=== PATIENT | female | born 1940 | race Caucasian/White ===

== ENCOUNTER 2020-09-04 13:50 | Emergency (ER) | payer MEDICARE, BC, SELFPAY ==
[2020-09-04 13:55] VITALS: BP 132/67; PULSE 73; RESP 18; TEMP 37; O2SAT 98; BMI 29.2
--- NOTE | 2020-09-04 14:12 | CT_ITS ---
EXAMINATION: CT SOFT TISSUE NECK WITHOUT CONTRAST CLINICAL INFORMATION: Coarse voice atrophy and old COMPARISON: Chest CT performed the same day TECHNIQUE: Helical imaging was performed in the axial plane with generation of coronal and sagittal reformatted images. This CT examination was performed using dose optimization techniques as appropriate, variously including the following: *Automated exposure control *Adjustment of mA and/or kV according to patient size (this includes techniques or standardized protocols for targeted exams where dose is matched to indication/reason for exam; i.e. extremities or head) *Use of iterative reconstruction technique DLP: 396 mGy-cm FINDINGS: There is abnormal wall thickening of the cervical and visualized proximal thoracic esophagus. There is abnormal soft tissue seen in the tracheoesophageal groove. There are small superior mediastinal lymph nodes. No foreign body or abnormal air collection is seen. The larynx is normal. The epiglottis and aryepiglottic folds are normal. The naso and oropharynx are normal. There is shotty cervical lymphadenopathy. There is bilateral carotid calcification. The salivary glands are unremarkable. The thyroid gland is unremarkable. The visualized paranasal sinuses, mastoid air cells and middle ears are clear. There is multilevel level degenerative spondylosis and degenerative disc disease. IMPRESSION: Wall thickening of the cervical and visualized proximal thoracic esophagus with abnormal soft tissue in the tracheoesophageal groove and small lymph nodes in the superior mediastinum. Esophagitis and neoplasm should be considered. No abnormal air collection or foreign body seen however esophageal perforation and possible mediastinitis should still be considered. Clinical correlation is recommended. Further evaluation with CT with IV and oral esophageal paste or barium swallow should be considered.
--- NOTE | 2020-09-04 14:12 | ED.SOB ---
HPI - SOB/Dyspnea General Chief Complaint: Skin/Abscess/Foreign Body Stated Complaint: f b in throat Time Seen by Provider: 09/04/20 14:12 Source: patient Mode of arrival: ambulatory Limitations: no limitations History of Present Illness MD elicited complaint: shortness of breath and cough Pertinent past history: aspiration Onset (ago): unknown (930AM today) Context: choking/aspiration (took a handful of large vitamins and felt they got stuck) Timing: constant Severity: moderate Exacerbating factors: nothing Relieving factors: nothing Associated symptoms: cough Treatment prior to arrival: none Related Data Allergies Allergy/AdvReac Type Severity Reaction Status Date / Time Sulfa (Sulfonamide Allergy Severe HIVES Verified 09/04/20 13:55 Antibiotics) [SULFA(SULFONAMIDE ANTIBIOTICS)] sulfur Allergy Unknown Unknown Verified 09/04/20 13:55 Review of Systems Review of Systems: Constitutional : No Fever, No Chills ENT/Mouth : No sore throat, No Rhinorrhea, No Swallowing Difficulty, hoarse voice Eyes: No Eye Pain, No Swelling, No Redness Cardiovascular : No Chest Pain, positive SOB, No Orthopnea, no Edema Respiratory : No Cough, No Sputum, intermittent Wheezing, positive dyspnea Gastrointestinal : No Nausea, No Vomiting, No Diarrhea, No abdominal Pain, No Hematochezia, No Melena Genitourinary : No Dysuria, No Urinary Frequency, No Hematuria Musculoskeletal : No joint pain, No Myalgias Skin : No Skin Lesions, No rash Neuro : No Weakness, No Numbness, No Dizziness, No Headache Psych : No Anxiety/Panic, No Depression Heme/Lymph: No Bruising, No Lymphadenopathy All other systems reviewed and are negative [facility] Past Medical History Medical History Anemia Diverticulitis FH: cholecystectomy HTN (hypertension) Restless leg Surgical History History of bunionectomy Social History Social History (Updated 09/04/20 @ 14:33 by Dena Motta DO) Alcohol intake: never Smoking Status: Never smoker Use of substances other than those prescribed or required for medical reasons: No Advance Directives: No Advance Directives Information Provided: No Physical Exam Vital Signs: Vital Signs: Vital Signs Temp Pulse Resp BP Pulse Ox 09/04/20 15:37 98.1 F 66 18 138/61 98 09/04/20 13:55 98.6 F 73 18 132/67 98 Body Mass Index 29.2 Appearance: Alert. Oriented X3. No acute distress. Eyes: Pupils equal, round and reactive to light. ENT: Pharynx normal. hoarse voice Neck: Normal inspection. Neck supple. CVS: Normal heart rate and rhythm. Pulses normal. Respiratory: No respiratory distress. Breath sounds normal. Abdomen: Soft and nontender. Skin: Skin warm and dry. Normal skin color. Normal skin turgor. Extremities: No lower extremity edema. No calf ttp Neuro: Oriented X 3. No motor deficit. No sensory deficit. Course Course Course Narrative: 506pm call from Dr. Chaves - aware of plan in ED, agrees with plan of care possible study tomorrow. start on zosyn , plan to see in AM Reevaluation(s) Reevaluation #1: call from [facility] - cervical esophagus and thoracic esophagus is abnormal and fat is abnormal no FB or abnormal air collection, ?esophagitis or tumor, ?perforation not sure vs mediastinitis, discuss with thoracic surgery - CT of chest with IV contrast and possible oral esophageal paste vs barium swallow. Time: 16:03 Reevaluation #2: thoracic surgery aware will call back with results Time: 16:49 Reevaluation #3: patient discussed with Isidro Rojas from thoracics who recommend swallow study, HOLD antibiotics, GI consult - aware we cannot obtain barium study and are attempting CT scan with oral contrast, hospitalist aware, signed out to Dr. Araujo pending imagined and GI call back MDM - SOB/Dyspnea MDM Narrative Medical decision making narrative: 80 yo female with hoarse voice and feels short of breath since taking a handful of vitamins at 930AM and feeling they are stuck at this time, she feels they are melting she has normal O2 sats but she is hoarse, CT chest for aspiration/ CT neck for FB ordered, IV dexamethasone for swelling ordered Lab Data Result diagrams: 09/04/20 14:22 09/04/20 14:22 Labs: Lab Results 09/04/20 09/04/20 09/04/20 Range/Units 14:22 14:22 14:22 WBC 8.5 (4.8-10.8) X10*3/uL RBC 4.17 L (4.20-5.50) X10*6/uL Hgb 13.6 (12.0-16.0) g/dl Hct 40.1 (37-47) % MCV 96.2 (80-98) fL MCH 32.6 (27.0-33.0) pg MCHC 33.9 (31.0-35.0) g/dl RDW 12.0 (11.0-16.0) % Plt Count 203 (160-400) X10*3/uL MPV 9.2 L (9.4-12.3) fL Immature Gran % (Auto) 0.6 H (0.0-0.4) % Neut % (Auto) 43.8 L (45-73) % Lymph % (Auto) 44.1 H (20-40) % [place] % (Auto) 6.8 (2-11) % Eos % (Auto) 2.9 (0-4) % Baso % (Auto) 1.8 (0-2) % Lymph # (Auto) 3.7 (1.2-4.9) X10*3/uL [place] # (Auto) 0.6 (0.1-1.2) X10*3/uL Eos # (Auto) 0.3 (0.0-0.4) X10*3/uL Baso # (Auto) 0.2 (0.0-0.2) X10*3/uL Abs Immat Gran (auto) 0.05 H (0.00-0.03) X10*3/uL Absolute Neuts (auto) 3.7 (2.0-8.3) X10*3/uL Absolute Nucleated RBC 0.000 (0.0-0.012) X10*3/uL Nucleated RBC % (auto) 0.0 (0.0-0.2) /100WBC PT 10.8 (10.8-13.0) SEC INR 0.9 (0.9-1.1) APTT 30.0 (24.1-38.0) SEC Sodium 140 (135-145) mmol/L Potassium 4.7 (3.3-5.1) mmol/l Chloride 107 (96-108) mmol/L Carbon Dioxide 24 (22-29) mmol/L Anion Gap 14 (12-20) BUN 21 H (9-16) mg/dL Creatinine 1.26 (0.5-1.4) mg/dL Estim Creat Clear Calc 36.4 Estimated GFR 41 Random Glucose 119 H (60-115) mg/dL Calcium 9.3 (8.4-10.2) mg/dL ECG Data ECG interpretation date: 09/04/20 ECG interpretation time: 14:31 Interpretation: Rate: 71 Rhythm: NSR [place]: normal Normal P waves. Normal MARLENE. Normal QRS complex. ST T wave : normal qTC: normal prior studies: none, no acute ischemia The study has been interpreted contemporaneously by me. . Discharge Plan Discharge Clinical Impression: Hoarse
--- NOTE | 2020-09-04 14:14 | ECG_ITS ---
Test Reason : SOB Blood Pressure : / mmHG Vent. Rate : 071 BPM Atrial Rate : 071 BPM P-R Int : 136 ms QRS Dur : 070 ms QT Int : 386 ms P-R-T Axes : 034 030 050 degrees QTc Int : 419 ms Normal sinus rhythm Normal ECG When compared with ECG of 08-JAN-2020 11:32, No significant change was found Referred By: Dena Motta Electronically Signed By:AMALIA CROCKETT MD
--- NOTE | 2020-09-04 14:14 | CT_ITS ---
EXAMINATION: CT CHEST WITHOUT CONTRAST CLINICAL INFORMATION: Dysphagia. Coarse voice after taking pills. COMPARISON: Previous chest x-ray December 2019 TECHNIQUE: Multidetector volumetric CT imaging of the chest was done. Axial MIP volume rendering provided. Sagittal and coronal reformatted images were obtained. This CT examination was performed using dose optimization techniques as appropriate, variously including the following: *Automated exposure control *Adjustment of mA and/or kV according to patient size (this includes techniques or standardized protocols for targeted exams where dose is matched to indication/reason for exam; i.e. extremities or head) *Use of iterative reconstruction technique DLP: 396 mGy-cm FINDINGS: LUNGS: The lungs are clear with no evidence of inflammation or nodules. MEDIASTINUM: There is abnormal wall thickening of the proximal thoracic and visualized cervical esophagus. There is infiltration of the adjacent fat. This extends into the aorto esophageal groove region and adjacent to the right mainstem bronchus. There are small mediastinal lymph nodes. No abnormal air collection is seen. No foreign body is seen. The mid and distal thoracic esophagus is unremarkable. The heart is upper normal in size. There is mild coronary artery calcification. There is no pericardial effusion. PLEURA: There is no pleural effusion. No pleural mass or thickening. AXILLA: No lymphadenopathy. UPPER ABDOMEN: The liver is low in attenuation suggestive of fatty infiltration. OSSEOUS STRUCTURES: There are degenerative changes of the spine. IMPRESSION: Wall thickening of the visualized cervical and proximal thoracic esophagus. There is stranding of the surrounding fat in the mediastinum and small mediastinal lymph nodes. No foreign body or abnormal air collection is seen. Appearance is concerning for possible esophagitis or neoplasm. Despite no abnormal air collection or foreign body, possible esophageal perforation and mediastinitis should also be considered. Follow-up either repeat CT with IV contrast and oral esophageal paste or barium swallow should be considered. Coronary artery calcification. Fatty liver. Findings were communicated to Dr. Motta by telephone on 09/04/2020 at 1605 p.m.
[2020-09-04 14:27] LABS: MANUAL DIFF FLAG NO
[2020-09-04 14:28] LABS: Basophils Absolute Auto 0.2 X10*3/uL (0.0-0.2); Basophils Percent Auto 1.8 % (0-2); Eosinophils Absolute Auto 0.3 X10*3/uL (0.0-0.4); Eosinophils Percent Auto 2.9 % (0-4); Hematocrit 40.1 % (37-47); Hemoglobin 13.6 g/dl (12.0-16.0); Imm Gran Abs Auto 0.05 X10*3/uL (0.00-0.03); Imm Gran Pct Auto 0.6 % (0.0-0.4); Lymphocytes Absolute Auto 3.7 X10*3/uL (1.2-4.9); Lymphocytes Percent Auto 44.1 % (20-40); Mean Corpuscular HGB Conc 33.9 g/dl (31.0-35.0); Mean Corpuscular Hemoglobin 32.6 pg (27.0-33.0); Mean Corpuscular Volume 96.2 fL (80-98); Mean Platelet Volume 9.2 fL (9.4-12.3); Monocytes Absolute Auto 0.6 X10*3/uL (0.1-1.2); Monocytes Percent Auto 6.8 % (2-11); Neutrophils Absolute Auto 3.7 X10*3/uL (2.0-8.3); Neutrophils Percent Auto 43.8 % (45-73); Platelet Count 203 X10*3/uL (160-400); Red Blood Count 4.17 X10*6/uL (4.20-5.50); White Blood Count 8.5 X10*3/uL (4.8-10.8)
[2020-09-04] MEDS: dexAMETHasone sod phosphate 4 MG/ML VIAL 8 MG IVPUSH (14:35)
[2020-09-04 14:46] LABS: INTERNATIONAL NORM RATIO 0.9 (0.9-1.1); Prothrombin Time 10.8 SEC (10.8-13.0)
[2020-09-04 14:58] LABS: Anion Gap 14 (12-20); Blood Urea Nitrogen 21 mg/dL (9-16); Calcium 9.3 mg/dL (8.4-10.2); Carbon Dioxide 24 mmol/L (22-29); Chloride 107 mmol/L (96-108); Creatinine Clr Calc Pharmacy 36.4; Estimated Glomerular Filt Rate 41; Glucose Random 119 mg/dL (60-115); Potassium 4.7 mmol/l (3.3-5.1); Sodium 140 mmol/L (135-145)
[2020-09-04 15:37] VITALS: BP 138/61; PULSE 66; RESP 18; TEMP 36.7; O2SAT 98
--- NOTE | 2020-09-04 16:52 | CT_ITS ---
EXAMINATION: CT SOFT TISSUE NECK WITH CONTRAST CLINICAL INFORMATION: Concern for perforation. COMPARISON: CT chest 09/04/2020 TECHNIQUE: Water-soluble contrast, Gastrografin mixed with water, was administered orally. Following the intravenous administration of 60 mL of Omnipaque 350 intravenous contrast, helical imaging was performed in the axial plane with generation of coronal and sagittal reformatted images. This CT examination was performed using dose optimization techniques as appropriate, variously including the following: *Automated exposure control *Adjustment of mA and/or kV according to patient size (this includes techniques or standardized protocols for targeted exams where dose is matched to indication/reason for exam; i.e. extremities or head) *Use of iterative reconstruction technique DLP: 585 mGy-cm FINDINGS: Again noted is the mild thickening of the esophageal wall of the proximal cervical esophagus the superior mediastinum. There is no extravasation of contrast. There is no air in the mediastinum. There is no fluid collection or abscess. No prevertebral soft tissue swelling. No cervical adenopathy is identified. The parotid glands are homogeneous in attenuation. The submandibular glands are normal. No contour abnormality or pathologic enhancement is seen within the oral cavity or pharyngeal mucosal space. The laryngeal structures are normal. The parapharyngeal fat is preserved. The thyroid gland is normal. The superior mediastinum is unremarkable. The lung apices are clear. The mastoid air cells and visualized portions of the paranasal sinuses are well-aerated. The temporomandibular joints are normal. There is moderate degenerative spondylosis of the cervical spine with disc height narrowing and vertebral endplate spurring and facet joint arthrosis. The imaged portions of the brain parenchyma are unremarkable. IMPRESSION: Redemonstration of thickening of the wall of the proximal thoracic and the cervical esophagus. No evidence of perforation or abscess. No free air in the mediastinum.
[2020-09-04] MEDS: iohexoL 350 MG/ML 100 ML INFUS..BTL IV (17:30)
[2020-09-04] MEDS: Diatrizoate Meglumine, Sodium 120 ML SOLUTION PO (17:31)
[2020-09-04 17:33] LABS: Lactic Acid 0.6 mmol/L (0.5-2.0)
[2020-09-04] MEDS: Pantoprazole Sodium 40 MG/10 ML VIAL IVPUSH (18:37)
[2020-09-04] MEDS: Magnesium Hydrox/Alum Hydrox 30 ML ORAL.SUSP PO (18:37)
[2020-09-04 19:18] VITALS: BP 132/74; PULSE 87; RESP 20; TEMP 36.7; O2SAT 97
== END 2020-09-04 19:26 | disposition home or self-care (01) ==
PROVIDERS: Emergency Provider Emergency Medicine
DX: R49.0 Dysphonia (principal); I10 Essential (primary) hypertension; Z79.899 Other long term (current) drug therapy
CPT/HCPCS: 36415; 70490; 70491; 70492; 71250; 80048; 83605; 85025; 85610; 85730; 87040; 93005; 96361; 96365; 96375; 99284

== ENCOUNTER 2020-11-20 00:04 | Emergency (ER) | payer MEDICARE, BC, SELFPAY ==
--- NOTE | 2020-11-20 01:00 | ECG_ITS ---
Test Reason : ABD.PAIN Blood Pressure : / mmHG Vent. Rate : 077 BPM Atrial Rate : 077 BPM P-R Int : 122 ms QRS Dur : 070 ms QT Int : 374 ms P-R-T Axes : 021 032 043 degrees QTc Int : 423 ms Normal sinus rhythm Normal ECG When compared with ECG of 04-SEP-2020 14:17, No significant change was found Referred By: Shayla Martinez Electronically Signed By:RAGINI ANDUJAR
--- NOTE | 2020-11-20 01:01 | ED_ITS ---
HPI - Abdominal Pain General Chief Complaint: Abdominal Pain Stated Complaint: ABD PAIN Time Seen by Provider: 11/20/20 00:14 Source: patient Mode of arrival: ambulatory History of Present Illness HPI narrative: This is a 80-year-old female presents with 2-3 days of worsening lower abdominal discomfort not associated with any fevers, chills, nausea, vomiting but states she is having some suprapubic discomfort as well that makes urination more difficult. She states that this feels very similar to prior episodes that she has had with diverticulitis. Otherwise only significant abdominal surgery is cholecystectomy. Patient denies any diarrhea, shortness of breath, chest pain/palpitations. Related Data Previous Rx's Medication Instructions Recorded alum-mag hydroxide-simeth [Maalox 10 ml PO TID PRN #300 ml 09/04/20 Maximum Strength] pantoprazole [Protonix] 40 mg PO DAILY #20 tab 09/04/20 ciprofloxacin HCl [Cipro] 500 mg PO Q12H 10 Days #20 tab 11/20/20 metronidazole [Flagyl] 500 mg PO Q8H 10 Days #30 tab 11/20/20 Allergies Allergy/AdvReac Type Severity Reaction Status Date / Time Sulfa (Sulfonamide Allergy Severe HIVES Verified 09/04/20 13:55 Antibiotics) [SULFA(SULFONAMIDE ANTIBIOTICS)] sulfur Allergy Unknown Unknown Verified 09/04/20 13:55 Review of Systems Review of Systems Pertinent positives and negatives as in HPI 10 point review of systems is otherwise negative. Physical Exam Vital Signs: Vital Signs: Last Vital Signs Temp 99.1 F 11/20/20 02:00 Pulse 80 11/20/20 02:00 Resp 16 11/20/20 02:00 BP 133/58 L 11/20/20 02:00 Pulse Ox 97 11/20/20 02:00 Body Mass Index 30.9 VITAL SIGNS: Reviewed. GENERAL: Well developed, well nourished, in no acute distress. HEAD: Normocephalic/atraumatic, EYES: PERRLA, EOMI intact without pain NOSE: Nares patent bilateral OROPHARYNX: no oral lesions noted NECK: Supple, no adenopathy LUNGS: Normal breath sounds. No adventitious sounds or accessory muscle use. SpO2<95> CARDIOVASCULAR: Regular rate and rhythm without noted murmurs, no JVD or lower extremity edema. ABDOMEN: Obese, Soft, mild diffuse tenderness maximal at the left lower quadrant and extending across the suprapubic area, non-distended with bowel sounds. No rigidity. No guarding. No palpable masses or hernias noted NEUROLOGIC: Alert and oriented x 4. Course Course Course Narrative: This is a 80-year-old female with history and clinical presentation most consistent with recurrent diverticulitis and doubt UTI, renal colic, SBO at this time. -labs, EKG, UA, antibiotics Review of all investigations is significant for leukocytosis and in combination with clinical exam and and history with CT findings diverticulitis patient will be discharged to home with appropriate course of antibiotics. Patient received initial antibiotics here in the emergency department and is currently tolerating p.o.. All results and findings were discussed with the patient at bedside. MDM - Abdominal Pain Lab Data Result diagrams: 11/20/20 01:27 11/20/20 01:27 Labs: Lab Results 11/20/20 11/20/20 11/20/20 Range/Units 01:27 01:27 01:27 WBC 14.5 H (4.8-10.8) X10*3/uL RBC 4.03 L (4.20-5.50) X10*6/uL Hgb 13.2 (12.0-16.0) g/dl Hct 38.6 (37-47) % MCV 95.8 (80-98) fL MCH 32.8 (27.0-33.0) pg MCHC 34.2 (31.0-35.0) g/dl RDW 11.9 (11.0-16.0) % Plt Count 189 (160-400) X10*3/uL MPV 9.5 (9.4-12.3) fL Immature Gran % (Auto) 0.6 H (0.0-0.4) % Neut % (Auto) 71.9 (45-73) % Lymph % (Auto) 16.8 L (20-40) % [place] % (Auto) 9.1 (2-11) % Eos % (Auto) 1.0 (0-4) % Baso % (Auto) 0.6 (0-2) % Lymph # (Auto) 2.4 (1.2-4.9) X10*3/uL [place] # (Auto) 1.3 H (0.1-1.2) X10*3/uL Eos # (Auto) 0.1 (0.0-0.4) X10*3/uL Baso # (Auto) 0.1 (0.0-0.2) X10*3/uL Abs Immat Gran (auto) 0.08 H (0.00-0.03) X10*3/uL Absolute Neuts (auto) 10.4 H (2.0-8.3) X10*3/uL Absolute Nucleated RBC 0.000 (0.0-0.012) X10*3/uL Nucleated RBC % (auto) 0.0 (0.0-0.2) /100WBC Sodium 137 (135-145) mmol/L Potassium 4.6 (3.3-5.1) mmol/l Chloride 105 (96-108) mmol/L Carbon Dioxide 23 (22-29) mmol/L Anion Gap 14 (12-20) BUN 14 (9-16) mg/dL Creatinine 1.16 (0.5-1.4) mg/dL Estim Creat Clear Calc 40.6 Estimated GFR 45 Random Glucose 129 H (60-115) mg/dL Calcium 8.8 (8.4-10.2) mg/dL Total Bilirubin 0.9 (0.0-1.0) mg/dL AST 27 (5-31) U/L ALT 24 (0-31) U/L Alkaline Phosphatase 55 (39-117) U/L Total Protein 6.7 (6.5-8.0) g/dL Albumin 3.9 (3.5-5.0) g/dL Lipase 24 (8-78) U/L ECG Data Attestation: I personally reviewed and interpreted this ECG as follows: Prior ECG tracings: available for review (09/04/2020 no acute changes in comp arison) Interpretation: Sinus rhythm, HR-77, no evidence of acute ischemia, [place]/QRS/QTC are within normal limits. Discharge Plan Discharge Clinical Impression: Diverticulitis Patient Disposition: Home, Self-Care Instructions: Diverticulitis (ED), Diverticulitis Diet (ED) Additional Instructions: 1. Please resume all home medications as prescribed. 2. Please follow-up with your primary care provider and discuss referral to Gastroenterology approximately 6 weeks after being treated for your diverticulitis for further evaluation and possible colonoscopy at that time. 3. Please do not hesitate to return to the emergency department should you develop worsening abdominal pain or fevers that are not responding to [id number] Tylenol/ibuprofen. In addition, please return emergency department if you develop nausea and vomiting. Prescriptions: New ciprofloxacin HCl [Cipro] 500 mg tablet 500 mg PO Q12H 10 Days Qty: 20 RF: 0 metronidazole [Flagyl] 500 mg tablet 500 mg PO Q8H 10 Days Qty: 30 RF: 0 No Action pantoprazole [Protonix] 40 mg tablet,delayed release (DR/EC) 40 mg PO DAILY Qty: 20 RF: 0 alum-mag hydroxide-simeth [Maalox Maximum Strength] 400-400-40 mg/5 mL braga spension 10 ml PO TID PRN (Reason: indigestion) Qty: 300 RF: 0 Referrals: Physician,Unknown [Primary Care Provider] - 2 days (Re-evaluation after diagnosis diverticulitis.) [facility] Past Medical History Source: nursing notes reviewed Medical History Anemia Diverticulitis FH: cholecystectomy HTN (hypertension) Restless leg Surgical History History of bunionectomy Social History Social History Alcohol intake: current Alcohol intake frequency: holidays/special occasions only Smoking Status: Never smoker Smoked in Last 30 Days: No Use of substances other than those prescribed or required for medical reasons: No Advance Directives: No
[2020-11-20 01:04] VITALS: BP 118/62; PULSE 79; RESP 16; TEMP 37.9; O2SAT 95; BMI 30.9
[2020-11-20 01:32] LABS: Basophils Absolute Auto 0.1 X10*3/uL (0.0-0.2); Basophils Percent Auto 0.6 % (0-2); Eosinophils Absolute Auto 0.1 X10*3/uL (0.0-0.4); Hematocrit 38.6 % (37-47); Hemoglobin 13.2 g/dl (12.0-16.0); Imm Gran Abs Auto 0.08 X10*3/uL (0.00-0.03); Imm Gran Pct Auto 0.6 % (0.0-0.4); Lymphocytes Absolute Auto 2.4 X10*3/uL (1.2-4.9); Lymphocytes Percent Auto 16.8 % (20-40); MANUAL DIFF FLAG NO; Mean Corpuscular HGB Conc 34.2 g/dl (31.0-35.0); Mean Corpuscular Hemoglobin 32.8 pg (27.0-33.0); Mean Corpuscular Volume 95.8 fL (80-98); Mean Platelet Volume 9.5 fL (9.4-12.3); Monocytes Absolute Auto 1.3 X10*3/uL (0.1-1.2); Monocytes Percent Auto 9.1 % (2-11); Neutrophils Absolute Auto 10.4 X10*3/uL (2.0-8.3); Neutrophils Percent Auto 71.9 % (45-73); Platelet Count 189 X10*3/uL (160-400); Red Blood Count 4.03 X10*6/uL (4.20-5.50); Red Cell Distribution Width 11.9 % (11.0-16.0); White Blood Count 14.5 X10*3/uL (4.8-10.8)
[2020-11-20 02:00] VITALS: BP 133/58; PULSE 80; RESP 16; TEMP 37.3; O2SAT 97
[2020-11-20 02:02] LABS: Lipase 24 U/L (8-78)
[2020-11-20 02:04] LABS: Alanine Aminotransferase 24 U/L (0-31); Albumin Level 3.9 g/dL (3.5-5.0); Alkaline Phosphatase 55 U/L (39-117); Anion Gap 14 (12-20); Aspartate Amino Transferase 27 U/L (5-31); Bilirubin Total 0.9 mg/dL (0.0-1.0); Blood Urea Nitrogen 14 mg/dL (9-16); Calcium 8.8 mg/dL (8.4-10.2); Carbon Dioxide 23 mmol/L (22-29); Chloride 105 mmol/L (96-108); Creatinine Clr Calc Pharmacy 40.6; Estimated Glomerular Filt Rate 45; Glucose Random 129 mg/dL (60-115); Potassium 4.6 mmol/l (3.3-5.1); Sodium 137 mmol/L (135-145); Total Protein 6.7 g/dL (6.5-8.0)
--- NOTE | 2020-11-20 02:20 | CT_ITS ---
EXAMINATION: CT ABDOMEN AND PELVIS WITH CONTRAST CLINICAL INFORMATION: Left lower quadrant pain. COMPARISON: 04/15/2018. TECHNIQUE: Contiguous axial thin section helical images of the abdomen and pelvis were performed following the administration of 85 mL of intravenous Omnipaque 350. The data set was reformatted in the coronal and sagittal planes and reviewed on an independent workstation. DLP: 720 mGy-cm. FINDINGS: The visualized lung bases are clear. The visualized portions of the heart are unremarkable. The liver is of normal size and mild diffuse decreased attenuation without focal lesions nor intrahepatic biliary ductal dilation. The gallbladder is not visualized. The spleen, pancreas, adrenal glands are unremarkable. Both kidneys are of normal size and attenuation without hydronephrosis or nephrolithiasis. Following the administration of IV contrast, prompt symmetric nephrograms are displayed. There is no abdominal free fluid. There is neither mesenteric nor retroperitoneal lymphadenopathy. There are sigmoid diverticula. There is wall thickening within the sigmoid colon with adjacent fat stranding. There are no fluid collections. Otherwise, unremarkable unopacified loops of small and large bowel are identified. There is no pelvic free fluid. The urinary bladder is unremarkable. There is neither pelvic nor inguinal lymphadenopathy. Bone windows: Neither sclerotic nor lytic bone lesions are identified. CT/CT abdomen pelvis w con IMPRESSION: Sigmoid diverticulitis without drainable fluid collections. Hepatic steatosis. Automated exposure control (Care Dose) Adjustment of the mA and/or kv according to patient size (this includes techniques or standardized protocols for targeted exams where dose is matched to indication / reason for exam; i.e. extremities or head).
[2020-11-20] MEDS: Piperacillin Sodium/Tazobactam 3.375 GM in 0.9 % Sodium Chloride 50 ML IV (02:58)
[2020-11-20] MEDS: iohexoL 350 MG/ML 100 ML INFUS..BTL 85 ML IV (02:59)
== END 2020-11-20 03:50 | disposition home or self-care (01) ==
PROVIDERS: Emergency Provider Student in an Organized Health Care Education/Training Program
DX: K57.32 Diverticulitis of large intestine without perforation or abscess without bleeding (principal); R10.13 Epigastric pain; Z79.899 Other long term (current) drug therapy
CPT/HCPCS: 36415; 74177; 80053; 83690; 85025; 93005; 96365; 99284; J2543; Q9967

== ENCOUNTER 2021-02-16 10:35 | Outpatient (REF) | payer MEDICARE, BC, SELFPAY ==
[2021-02-16 13:53] LABS: Glucose Urine UA NEG (NEG); Leukocyte Esterase Urine NEG (NEG); Nitrite Urine NEG (NEG); Specific Gravity - Urine 1.025 (1.005-1.025); Urine Blood NEG (NEG); Urine Ketones NEG (NEG); Urine Protein NEG (NEG-TRACE)
[2021-02-16 13:56] LABS: Appearance Urine CLEAR; Color Urine YELLOW
[2021-02-16 14:05] LABS: MANUAL DIFF FLAG NO
[2021-02-16 14:11] LABS: Mucus Urine 1+ /LPF; RBC Urine 0 /HPF (0); Renal Epithelial Cells Urine TRACE /LPF; Squamous Epithelial Cell Urine TRACE /LPF
[2021-02-16 14:13] LABS: Basophils Absolute Auto 0.2 X10*3/uL (0.0-0.2); Basophils Percent Auto 2.8 % (0-2); Eosinophils Absolute Auto 0.3 X10*3/uL (0.0-0.4); Eosinophils Percent Auto 4.4 % (0-4); Hematocrit 38.6 % (37-47); Hemoglobin 13.1 g/dl (12.0-16.0); Imm Gran Abs Auto 0.03 X10*3/uL (0.00-0.03); Imm Gran Pct Auto 0.5 % (0.0-0.4); Immature Retic Fraction 11.2 % (3.0-15.9); Lymphocytes Absolute Auto 2.6 X10*3/uL (1.2-4.9); Mean Corpuscular HGB Conc 33.9 g/dl (31.0-35.0); Mean Corpuscular Hemoglobin 32.4 pg (27.0-33.0); Mean Corpuscular Volume 95.5 fL (80-98); Mean Platelet Volume 10.1 fL (9.4-12.3); Monocytes Absolute Auto 0.5 X10*3/uL (0.1-1.2); Monocytes Percent Auto 7.3 % (2-11); Neutrophils Absolute Auto 2.7 X10*3/uL (2.0-8.3); Platelet Count 198 X10*3/uL (160-400); Red Blood Count 4.04 X10*6/uL (4.20-5.50); Red Cell Distribution Width 12.6 % (11.0-16.0); Reticulocyte Percent 1.2 % (0.5-1.8); Reticulocytes Absolute 0.047 X10*6/uL (0.026-0.095); White Blood Count 6.2 X10*3/uL (4.8-10.8)
[2021-02-16 14:16] LABS: Estimated Average Glucose 111 mg/dL; Hemoglobin A1C 120.7577 umol/L; Hemoglobin A1c % 5.5 %
[2021-02-16 14:56] LABS: Alanine Aminotransferase 42 U/L (0-31); Alkaline Phosphatase 50 U/L (39-117); Anion Gap 16 (12-20); Aspartate Amino Transferase 52 U/L (5-31); Bilirubin Total 0.6 mg/dL (0.0-1.0); Blood Urea Nitrogen 19 mg/dL (9-16); Calcium 9.4 mg/dL (8.4-10.2); Carbon Dioxide 24 mmol/L (22-29); Chloride 105 mmol/L (96-108); Cholesterol 130 mg/dL; Estimated Glomerular Filt Rate 40; Glucose Random 107 mg/dL (60-115); HDL Cholesterol 53 mg/dL; Iron 168 mcg/dL (30-160); LDL Cholesterol Calculated 61 mg/dl; Percent Iron Saturation 66 % (15-50); Potassium 4.8 mmol/L (3.3-5.1); Sodium 140 mmol/L (135-145); Total Iron Binding Capacity 253 mcg/dL (228-428); Triglycerides 82 mg/dL; Unsaturated Iron Binding 85 ug/dL
[2021-02-16 14:58] LABS: Ferritin 1151 ng/mL (10-250); Free T4 (Free Thyroxine) 0.86 ng/dL (0.71-1.85)
[2021-02-16 15:07] LABS: Folate > 20.0 ng/mL (> or = 4.0); Vitamin B12 1387 pg/mL (200-900)
== END 2021-02-16 10:36 | disposition home or self-care (01) ==
LOC: HO.10HDL 10:35
PROVIDERS: Visit Provider Internal Medicine
DX: E78.00 Pure hypercholesterolemia, unspecified (principal); I10 Essential (primary) hypertension
CPT/HCPCS: 36415; 80053; 80061; 81001; 82306; 82607; 82728; 82746; 83036; 83540; 84439; 84443; 85025; 85045

== ENCOUNTER 2021-03-14 11:18 | Inpatient (IN) | payer MEDICARE, BC, SELFPAY ==
[2021-03-14] VITALS (11 sets, daily range): BP systolic 102–150; BP diastolic 36–64; PULSE 60–72; RESP 16–20; TEMP 36.4–37.2; O2SAT 95–98; BMI 29.2
--- NOTE | ~2021-03-14 | CT_ITS ---
EXAMINATION: CT ABDOMEN AND PELVIS WITHOUT CONTRAST CLINICAL INFORMATION: Abdominal pain. Rule out complicated diverticulitis. COMPARISON: November 20, 2020 and April 15, 2018 TECHNIQUE: Multidetector volumetric imaging was performed from the superior aspect of the liver through the pubic symphysis. Sagittal and coronal reformatted images were obtained on the technologist's workstation. This CT examination was performed using dose optimization techniques as appropriate, variously including the following: *Automated exposure control *Adjustment of mA and/or kV according to patient size (this includes techniques or standardized protocols for targeted exams where dose is matched to indication/reason for exam; i.e. extremities or head) *Use of iterative reconstruction technique DLP: 715 mGy-cm FINDINGS: LUNG BASES: The visualized lung bases are unremarkable. No pleural or pericardial effusion. LIVER, GALLBLADDER, AND BILIARY TREE: There is fatty infiltration of the liver. Hepatomegaly is present with vertical span of 20 cm. No focal hepatic masses identified. No intrahepatic bile duct dilatation. The gallbladder is not identified. PANCREAS: Unremarkable. SPLEEN: Unremarkable. ADRENAL GLANDS: Unremarkable. KIDNEYS AND URETERS: The kidneys are normal in size, shape, and attenuation. No hydronephrosis, hydroureter, or calculi seen. There is mild bilateral perinephric stranding. BLADDER: Unremarkable. GASTROINTESTINAL TRACT: No dilated loops of large or small bowel. No free air or free fluid. There is diverticulosis of the sigmoid colon with some wall thickening and inflammatory streaking consistent with acute diverticulitis without drainable abscess collection. ABDOMINAL WALL: No significant hernia is appreciated. LYMPH NODES: No lymphadenopathy appreciated. VASCULAR: Unremarkable. PELVIC VISCERA: No suspicious pelvic masses identified. OSSEOUS STRUCTURES: No suspicious destructive bony lesions are identified. There is multilevel degenerative disc disease most prominent at the L2-L4 disc spaces. There are mild grade 1 spondylolisthesis at the L2-L3, L3-L4, and L4-L5. There is facet arthropathy present L2-S1. CT/CT abdomen pelvis wo con IMPRESSION: Acute sigmoid diverticulitis without drainable abscess. Hepatomegaly with fatty infiltration.
[2021-03-14 12:18] LABS: MANUAL DIFF FLAG NO
[2021-03-14 12:19] LABS: Basophils Absolute Auto 0.1 X10*3/uL (0.0-0.2); Basophils Percent Auto 0.9 % (0-2); Eosinophils Absolute Auto 0.2 X10*3/uL (0.0-0.4); Hematocrit 36.7 % (37-47); Hemoglobin 12.5 g/dl (12.0-16.0); Imm Gran Abs Auto 0.04 X10*3/uL (0.00-0.03); Imm Gran Pct Auto 0.5 % (0.0-0.4); Lymphocytes Absolute Auto 2.1 X10*3/uL (1.2-4.9); Lymphocytes Percent Auto 24.7 % (20-40); Mean Corpuscular HGB Conc 34.1 g/dl (31.0-35.0); Mean Corpuscular Hemoglobin 32.6 pg (27.0-33.0); Mean Corpuscular Volume 95.6 fL (80-98); Mean Platelet Volume 8.9 fL (9.4-12.3); Monocytes Absolute Auto 0.6 X10*3/uL (0.1-1.2); Monocytes Percent Auto 7.3 % (2-11); Neutrophils Absolute Auto 5.5 X10*3/uL (2.0-8.3); Neutrophils Percent Auto 64.6 % (45-73); Platelet Count 185 X10*3/uL (160-400); Red Blood Count 3.84 X10*6/uL (4.20-5.50); Red Cell Distribution Width 12.6 % (11.0-16.0); White Blood Count 8.5 X10*3/uL (4.8-10.8)
[2021-03-14 12:52] LABS: Anion Gap 16 (12-20); Blood Urea Nitrogen 19 mg/dL (9-16); Calcium 8.9 mg/dL (8.4-10.2); Carbon Dioxide 22 mmol/L (22-29); Chloride 105 mmol/L (96-108); Creatinine Clr Calc Pharmacy 29.8; Estimated Glomerular Filt Rate 32; Glucose Random 137 mg/dL (60-115); Potassium 3.9 mmol/L (3.3-5.1); Sodium 139 mmol/L (135-145)
--- NOTE | 2021-03-14 13:08 | ED_ITS ---
HPI - Abdominal Pain General Chief Complaint: Abdominal Pain Stated Complaint: abd pain Time Seen by Provider: 03/14/21 13:04 Source: patient and family (Significant other's) Mode of arrival: ambulatory Limitations: no limitations History of Present Illness HPI narrative: 80-year-old female came in for evaluation of lower abdominal pain for 3 days. Because patient is known to have history of diverticulitis patient was prescribed Cipro/Flagyl as an outpatient therapy for diverticulitis and was asked if symptoms is not improving to come to the emergency department, patient used antibiotic for the last 3 days with no improvement. Pain is localized in the lower abdomen bilaterally, no radiation, pain is described as colicky pain, pain is associated with bright red blood per rectum patient stated that is improved now, also associated with nausea. Nothing makes the pain worse or better, patient had similar pain in the past when she had diverticulitis. Related Data Home Medications Medication Instructions Recorded Confirmed aspirin 81 mg tablet,delayed 81 mg PO DAILY 02/02/21 02/02/21 release atenolol 25 mg tablet 25 mg PO QPM tab 02/02/21 02/02/21 atenolol 50 mg tablet 50 mg PO DAILY 02/02/21 02/02/21 calcium carbonate 500 mg calcium 500 mg PO DAILY 02/02/21 02/02/21 (1,250 mg) capsule cholecalciferol (vitamin D3) 10 10 mcg PO DAILY 02/02/21 02/02/21 mcg (400 unit) capsule cranberry extract 200 mg capsule 200 mg PO DAILY 02/02/21 02/02/21 cyanocobalamin (vitamin B-12) 1,000 mcg PO DAILY 02/02/21 02/02/21 1,000 mcg capsule dicyclomine 10 mg capsule 10 mg PO BID 02/02/21 02/02/21 ginkgo biloba 40 mg tablet 60 mg PO DAILY tab 02/02/21 02/02/21 lactobacillus combination no.8 3 3,000 mmu cells PO DAILY 02/02/21 02/02/21 billion cell capsule xcssbviu-zsx-nqxtz acid 0.4 1 tab PO DAILY 02/02/21 02/02/21 mg-lycopene 300 mcg-lutein 250 mcg tablet omega-3 fatty acids 1,000 mg 1,000 mg PO DAILY 03/12/21 03/12/21 capsule zinc acetate 50 mg (zinc) capsule 50 mg PO DAILY 02/02/21 02/02/21 Previous Rx's Medication Instructions Recorded amitriptyline 75 mg tablet 75 mg PO BEDTIME #90 tab 01/18/21 ferrous sulfate 325 mg (65 mg 325 mg PO DAILY #90 tab 02/02/21 iron) tablet lisinopril 10 mg tablet 10 mg PO BID 90 Days #180 tab 02/20/21 ciprofloxacin HCl 500 mg tablet 500 mg PO Q12H 10 Days #20 tab 03/12/21 metronidazole 500 mg tablet 500 mg PO BID 10 Days #20 tab 03/12/21 Allergies Allergy/AdvReac Type Severity Reaction Status Date / Time Sulfa (Sulfonamide Allergy Severe HIVES Verified 09/04/20 13:55 Antibiotics) [SULFA(SULFONAMIDE ANTIBIOTICS)] sulfur Allergy Unknown Unknown Verified 09/04/20 13:55 Review of Systems Review of Systems All other systems are reviewed and are negative Constitutional: Reports as per HPI and Reports no additional constitutional complaints Eyes: Reports as per HPI and Reports no additional eye complaints Reports system reviewed and no additional complaints, except as documented Cardiovascular: Reports as per HPI and Reports no additional cardiovascular complaints Respiratory: Reports as per HPI and Reports no additional respiratory complaints Gastrointestinal: Reports as per HPI and Reports no additional gastrointestinal complaints Genitourinary: Reports no additional female genitourinary complaints Musculoskeletal: Reports no additional musculoskeletal complaints Skin/Breast: Reports system reviewed and no additional complaints, except as docu Psychiatric: Reports no additional psychiatric complaints Endocrine: Reports no additional endocrine complaints Hematologic/Lymphatic: Reports no additional hematologic/lymphatic complaints Allergic/Immunologic: Reports no additional allergic/immunologic complaints Reports system reviewed and no additional complaints, except as documented and Reports Abnormal speech present Physical Exam Vital Signs: Vital Signs: Last Vital Signs Temp 99.0 F 03/14/21 14:31 Pulse 64 03/14/21 14:31 Resp 17 03/14/21 14:31 BP 150/50 H 03/14/21 14:31 Pulse Ox 98 03/14/21 14:31 Body Mass Index 29.2 Vital signs have been reviewed as appeared to be correct. Blood pressure normal. Heart rate normal. Respiration rate normal. Temperature normal. Oxygen saturation normal. Appearance: Alert. Oriented X3. No acute distress. Head: Normal external exam. Normocephalic. Atraumatic. No [place] signs noted. No raccoon eyes noted Eyes: PERRLA. EOMI. Conjunctiva and sclera normal. Eyelids normal. ENT: TM's Normal. Pharynx normal. Uvula midline. Moist mucous membranes. No trismus noted. No drooling noted. No muffled voice noted. Neck: Normal inspection. Neck supple. FROM. No adenopathy. Thyroid Normal. No meningeal signs. No neck mass noted. CVS: Normal heart rate and rhythm. Heart sound normal. No murmurs noted. Pulses normal throughout. Respiratory: No respiratory distress. Painless inspiration. Breath sounds normal. No wheezes/rales/rhonchi noted. Chest nontender. No accessory muscle usage noted or decreased air movement noted. Abdomen: Soft, lower abdominal tenderness, no guarding, no rebound tenderness. Bowel sounds normal in all 4 quadrants. No distention noted. No organomegaly noted. No visible injury noted. Rectal: Brown stool with no blood. Back: No CVA tenderness. Full range of motion noted. Skin: Skin warm and dry. Normal skin color. Normal skin turgor. No rashes/lesions/lacerations noted. Extremities: No lower extremity edema. Extremities exhibit normal range of motion. Extremities nontender. Neuro: Oriented X 3. No motor deficit. No sensory deficit. Reflexes normal. Course Course Course Narrative: Assessment and plan. 80-year-old female with history of diverticulitis in the past presented with acute diverticulitis that failed outpatient oral antibiotic course. Patient do not meet criteria for sepsis, CT abdomen pelvis confirmed diagnosis of sigmoid diverticulitis. Will start the patient on IV Zosyn and Flagyl. Admit for NPO/IV fluids and pain management. MDM - Abdominal Pain Lab Data Attestation: I reviewed the patient's lab results. Result diagrams: 03/14/21 12:11 03/14/21 12:11 Labs: Lab Results 03/14/21 03/14/21 03/14/21 Range/Units 12:11 12:11 13:35 WBC 8.5 (4.8-10.8) X10*3/uL RBC 3.84 L (4.20-5.50) X10*6/uL Hgb 12.5 (12.0-16.0) g/dl Hct 36.7 L (37-47) % MCV 95.6 (80-98) fL MCH 32.6 (27.0-33.0) pg MCHC 34.1 (31.0-35.0) g/dl RDW 12.6 (11.0-16.0) % Plt Count 185 (160-400) X10*3/uL MPV 8.9 L (9.4-12.3) fL Immature Gran % (Auto) 0.5 H (0.0-0.4) % Neut % (Auto) 64.6 (45-73) % Lymph % (Auto) 24.7 (20-40) % [place] % (Auto) 7.3 (2-11) % Eos % (Auto) 2.0 (0-4) % Baso % (Auto) 0.9 (0-2) % Lymph # (Auto) 2.1 (1.2-4.9) X10*3/uL [place] # (Auto) 0.6 (0.1-1.2) X10*3/uL Eos # (Auto) 0.2 (0.0-0.4) X10*3/uL Baso # (Auto) 0.1 (0.0-0.2) X10*3/uL Abs Immat Gran (auto) 0.04 H (0.00-0.03) X10*3/uL Absolute Neuts (auto) 5.5 (2.0-8.3) X10*3/uL Absolute Nucleated RBC 0.000 (0.0-0.012) X10*3/uL Nucleated RBC % (auto) 0.0 (0.0-0.2) /100WBC Sodium 139 (135-145) mmol/L Potassium 3.9 (3.3-5.1) mmol/L Chloride 105 (96-108) mmol/L Carbon Dioxide 22 (22-29) mmol/L Anion Gap 16 (12-20) BUN 19 H (9-16) mg/dL Creatinine 1.54 H (0.5-1.4) mg/dL Estim Creat Clear Calc 29.8 Estimated GFR 32 Random Glucose 137 H (60-115) mg/dL Lactic Acid 1.2 (0.5-2.0) mmol/L Calcium 8.9 (8.4-10.2) mg/dL Stool Occult Blood (NEGATIVE) 03/14/21 Range/Units 13:53 WBC (4.8-10.8) X10*3/uL RBC (4.20-5.50) X10*6/uL Hgb (12.0-16.0) g/dl Hct (37-47) % MCV (80-98) fL MCH (27.0-33.0) pg MCHC (31.0-35.0) g/dl RDW (11.0-16.0) % Plt Count (160-400) X10*3/uL MPV (9.4-12.3) fL Immature Gran % (Auto) (0.0-0.4) % Neut % (Auto) (45-73) % Lymph % (Auto) (20-40) % [place] % (Auto) (2-11) % Eos % (Auto) (0-4) % Baso % (Auto) (0-2) % Lymph # (Auto) (1.2-4.9) X10*3/uL [place] # (Auto) (0.1-1.2) X10*3/uL Eos # (Auto) (0.0-0.4) X10*3/uL Baso # (Auto) (0.0-0.2) X10*3/uL Abs Immat Gran (auto) (0.00-0.03) X10*3/uL Absolute Neuts (auto) (2.0-8.3) X10*3/uL Absolute Nucleated RBC (0.0-0.012) X10*3/uL Nucleated RBC % (auto) (0.0-0.2) /100WBC Sodium (135-145) mmol/L Potassium (3.3-5.1) mmol/L Chloride (96-108) mmol/L Carbon Dioxide (22-29) mmol/L Anion Gap (12-20) BUN (9-16) mg/dL Creatinine (0.5-1.4) mg/dL Estim Creat Clear Calc Estimated GFR Random Glucose (60-115) mg/dL Lactic Acid (0.5-2.0) mmol/L Calcium (8.4-10.2) mg/dL Stool Occult Blood NEGATIVE (NEGATIVE) Imaging Data CT scan - abdomen: Radiologist's impression: Acute sigmoid diverticulitis without drainable abscess. Hepatomegaly with fatty infiltration. Discharge Plan Discharge Clinical Impression: Diverticulitis Patient Disposition: Admitted as Observation [facility] Past Medical History Medical History Anemia Diverticulitis HTN (hypertension) Obesity (BMI 30-39.9) Restless leg Seizure Surgical History History of appendectomy History of bunionectomy Hx of cholecystectomy Spinal stenosis of lumbar region Social History Social History Alcohol intake: current Alcohol intake frequency: holidays/special occasions only Smoking Status: Former smoker Advance Directives: Yes Advance Directives Information Provided: No Advance Directives on File: No
[2021-03-14] MEDS: Morphine Sulfate 2 MG/ML CARTRIDGE IVPUSH ×2 (13:45→21:54)
[2021-03-14] MEDS: Piperacillin Sodium/Tazobactam 3.375 GM in 0.9 % Sodium Chloride 50 ML IV ×2 (13:47→21:10)
--- NOTE | 2021-03-14 14:02 | PC.NURSE ---
Labs obtained and plan of care explained to patient.
[2021-03-14 14:12] LABS: Lactic Acid 1.2 mmol/L (0.5-2.0)
[2021-03-14 14:20] LABS: OBS Int Ctl Valid YES; OBS1 NEGATIVE (NEGATIVE)
[2021-03-14] MEDS: metroNIDAZOLE/NS 500 MG/100 ML PIGGYBACK 100 MG IV (14:48)
--- NOTE | 2021-03-14 14:52 | PC.NURSE ---
Pt's pain is improving. ABX infusing.
[2021-03-14 16:06] LABS: COVID-19 Test Negative (Negative); IDNOW Serial# 9DD0AD1C
[2021-03-14] MEDS: 0.9 % Sodium Chloride 1,000 ML 999 ML IVCONT (17:19)
[2021-03-14] MEDS: HYDROmorphone HCl 0.5 MG/0.5 ML SYRINGE IVPUSH (17:21)
--- NOTE | 2021-03-14 17:22 | PC.NURSE ---
Pt's pain beginning to increase again. Dillauded given and IVF started.
--- NOTE | 2021-03-14 17:55 | P.HPHOSP_ITS ---
History of Present Illness Date of Service: 03/14/21 Chief Complaint: Abdominal pain. 80-year-old female with history of hypertension, history of diverticulosis/diverticulitis and that has required previous hospitalization. She presented emergency room because of abdominal pain that started about 3 days ago and similar to her previous diverticulitis she call her GI doctor and was prescribed Cipro and Flagyl over the phone and has been taking in but was advised that if if the pain was not improving to come to the emergency room. She reports that her pain has not been improving and therefore came to the [facility] room were further workup per with a CAT scan shows Acute sigmoid diverticulitis without drainable abscess. She has normal WBC. She has no fever now. She is given Zosyn in the emergency room and is being admitted. Of note routine lab show creatinine of 1.54 which is new finding of LYNDA Review of Systems Review of Systems: Gen: no fever Resp: no sob, no cough CV: no chest, no LUCAS, no leg edema GI: No n/v, +abd pain Neuro: No confusion [facility] Medical History Anemia Diverticulitis HTN (hypertension) Obesity (BMI 30-39.9) Restless leg Seizure Pertinent family history: diabetes Family history: reviewed and not pertinent Surgical History History of appendectomy History of bunionectomy Hx of cholecystectomy Spinal stenosis of lumbar region Social History Household Members: None Housing: House Do you presently have visiting nurse or other home services: No Alcohol intake: current Alcohol intake frequency: holidays/special occasions only Smoking Status: Former smoker Years Smoked: 5 Smoked in Last 30 Days: No Smoking Quit Date: 50 years ago Use of substances other than those prescribed or required for medical reasons: No Currently Displaying Signs/Symptoms of Drug Intoxication Withdrawal: No Have you been hit, kicked, punched, or otherwise hurt by someone within the past year? If so, by whom?: No Do you feel safe in your current relationship?: Yes Is there a partner from a previous relationship who is making you feel unsafe now?: No Are you made to feel afraid or neglected: No Spiritual Healthcare Practices: orthodox Advance Directives: Yes Advance Directives Information Provided: No Advance Directives on File: No Advance Directives Date on File: 03/14/21 Do you have thoughts of harming others: None Do you have a plan to hurt others: No Plan Recently lost weight without trying: No Meds Allergies Allergy/AdvReac Type Severity Reaction Status Date / Time Sulfa (Sulfonamide Allergy Severe HIVES Verified 09/04/20 13:55 Antibiotics) [SULFA(SULFONAMIDE ANTIBIOTICS)] sulfur Allergy Unknown Unknown Verified 09/04/20 13:55 Active Medications: Current Medications Generic Name Dose Route Start Last Admin Trade Name Freq PRN Reason Stop Dose Admin Sodium Chloride 1,000 mls @ 999 mls/hr 03/14/21 17:15 03/14/21 17:19 Ns IVCONT 03/14/21 18:15 999 mls/hr .[id number] BHUPINDER Administration Pharmacy Consult 1 each 03/14/21 14:35 Consult Rx Perform Med Rec MISCELLANE ONCE PRN Consult order Home Medications Medication Instructions Recorded Confirmed Last Taken Type aspirin 81 mg tablet,delayed 81 mg PO DAILY 02/02/21 03/14/21 03/14/21 History release 162 atenolol 25 mg tablet 25 mg PO QPM tab 02/02/21 03/14/21 03/13/21 History atenolol 50 mg tablet 50 mg PO DAILY 02/02/21 03/14/21 03/14/21 History calcium carbonate 500 mg calcium 500 mg PO DAILY 02/02/21 03/14/21 03/11/21 History (1,250 mg) capsule cholecalciferol (vitamin D3) 10 10 mcg PO DAILY 02/02/21 03/14/21 03/11/21 History mcg (400 unit) capsule cranberry extract 200 mg capsule 200 mg PO DAILY 02/02/21 03/14/21 03/11/21 History ginkgo biloba 40 mg tablet 60 mg PO DAILY tab 02/02/21 03/14/21 03/11/21 History lactobacillus combination no.8 3 3,000 mmu cells PO DAILY 02/02/21 03/14/21 03/11/21 History billion cell capsule zwlwadfu-vpz-vildt acid 0.4 1 tab PO DAILY 02/02/21 03/14/21 03/11/21 History mg-lycopene 300 mcg-lutein 250 mcg tablet omega-3 fatty acids 1,000 mg 1,000 mg PO DAILY 02/02/21 03/14/21 03/11/21 History capsule zinc acetate 50 mg (zinc) capsule 50 mg PO DAILY 02/02/21 03/14/21 03/11/21 History clonazepam 1 tab PO BEDTIME 03/14/21 03/14/21 03/13/21 History Physical Exam Vital Signs and Narrative: Vital Signs: Last Vital Signs Temp 98.5 F 03/14/21 16:18 Pulse 60 03/14/21 16:31 Resp 18 03/14/21 16:31 BP 119/59 L 03/14/21 16:31 Pulse Ox 98 03/14/21 16:18 Body Mass Index 29.2 Constitutional Awake and Alert, No apparent distress Neck Supple, No lymphadenopathy Cardiovascular RRR, No M/R/G, S1 S2, No S3 S4, No pedal edema Respiratory Lungs clear, No respiratory distress Gastrointestinal Non tender, Non-distended Skin No rash Neurological Alert & oriented x3 Psychological Appropriate affect Results Labs CBC and Chem 7: 03/14/21 12:11 03/15/21 05:31 Labs: Laboratory Results - last 24 hr 03/14/21 03/14/21 03/14/21 12:11 12:11 13:35 MCV 95.6 MCH 32.6 MCHC 34.1 RDW 12.6 Plt Count 185 MPV 8.9 L Immature Gran % (Auto) 0.5 H Neut % (Auto) 64.6 Lymph % (Auto) 24.7 [place] % (Auto) 7.3 Eos % (Auto) 2.0 Baso % (Auto) 0.9 Lymph # (Auto) 2.1 [place] # (Auto) 0.6 Eos # (Auto) 0.2 Baso # (Auto) 0.1 Abs Immat Gran (auto) 0.04 H Absolute Neuts (auto) 5.5 Absolute Nucleated RBC 0.000 Nucleated RBC % (auto) 0.0 Anion Gap 16 Estim Creat Clear Calc 29.8 Estimated GFR 32 Random Glucose 137 H Lactic Acid 1.2 Calcium 8.9 Stool Occult Blood COVID-19 (ADRIANNA) COVID-19 Clin Com 03/14/21 03/14/21 13:53 14:58 MCV MCH MCHC RDW Plt Count MPV Immature Gran % (Auto) Neut % (Auto) Lymph % (Auto) [place] % (Auto) Eos % (Auto) Baso % (Auto) Lymph # (Auto) [place] # (Auto) Eos # (Auto) Baso # (Auto) Abs Immat Gran (auto) Absolute Neuts (auto) Absolute Nucleated RBC Nucleated RBC % (auto) Anion Gap Estim Creat Clear Calc Estimated GFR Random Glucose Lactic Acid Calcium Stool Occult Blood NEGATIVE COVID-19 (ADRIANNA) Negative COVID-19 Clin Com See Note Imaging Radiologist's Impressions: Impressions Abdomen/Pelvis CT 03/14/21 13:04 IMPRESSION: Acute sigmoid diverticulitis without drainable abscess. Hepatomegaly with fatty infiltration. Assessment and Plan (1) Diverticulitis: Status: Acute (2) High blood sugar: Status: Acute (3) Obesity (BMI 30-39.9): Status: Acute (4) HTN (hypertension): Status: Acute (5) LYNDA (acute kidney injury): Status: Acute 80 year female with acute diverticulitis and LYNDA 1. Acute sigmoid diverticulitis without abscess. Poor response to outpatient antibiotic. -Zosyn until improved then switched to oral Augmentin for discharge. 2. LYNDA-likely pre renal azotemia and should improve with IV fluid. Will recheck in the morning. 3. Hypertension--blood pressure is controlled. 4. Elevated random glucose a repeat with fasting in the morning. Heparin for DVT prophylaxis Covid negative
--- NOTE | 2021-03-14 19:30 | PC.NURSE ---
RN to RN report given to AMAURI Carrillo. Preparing for admission to room 385.
[2021-03-14] MEDS: Heparin Sodium,Porcine 5,000 UNIT/ML VIAL 5000 UNIT SUBCUT (21:17)
[2021-03-14] MEDS: atenoloL 25 MG TABLET PO (21:25)
[2021-03-14] MEDS: clonazePAM 0.5 MG TABLET PO (21:25)
[2021-03-14] MEDS: Amitriptyline HCl 25 MG TABLET 75 MG PO (21:26)
[2021-03-14] MEDS: lisinopriL 10 MG TABLET PO (21:27)
[2021-03-14] MEDS: Dextrose 5 % and 0.45 % NaCl 1,000 ML 100 ML IVCONT (21:33)
[2021-03-14] MEDS: 0.9 % Sodium Chloride Flush 3 ML SYRINGE IVFLUSH (21:36)
[2021-03-14] MEDS: metroNIDAZOLE 500 MG TABLET PO (21:54)
[2021-03-15] VITALS (9 sets, daily range): BP systolic 100–140; BP diastolic 45–64; PULSE 55–85; RESP 16–18; TEMP 36.2–37; O2SAT 93–98
[2021-03-15] MEDS: Piperacillin Sodium/Tazobactam 3.375 GM in 0.9 % Sodium Chloride 50 ML IV ×4 (02:29→20:58)
[2021-03-15 06:32] LABS: Anion Gap 13 (12-20); Blood Urea Nitrogen 14 mg/dL (9-16); Calcium 7.8 mg/dL (8.4-10.2); Carbon Dioxide 21 mmol/L (22-29); Chloride 110 mmol/L (96-108); Creatinine Clr Calc Pharmacy 38.2; Estimated Glomerular Filt Rate 43; Glucose Random 118 mg/dL (60-115); Potassium 3.7 mmol/L (3.3-5.1); Sodium 140 mmol/L (135-145)
[2021-03-15] MEDS: Aspirin Enteric Coated 81 MG TABLET.DR PO (08:51)
[2021-03-15] MEDS: Cholecalciferol (Vitamin D3) 10 MCG TABLET PO (08:51)
[2021-03-15] MEDS: metroNIDAZOLE 500 MG TABLET PO ×2 (08:51→20:57)
[2021-03-15] MEDS: 0.9 % Sodium Chloride Flush 3 ML SYRINGE IVFLUSH ×2 (08:55→21:04)
--- NOTE | 2021-03-15 09:16 | P.DS_ITS ---
DS: Providers Provider Date of Service: 03/15/21 Date of admission: 03/14/21 18:07 Primary care physician: Osvaldo Gifford MD DS: Diagnosis Discharge Diagnosis (1) Diverticulitis: Status: Acute (2) High blood sugar: Status: Acute (3) Obesity (BMI 30-39.9): Status: Acute (4) HTN (hypertension): Status: Acute (5) LYNDA (acute kidney injury): Status: Acute DS: Medications Discharge Medications Home Medications: Home Medications Medication Instructions Recorded Confirmed aspirin 81 mg tablet,delayed 81 mg PO DAILY 02/02/21 03/14/21 release atenolol 25 mg tablet 25 mg PO QPM tab 02/02/21 03/14/21 atenolol 50 mg tablet 50 mg PO DAILY 02/02/21 03/14/21 calcium carbonate 500 mg calcium 500 mg PO DAILY 02/02/21 03/14/21 (1,250 mg) capsule cholecalciferol (vitamin D3) 10 10 mcg PO DAILY 02/02/21 03/14/21 mcg (400 unit) capsule cranberry extract 200 mg capsule 200 mg PO DAILY 02/02/21 03/14/21 ginkgo biloba 40 mg tablet 60 mg PO DAILY tab 02/02/21 03/14/21 lactobacillus combination no.8 3 3,000 mmu cells PO DAILY 02/02/21 03/14/21 billion cell capsule wgkijwvl-gma-znwvv acid 0.4 1 tab PO DAILY 02/02/21 03/14/21 mg-lycopene 300 mcg-lutein 250 mcg tablet omega-3 fatty acids 1,000 mg 1,000 mg PO DAILY 02/02/21 03/14/21 capsule zinc acetate 50 mg (zinc) capsule 50 mg PO DAILY 02/02/21 03/14/21 clonazepam 1 tab PO BEDTIME 03/14/21 03/14/21 Previous Rx's Medication Instructions Recorded amitriptyline 75 mg tablet 75 mg PO BEDTIME #90 tab 01/18/21 lisinopril 10 mg tablet 10 mg PO BID 90 Days #180 tab 02/20/21 ciprofloxacin HCl 500 mg tablet 500 mg PO Q12H 10 Days #20 tab 03/12/21 metronidazole 500 mg tablet 500 mg PO BID 10 Days #20 tab 03/12/21 DS: Summary Hospital Course Hospital Course: Date of admission: 03/14/21 Chief Complaint: Abdominal pain. 80-year-old female with history of hypertension, history of diverticulosis/diverticulitis and that has required previous hospitalization. She presented emergency room because of abdominal pain that started about 3 days ago and similar to her previous diverticulitis she call her GI doctor and was prescribed Cipro and Flagyl over the phone and has been taking in but was advised that if if the pain was not improving to come to the emergency room. She reports that her pain has not been improving and therefore came to the emergency room were further workup per with a CAT scan shows Acute sigmoid diverticulitis without drainable abscess. She has normal WBC. She has no fever now. She is given Zosyn in the emergency room and is being admitted. Of note routine lab show creatinine of 1.54 which is new finding of LYNDA Hospital course: Patient was admitted overnight and treated with IV Zosyn, IVF and feels better w ith minimal pain. Her WBC has been normal and has not have fever. She is tolerating regular diet and will transition to oral Augmentin for another 5 days and to finish course of Flagyl as previosly prescribed. Time Spent with Patient Time attestation: Total time spent providing and/or coordinating discharge services: Discharge coordination time: Greater than 30 minutes Physical Exam Vital Signs: Vital Signs: Last Vital Signs Temp 98.6 F 03/15/21 08:00 Pulse 61 03/15/21 08:00 Resp 16 03/15/21 08:00 BP 100/46 L 03/15/21 08:53 Pulse Ox 96 03/15/21 08:00 Body Mass Index 29.2 DS: Data Data Completed and Pending Labs on day of discharge: Laboratory Results - last 24 hr 03/14/21 03/14/21 03/14/21 12:11 12:11 13:35 WBC 8.5 RBC 3.84 L Hgb 12.5 Hct 36.7 L MCV 95.6 MCH 32.6 MCHC 34.1 RDW 12.6 Plt Count 185 MPV 8.9 L Immature Gran % (Auto) 0.5 H Neut % (Auto) 64.6 Lymph % (Auto) 24.7 Robertson % (Auto) 7.3 Eos % (Auto) 2.0 Baso % (Auto) 0.9 Lymph # (Auto) 2.1 Robertson # (Auto) 0.6 Eos # (Auto) 0.2 Baso # (Auto) 0.1 Abs Immat Gran (auto) 0.04 H Absolute Neuts (auto) 5.5 Absolute Nucleated RBC 0.000 Nucleated RBC % (auto) 0.0 Sodium 139 Potassium 3.9 Chloride 105 Carbon Dioxide 22 Anion Gap 16 BUN 19 H Creatinine 1.54 H Estim Creat Clear Calc 29.8 Estimated GFR 32 Random Glucose 137 H Lactic Acid 1.2 Calcium 8.9 Stool Occult Blood COVID-19 (ADRIANNA) COVID-19 [employer] Com 03/14/21 03/14/21 03/15/21 13:53 14:58 05:31 WBC RBC Hgb Hct MCV MCH MCHC RDW Plt Count MPV Immature Gran % (Auto) Neut % (Auto) Lymph % (Auto) Robertson % (Auto) Eos % (Auto) Baso % (Auto) Lymph # (Auto) Robertson # (Auto) Eos # (Auto) Baso # (Auto) Abs Immat Gran (auto) Absolute Neuts (auto) Absolute Nucleated RBC Nucleated RBC % (auto) Sodium 140 Potassium 3.7 Chloride 110 H Carbon Dioxide 21 L Anion Gap 13 BUN 14 Creatinine 1.20 Estim Creat Clear Calc 38.2 Estimated GFR 43 Random Glucose 118 H Lactic Acid Calcium 7.8 L D Stool Occult Blood NEGATIVE COVID-19 (ADRIANNA) Negative COVID-19 [employer] See Note Discharge Plan Discharge Anticipated Discharge Date/Time: 03/15/21 09:11 Patient Disposition: Home, Self-Care Discharge Diagnosis: Acute diverticulitis Referrals: Po,Osvaldo Omalley MD [Primary Care Provider] - 1 Week Discharge Medications: No Action amitriptyline 75 mg tablet 75 mg PO BEDTIME Qty: 90 RF: 1 lisinopril 10 mg tablet 10 mg PO BID 90 Days Qty: 180 RF: 1 ciprofloxacin HCl 500 mg tablet 500 mg PO Q12H 10 Days Qty: 20 RF: 0 metronidazole [Flagyl] 500 mg tablet 500 mg PO BID 10 Days Qty: 20 RF: 0 clonazepam 0.5 mg tablet 1 tab PO BEDTIME RF: 0 atenolol 50 mg tablet 50 mg PO DAILY RF: 0 atenolol 25 mg tablet 25 mg PO QPM RF: 0 aspirin [Adult Low Dose Aspirin] 81 mg tablet,delayed release (DR/EC) 81 mg PO DAILY RF: 0 cholecalciferol (vitamin D3) 10 mcg (400 unit) capsule 10 mcg PO DAILY RF: 0 Calci-Mix 500 mg calcium (1,250 mg) capsule 500 mg PO DAILY RF: 0 ginkgo biloba 40 mg tablet 60 mg PO DAILY RF: 0 omega-3 fatty acids [Fish Oil Concentrate] 1,000 mg capsule 1,000 mg PO DAILY RF: 0 Centrum Silver 0.4-300-250 mg-mcg-mcg tablet 1 tab PO DAILY RF: 0 cranberry extract 200 mg capsule 200 mg PO DAILY RF: 0 Galzin 50 mg (zinc) capsule 50 mg PO DAILY RF: 0 Adult Probiotic 3 billion cell capsule 3,000 mmu cells PO DAILY RF: 0 Stand Alone Forms: Patient Portal Discharge page
[2021-03-15 09:54] LABS: Estimated Average Glucose 103 mg/dL; Hemoglobin A1c % 5.2 %
[2021-03-15] MEDS: Heparin Sodium,Porcine 5,000 UNIT/ML VIAL 5000 UNIT SUBCUT ×2 (10:23→21:04)
[2021-03-15] MEDS: Dextrose 5 % and 0.45 % NaCl 1,000 ML 100 ML IVCONT ×2 (10:28→21:51)
--- NOTE | 2021-03-15 11:41 | P.PNIM_ITS ---
Subjective Subjective Date of Service: 03/15/21 Interval History: Seen/fu ro diverticulitis, feels better, pain is better. loose stool after food, Review of Systems Gen: no fever Resp: no sob, no cough CV: no chest, no LUCAS, no leg edema GI: No n/v, +abd pain Neuro: No confusion Physical Exam Vital Signs: Vital Signs: Last Vital Signs Temp 98.6 F 03/15/21 08:00 Pulse 61 03/15/21 08:00 Resp 16 03/15/21 08:00 BP 100/46 L 03/15/21 08:53 Pulse Ox 96 03/15/21 08:00 Body Mass Index 29.2 General: AO X 3, no acute distress Resp: CTA bilateral CVS: S1,S2,RRR GI: +BS, NT, no distention Skin: No rash Neuro: motor grossly intact Psych: appropriate affect Objective Data Current Medications Generic Name Dose Route Start Last Admin Trade Name Freq PRN Reason Stop Dose Admin Amitriptyline HCl 75 mg 03/14/21 21:00 03/14/21 21:26 Amitriptyline Hcl 25 Mg Tablet PO 75 mg BEDTIME BHUPINDER Administration Aspirin 81 mg 03/15/21 09:00 03/15/21 08:51 Aspirin Enteric Coated 81 Mg Tablet. PO 81 mg DAILY BHUPINDER Administration Atenolol 25 mg 03/14/21 21:00 03/14/21 21:25 Atenolol 25 Mg Tablet PO 25 mg BEDTIME BHUPINDER Administration Protocol Atenolol 50 mg 03/15/21 09:00 03/15/21 08:53 Atenolol 50 Mg Tablet PO Not Given DAILY BHUPINDER Protocol Clonazepam 0.5 mg 03/14/21 21:00 03/14/21 21:25 Clonazepam 0.5 Mg Tablet PO 0.5 mg BEDTIME BHUPINDER Administration Heparin Sodium (Porcine) 5,000 unit 03/14/21 22:00 03/15/21 10:23 Heparin Sodium,Porcine 5,000 Unit/Ml Vial SUBCUT 5,000 unit Q12H BHUPINDER Administration Piperacillin Sod/Tazobactam 50 mls @ 100 mls/hr 03/14/21 20:00 03/15/21 09:55 Sod 3.375 gm/ Sodium Chloride IV Infused Q6H BHUPINDER Infusion Dextrose/Sodium Chloride 1,000 mls @ 100 mls/hr 03/14/21 20:31 03/15/21 10:28 D51/2ns IVCONT 100 mls/hr .Q10H BHUPINDER Administration Lisinopril 10 mg 03/14/21 21:00 03/15/21 08:53 Lisinopril 10 Mg Tablet PO Not Given BID [facility] Protocol Metronidazole 500 mg 03/14/21 21:00 03/15/21 08:51 Metronidazole 500 Mg Tablet PO 500 mg BID BHUPINDER Administration Morphine Sulfate 2 mg 03/14/21 18:04 03/14/21 21:54 Morphine Sulfate 2 Mg/Ml Cartridge IVPUSH 2 mg Q4H PRN Administration Pain, Severe (Pain Scale 7-10) Multivitamins/Minerals 1 tab 03/15/21 09:00 03/15/21 08:51 Multivitamin With Minerals Tablet PO 1 tab DAILY BHUPINDER Administration Pharmacy Consult 1 each 03/14/21 14:35 Consult Rx Perform Med Rec MISCELLANE ONCE PRN Consult order Sodium Chloride 3 ml 03/15/21 00:00 03/15/21 08:55 0.9 % Sodium Chloride Flush 3 Ml Syringe IVFLUSH 3 ml QSHIFT BHUPINDER Administration Vitamin D 10 mcg 03/15/21 09:00 03/15/21 08:51 Cholecalciferol (Vitamin D3) 10 Mcg Tablet PO 10 mcg DAILY BHUPINDER Administration Labs CBC & Chem 7: 03/14/21 12:11 03/15/21 05:31 Assessment and Plan (1) Diverticulitis: Status: Acute (2) High blood sugar: Status: Acute (3) Obesity (BMI 30-39.9): Status: Acute (4) HTN (hypertension): Status: Acute (5) LYNDA (acute kidney injury): Status: Acute Assessment and Plan: 80 year female with acute diverticulitis and LYNDA 1. Acute sigmoid diverticulitis without abscess. Poor response to outpatient antibiotic On zosyn, GI eval, try and transition to oral Augmentin for dc later today 2. LYNDA-likely pre renal azotemia and should improve with IV fluid. Will recheck in the morning. 3. Hypertension--blood pressure is controlled. 4. Elevated random glucose a repeat with fasting in the morning. Heparin for DVT prophylaxis Covid negative
--- NOTE | 2021-03-15 12:18 | MHC.CM.PN ---
nurse neurocritical care physician note electronic medical record reviewed along with case discussed on multiple disciplinary rounds ,per documentation admitted with acute sigmoid diverticulitis with failed outpatient antibiotic, continue iv zosyn, gi evaluation, iv fluid patient reports pain has improved and had watery stool with some solid food , plan to advance diet and see how patient tolerates this , and transition to oral ABX. DISCHARGE PLAN HOME WITH NO SERVICES TRANSPORTATION FAMILY
--- NOTE | 2021-03-15 12:34 | MHC.CM.PN ---
CM MET WITH PT WHO REPORTS SHE LIVES ALONE BUT HER S/O VISITS DAILY. SHE DENIES THE USE OF DME OR HOME SERVICES. PT REPORTS SHE DID HAVE A HCP HOWEVER IT WAS HER WHO . SHE DID NOT WANT TO COMPLETE ONE TODAY BUT ASKED FOR TWO BLANK DOCUMENTS SO THAT SHE AND HER S/O COULD BOTH DO THEM. DOCUMENTS PROVIDED. PT CONFIRMS HER PCP IS JENNIFER ALMEIDA. IMM DELIVERED CURRENT DC PLAN IS HOME WITH NO SERVICES PT TO ARRANGE TRANSPORT
--- NOTE | 2021-03-15 13:47 | CONS_ITS ---
DATE OF SERVICE: 03/15/2021 REFERRING PHYSICIAN: Bhargav Degroot MD REASON FOR CONSULTATION: Diverticulitis. HISTORY OF PRESENT ILLNESS: The patient is a pleasant 80-year-old woman, who was admitted to the hospital after presenting to the emergency room yesterday with complaints of left lower quadrant pain. She has a history of diverticular disease and has had approximately 3 prior episodes by her own report, one of which required hospitalization. She developed abdominal pain on March 09 and cut back her oral intake. However, the pain persisted and she was started on antibiotics on March 12 by her covering jacquard fixer. She still had symptomatic discomfort and was constipated and subsequently developed loose stools without blood. She did have mucus. She was admitted to the hospital and CT scanning was obtained, which is reviewed. This is interpreted as showing sigmoid diverticulitis without any abscess or perforation. She has been treated with intravenous Zosyn and did have diarrhea this morning after eating breakfast. She last underwent colonoscopy on May 12, 2017 with findings of sigmoid diverticulosis and internal hemorrhoids. PAST MEDICAL HISTORY: 1. Hypertension. 2. Diverticulitis. 3. Tachycardia. 4. Restless legs syndrome. 5. History of seizure. 6. Cholecystectomy. 7. Spinal stenosis. 8. Appendectomy. CURRENT MEDICATIONS: Current medication list is reviewed in the chart. ALLERGIES: SULFA. FAMILY HISTORY: This is reviewed with the patient and is positive for diverticulitis in her mother. SOCIAL HISTORY: There is no current tobacco, alcohol, or substance abuse. 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 REVIEW OF SYSTEMS: SKIN: No pruritus. HEENT: Negative. CARDIOPULMONARY: She denies shortness of breath or chest pain. GASTROINTESTINAL: As above. GENITOURINARY: Negative. NEUROPSYCHIATRIC: Negative. PHYSICAL EXAMINATION: GENERAL: Shows a pleasant female, lying comfortably in bed. VITAL SIGNS: Reviewed in the electronic medical record and are stable. SKIN: Pale. HEENT: Shows no scleral icterus. NECK: Without lymphadenopathy or thyromegaly. LUNGS: Clear. HEART: Regular rate and rhythm. S1, S2. No murmur. ABDOMEN: Shows a well-healed incision from previous cholecystectomy. Bowel sounds are present. There is some tenderness to palpation in the left lower quadrant, but no guarding or rebound. EXTREMITIES: Without edema. LABORATORY DATA: Shows a white blood cell count of 8.5, hematocrit 36.7. CT scanning is reviewed. IMPRESSION: Diverticulitis. Her presentation is consistent with acute uncomplicated sigmoid diverticulitis that did not respond to outpatient treatment. I agree with treating her with IV antibiotics as you are doing. I would obtain stool for C diff as she has had some loose stools currently and has been on antibiotics for 4 days already as an outpatient as she improves her diet can be advanced and she can be discharged to complete an outpatient course of antibiotics. Thanks for asking me to see her. I will follow her in the hospital with you. MD ZOHRA Love/LEW / [phone]
[2021-03-15 19:37] LABS: CDIFF Ag Negative (Negative)
[2021-03-15 19:38] LABS: CDIFF Internal ctrl Dots and bkg OK (V); CDiff Toxin Negative (Negative)
[2021-03-15] MEDS: atenoloL 25 MG TABLET PO (20:56)
[2021-03-15] MEDS: Amitriptyline HCl 25 MG TABLET 75 MG PO (20:56)
[2021-03-15] MEDS: clonazePAM 0.5 MG TABLET PO (20:57)
--- NOTE | 2021-03-15 23:37 | PC.NURSE ---
03/15/21 Pt lisinopril was held per MD. Nurse was worried about her BP dropping as it did in the morning. Consulted MD verbally. Md advised to hold lisinopril
[2021-03-16 02:13] VITALS: BP 139/60; PULSE 64; RESP 18; TEMP 36.3; O2SAT 96
[2021-03-16] MEDS: Piperacillin Sodium/Tazobactam 3.375 GM in 0.9 % Sodium Chloride 50 ML IV ×2 (02:14→08:41)
[2021-03-16 07:44] VITALS: BP 147/61; PULSE 40; RESP 16; TEMP 36.1; O2SAT 98
[2021-03-16] MEDS: HYDROmorphone HCl 0.5 MG/0.5 ML SYRINGE IVPUSH (08:40)
[2021-03-16] MEDS: Aspirin Enteric Coated 81 MG TABLET.DR PO (08:42)
[2021-03-16] MEDS: metroNIDAZOLE 500 MG TABLET PO (08:42)
[2021-03-16] MEDS: Heparin Sodium,Porcine 5,000 UNIT/ML VIAL 5000 UNIT SUBCUT (08:42)
[2021-03-16] MEDS: Cholecalciferol (Vitamin D3) 10 MCG TABLET PO (08:42)
--- NOTE | 2021-03-16 11:29 | PM.DS ---
DS: Providers Provider Date of Service: 03/16/21 Date of admission: 03/14/21 18:07 Primary care physician: Osvaldo Gifford MD Consults: 03/15/21 09:18 Consult to Gastroenterology Routine Consulting Provider: Dyllan Houston Reason for consultation: acute diverticulitis DS: Diagnosis Discharge Diagnosis (1) Diverticulitis: Status: Acute (2) High blood sugar: Status: Acute (3) Obesity (BMI 30-39.9): Status: Acute (4) HTN (hypertension): Status: Acute (5) LYNDA (acute kidney injury): Status: Acute DS: Medications Discharge Medications Home Medications: Home Medications Medication Instructions Recorded Confirmed aspirin 81 mg tablet,delayed 81 mg PO DAILY 02/02/21 03/14/21 release atenolol 25 mg tablet 25 mg PO QPM tab 02/02/21 03/14/21 atenolol 50 mg tablet 50 mg PO DAILY 02/02/21 03/14/21 calcium carbonate 500 mg calcium 500 mg PO DAILY 02/02/21 03/14/21 (1,250 mg) capsule cholecalciferol (vitamin D3) 10 10 mcg PO DAILY 02/02/21 03/14/21 mcg (400 unit) capsule cranberry extract 200 mg capsule 200 mg PO DAILY 02/02/21 03/14/21 ginkgo biloba 40 mg tablet 60 mg PO DAILY tab 02/02/21 03/14/21 lactobacillus combination no.8 3 3,000 mmu cells PO DAILY 02/02/21 03/14/21 billion cell capsule dsxvrdyf-rbe-vnamp acid 0.4 1 tab PO DAILY 02/02/21 03/14/21 mg-lycopene 300 mcg-lutein 250 mcg tablet omega-3 fatty acids 1,000 mg 1,000 mg PO DAILY 02/02/21 03/14/21 capsule zinc acetate 50 mg (zinc) capsule 50 mg PO DAILY 02/02/21 03/14/21 clonazepam 1 tab PO BEDTIME 03/14/21 03/14/21 Previous Rx's Medication Instructions Recorded amitriptyline 75 mg tablet 75 mg PO BEDTIME #90 tab 01/18/21 lisinopril 10 mg tablet 10 mg PO BID 90 Days #180 tab 02/20/21 metronidazole 500 mg tablet 500 mg PO BID 10 Days #20 tab 03/12/21 amoxicillin-pot clavulanate 1 tab PO BID #8 tab 03/16/21 [Augmentin] DS: Summary Hospital Course Hospital Course: Date of admission: 03/14/21 Disdcharge date: 03/16/21 Chief Complaint: Abdominal pain. 80-year-old female with history of hypertension, history of diverticulosis/diverticulitis and that has required previous hospitalization. She presented emergency room because of abdominal pain that started about 3 days ago and similar to her previous diverticulitis she call her GI doctor and was prescribed Cipro and Flagyl over the phone and has been taking in but was advised that if if the pain was not improving to come to the emergency room. She reports that her pain has not been improving and therefore came to the emergency room were further workup per with a CAT scan shows Acute sigmoid diverticulitis without drainable abscess. She has normal WBC. She has no fever now. She is given Zosyn in the emergency room and is being admitted. Of note routine lab show creatinine of 1.54 which is new finding of LYNDA Hospital course: Patient was admitted and and treated with IV Zosyn, IVF and feels better with minimal pain. Her WBC has been normal and has not have fever. She is tolerating regular diet and will transition to oral Augmentin for another 5 days and to finish course of Flagyl as previosly prescribed. She had some diarrhea likely from antibioticsd, cdif is negaive, GI saw and agree with plan as stated. She no pain right now. Time Spent with Patient Time attestation: Total time spent providing and/or coordinating discharge services: Discharge coordination time: Greater than 30 minutes Physical Exam Vital Signs: Vital Signs: Last Vital Signs Temp 97 F 03/16/21 07:44 Pulse 40 L 03/16/21 07:44 Resp 16 03/16/21 07:44 BP 147/61 H 03/16/21 07:44 Pulse Ox 98 03/16/21 07:44 Body Mass Index 29.2 General: AO X 3, no acute distress Resp: CTA bilateral CVS: S1,S2,RRR GI: +BS, NT, no distention Skin: No rash Neuro: motor grossly intact Psych: appropriate affect DS: Data Data Completed and Pending Labs on day of discharge: Laboratory Results - last 24 hr 03/15/21 18:45 C. difficile Toxin A&B Negative C. difficile Antigen Negative C. difficile Interpret SEE NOTE Preliminary micro results at discharge 03/14/21 13:53 Blood Culture - Preliminary Blood - Venous No growth after 24 hours. 03/14/21 13:35 Blood Culture - Preliminary Blood - Venous No growth after 24 hours. Discharge Plan Discharge Anticipated Discharge Date/Time: 03/16/21 11:24 Patient Disposition: Home, Self-Care Discharge Diagnosis: Acute diverticulitis Referrals: Po,Osvaldo Omalley MD [Primary Care Provider] - 1 Week Discharge Medications: New amoxicillin-pot clavulanate [Augmentin] 875-125 mg tablet 1 tab PO BID Qty: 8 RF: 0 Continued amitriptyline 75 mg tablet 75 mg PO BEDTIME Qty: 90 RF: 1 lisinopril 10 mg tablet 10 mg PO BID 90 Days Qty: 180 RF: 1 metronidazole [Flagyl] 500 mg tablet 500 mg PO BID 10 Days Qty: 20 RF: 0 clonazepam 0.5 mg tablet 1 tab PO BEDTIME RF: 0 atenolol 50 mg tablet 50 mg PO DAILY RF: 0 atenolol 25 mg tablet 25 mg PO QPM RF: 0 aspirin [Adult Low Dose Aspirin] 81 mg tablet,delayed release (DR/EC) 81 mg PO DAILY RF: 0 cholecalciferol (vitamin D3) 10 mcg (400 unit) capsule 10 mcg PO DAILY RF: 0 Calci-Mix 500 mg calcium (1,250 mg) capsule 500 mg PO DAILY RF: 0 ginkgo biloba 40 mg tablet 60 mg PO DAILY RF: 0 omega-3 fatty acids [Fish Oil Concentrate] 1,000 mg capsule 1,000 mg PO DAILY RF: 0 Centrum Silver 0.4-300-250 mg-mcg-mcg tablet 1 tab PO DAILY RF: 0 cranberry extract 200 mg capsule 200 mg PO DAILY RF: 0 Galzin 50 mg (zinc) capsule 50 mg PO DAILY RF: 0 Adult Probiotic 3 billion cell capsule 3,000 mmu cells PO DAILY RF: 0 Discontinued ciprofloxacin HCl 500 mg tablet 500 mg PO Q12H 10 Days Qty: 20 RF: 0 Discharge Orders: Discharge Order (Routine); Ordered 03/16/21 Ordered By: Bhargav Degroot Diet: advance to usual diet Activity on Discharge: As tolerated Stand Alone Forms: Patient Portal Discharge page Care Plan Goals: resolution of diverticulitis Health Concerns: Acute diverticulitis Plan of Treatment: take augmentina nd flagyl, stop taking cipro Assessment: diverticulitis that is getting better with antibiotics
--- NOTE | 2021-03-16 11:37 | MHC.CM.PN ---
nurse car3 data systems manager note electronic medical record reviewed along shirley case discussed on multiple disciplinary rounds patient to be discharged home today and will nopt need any services transportsation patient to self arrange pcp dr bright patient instructed to call pcp for post hospitla discharge follow up
--- NOTE | 2021-03-16 11:41 | MHC.PT.PR ---
[facility] [place] Office [place] Office [place] Office [address] Teresa Gilmore [address] [facility] [phone] F: [phone] F: [phone] F: [phone] F: [phone] Physical Therapy Progress Note Diagnosis: Date of Surgery: Date of Evaluation: Treatments to Date: Cancellations to Date: No Shows to Date: Subjective: Pain Score and Location: Objective Measures: Assessment: PT Plan: Frequency and Duration: The patient will be seen Treatment Plan: Reviewed/ Agreed with Student Documentation: Therapist: Thank you once again for your referral.
== END 2021-03-16 13:00 | disposition home or self-care (01) | DRG 392 ==
LOC: HO.ED 14:40 → HO.S3 18:22
PROVIDERS: Admitting Provider Internal Medicine; Emergency Provider Emergency Medicine; PCP Internal Medicine; Visit Provider Internal Medicine
DX: K57.32 Diverticulitis of large intestine without perforation or abscess without bleeding (principal); N17.9 Acute kidney failure, unspecified; I10 Essential (primary) hypertension; E66.9 Obesity, unspecified; Z68.29 Body mass index [BMI] 29.0-29.9, adult; G25.81 Restless legs syndrome; Z20.822 Contact with and (suspected) exposure to COVID-19; Z87.891 Personal history of nicotine dependence; Z88.2 Allergy status to sulfonamides; Z79.82 Long term (current) use of aspirin; Z79.899 Other long term (current) drug therapy
CPT/HCPCS: 36415; 74176; 80048; 82272; 83036; 83605; 85025; 87040; 87324; 87449; 87635; 96365; 96366; 96375; 99285; J1170; J2270; J2543

== ENCOUNTER 2021-03-20 09:00 | Inpatient (IN) | payer MEDICARE, BC, SELFPAY ==
[2021-03-20] VITALS (7 sets, daily range): BP systolic 91–148; BP diastolic 37–64; PULSE 78–92; RESP 16–18; TEMP 36.9; O2SAT 94–98; BMI 29.2
--- NOTE | ~2021-03-20 | CT_ITS ---
EXAMINATION: CT ABDOMEN AND PELVIS WITH CONTRAST CLINICAL INFORMATION: Recent diverticulitis. Evaluate for abscess. COMPARISON: Previous CT scan of the abdomen and pelvis most recent 03/14/2021 TECHNIQUE: Multidetector volumetric images were obtained from the superior aspect of the liver through the pubic symphysis following administration 85 mL of Omnipaque 350 intravenous contrast. Sagittal and coronal reformatted images were obtained on the technologist's workstation. Oral contrast: Yes This CT examination was performed using dose optimization techniques as appropriate, variously including the following: *Automated exposure control *Adjustment of mA and/or kV according to patient size (this includes techniques or standardized protocols for targeted exams where dose is matched to indication/reason for exam; i.e. extremities or head) *Use of iterative reconstruction technique DLP: 722 mGy-cm FINDINGS: LUNG BASES: The visualized lung bases are unremarkable. LIVER, GALLBLADDER, AND BILIARY TREE: The liver is low in attenuation suggestive of fatty infiltration. The liver is enlarged, right lobe measuring 20 cm in length. The gallbladder has been removed. The common bile duct is dilated down to the head of the pancreas. Common bile duct measures 1.8 cm. This is increased from 1.2 cm on previous exam. PANCREAS: Unremarkable. SPLEEN: Unremarkable. ADRENAL GLANDS: Unremarkable. KIDNEYS AND URETERS: The kidneys are normal in size, shape, and attenuation. No hydronephrosis, hydroureter, or calculi seen. No perinephric stranding. BLADDER: Unremarkable. GASTROINTESTINAL TRACT: There is diverticulosis of the colon. There is wall thickening of the sigmoid colon and minimal stranding of the surrounding fat suggestive of diverticulitis. There is a focal low-attenuation area in the posterior wall of the sigmoid colon measuring 1.5 x 3.3 cm axial image 67 series 3 questionable for an intramural abscess. No evidence of obstruction or perforation is seen. Small and large bowel is otherwise unremarkable. The appendix is not identified. The stomach is unremarkable. ABDOMINAL WALL: There is a small umbilical hernia containing fat. LYMPH NODES: Normal. VASCULAR: Unremarkable. PELVIC VISCERA: Unremarkable. OSSEOUS STRUCTURES: There are degenerative changes of the spine and hip joints. CT/CT abdomen pelvis w con IMPRESSION: Sigmoid diverticulitis. Question small intramural abscess in the posterior wall of the sigmoid colon.. Enlarged fatty liver. Increasing extrahepatic biliary duct dilatation.
--- NOTE | ~2021-03-20 | XR_ITS ---
EXAMINATION: XR HAND, LEFT CLINICAL INFORMATION: Pain COMPARISON: None TECHNIQUE: PA, lateral, and oblique views of the left hand. FINDINGS: There is subtle widening at the first carpometacarpal joint with question of borderline lateral subluxation base first metacarpal. There is no fracture or dislocation or destructive process. Faint mild periarticular soft tissue ossification is present adjacent to the base of the first metacarpal. The ulnar variance is neutral. The carpus shows no joint narrowing or erosive change. The MCP and interphalangeal joints show no erosive changes. There are mild degenerative changes index and fifth finger DIP joints. XR/XR hand LT min 3V IMPRESSION: 1. Question borderline lateral subluxation base first metacarpal. 2. No acute or healing fracture, dislocation, or destructive process. 3. Mild degenerative changes DIP joints.
--- NOTE | ~2021-03-20 | US_ITS ---
EXAMINATION: US VENOUS ULTRASOUND WITH DOPPLER LOWER EXTREMITY, LEFT CLINICAL INFORMATION: Swelling. COMPARISON: None TECHNIQUE: Ultrasound of the deep veins is performed from the hip to the calf with compression sonography and color and pulse Doppler assessment. Spectral analysis with color-flow imaging is performed. FINDINGS: There is normal venous compression and respiratory variation and augmented flow. The visualized common femoral vein, superficial femoral vein, profunda femoral vein, popliteal vein, and the trifurcation region shows no evidence of deep venous thrombosis. There is no significant popliteal fossa cyst. US/US venous duplex LE LT IMPRESSION: No DVT demonstrated in the left lower extremity.
--- NOTE | ~2021-03-20 | XR_ITS ---
EXAMINATION: XR FOOT, LEFT CLINICAL INFORMATION: Pain COMPARISON: None TECHNIQUE: AP, lateral, and oblique views of the left foot. FINDINGS: There is no acute or healing fracture or dislocation. There is mild generalized osteopenia. No periostitis. Healed posttraumatic changes present neck first MTP, possibly related to prior osteotomy. There is a subtle nonexpansile lucency within the first proximal phalanx 0.9 x 1.4 cm without matrix mineralization, likely enchondroma. The fourth metatarsal is foreshortened. There are posterior and larger plantar calcaneal spurs. The retrocalcaneal recess is preserved. No focal erosive arthropathy. XR/XR foot LT min 3V IMPRESSION: 1. No acute or healing fracture or dislocation. 2. Posterior and plantar calcaneal spurs. 3. No erosive arthropathy. 4. 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
--- NOTE | 2021-03-20 09:10 | ECG_ITS ---
Test Reason : DIZZINESS Blood Pressure : / mmHG Vent. Rate : 074 BPM Atrial Rate : 074 BPM P-R Int : 114 ms QRS Dur : 072 ms QT Int : 392 ms P-R-T Axes : 032 032 043 degrees QTc Int : 435 ms Normal sinus rhythm Normal ECG When compared with ECG of 20-NOV-2020 01:26, No significant change was found Referred By: Dena Motta Electronically Signed By:SOFIA BARE MD
--- NOTE | 2021-03-20 09:19 | ED_ITS ---
HPI - Dizziness General Chief Complaint: Dizziness Stated Complaint: general weakness Time Seen by Provider: 03/20/21 09:10 Source: patient, EMS and old records reviewed Mode of arrival: EMS Limitations: no limitations History of Present Illness HPI Narrative: 80 yo female with IBS, HTN, LYNDA, diverticulitis treated 03/14-03/16 with fluids sent out with augmentin and flagy c/o worsening PO intake, FTT, dizziness and inability to stand, EMS found her to be orthostatic dropping to 90s from 130s, she also has onset of new L thumb pain and L foot pain that is not traumatic, unable to take her antibiotics today MD elicited complaint: dizziness, lightheadedness, near syncope and difficulty walking Pertinent past history: other (recent diverticulitis treatment) Onset (ago): day(s) Timing: gradual onset Severity: moderate Description: lightheadedness and off-balance Context: recent illness History of similar symptoms: No Exacerbating factors: movement/ambulation and change in body position Relieving factors: remaining still Associated symptoms: nausea, malaise, weakness and chills Related Data Home Medications Medication Instructions Recorded Confirmed aspirin 81 mg tablet,delayed 81 mg PO DAILY 02/02/21 03/20/21 release atenolol 25 mg tablet 25 mg PO QPM tab 02/02/21 03/20/21 atenolol 50 mg tablet 50 mg PO DAILY 02/02/21 03/20/21 calcium carbonate 500 mg calcium 500 mg PO DAILY 02/02/21 03/20/21 (1,250 mg) capsule cholecalciferol (vitamin D3) 10 10 mcg PO DAILY 02/02/21 03/20/21 mcg (400 unit) capsule cranberry extract 200 mg capsule 200 mg PO DAILY 02/02/21 03/20/21 ginkgo biloba 40 mg tablet 60 mg PO DAILY tab 02/02/21 03/20/21 lactobacillus combination no.8 3 3,000 mmu cells PO DAILY 02/02/21 03/20/21 billion cell capsule heeevsmx-gzy-wzddc acid 0.4 1 tab PO DAILY 02/02/21 03/20/21 mg-lycopene 300 mcg-lutein 250 mcg tablet omega-3 fatty acids 1,000 mg 1,000 mg PO DAILY 02/02/21 03/20/21 capsule zinc acetate 50 mg (zinc) capsule 50 mg PO DAILY 02/02/21 03/20/21 clonazepam 1 tab PO BEDTIME 03/14/21 03/20/21 Previous Rx's Medication Instructions Recorded amitriptyline 75 mg tablet 75 mg PO BEDTIME #90 tab 01/18/21 lisinopril 10 mg tablet 10 mg PO BID 90 Days #180 tab 02/20/21 amoxicillin-pot clavulanate 1 tab PO BID #8 tab 03/16/21 [Augmentin] Allergies Allergy/AdvReac Type Severity Reaction Status Date / Time Sulfa (Sulfonamide Allergy Severe HIVES Verified 09/04/20 13:55 Antibiotics) [SULFA(SULFONAMIDE ANTIBIOTICS)] sulfur Allergy Unknown Unknown Verified 09/04/20 13:55 Review of Systems Review of Systems: Constitutional : No Weight loss, No Fever, pos Chills, pos Fatigue, pos Malaise ENT/Mouth : No sore throat, No Rhinorrhea Eyes: No Eye Pain, No Swelling, No Redness Cardiovascular : No Chest Pain, No SOB, No Dyspnea on Exertion, No Orthopnea, No Edema, No Palpitations Respiratory : No Cough, No Sputum, No Wheezing Gastrointestinal : pos Nausea, No Vomiting, posDiarrhea, No Constipation, No abdominal Pain, No Hematochezia, No Melena Genitourinary : No Dysuria, No Urinary Frequency, No Hematuria, Musculoskeletal : No joint pain, No Myalgias, No Joint Swelling Skin : No Skin Lesions, No rash Neuro : pos Weakness, No Numbness, pos Dizziness, No Headache Psych : No Anxiety/Panic, No Depression Heme/Lymph: No Bruising, No Bleeding,No Lymphadenopathy Endocrine : No Polyuria, No Polydipsia All other systems reviewed and are negative [facility] Past Medical History Attestation statement: The following information was validated with the patient. Medical History Anemia Diverticulitis HTN (hypertension) Obesity (BMI 30-39.9) Restless leg Seizure Surgical History History of appendectomy History of bunionectomy Hx of cholecystectomy Spinal stenosis of lumbar region Social History Social History Household Members: None Housing: House Alcohol intake: current Alcohol intake frequency: holidays/special occasions only Smoking Status: Former smoker Years Smoked: 5 Advance Directives: Yes Advance Directives on File: Yes Advance Directives Date on File: 03/14/21 service: No Current occupational status: retired Physical Exam Vital Signs: Vital Signs: Last Vital Signs Temp 98.4 F 03/20/21 09:12 Pulse 91 03/20/21 11:49 Resp 18 03/20/21 11:49 BP 148/64 H 03/20/21 11:49 Pulse Ox 96 03/20/21 11:49 Body Mass Index 29.2 Appearance: Alert. Oriented X3. Mild acute distress. Eyes: Pupils equal, round and reactive to light. ENT: Pharynx dry MMM Neck: Normal inspection. Neck supple. CVS: Normal heart rate and rhythm. Pulses normal. Respiratory: No respiratory distress. Breath sounds normal. Abdomen: Soft and non-tender. Skin: Skin warm and dry. Normal skin color. Normal skin turgor. Extremities: L foot no erythema or warmth but swelling at ankle and dorsum of foot, ttp L thumb but no swelling or redness or warmth. No calf ttp Neuro: Oriented X 3. No motor deficit. No sensory deficit. Course Course Course Narrative: message sent to Dr. Vu given new intramural abscess in colon - no surgical needs at this time admit to medicine with IV antibiotics MDM - Dizziness MDM Narrative Medical decision making narrative: 80 yo female with IBS, HTN, LYNDA, diverticulitis treated 03/14-03/16 with fluids sent out with augmentin and flagy c/o worsening PO intake, FTT, dizziness and inability to stand, EMS found her to be orthostatic dropping to 90s from 130s, she also has weird L thumb pain and L foot pain that is new, at this time will obtain labs, repeat CT scan for abscess, IVF 2500cc ordered (30cc/kg bolus) IV antibiotics as she couldn't take her PO today, labs/cultures, LLE DVT study though suspect it might be from her inability to move around - dispo per results and improvement at this time Lab Data Result diagrams: 03/20/21 10:25 03/20/21 10:25 Labs: Lab Results 03/20/21 03/20/21 03/20/21 Range/Units 10:23 10:24 10:24 WBC (4.8-10.8) X10*3/uL RBC (4.20-5.50) X10*6/uL Hgb (12.0-16.0) g/dl Hct (37-47) % MCV (80-98) fL MCH (27.0-33.0) pg MCHC (31.0-35.0) g/dl RDW (11.0-16.0) % Plt Count (160-400) X10*3/uL MPV (9.4-12.3) fL Immature Gran % (Auto) (0.0-0.4) % Neut % (Auto) (45-73) % Lymph % (Auto) (20-40) % [place] % (Auto) (2-11) % Eos % (Auto) (0-4) % Baso % (Auto) (0-2) % Lymph # (Auto) (1.2-4.9) X10*3/uL [place] # (Auto) (0.1-1.2) X10*3/uL Eos # (Auto) (0.0-0.4) X10*3/uL Baso # (Auto) (0.0-0.2) X10*3/uL Abs Immat Gran (auto) (0.00-0.03) X10*3/uL Absolute Neuts (auto) (2.0-8.3) X10*3/uL Absolute Nucleated RBC (0.0-0.012) X10*3/uL Nucleated RBC % (auto) (0.0-0.2) /100WBC Hold Blue Top Sodium (135-145) mmol/L Potassium (3.3-5.1) mmol/L Chloride (96-108) mmol/L Carbon Dioxide (22-29) mmol/L Anion Gap (12-20) BUN (9-16) mg/dL Creatinine (0.5-1.4) mg/dL Estim Creat Clear Calc Estimated GFR Random Glucose (60-115) mg/dL Lactic Acid 1.1 (0.5-2.0) mmol/L Calcium (8.4-10.2) mg/dL Magnesium (1.6-2.6) mg/dL Total Bilirubin (0.0-1.0) mg/dL Direct Bilirubin (0.0-0.5) mg/dL AST (5-31) U/L ALT (0-31) U/L Alkaline Phosphatase (39-117) U/L Troponin I High Sens 30.4 H (<3.5-17.0) ng/L Total Protein (6.5-8.0) g/dL Albumin (3.5-5.0) g/dL Lipase (8-78) U/L COVID-19 (ADRIANNA) Negative (Negative) COVID-19 Clin Com See Note 03/20/21 03/20/21 03/20/21 Range/Units 10:25 10:25 10:25 WBC 11.2 H (4.8-10.8) X10*3/uL RBC 3.53 L (4.20-5.50) X10*6/uL Hgb 11.4 L (12.0-16.0) g/dl Hct 33.2 L (37-47) % MCV 94.1 (80-98) fL MCH 32.3 (27.0-33.0) pg MCHC 34.3 (31.0-35.0) g/dl RDW 12.4 (11.0-16.0) % Plt Count 209 (160-400) X10*3/uL MPV 9.2 L (9.4-12.3) fL Immature Gran % (Auto) 0.9 H (0.0-0.4) % Neut % (Auto) 76.9 H (45-73) % Lymph % (Auto) 11.5 L (20-40) % [place] % (Auto) 9.5 (2-11) % Eos % (Auto) 0.5 (0-4) % Baso % (Auto) 0.7 (0-2) % Lymph # (Auto) 1.3 (1.2-4.9) X10*3/uL [place] # (Auto) 1.1 (0.1-1.2) X10*3/uL Eos # (Auto) 0.1 (0.0-0.4) X10*3/uL Baso # (Auto) 0.1 (0.0-0.2) X10*3/uL Abs Immat Gran (auto) 0.10 H (0.00-0.03) X10*3/uL Absolute Neuts (auto) 8.6 H (2.0-8.3) X10*3/uL Absolute Nucleated RBC 0.000 (0.0-0.012) X10*3/uL Nucleated RBC % (auto) 0.0 (0.0-0.2) /100WBC Hold Blue Top SEE NOTE Sodium 137 (135-145) mmol/L Potassium 3.6 (3.3-5.1) mmol/L Chloride 103 (96-108) mmol/L Carbon Dioxide 24 (22-29) mmol/L Anion Gap 14 (12-20) BUN 11 (9-16) mg/dL Creatinine 0.85 (0.5-1.4) mg/dL Estim Creat Clear Calc 53.9 Estimated GFR > 60 Random Glucose 120 H (60-115) mg/dL Lactic Acid (0.5-2.0) mmol/L Calcium 8.3 L D (8.4-10.2) mg/dL Magnesium (1.6-2.6) mg/dL Total Bilirubin 0.8 (0.0-1.0) mg/dL Direct Bilirubin 0.5 (0.0-0.5) mg/dL AST 37 H (5-31) U/L ALT 26 (0-31) U/L Alkaline Phosphatase 81 D (39-117) U/L Troponin I High Sens (<3.5-17.0) ng/L Total Protein 6.2 L (6.5-8.0) g/dL Albumin 3.5 (3.5-5.0) g/dL Lipase 36 (8-78) U/L COVID-19 (ADRIANNA) (Negative) COVID-19 Clin Com 03/20/21 Range/Units 10:25 WBC (4.8-10.8) X10*3/uL RBC (4.20-5.50) X10*6/uL Hgb (12.0-16.0) g/dl Hct (37-47) % MCV (80-98) fL MCH (27.0-33.0) pg MCHC (31.0-35.0) g/dl RDW (11.0-16.0) % Plt Count (160-400) X10*3/uL MPV (9.4-12.3) fL Immature Gran % (Auto) (0.0-0.4) % Neut % (Auto) (45-73) % Lymph % (Auto) (20-40) % [place] % (Auto) (2-11) % Eos % (Auto) (0-4) % Baso % (Auto) (0-2) % Lymph # (Auto) (1.2-4.9) X10*3/uL [place] # (Auto) (0.1-1.2) X10*3/uL Eos # (Auto) (0.0-0.4) X10*3/uL Baso # (Auto) (0.0-0.2) X10*3/uL Abs Immat Gran (auto) (0.00-0.03) X10*3/uL Absolute Neuts (auto) (2.0-8.3) X10*3/uL Absolute Nucleated RBC (0.0-0.012) X10*3/uL Nucleated RBC % (auto) (0.0-0.2) /100WBC Hold Blue Top Sodium (135-145) mmol/L Potassium (3.3-5.1) mmol/L Chloride (96-108) mmol/L Carbon Dioxide (22-29) mmol/L Anion Gap (12-20) BUN (9-16) mg/dL Creatinine (0.5-1.4) mg/dL Estim Creat Clear Calc Estimated GFR Random Glucose (60-115) mg/dL Lactic Acid (0.5-2.0) mmol/L Calcium (8.4-10.2) mg/dL Magnesium 1.5 L (1.6-2.6) mg/dL Total Bilirubin (0.0-1.0) mg/dL Direct Bilirubin (0.0-0.5) mg/dL AST (5-31) U/L ALT (0-31) U/L Alkaline Phosphatase (39-117) U/L Troponin I High Sens (<3.5-17.0) ng/L Total Protein (6.5-8.0) g/dL Albumin (3.5-5.0) g/dL Lipase (8-78) U/L COVID-19 (ADRIANNA) (Negative) COVID-19 Clin Com ECG Data Attestation: I personally reviewed and interpreted this ECG as follows: ECG interpretation date: 03/20/21 ECG interpretation time: 09:33 Interpretation: Rate: 74 Rhythm: NSR [place]: normal Normal P waves. Normal MARLENE. Normal QRS complex. ST T wave : nonspecific no EVE qTC: normal prior studies: no acute ischemia The study has been interpreted contemporaneously by me. . Critical Care Time Critical Care Time Critical Care Time: Yes Total Critical Care Time: 30 Attestation: 2.5L of normal saline bolus, review of records I attest to this time spent taking care of the patient Discharge Plan Discharge Clinical Impression: Diverticulitis, Orthostatic hypotension, Abscess, Arthralgia Patient Disposition: Admitted As Inpatient Prescriptions: No Action amitriptyline 75 mg tablet 75 mg PO BEDTIME Qty: 90 RF: 1 lisinopril 10 mg tablet 10 mg PO BID 90 Days Qty: 180 RF: 1 clonazepam 0.5 mg tablet 1 tab PO BEDTIME RF: 0 amoxicillin-pot clavulanate [Augmentin] 875-125 mg tablet 1 tab PO BID Qty: 8 RF: 0 atenolol 50 mg tablet 50 mg PO DAILY RF: 0 atenolol 25 mg tablet 25 mg PO QPM RF: 0 aspirin [Adult Low Dose Aspirin] 81 mg tablet,delayed release (DR/EC) 81 mg PO DAILY RF: 0 cholecalciferol (vitamin D3) 10 mcg (400 unit) capsule 10 mcg PO DAILY RF: 0 Calci-Mix 500 mg calcium (1,250 mg) capsule 500 mg PO DAILY RF: 0 ginkgo biloba 40 mg tablet 60 mg PO DAILY RF: 0 omega-3 fatty acids [Fish Oil Concentrate] 1,000 mg capsule 1,000 mg PO DAILY RF: 0 Centrum Silver 0.4-300-250 mg-mcg-mcg tablet 1 tab PO DAILY RF: 0 cranberry extract 200 mg capsule 200 mg PO DAILY RF: 0 Galzin 50 mg (zinc) capsule 50 mg PO DAILY RF: 0 Adult Probiotic 3 billion cell capsule 3,000 mmu cells PO DAILY RF: 0
[2021-03-20] MEDS: fentaNYL citrate/PF 100 MCG/2 ML VIAL 50 MCG IVPUSH (10:28)
[2021-03-20] MEDS: ondansetron HCL 4 MG/2 ML VIAL IVPUSH (10:28)
[2021-03-20] MEDS: 0.9 % Sodium Chloride 1,000 ML 999 ML IVCONT ×2 (10:29)
[2021-03-20] MEDS: Piperacillin Sodium/Tazobactam 3.375 GM in 0.9 % Sodium Chloride 50 ML IV ×2 (10:29→17:44)
[2021-03-20 10:31] LABS: MANUAL DIFF FLAG NO
[2021-03-20 10:43] LABS: Basophils Absolute Auto 0.1 X10*3/uL (0.0-0.2); Basophils Percent Auto 0.7 % (0-2); Eosinophils Absolute Auto 0.1 X10*3/uL (0.0-0.4); Eosinophils Percent Auto 0.5 % (0-4); Hematocrit 33.2 % (37-47); Hemoglobin 11.4 g/dl (12.0-16.0); Imm Gran Pct Auto 0.9 % (0.0-0.4); Lymphocytes Absolute Auto 1.3 X10*3/uL (1.2-4.9); Lymphocytes Percent Auto 11.5 % (20-40); Mean Corpuscular HGB Conc 34.3 g/dl (31.0-35.0); Mean Corpuscular Hemoglobin 32.3 pg (27.0-33.0); Mean Corpuscular Volume 94.1 fL (80-98); Mean Platelet Volume 9.2 fL (9.4-12.3); Monocytes Absolute Auto 1.1 X10*3/uL (0.1-1.2); Monocytes Percent Auto 9.5 % (2-11); Neutrophils Absolute Auto 8.6 X10*3/uL (2.0-8.3); Neutrophils Percent Auto 76.9 % (45-73); Platelet Count 209 X10*3/uL (160-400); Red Blood Count 3.53 X10*6/uL (4.20-5.50); Red Cell Distribution Width 12.4 % (11.0-16.0); White Blood Count 11.2 X10*3/uL (4.8-10.8)
[2021-03-20 10:49] LABS: COVID-19 Test Negative (Negative)
[2021-03-20 11:03] LABS: Lactic Acid 1.1 mmol/L (0.5-2.0)
[2021-03-20 11:07] LABS: Magnesium 1.5 mg/dL (1.6-2.6)
[2021-03-20 11:09] LABS: Alanine Aminotransferase 26 U/L (0-31); Albumin Level 3.5 g/dL (3.5-5.0); Alkaline Phosphatase 81 U/L (39-117); Anion Gap 14 (12-20); Aspartate Amino Transferase 37 U/L (5-31); Bilirubin Direct 0.5 mg/dL (0.0-0.5); Bilirubin Total 0.8 mg/dL (0.0-1.0); Blood Urea Nitrogen 11 mg/dL (9-16); Calcium 8.3 mg/dL (8.4-10.2); Carbon Dioxide 24 mmol/L (22-29); Chloride 103 mmol/L (96-108); Creatinine Clr Calc Pharmacy 53.9; Estimated Glomerular Filt Rate > 60; Glucose Random 120 mg/dL (60-115); Lipase 36 U/L (8-78); Potassium 3.6 mmol/L (3.3-5.1); Sodium 137 mmol/L (135-145); Total Protein 6.2 g/dL (6.5-8.0)
[2021-03-20 11:18] LABS: Troponin-I High Sensitivity 30.4 ng/L (<3.5-17.0)
[2021-03-20] MEDS: metroNIDAZOLE/NS 500 MG/100 ML PIGGYBACK 100 MG IV (11:59)
[2021-03-20] MEDS: Magnesium Sulfate/H2O 2 GM/50 ML PIGGYBACK IV (11:59)
[2021-03-20] MEDS: 0.9 % Sodium Chloride 500 ML IV (11:59)
[2021-03-20] MEDS: iohexoL 350 MG/ML 100 ML INFUS..BTL IV (12:25)
[2021-03-20 13:37] LABS: Glucose Urine UA NEG (NEG); Leukocyte Esterase Urine 1+ (NEG); Nitrite Urine POS (NEG); PH 5.5 (5.0-8.0); Specific Gravity - Urine 1.025 (1.005-1.025); UACC Culture Trigger YES; Urine Blood NEG (NEG); Urine Ketones 15 MG/DL (NEG); Urine Protein NEG (NEG-TRACE)
[2021-03-20] MEDS: Morphine Sulfate 4 MG/ML CARTRIDGE IVPUSH (13:41)
[2021-03-20 13:43] LABS: Appearance Urine HAZY; Color Urine YELLOW
[2021-03-20 13:51] LABS: Bacteria Urine 1+ /LPF; Mucus Urine 1+ /LPF; RBC Urine 0 /HPF (0); Squamous Epithelial Cell Urine 2+ /LPF
[2021-03-20 13:52] LABS: Amorphous Sediment Urine 1+ /LPF
[2021-03-20] MEDS: 0.9 % Sodium Chloride Flush 3 ML SYRINGE IVFLUSH (16:12)
[2021-03-20] MEDS: Morphine Sulfate 2 MG/ML CARTRIDGE IVPUSH (17:44)
--- NOTE | 2021-03-20 21:48 | P.HPHOSP_ITS ---
History of Present Illness Date of Service: 03/20/21 Chief Complaint: Abdominal pain 80-year-old female with history of hypertension, history of diverticulosis/diverticulitis and was recently hospitalized from 03/14 to 03/16 with acute uncomplicated diverticulitis and went home with PO Augmentin and Flagyl and was felt better until today when he started having pressure-like pain in the right side of abdomen and associated with diarrhea. There is no blood in stool, no fever and no vomitting. She reports feeling dizzy and weak and was noted by EMS to have positive orthostatic hpotension with SBP coming down from 130s to 90s. CT shows Sigmoid diverticulitis. Question small intramural abscess in the posterior wall of the sigmoid colon. She's prescribed zosyn in ED and is admitted. Also she has some pain in right left foot around the ankle with mild swelling and some redness without trauma. Review of Systems Review of Systems: Gen: no fever Resp: no sob, no cough CV: no chest, no LUCAS, no leg edema GI: No n/v, + abd pain Neuro: No confusion MusK: left ankle area pain PMFSH Medical History Anemia Diverticulitis HTN (hypertension) Obesity (BMI 30-39.9) Restless leg Seizure Pertinent family history: No history of diverticular disease Surgical History History of appendectomy History of bunionectomy Hx of cholecystectomy Spinal stenosis of lumbar region Social History Household Members: None Housing: House Alcohol intake: current Alcohol intake frequency: holidays/special occasions only Smoking Status: Former smoker Years Smoked: 5 Advance Directives: Yes Advance Directives on File: Yes Advance Directives Date on File: 03/14/21 service: No Current occupational status: retired Meds Allergies Allergy/AdvReac Type Severity Reaction Status Date / Time Sulfa (Sulfonamide Allergy Severe HIVES Verified 09/04/20 13:55 Antibiotics) [SULFA(SULFONAMIDE ANTIBIOTICS)] sulfur Allergy Unknown Unknown Verified 09/04/20 13:55 Active Medications: Current Medications Generic Name Dose Route Start Last Admin Trade Name Freq PRN Reason Stop Dose Admin Amitriptyline HCl 75 mg 03/20/21 21:00 Amitriptyline Hcl 25 Mg Tablet PO BEDTIME REPLACED BY [facility] Aspirin 81 mg 03/21/21 09:00 Aspirin Enteric Coated 81 Mg Tablet.Dr PO DAILY REPLACED BY [facility] Atenolol 25 mg 03/20/21 21:00 Atenolol 25 Mg Tablet PO BEDTIME REPLACED BY [facility] Protocol Atenolol 50 mg 03/21/21 09:00 Atenolol 50 Mg Tablet PO DAILY REPLACED BY [facility] Protocol Clonazepam 0.5 mg 03/20/21 21:00 Clonazepam 0.5 Mg Tablet PO BEDTIME REPLACED BY [facility] Piperacillin Sod/Tazobactam 50 mls @ 100 mls/hr 03/20/21 18:00 03/20/21 18:38 Sod 3.375 gm/ Sodium Chloride IV Infused Q6H REPLACED BY [facility] Infusion Lisinopril 10 mg 03/20/21 21:00 Lisinopril 10 Mg Tablet PO BID REPLACED BY [facility] Protocol Morphine Sulfate 2 mg 03/20/21 17:02 03/20/21 17:44 Morphine Sulfate 2 Mg/Ml Cartridge IVPUSH 2 mg Q6H PRN Administration Pain, Severe (Pain Scale 7-10) Multivitamins/Minerals 1 tab 03/21/21 09:00 Multivitamin With Minerals Tablet PO DAILY REPLACED BY [facility] Non-Formulary Medication 200 mg 03/21/21 09:00 Cranberry Extract PO DAILY REPLACED BY [facility] Non-Formulary Medication 3,000 mmu cells 03/21/21 09:00 Lactobacillus Combination No.8 [Adult Probiotic] PO DAILY REPLACED BY [facility] Non-Formulary Medication 1,000 mg 03/21/21 09:00 [place]-3 Fatty Acids [Fish Oil Concentrate] PO DAILY REPLACED BY [facility] Non-Formulary Medication 50 mg 03/21/21 09:00 Zinc Acetate [Galzin] PO DAILY REPLACED BY [facility] Pharmacy Consult 1 each 03/20/21 09:10 Consult Rx Perform Med Rec MISCELLANE ONCE PRN Consult order Sodium Chloride 3 ml 03/20/21 16:00 03/20/21 16:12 0.9 % Sodium Chloride Flush 3 Ml Syringe IVFLUSH 3 ml QSHIFT REPLACED BY [facility] Administration Vitamin D 10 mcg 03/21/21 09:00 Cholecalciferol (Vitamin D3) 10 Mcg Tablet PO DAILY REPLACED BY [facility] Home Medications Medication Instructions Recorded Confirmed Last Taken Type aspirin 81 mg tablet,delayed 81 mg PO DAILY 02/02/21 03/20/21 03/19/21 History release atenolol 25 mg tablet 25 mg PO QPM tab 02/02/21 03/20/21 03/13/21 History atenolol 50 mg tablet 50 mg PO DAILY 02/02/21 03/20/21 03/14/21 History calcium carbonate 500 mg calcium 500 mg PO DAILY 02/02/21 03/20/21 03/13/21 History (1,250 mg) capsule cholecalciferol (vitamin D3) 10 10 mcg PO DAILY 02/02/21 03/20/21 03/13/21 History mcg (400 unit) capsule cranberry extract 200 mg capsule 200 mg PO DAILY 02/02/21 03/20/21 03/13/21 History ginkgo biloba 40 mg tablet 60 mg PO DAILY tab 02/02/21 03/20/21 03/13/21 History lactobacillus combination no.8 3 3,000 mmu cells PO DAILY 02/02/21 03/20/21 03/13/21 History billion cell capsule vukeovun-mdg-acjxz acid 0.4 1 tab PO DAILY 02/02/21 03/20/21 03/13/21 History mg-lycopene 300 mcg-lutein 250 mcg tablet omega-3 fatty acids 1,000 mg 1,000 mg PO DAILY 02/02/21 03/20/21 03/13/21 History capsule zinc acetate 50 mg (zinc) capsule 50 mg PO DAILY 02/02/21 03/20/21 03/13/21 History clonazepam 1 tab PO BEDTIME 03/14/21 03/20/21 03/13/21 History Physical Exam Vital Signs and Narrative: Vital Signs: Last Vital Signs Temp 98.4 F 03/20/21 09:12 Pulse 92 03/20/21 21:44 Resp 18 03/20/21 21:44 BP 130/48 L 03/20/21 21:44 Pulse Ox 96 03/20/21 21:44 Body Mass Index 29.2 Const: Other: Constitutional Awake and Alert, No apparent distress Neck Supple, No lymphadenopathy Cardiovascular RRR, No M/R/G, S1 S2, No S3 S4, No pedal edema Respiratory Lungs clear, No respiratory distress Gastrointestinal Non tender, mild tenderness left adominal area, no guarding Skin No rash (mild redness around left ankle with some tenderness) Neurological Alert & oriented x3 Psychological Appropriate affect Results Labs CBC and Chem 7: 03/20/21 10:25 03/20/21 10:25 Labs: Laboratory Results - last 24 hr 03/20/21 03/20/21 03/20/21 10:23 10:24 10:24 MCV MCH MCHC RDW Plt Count MPV Immature Gran % (Auto) Neut % (Auto) Lymph % (Auto) [place] % (Auto) Eos % (Auto) Baso % (Auto) Lymph # (Auto) [place] # (Auto) Eos # (Auto) Baso # (Auto) Abs Immat Gran (auto) Absolute Neuts (auto) Absolute Nucleated RBC Nucleated RBC % (auto) Hold Blue Top Anion Gap Estim Creat Clear Calc Estimated GFR Random Glucose Lactic Acid 1.1 Calcium Magnesium Total Bilirubin Direct Bilirubin AST ALT Alkaline Phosphatase Troponin I High Sens 30.4 H Total Protein Albumin Lipase Urine Color Urine Appearance Urine pH Ur Specific Carrie Urine Protein Urine Glucose (UA) Urine Ketones Urine Blood Urine Nitrite Ur Leukocyte Esterase Urine RBC Urine WBC Ur Squamous Epith Cells Amorphous Sediment Urine Bacteria Hyaline Casts Urine Mucus COVID-19 ([facility]) Negative COVID-19 Clin Com See Note 03/20/21 03/20/21 03/20/21 10:25 10:25 10:25 MCV 94.1 MCH 32.3 MCHC 34.3 RDW 12.4 Plt Count 209 MPV 9.2 L Immature Gran % (Auto) 0.9 H Neut % (Auto) 76.9 H Lymph % (Auto) 11.5 L [place] % (Auto) 9.5 Eos % (Auto) 0.5 Baso % (Auto) 0.7 Lymph # (Auto) 1.3 [place] # (Auto) 1.1 Eos # (Auto) 0.1 Baso # (Auto) 0.1 Abs Immat Gran (auto) 0.10 H Absolute Neuts (auto) 8.6 H Absolute Nucleated RBC 0.000 Nucleated RBC % (auto) 0.0 Hold Blue Top SEE NOTE Anion Gap 14 Estim Creat Clear Calc 53.9 Estimated GFR > 60 Random Glucose 120 H Lactic Acid Calcium 8.3 L D Magnesium Total Bilirubin 0.8 Direct Bilirubin 0.5 AST 37 H ALT 26 Alkaline Phosphatase 81 D Troponin I High Sens Total Protein 6.2 L Albumin 3.5 Lipase 36 Urine Color Urine Appearance Urine pH Ur Specific Carrie Urine Protein Urine Glucose (UA) Urine Ketones Urine Blood Urine Nitrite Ur Leukocyte Esterase Urine RBC Urine WBC Ur Squamous Epith Cells Amorphous Sediment Urine Bacteria Hyaline Casts Urine Mucus COVID-19 ([facility]ANNA) COVID-19 Clin Com 03/20/21 03/20/21 10:25 13:26 MCV MCH MCHC RDW Plt Count MPV Immature Gran % (Auto) Neut % (Auto) Lymph % (Auto) [place] % (Auto) Eos % (Auto) Baso % (Auto) Lymph # (Auto) [place] # (Auto) Eos # (Auto) Baso # (Auto) Abs Immat Gran (auto) Absolute Neuts (auto) Absolute Nucleated RBC Nucleated RBC % (auto) Hold Blue Top Anion Gap Estim Creat Clear Calc Estimated GFR Random Glucose Lactic Acid Calcium Magnesium 1.5 L Total Bilirubin Direct Bilirubin AST ALT Alkaline Phosphatase Troponin I High Sens Total Protein Albumin Lipase Urine Color YELLOW Urine Appearance HAZY Urine pH 5.5 Ur Specific Carrie 1.025 Urine Protein NEG Urine Glucose (UA) NEG Urine Ketones 15 Urine Blood NEG Urine Nitrite POS H Ur Leukocyte Esterase 1+ H Urine RBC 0 Urine WBC 10-14 H Ur Squamous Epith Cells 2+ Amorphous Sediment 1+ Urine Bacteria 1+ Hyaline Casts 1-4 Urine Mucus 1+ COVID-19 ([facility]ANNA) COVID-19 Clin Com Imaging Radiologist's Impressions: Impressions Abdomen/Pelvis CT 03/20/21 09:10 IMPRESSION: Sigmoid diverticulitis. Question small intramural abscess in the posterior wall of the sigmoid colon.. Enlarged fatty liver. Increasing extrahepatic biliary duct dilatation. Venous Duplex 03/20/21 09:10 IMPRESSION: No DVT demonstrated in the left lower extremity. Foot X-Ray 03/20/21 13:23 IMPRESSION: 1. No acute or healing fracture or dislocation. 2. Posterior and plantar calcaneal spurs. 3. No erosive arthropathy. 4. 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 Hand X-Ray 03/20/21 13:23 IMPRESSION: 1. Question borderline lateral subluxation base first metacarpal. 2. No acute or healing fracture, dislocation, or destructive process. 3. Mild degenerative changes DIP joints. Assessment and Plan (1) Acute diverticulitis: Status: Acute (2) Orthostatic hypotension: Status: Acute (3) Arthralgia: Qualifiers: Joint pain location: unspecified Qualified Code(s): M25.50 - Pain in unspecified joint Status: Acute (4) HTN (hypertension): Status: Acute (5) Obesity (BMI 30-39.9): Status: Acute 80/F with recent hospitalization for acute diverticulitis and being readmitted for non-resolution and possible mild associated abscess, also with weakness, dizziness and orthostatic hypotension and left ankle pain 1. Acute unresolved diverticulitis with possible mild abscess -Continue Zosyn, started in ED -GI and Surger consult -Morphine for pain -NPO -LR 2. Orthostatic hypotension d/t decrease oral intake, diarrhea -Hydrated, add mainntenance Normal saline 3. Left ankle pain--? looks like gout but no prior history -check Uric acid and if high, treat with corticosteroid and NSAID 4. Diarrhea--likely from antibiotics but check Cdif HTN--BP on lower side, continue night time Atenol, hold am dose. Hold Lisinopril Lovenox for DVT prophylaxis
[2021-03-20] MEDS: clonazePAM 0.5 MG TABLET PO (22:29)
[2021-03-20] MEDS: Lactated Ringers 1,000 ML 125 ML IVCONT (22:29)
[2021-03-20] MEDS: atenoloL 25 MG TABLET PO (22:29)
[2021-03-20] MEDS: Enoxaparin Sodium 40 MG/0.4 ML SYRINGE SUBCUT (22:29)
[2021-03-20] MEDS: Amitriptyline HCl 25 MG TABLET 75 MG PO (22:31)
[2021-03-21] MEDS: Morphine Sulfate 2 MG/ML CARTRIDGE IVPUSH (00:03)
[2021-03-21] MEDS: 0.9 % Sodium Chloride Flush 3 ML SYRINGE IVFLUSH ×4 (00:03→23:40)
[2021-03-21] MEDS: Piperacillin Sodium/Tazobactam 3.375 GM in 0.9 % Sodium Chloride 50 ML IV ×5 (02:20→23:39)
[2021-03-21 06:18] VITALS: BP 139/54; PULSE 89; RESP 16; O2SAT 94
[2021-03-21 08:00] VITALS: BP 183/79; PULSE 88; RESP 17; TEMP 37.2; O2SAT 96
[2021-03-21] MEDS: atenoloL 50 MG TABLET PO (08:11)
[2021-03-21] MEDS: Cholecalciferol (Vitamin D3) 10 MCG TABLET PO (08:11)
[2021-03-21] MEDS: Aspirin Enteric Coated 81 MG TABLET.DR PO (08:11)
[2021-03-21] MEDS: Lactated Ringers 1,000 ML 125 ML IVCONT (08:15)
--- NOTE | 2021-03-21 08:28 | PM.CNGS ---
History of Present Illness Consult details Consult date: 03/21/21 Narrative: 80-year-old female referred because of diverticulitis. She was was recently treated at hospital last week because acute diverticulitis. I had been home for a few days but yesterday, she apparently unwell?. She states that she felt fatigued and very weak. She also said that she had severe pain on her left ankle. She had describes some abdominal cramping although says that she did not have pain. She denies any nausea or vomiting. She denies any fever. I CAT scan done in the ER showed some a cyst suggestion of diverticulitis with question of intramural abscess. Currently she denies any abdominal pain. She says she has good bowel movements. She apparently was noted to have orthostatic hypotension in the ER so she was admitted to the medical service. Review of Systems Constitutional: Constitutional: Denies chills, Reports fatigue, Denies fever(s) and Reports malaise Cardiovascular: Cardiovascular: Denies chest pain, Denies dyspnea and Denies dyspnea on exertion Respiratory: Respiratory: Denies cough, Denies dyspnea and Denies dyspnea on exertion Gastrointestinal: Gastrointestinal: Denies hematochezia and Denies change in bowel habits Genitourinary: Genitourinary: Denies hematuria Musculoskeletal: Musculoskeletal: Denies back pain and Denies limited range of motion Neurologic: Denies focal weakness and Denies convulsions Psychiatric: Psychiatric: Denies depression and Denies mood swings Endocrine: Endocrine: Reports fatigue PMFSH Past Medical History Medical History Anemia Diverticulitis HTN (hypertension) Obesity (BMI 30-39.9) Restless leg Seizure Surgical History Surgical History History of appendectomy History of bunionectomy Hx of cholecystectomy Spinal stenosis of lumbar region Social History Social History Household Members: Significant Other Housing: House Do you presently have visiting nurse or other home services: No Alcohol intake: current Alcohol intake frequency: holidays/special occasions only Smoking Status: Never smoker Years Smoked: 5 Use of substances other than those prescribed or required for medical reasons: No Have you been hit, kicked, punched, or otherwise hurt by someone within the past year? If so, by whom?: No Do you feel safe in your current relationship?: Yes Is there a partner from a previous relationship who is making you feel unsafe now?: No Are you made to feel afraid or neglected: No Advance Directives: Yes Advance Directives on File: Yes Advance Directives Date on File: 03/14/21 Do you have thoughts of harming others: None Do you have a plan to hurt others: No Plan Recently lost weight without trying: No service: No Current occupational status: retired Meds Allergies Allergy/AdvReac Type Severity Reaction Status Date / Time Sulfa (Sulfonamide Allergy Severe HIVES Verified 09/04/20 13:55 Antibiotics) [SULFA(SULFONAMIDE ANTIBIOTICS)] sulfur Allergy Unknown Unknown Verified 09/04/20 13:55 Active Medications: Current Medications Generic Name Dose Route Start Last Admin Trade Name Glennq PRN Reason Stop Dose Admin Amitriptyline HCl 75 mg 03/20/21 21:00 03/20/21 22:31 Amitriptyline Hcl 25 Mg Tablet PO 75 mg BEDTIME BHUPINDER Administration Aspirin 81 mg 03/21/21 09:00 03/21/21 08:11 Aspirin Enteric Coated 81 Mg Tablet. PO 81 mg DAILY BHUPINDER Administration Atenolol 25 mg 03/20/21 21:00 03/20/21 22:29 Atenolol 25 Mg Tablet PO 25 mg BEDTIME BHUPINDER Administration Protocol Atenolol 50 mg 03/21/21 09:00 03/21/21 08:11 Atenolol 50 Mg Tablet PO 50 mg DAILY BHUPINDER Administration Protocol Clonazepam 0.5 mg 03/20/21 21:00 03/20/21 22:29 Clonazepam 0.5 Mg Tablet PO 0.5 mg BEDTIME BHUPINDER Administration Enoxaparin Sodium 40 mg 03/20/21 23:00 03/20/21 22:29 Enoxaparin Sodium 40 Mg/0.4 Ml Syringe SUBCUT 40 mg Q24H BHUPINDER Administration Piperacillin Sod/Tazobactam 50 mls @ 100 mls/hr 03/20/21 18:00 03/21/21 08:11 Sod 3.375 gm/ Sodium Chloride IV 100 mls/hr Q6H BHUPINDER Administration Lactated Ringer's 1,000 mls @ 125 mls/hr 03/20/21 22:15 03/21/21 08:15 Lr IVCONT 125 mls/hr .Q8H BHUPINDER Administration Morphine Sulfate 2 mg 03/20/21 17:02 03/21/21 00:03 Morphine Sulfate 2 Mg/Ml Cartridge IVPUSH 2 mg Q6H PRN Administration Pain, Severe (Pain Scale 7-10) Multivitamins/Minerals 1 tab 03/21/21 09:00 03/21/21 08:10 Multivitamin With Minerals Tablet PO 1 tab DAILY [facility]UPINDER Administration Non-Formulary Medication 200 mg 03/21/21 09:00 Cranberry Extract PO DAILY [facility] Non-Formulary Medication 3,000 mmu cells 03/21/21 09:00 Lactobacillus Combination No.8 [Adult Probiotic] PO DAILY [facility] Non-Formulary Medication 1,000 mg 03/21/21 09:00 [place]-3 Fatty Acids [Fish Oil Concentrate] PO DAILY [facility] Non-Formulary Medication 50 mg 03/21/21 09:00 Zinc Acetate [Galzin] PO DAILY [facility] Pharmacy Consult 1 each 03/20/21 09:10 Consult Rx Perform Med Rec MISCELLANE ONCE PRN Consult order Sodium Chloride 3 ml 03/20/21 16:00 03/21/21 08:11 0.9 % Sodium Chloride Flush 3 Ml Syringe IVFLUSH 3 ml QSHIFT [facility] Administration Vitamin D 10 mcg 03/21/21 09:00 03/21/21 08:11 Cholecalciferol (Vitamin D3) 10 Mcg Tablet PO 10 mcg DAILY [facility] Administration Home Medications Medication Instructions Recorded Confirmed Last Taken Type aspirin 81 mg tablet,delayed 81 mg PO DAILY 02/02/21 03/20/21 03/19/21 History release atenolol 25 mg tablet 25 mg PO QPM tab 02/02/21 03/20/21 03/13/21 History atenolol 50 mg tablet 50 mg PO DAILY 02/02/21 03/20/21 03/14/21 History calcium carbonate 500 mg calcium 500 mg PO DAILY 02/02/21 03/20/21 03/13/21 History (1,250 mg) capsule cholecalciferol (vitamin D3) 10 10 mcg PO DAILY 02/02/21 03/20/21 03/13/21 History mcg (400 unit) capsule cranberry extract 200 mg capsule 200 mg PO DAILY 02/02/21 03/20/21 03/13/21 History ginkgo biloba 40 mg tablet 60 mg PO DAILY tab 02/02/21 03/20/21 03/13/21 History lactobacillus combination no.8 3 3,000 mmu cells PO DAILY 02/02/21 03/20/21 03/13/21 History billion cell capsule boihlapa-ipf-lurkm acid 0.4 1 tab PO DAILY 02/02/21 03/20/21 03/13/21 History mg-lycopene 300 mcg-lutein 250 mcg tablet omega-3 fatty acids 1,000 mg 1,000 mg PO DAILY 02/02/21 03/20/21 03/13/21 History capsule zinc acetate 50 mg (zinc) capsule 50 mg PO DAILY 02/02/21 03/20/21 03/13/21 History clonazepam 1 tab PO BEDTIME 03/14/21 03/20/21 03/13/21 History Physical Exam Vital Signs: Vital Signs: Last Vital Signs Temp 98.9 F 03/21/21 08:00 Pulse 88 03/21/21 08:00 Resp 17 03/21/21 08:00 BP 183/79 H 03/21/21 08:00 Pulse Ox 96 03/21/21 08:00 Body Mass Index 29.2 Const: General: comfortable and no acute distress Orientation/consciousness: patient oriented x3 Neck: Neck: Yes no lymphadenopathy Resp: Auscultation: clear to auscultation bilaterally Cardio: Rhythm: regular rhythm GI: Palpation (GI): Soft to palpation, nontender and no guarding Neuro: General: patient oriented x3 Results Labs Result diagrams: 03/20/21 10:25 03/20/21 10:25 Labs: Abnormal lab results 03/20/21 03/20/21 03/20/21 Range/Units 10:24 10:25 10:25 WBC 11.2 H (4.8-10.8) X10*3/uL RBC 3.53 L (4.20-5.50) X10*6/uL Hgb 11.4 L (12.0-16.0) g/dl Hct 33.2 L (37-47) % MPV 9.2 L (9.4-12.3) fL Immature Gran % (Auto) 0.9 H (0.0-0.4) % Neut % (Auto) 76.9 H (45-73) % Lymph % (Auto) 11.5 L (20-40) % Abs Immat Gran (auto) 0.10 H (0.00-0.03) X10*3/uL Absolute Neuts (auto) 8.6 H (2.0-8.3) X10*3/uL Random Glucose 120 H (60-115) mg/dL Uric Acid 7.0 H (2.4-5.7) mg/dL Calcium 8.3 L D (8.4-10.2) mg/dL Magnesium (1.6-2.6) mg/dL AST 37 H (5-31) U/L Troponin I High Sens 30.4 H (<3.5-17.0) ng/L Total Protein 6.2 L (6.5-8.0) g/dL Urine Nitrite (NEG) Ur Leukocyte Esterase (NEG) Urine WBC (0-4) /HPF 03/20/21 03/20/21 Range/Units 10:25 13:26 WBC (4.8-10.8) X10*3/uL RBC (4.20-5.50) X10*6/uL Hgb (12.0-16.0) g/dl Hct (37-47) % MPV (9.4-12.3) fL Immature Gran % (Auto) (0.0-0.4) % Neut % (Auto) (45-73) % Lymph % (Auto) (20-40) % Abs Immat Gran (auto) (0.00-0.03) X10*3/uL Absolute Neuts (auto) (2.0-8.3) X10*3/uL Random Glucose (60-115) mg/dL Uric Acid (2.4-5.7) mg/dL Calcium (8.4-10.2) mg/dL Magnesium 1.5 L (1.6-2.6) mg/dL AST (5-31) U/L Troponin I High Sens (<3.5-17.0) ng/L Total Protein (6.5-8.0) g/dL Urine Nitrite POS H (NEG) Ur Leukocyte Esterase 1+ H (NEG) Urine WBC 10-14 H (0-4) /HPF Short CBC 03/20/21 Range/Units 10:25 WBC 11.2 H (4.8-10.8) X10*3/uL Hgb 11.4 L (12.0-16.0) g/dl Hct 33.2 L (37-47) % Plt Count 209 (160-400) X10*3/uL BMP 03/20/21 10:25 Sodium 137 Potassium 3.6 Chloride 103 Carbon Dioxide 24 BUN 11 Creatinine 0.85 Calcium 8.3 L D Liver Function 03/20/21 Range/Units 10:25 Total Bilirubin 0.8 (0.0-1.0) mg/dL Direct Bilirubin 0.5 (0.0-0.5) mg/dL AST 37 H (5-31) U/L ALT 26 (0-31) U/L Alkaline Phosphatase 81 D (39-117) U/L Albumin 3.5 (3.5-5.0) g/dL Urine 03/20/21 Range/Units 13:26 Urine Color YELLOW Urine Appearance HAZY Urine pH 5.5 (5.0-8.0) Ur Specific [place] 1.025 (1.005-1.025) Urine Protein NEG (NEG-TRACE) MG/DL Urine Glucose (UA) NEG (NEG) MG/DL All other labs normal. Imaging Abdomen CT scan report/results: report reviewed and image reviewed CT scan - pelvis: report reviewed and image reviewed Assessment and Plan (1) Acute diverticulitis: Status: Acute She had been recently admitted for acute diverticulitis and a follow-up CT scan last night shows some inflammatory changes insurance claims assistant with this along with a possible intramural abscess. She currently does not have any significant pain or tenderness. Her abdominal exam is benign. I would treat her with IV antibiotics possibly for longer course. She does not appear septic. She probably can have some sips of clear liquids today and we will slowly advance this as she tolerates that. I discussed the above plan with her. I will follow along while she is in the hospital. She also stated that her main complaint right now is her severe left ankle pain. She is being worked up for this for possible gout.
[2021-03-21] MEDS: predniSONE 20 MG TABLET 40 MG PO (09:52)
[2021-03-21 11:29] VITALS: BP 166/72; PULSE 77; RESP 17; TEMP 37.4; O2SAT 95
--- NOTE | 2021-03-21 11:52 | P.PNIM_ITS ---
Subjective Subjective Date of Service: 03/21/21 Interval History: left hand and left foot pain and swelling Cardiovascular Cardiovascular: Reports no additional cardiovascular complaints Gastrointestinal Gastrointestinal: Reports no additional gastrointestinal complaints Physical Exam Vital Signs: Vital Signs: Last Vital Signs Temp 99.4 F 03/21/21 11:29 Pulse 77 03/21/21 11:29 Resp 17 03/21/21 11:29 BP 166/72 H 03/21/21 11:29 Pulse Ox 95 03/21/21 11:29 Body Mass Index 29.2 General: AO X 3, no acute distress Resp: CTA bilateral CVS: S1,S2,RRR GI: soft, non tender, non distended Neuro: motor grossly intact Psych: appropriate affect ext: left hand and left foot swelling, teneder, mild erythema Objective Data Current Medications Generic Name Dose Route Start Last Admin Trade Name Freq PRN Reason Stop Dose Admin Amitriptyline HCl 75 mg 03/20/21 21:00 03/20/21 22:31 Amitriptyline Hcl 25 Mg Tablet PO 75 mg BEDTIME BHUPINDER Administration Aspirin 81 mg 03/21/21 09:00 03/21/21 08:11 Aspirin Enteric Coated 81 Mg Tablet.Dr PO 81 mg DAILY BHUPINDER Administration Atenolol 25 mg 03/20/21 21:00 03/20/21 22:29 Atenolol 25 Mg Tablet PO 25 mg BEDTIME BHUPINDER Administration Protocol Atenolol 50 mg 03/21/21 09:00 03/21/21 08:11 Atenolol 50 Mg Tablet PO 50 mg DAILY BHUPINDER Administration Protocol Clonazepam 0.5 mg 03/20/21 21:00 03/20/21 22:29 Clonazepam 0.5 Mg Tablet PO 0.5 mg BEDTIME BHUPINDER Administration Enoxaparin Sodium 40 mg 03/20/21 23:00 03/20/21 22:29 Enoxaparin Sodium 40 Mg/0.4 Ml Syringe SUBCUT 40 mg Q24H BHUPINDER Administration Piperacillin Sod/Tazobactam 50 mls @ 100 mls/hr 03/20/21 18:00 03/21/21 08:45 Sod 3.375 gm/ Sodium Chloride IV Infused Q6H BHUPINDER Infusion Magnesium Oxide 800 mg 03/21/21 17:30 Magnesium Oxide 400 Mg Tablet PO BIDPC BHUPINDER Morphine Sulfate 2 mg 03/20/21 17:02 03/21/21 00:03 Morphine Sulfate 2 Mg/Ml Cartridge IVPUSH 2 mg Q6H PRN Administration Pain, Severe (Pain Scale 7-10) Multivitamins/Minerals 1 tab 03/21/21 09:00 03/21/21 08:10 Multivitamin With Minerals Tablet PO 1 tab DAILY [facility] Administration Non-Formulary Medication 3,000 mmu cells 03/21/21 09:00 Lactobacillus Combination No.8 [Adult Probiotic] PO DAILY [facility] Non-Formulary Medication 50 mg 03/21/21 09:00 Zinc Acetate [Galzin] PO DAILY [facility] Pharmacy Consult 1 each 03/20/21 09:10 Consult Rx Perform Med Rec MISCELLANE ONCE PRN Consult order Prednisone 40 mg 03/21/21 09:30 03/21/21 09:52 Prednisone 20 Mg Tablet PO 40 mg DAILY [facility] Administration Sodium Chloride 3 ml 03/20/21 16:00 03/21/21 08:11 0.9 % Sodium Chloride Flush 3 Ml Syringe IVFLUSH 3 ml QSHIFT [facility] Administration Vitamin D 10 mcg 03/21/21 09:00 03/21/21 08:11 Cholecalciferol (Vitamin D3) 10 Mcg Tablet PO 10 mcg DAILY BHUPINDER Administration Labs CBC & Chem 7: 03/20/21 10:25 03/20/21 10:25 Microbiology Microbiology Results: Microbiology 03/20/21 13:26 Urine clean catch - Clean Catch Midstream Urine Culture - Final No growth. Assessment and Plan (1) Diverticulitis: Problem details: February 2021 Status: Inactive (2) High blood sugar: Status: Acute (3) Obesity (BMI 30-39.9): Status: Acute (4) HTN (hypertension): Status: Acute (5) LYNDA (acute kidney injury): Status: Acute Assessment and Plan: 80F presented with abd pain and left hand and foot pain and swelling, found to have acute diverticulitis with possible intramural abscess acute sigmoid diverticultis with possible intramural absecess no need for drainage surgery appreciated advance to clears continue zosyn left hand and foot swellings appears to be inflammatory arthritis trial of prednisone orthostatic hypotension received iv fluids
--- NOTE | 2021-03-21 12:08 | PM.EVENT ---
Event Note Date of Service: 03/21/21 Event Note: GI Consult-Full note dictated Imp: Diverticulitis with some worsening symptoms and CT findings after an initial course of treatment. She presently has a benign abdominal exam other than some slight tenderness to palpation in the LLQ. She is c/o diarrhea. She had a neg stool for Cdiff on 03/15. Rec: Continue IV antibiotics. Recheck stool for Cdiff. She has already been seen by surgery so I will leave further management of her antibiotics and diet to Dr. Alonso. D/W patient in detail and she is comfortable with this plan. Thanks
--- NOTE | 2021-03-21 12:46 | MHC.CM.PN ---
IMM 03/21/21, EMR REVIEWED, PT ADMITTED W/GENERAL WEAKNESS AND HYPOTENSION, PT REPORTS SHE HAD BEEN UNABLE TO EAT SINCE SHE WAS D/C'D ON 03/16/21, PT IS INDEPENDENT W/ALL CARE AT HOME, HAS NO DME AND NO HOME SERVICES, PT REPORTS SHE HAS A FIANCE WHO VISITS EVERY DAY AND A SON WHO LIVES LOCALLY WHO CAN ASSIST IF SHE NEEDS, PT DOES NOT ANTICIPATE ANY NEED FOR HOME SERVICES AT THIS TIME. D/C PLAN: HOME SELF-CARE, FAMILY FOR TRANSPORT PCP: JENNIFER ALMEIDA HCP: GRACIE RICH [phone]
--- NOTE | 2021-03-21 13:47 | CONS_ITS ---
DATE OF SERVICE: 03/21/2021 REASON FOR CONSULTATION: Diverticulitis and diarrhea. History has been obtained from the patient and the medical record. HISTORY OF PRESENT ILLNESS: The patient is a 80-year-old female, well known to me with underlying history of irritable bowel syndrome as well as previous episodes of diverticulitis. I last saw her in the office in December, at which time, she was recovering from an episode of diverticulitis in October 2020, which involved the sigmoid colon based on the CAT scan. She was admitted here earlier this month with sigmoid diverticulitis again. She was treated with some IV antibiotics and was discharged on oral antibiotics. However, after several day, she had to come back to the ER due to some worsening pain. A followup CAT scan showed the sigmoid diverticulitis as well as a question of a small intramural colonic wall abscess. There was no sign of any perforation nor intraabdominal abscess. Since admission here, she does feel somewhat better. She has been having diarrhea since the start of the diverticulitis initially and a stool for C diff was negative on March 15. She denies any significant abdominal pain at the present time. She denies any nausea nor vomiting and has been tolerating some liquids. She denies any hematochezia nor melena. She denies any urinary symptoms. Her last colonoscopy was in 2016 and this was negative except for diverticulosis and hemorrhoids. MEDICATIONS: Her present medications include amitriptyline, aspirin 81 mg, atenolol, vitamin D, clonazepam, Lovenox, magnesium, morphine p.r.n., multivitamins, Zosyn, and prednisone. PAST MEDICAL HISTORY: Diverticulitis as above. Irritable bowel syndrome. Hypertension. Headaches. She denies history of [place], diabetes, stroke, lung disease, nor kidney disease. She has had a cholecystectomy, spinal stenosis, and bunion surgery. FAMILY HISTORY: Negative for GI malignancy. SOCIAL HISTORY: She does not smoke nor use any significant amounts of alcohol. She is a . She is retired. REVIEW OF SYSTEMS: CONSTITUTIONAL: She has not been feeling well in the past couple of weeks in relation to the diverticulitis and diarrhea. SKIN: No rash. No pruritus. CARDIAC: No chest pain. PULMONARY: No cough. No hemoptysis. GASTROINTESTINAL: As above. URINARY: No dysuria. No hematuria. NEUROLOGIC: No headache or seizures. PHYSICAL EXAMINATION: GENERAL: The patient is a pleasant, alert, comfortable appearing female. SKIN: Warm and dry. Nonjaundiced. Anicteric sclerae. CHEST: Clear. CARDIAC: Normal S1 and S2. ABDOMEN: Soft, nondistended. Normal bowel sounds. There is some mild tenderness to palpation deep in the left lower quadrant, but without mass, rebound, or guarding. LABORATORY DATA: White blood cell count 11.2, hemoglobin 11.4, platelets 209,000. Normal electrolytes. BUN 11, creatinine 0.9, total bilirubin 0.8, AST 37, ALT 26, alkaline phosphatase 81, albumin 3.5, lipase 36. She did have a CAT scan yesterday in the ER describing her known sigmoid diverticulitis as well as a small area in the sigmoid colon suspicious for an approximately 3 x 2 cm intramural abscess. There was no sign of any perforation nor free air. IMPRESSION: Given the patient's clinical history, she does appear to be have recurrent diverticulitis after an episode just back in October. At the present time, despite the CAT scan findings, her abdominal exam is quite benign. She does not appear toxic and I do not think there is any indication for CT-guided drainage nor surgery at this time. At this point, I would continue IV antibiotics and relative bowel rest. She has already been seen by Dr. Alonso from Surgery and I would therefore leave the further management of this condition to him in regard to adjustment of her diet and continuation of IV antibiotics. I have reviewed with the patient that clearly if she does not get better or if the symptoms relapse fairly quickly after this episode, she might ultimately need surgery. We did review that the goal would be to do surgery rather electively as opposed urgently so as to hopefully avoid any need for temporary colostomy. However, at this point, I do not think surgery is indicated at this time. In regard to the diarrhea, I have ordered a repeat stool for C difficile. This has all been discussed in detail with the patient and her son, and they are comfortable with this plan. Thank you for this consultation. MD GEMMA Meyer/LEW / [phone] MTDKatty
[2021-03-21 14:37] LABS: CDIFF Ag Negative (Negative); CDIFF Internal ctrl Dots and bkg OK (V); CDiff Toxin Negative (Negative)
[2021-03-21 15:15] VITALS: BP 141/66; PULSE 70; RESP 16; TEMP 36.9; O2SAT 95
[2021-03-21] MEDS: Magnesium Oxide 400 MG TABLET 800 MG PO (17:25)
[2021-03-21 19:19] VITALS: BP 157/86; PULSE 83; RESP 17; TEMP 36.5; O2SAT 94
[2021-03-21] MEDS: Acetaminophen 325 MG TABLET 650 MG PO (19:42)
[2021-03-21] MEDS: clonazePAM 0.5 MG TABLET PO (21:26)
[2021-03-21] MEDS: Amitriptyline HCl 25 MG TABLET 75 MG PO (21:26)
[2021-03-21] MEDS: atenoloL 25 MG TABLET PO (21:26)
[2021-03-21] MEDS: Enoxaparin Sodium 40 MG/0.4 ML SYRINGE SUBCUT (23:39)
[2021-03-21 23:40] VITALS: BP 119/53; PULSE 81; RESP 20; TEMP 36.4; O2SAT 95
[2021-03-22 03:57] VITALS: BP 152/72; PULSE 78; RESP 20; TEMP 36.8; O2SAT 96
[2021-03-22] MEDS: Piperacillin Sodium/Tazobactam 3.375 GM in 0.9 % Sodium Chloride 50 ML IV ×3 (05:34→16:56)
[2021-03-22 06:37] LABS: MANUAL DIFF FLAG NO
[2021-03-22 06:50] LABS: Basophils Absolute Auto 0.1 X10*3/uL (0.0-0.2); Basophils Percent Auto 0.5 % (0-2); Eosinophils Percent Auto 0.3 % (0-4); Hematocrit 29.3 % (37-47); Hemoglobin 9.8 g/dl (12.0-16.0); Imm Gran Abs Auto 0.09 X10*3/uL (0.00-0.03); Imm Gran Pct Auto 0.8 % (0.0-0.4); Lymphocytes Absolute Auto 2.1 X10*3/uL (1.2-4.9); Lymphocytes Percent Auto 19.1 % (20-40); Mean Corpuscular HGB Conc 33.4 g/dl (31.0-35.0); Mean Corpuscular Hemoglobin 31.5 pg (27.0-33.0); Mean Corpuscular Volume 94.2 fL (80-98); Mean Platelet Volume 9.3 fL (9.4-12.3); Monocytes Absolute Auto 0.9 X10*3/uL (0.1-1.2); Monocytes Percent Auto 8.2 % (2-11); Neutrophils Absolute Auto 7.9 X10*3/uL (2.0-8.3); Neutrophils Percent Auto 71.1 % (45-73); Platelet Count 219 X10*3/uL (160-400); Red Blood Count 3.11 X10*6/uL (4.20-5.50); Red Cell Distribution Width 12.4 % (11.0-16.0); White Blood Count 11.1 X10*3/uL (4.8-10.8)
[2021-03-22 07:15] VITALS: BP 133/62; PULSE 78; RESP 19; TEMP 36.9; O2SAT 98
[2021-03-22] MEDS: 0.9 % Sodium Chloride Flush 3 ML SYRINGE IVFLUSH ×2 (07:45→16:57)
[2021-03-22] MEDS: Cholecalciferol (Vitamin D3) 10 MCG TABLET PO (07:45)
[2021-03-22] MEDS: predniSONE 20 MG TABLET 40 MG PO (07:45)
[2021-03-22] MEDS: atenoloL 50 MG TABLET PO (07:45)
[2021-03-22] MEDS: Magnesium Oxide 400 MG TABLET 800 MG PO ×2 (07:45→16:55)
[2021-03-22] MEDS: Aspirin Enteric Coated 81 MG TABLET.DR PO (07:45)
[2021-03-22 07:52] LABS: Anion Gap 13 (12-20); Blood Urea Nitrogen 10 mg/dL (9-16); Calcium 7.8 mg/dL (8.4-10.2); Carbon Dioxide 28 mmol/L (22-29); Chloride 106 mmol/L (96-108); Estimated Glomerular Filt Rate > 60; Glucose Fasting 100 mg/dL (60-99); Magnesium 1.7 mg/dL (1.6-2.6); Potassium 3.6 mmol/L (3.3-5.1); Sodium 143 mmol/L (135-145)
--- NOTE | 2021-03-22 08:16 | PM.PNGS ---
Subjective Subjective Date of Service: 03/22/21 Interval history: feels much better denies abdl pain main complaint yesterday was left ankle pain - this is much improved Physical Exam Vital Signs: Vital Signs: Last Vital Signs Temp 98.4 F 03/22/21 07:15 Pulse 78 03/22/21 07:15 Resp 19 03/22/21 07:15 BP 133/62 03/22/21 07:15 Pulse Ox 98 03/22/21 07:15 Body Mass Index 29.2 Laboratory Results - last 24 hr 03/21/21 03/22/21 03/22/21 13:32 06:09 06:09 WBC 11.1 H RBC 3.11 L Hgb 9.8 L Hct 29.3 L MCV 94.2 MCH 31.5 MCHC 33.4 RDW 12.4 Plt Count 219 MPV 9.3 L Immature Gran % (A uto) 0.8 H Neut % (Auto) 71.1 Lymph % (Auto) 19.1 L [place] % (Auto) 8.2 Eos % (Auto) 0.3 Baso % (Auto) 0.5 Lymph # (Auto) 2.1 [place] # (Auto) 0.9 Eos # (Auto) 0.0 Baso # (Auto) 0.1 Abs Immat Gran (au to) 0.09 H Absolute Neuts (au to) 7.9 Absolute Nucleated RBC 0.000 Nucleated RBC % (a uto) 0.0 Sodium 143 Potassium 3.6 Chloride 106 Carbon Dioxide 28 Anion Gap 13 BUN 10 Creatinine 0.79 Estim Creat Clear Calc 58.0 Estimated GFR > 60 Fasting Glucose 100 H Calcium 7.8 L D Magnesium 1.7 C. difficile Toxin A&B Negative C. difficile Antig en Negative C. difficile Inter pret SEE NOTE Const: General: comfortable and no acute distress Resp: Effort & Inspection: normal respiratory effort Cardio: Rate: regular rate GI: Palpation (GI): Soft to palpation, not firm, nontender, no guarding and not rigid Extrem: Other: Left ankle swelling much improved Progress Note: A&P Assessment and plan (1) Acute diverticulitis: Status: Acute Assessment and Plan: Question of small intramural abscess on CT Clinically resolved however Patient does not have any pain or tenderness WBC down Overall symptoms admission does not appear to be related to her and diverticulitis Would however continue with antibiotics on discharge Advance diet later today Left ankle pain much improved Fall Risk Details Current Medications: Current Medications Generic Name Dose Route Start Last Admin Trade Name Glennq PRN Reason Stop Dose Admin Acetaminophen 650 mg 03/21/21 19:23 03/21/21 19:42 Acetaminophen 325 Mg Tablet PO 650 mg Q6H PRN Administration Breakthrough Pain Amitriptyline HCl 75 mg 03/20/21 21:00 03/21/21 21:26 Amitriptyline Hcl 25 Mg Tablet PO 75 mg BEDTIME BHUPINDER Administration Aspirin 81 mg 03/21/21 09:00 03/22/21 07:45 Aspirin Enteric Coated 81 Mg Tablet. PO 81 mg DAILY BHUPINDER Administration Atenolol 25 mg 03/20/21 21:00 03/21/21 21:26 Atenolol 25 Mg Tablet PO 25 mg BEDTIME BHUPINDER Administration Protocol Atenolol 50 mg 03/21/21 09:00 03/22/21 07:45 Atenolol 50 Mg Tablet PO 50 mg DAILY BHUPINDER Administration Protocol Clonazepam 0.5 mg 03/20/21 21:00 03/21/21 21:26 Clonazepam 0.5 Mg Tablet PO 0.5 mg BEDTIME BHUPINDER Administration Enoxaparin Sodium 40 mg 03/20/21 23:00 03/21/21 23:39 Enoxaparin Sodium 40 Mg/0.4 Ml Syringe SUBCUT 40 mg Q24H BHUPINDER Administration Piperacillin Sod/Tazobactam 50 mls @ 100 mls/hr 03/20/21 18:00 03/22/21 06:07 Sod 3.375 gm/ Sodium Chloride IV Infused Q6H BHUPINDER Infusion Magnesium Oxide 800 mg 03/21/21 17:30 03/22/21 07:45 Magnesium Oxide 400 Mg Tablet PO 800 mg BIDPC BHUPINDER Administration Morphine Sulfate 2 mg 03/20/21 17:02 03/21/21 00:03 Morphine Sulfate 2 Mg/Ml Cartridge IVPUSH 2 mg Q6H PRN Administration Pain, Severe (Pain Scale 7-10) Multivitamins/Minerals 1 tab 03/21/21 09:00 03/22/21 07:45 Multivitamin With Minerals Tablet PO 1 tab DAILY BHUPINDER Administration Pharmacy Consult 1 each 03/20/21 09:10 Consult Rx Perform Med Rec MISCELLANE ONCE PRN Consult order Prednisone 40 mg 03/21/21 09:30 03/22/21 07:45 Prednisone 20 Mg Tablet PO 40 mg DAILY BHUPINDER Administration Sodium Chloride 3 ml 03/20/21 16:00 03/22/21 07:45 0.9 % Sodium Chloride Flush 3 Ml Syringe IVFLUSH 3 ml QSHIFT BHUPINDER Administration Vitamin D 10 mcg 03/21/21 09:00 03/22/21 07:45 Cholecalciferol (Vitamin D3) 10 Mcg Tablet PO 10 mcg DAILY BHUPINDER Administration Time Spent With Patient Time: Total time spent is greater than 50% in coordination of care (as documented) at patient's floor/unit and/or counseling patient: Time with patient: 15 - 24 minutes
--- NOTE | 2021-03-22 10:37 | HO.PM.IMPN ---
Subjective Subjective Date of Service: 03/22/21 Interval History: left hand swelling improved, left foot swelling still present but pain much better, tolerated clears Cardiovascular Cardiovascular: Reports no additional cardiovascular complaints Gastrointestinal Gastrointestinal: Reports no additional gastrointestinal complaints Physical Exam Vital Signs: Vital Signs: Last Vital Signs Temp 98.4 F 03/22/21 07:15 Pulse 78 03/22/21 07:15 Resp 19 03/22/21 07:15 BP 133/62 03/22/21 07:15 Pulse Ox 98 03/22/21 07:15 Body Mass Index 29.2 General: AO X 3, no acute distress Resp: CTA bilateral CVS: S1,S2,RRR GI: soft, non tender, non distended Neuro: motor grossly intact Psych: appropriate affect left hand swelling resolved left foot still swollen, not tender Objective Data Current Medications Generic Name Dose Route Start Last Admin Trade Name Freq PRN Reason Stop Dose Admin Acetaminophen 650 mg 03/21/21 19:23 03/21/21 19:42 Acetaminophen 325 Mg Tablet PO 650 mg Q6H PRN Administration Breakthrough Pain Amitriptyline HCl 75 mg 03/20/21 21:00 03/21/21 21:26 Amitriptyline Hcl 25 Mg Tablet PO 75 mg BEDTIME BHUPINDER Administration Aspirin 81 mg 03/21/21 09:00 03/22/21 07:45 Aspirin Enteric Coated 81 Mg Tablet. PO 81 mg DAILY BHUPINDER Administration Atenolol 25 mg 03/20/21 21:00 03/21/21 21:26 Atenolol 25 Mg Tablet PO 25 mg BEDTIME BHUPINDER Administration Protocol Atenolol 50 mg 03/21/21 09:00 03/22/21 07:45 Atenolol 50 Mg Tablet PO 50 mg DAILY BHUPINDER Administration Protocol Clonazepam 0.5 mg 03/20/21 21:00 03/21/21 21:26 Clonazepam 0.5 Mg Tablet PO 0.5 mg BEDTIME BHUPINDER Administration Enoxaparin Sodium 40 mg 03/20/21 23:00 03/21/21 23:39 Enoxaparin Sodium 40 Mg/0.4 Ml Syringe SUBCUT 40 mg Q24H BHUPINDER Administration Piperacillin Sod/Tazobactam 50 mls @ 100 mls/hr 03/20/21 18:00 03/22/21 06:07 Sod 3.375 gm/ Sodium Chloride IV Infused Q6H BHUPINDER Infusion Magnesium Oxide 800 mg 03/21/21 17:30 03/22/21 07:45 Magnesium Oxide 400 Mg Tablet PO 800 mg BIDPC BHUPINDER Administration Morphine Sulfate 2 mg 03/20/21 17:02 03/21/21 00:03 Morphine Sulfate 2 Mg/Ml Cartridge IVPUSH 2 mg Q6H PRN Administration Pain, Severe (Pain Scale 7-10) Multivitamins/Minerals 1 tab 03/21/21 09:00 03/22/21 07:45 Multivitamin With Minerals Tablet PO 1 tab DAILY BHUPINDER Administration Pharmacy Consult 1 each 03/20/21 09:10 Consult Rx Perform Med Rec MISCELLANE ONCE PRN Consult order Prednisone 40 mg 03/21/21 09:30 03/22/21 07:45 Prednisone 20 Mg Tablet PO 40 mg DAILY BHUPINDER Administration Sodium Chloride 3 ml 03/20/21 16:00 03/22/21 07:45 0.9 % Sodium Chloride Flush 3 Ml Syringe IVFLUSH 3 ml QSHIFT BHUPINDER Administration Vitamin D 10 mcg 03/21/21 09:00 03/22/21 07:45 Cholecalciferol (Vitamin D3) 10 Mcg Tablet PO 10 mcg DAILY BHUPINDER Administration Labs CBC & Chem 7: 03/22/21 06:09 03/22/21 06:09 Microbiology Microbiology Results: Microbiology 03/20/21 10:26 Blood - Venous Blood Culture - Preliminary No growth after 24 hours. 03/20/21 10:23 Blood - Venous Blood Culture - Preliminary No growth after 24 hours. 03/20/21 13:26 Urine clean catch - Clean Catch Midstream Urine Culture - Final No growth. Assessment and Plan (1) Diverticulitis: Problem details: February 2021 Status: Inactive (2) High blood sugar: Status: Acute (3) Obesity (BMI 30-39.9): Status: Acute (4) HTN (hypertension): Status: Acute (5) LYNDA (acute kidney injury): Status: Acute Assessment and Plan: 80F presented with abd pain and left hand and foot pain and swelling, found to have acute diverticulitis with possible intramural abscess acute sigmoid diverticultis with possible intramural absecess no need for drainage surgery appreciated advance to solids today continue zosyn left hand and foot swellings appears to be inflammatory arthritis, maybe gout, uric acid was 7, can do further work up if recurs improving on prednisone orthostatic hypotension resolved with iv fluids
--- NOTE | 2021-03-22 11:10 | MHC.CM.PN ---
PER MULTIDISCIPLINARY ROUNDS PLAN IS TO ADVANCE DIET TODAY AND POSSIBLE D/C TOMORROW. D/C PLAN: HOME W/NO SERVICES AND FAMILY TO TRANSPORT
[2021-03-22 11:35] VITALS: BP 157/80; PULSE 74; RESP 18; TEMP 36.2; O2SAT 93
[2021-03-22 15:13] VITALS: BP 138/64; PULSE 80; RESP 16; TEMP 36.3; O2SAT 97
[2021-03-22 18:50] VITALS: BP 154/66; PULSE 85; RESP 17; TEMP 36.3; O2SAT 96
[2021-03-22] MEDS: Amitriptyline HCl 25 MG TABLET 75 MG PO (21:23)
[2021-03-22] MEDS: atenoloL 25 MG TABLET PO (21:23)
[2021-03-22] MEDS: clonazePAM 0.5 MG TABLET PO (21:23)
[2021-03-22 23:54] VITALS: BP 120/57; PULSE 91; RESP 18; TEMP 36.6; O2SAT 95
[2021-03-23] MEDS: Enoxaparin Sodium 40 MG/0.4 ML SYRINGE SUBCUT (00:03)
[2021-03-23] MEDS: Piperacillin Sodium/Tazobactam 3.375 GM in 0.9 % Sodium Chloride 50 ML IV ×2 (00:03→05:56)
[2021-03-23] MEDS: 0.9 % Sodium Chloride Flush 3 ML SYRINGE IVFLUSH ×2 (00:04→07:33)
[2021-03-23 03:17] VITALS: BP 157/57; PULSE 78; RESP 17; TEMP 37; O2SAT 93
[2021-03-23 07:16] VITALS: BP 119/86; PULSE 97; RESP 18; TEMP 36.1; O2SAT 95
[2021-03-23] MEDS: Cholecalciferol (Vitamin D3) 10 MCG TABLET PO (07:31)
[2021-03-23] MEDS: atenoloL 50 MG TABLET PO (07:31)
[2021-03-23] MEDS: Aspirin Enteric Coated 81 MG TABLET.DR PO (07:31)
[2021-03-23] MEDS: predniSONE 20 MG TABLET 40 MG PO (07:31)
[2021-03-23] MEDS: Magnesium Oxide 400 MG TABLET 800 MG PO (07:31)
--- NOTE | 2021-03-23 08:35 | PM.PNGS ---
Subjective Subjective Date of Service: 03/23/21 Interval history: feels well just very anxious denies abdl pain tolerating diet Physical Exam Vital Signs: Vital Signs: Last Vital Signs Temp 96.9 F 03/23/21 07:16 Pulse 97 03/23/21 07:16 Resp 18 03/23/21 07:16 BP 119/86 03/23/21 07:16 Pulse Ox 95 03/23/21 07:16 Body Mass Index 29.2 Const: General: comfortable and no acute distress Resp: Effort & Inspection: normal respiratory effort Cardio: Rhythm: regular rhythm GI: Inspection: No distended Palpation (GI): Soft to palpation, nontender, no guarding and not rigid Progress Note: A&P Assessment and plan (1) Acute diverticulitis: Problem details: clinically resolved complete antibiotic course - ok for oral no pain good GI function ok to tx home from surgical standpoint Status: Acute Fall Risk Details Current Medications: Current Medications Generic Name Dose Route Start Last Admin Trade Name Freq PRN Reason Stop Dose Admin Acetaminophen 650 mg 03/21/21 19:23 03/21/21 19:42 Acetaminophen 325 Mg Tablet PO 650 mg Q6H PRN Administration Breakthrough Pain Amitriptyline HCl 75 mg 03/20/21 21:00 03/22/21 21:23 Amitriptyline Hcl 25 Mg Tablet PO 75 mg BEDTIME BHUPINDER Administration Aspirin 81 mg 03/21/21 09:00 03/23/21 07:31 Aspirin Enteric Coated 81 Mg Tablet. PO 81 mg DAILY BHUPINDER Administration Atenolol 25 mg 03/20/21 21:00 03/22/21 21:23 Atenolol 25 Mg Tablet PO 25 mg BEDTIME BHUPINDER Administration Protocol Atenolol 50 mg 03/21/21 09:00 03/23/21 07:31 Atenolol 50 Mg Tablet PO 50 mg DAILY BHUPINDER Administration Protocol Clonazepam 0.5 mg 03/20/21 21:00 03/22/21 21:23 Clonazepam 0.5 Mg Tablet PO 0.5 mg BEDTIME BHUPINDER Administration Enoxaparin Sodium 40 mg 03/20/21 23:00 03/23/21 00:03 Enoxaparin Sodium 40 Mg/0.4 Ml Syringe SUBCUT 40 mg Q24H BHUPINDER Administration Piperacillin Sod/Tazobactam 50 mls @ 100 mls/hr 03/20/21 18:00 03/23/21 07:04 Sod 3.375 gm/ Sodium Chloride IV Infused Q6H BHUPINDER Infusion Magnesium Oxide 800 mg 03/21/21 17:30 03/23/21 07:31 Magnesium Oxide 400 Mg Tablet PO 800 mg BIDPC BHUPINDER Administration Morphine Sulfate 2 mg 03/20/21 17:02 03/21/21 00:03 Morphine Sulfate 2 Mg/Ml Cartridge IVPUSH 2 mg Q6H PRN Administration Pain, Severe (Pain Scale 7-10) Multivitamins/Minerals 1 tab 03/21/21 09:00 03/23/21 07:31 Multivitamin With Minerals Tablet PO 1 tab DAILY BHUPINDER Administration Pharmacy Consult 1 each 03/20/21 09:10 Consult Rx Perform Med Rec MISCELLANE ONCE PRN Consult order Prednisone 40 mg 03/21/21 09:30 03/23/21 07:31 Prednisone 20 Mg Tablet PO 40 mg DAILY BHUPINDER Administration Sodium Chloride 3 ml 03/20/21 16:00 03/23/21 07:33 0.9 % Sodium Chloride Flush 3 Ml Syringe IVFLUSH 3 ml QSHIFT BHUPINDER Administration Vitamin D 10 mcg 03/21/21 09:00 03/23/21 07:31 Cholecalciferol (Vitamin D3) 10 Mcg Tablet PO 10 mcg DAILY BHUPINDER Administration Time Spent With Patient Time: Total time spent is greater than 50% in coordination of care (as documented) at patient's floor/unit and/or counseling patient: Time with patient: 15 - 24 minutes
--- NOTE | 2021-03-23 09:46 | P.DS_ITS ---
DS: Providers Provider Date of Service: 03/23/21 Date of admission: 03/20/21 14:56 Primary care physician: Osvaldo Gifford MD Consults: 03/20/21 15:28 Consult to Gastroenterology Routine Consulting Provider: Dyllan Houston Reason for consultation: acute diveriticulitis 03/20/21 16:10 Consult to General Surgery Routine Consulting Provider: [facility] [place] [facility] Reason for consultation: diverticulitis with abbscess DS: Diagnosis Discharge Diagnosis (1) Acute diverticulitis: Status: Acute Problem details: clinically resolved complete antibiotic course - ok for oral no pain good GI function ok to dc home from surgical standpoint (2) Inflammatory arthritis: Status: Acute DS: Medications Discharge Medications Home Medications: Home Medications Medication Instructions Recorded Confirmed aspirin 81 mg tablet,delayed 81 mg PO DAILY 02/02/21 03/20/21 release atenolol 25 mg tablet 25 mg PO QPM tab 02/02/21 03/20/21 atenolol 50 mg tablet 50 mg PO DAILY 02/02/21 03/20/21 calcium carbonate 500 mg calcium 500 mg PO DAILY 02/02/21 03/20/21 (1,250 mg) capsule cholecalciferol (vitamin D3) 10 10 mcg PO DAILY 02/02/21 03/20/21 mcg (400 unit) capsule cranberry extract 200 mg capsule 200 mg PO DAILY 02/02/21 03/20/21 ginkgo biloba 40 mg tablet 60 mg PO DAILY tab 02/02/21 03/20/21 lactobacillus combination no.8 3 3,000 mmu cells PO DAILY 02/02/21 03/20/21 billion cell capsule nimdmeys-wdh-tttoz acid 0.4 1 tab PO DAILY 02/02/21 03/20/21 mg-lycopene 300 mcg-lutein 250 mcg tablet omega-3 fatty acids 1,000 mg 1,000 mg PO DAILY 02/02/21 03/20/21 capsule zinc acetate 50 mg (zinc) capsule 50 mg PO DAILY 02/02/21 03/20/21 clonazepam 1 tab PO BEDTIME 03/14/21 03/20/21 Previous Rx's Medication Instructions Recorded amitriptyline 75 mg tablet 75 mg PO BEDTIME #90 tab 01/18/21 lisinopril 10 mg tablet 10 mg PO BID 90 Days #180 tab 03/30/21 amoxicillin-pot clavulanate 1 tab PO BID #10 tab 03/23/21 [Augmentin] prednisone 40 mg PO DAILY #11 tab 03/23/21 DS: Summary Hospital Course Hospital Course: patient was admitted for acute diverticulitis with possible abscess. she was treated with iv zosyn, symtpoms resolved, she was able to advance to solid diet and will continue 5 more days of augmentin. course was complicated by left hand and foot swelling, behaved like an inflammatory arthritis, possible gout, given uric acid of 7, responded well to po prednisone. patient will be discharged home on short steroid taper. Time Spent with Patient Time attestation: Total time spent providing and/or coordinating discharge services: Discharge coordination time: Greater than 30 minutes Physical Exam Vital Signs: Vital Signs: Last Vital Signs Temp 96.9 F 03/23/21 07:16 Pulse 97 03/23/21 07:16 Resp 18 03/23/21 07:16 BP 119/86 03/23/21 07:16 Pulse Ox 95 03/23/21 07:16 Body Mass Index 29.2 General: AO X 3, no acute distress Resp: CTA bilateral CVS: S1,S2,RRR GI: soft, non tender, non distended Neuro: motor grossly intact Psych: appropriate affect left hand swelling resolved, left foot swelling significantly improved DS: Data Data Completed and Pending Labs on day of discharge: Preliminary micro results at discharge 03/20/21 10:26 Blood Culture - Preliminary Blood - Venous No growth after 48 hours. 03/20/21 10:23 Blood Culture - Preliminary Blood - Venous No growth after 48 hours. Discharge Plan Discharge Patient Disposition: Home, Self-Care Discharge Diagnosis: diverticulitis Referrals: Balta,Osvaldo Omalley MD [Primary Care Provider] - 1 Week Discharge Medications: New prednisone 20 mg Tablet 40 mg PO DAILY Qty: 11 RF: 0 Continued amitriptyline 75 mg tablet 75 mg PO BEDTIME Qty: 90 RF: 1 lisinopril 10 mg tablet 10 mg PO BID 90 Days Qty: 180 RF: 1 amoxicillin-pot clavulanate [Augmentin] 875-125 mg tablet 1 tab PO BID Qty: 10 RF: 0 clonazepam 0.5 mg tablet 1 tab PO BEDTIME RF: 0 atenolol 50 mg tablet 50 mg PO DAILY RF: 0 atenolol 25 mg tablet 25 mg PO QPM RF: 0 aspirin [Adult Low Dose Aspirin] 81 mg tablet,delayed release (DR/EC) 81 mg PO DAILY RF: 0 cholecalciferol (vitamin D3) 10 mcg (400 unit) capsule 10 mcg PO DAILY RF: 0 Calci-Mix 500 mg calcium (1,250 mg) capsule 500 mg PO DAILY RF: 0 ginkgo biloba 40 mg tablet 60 mg PO DAILY RF: 0 omega-3 fatty acids [Fish Oil Concentrate] 1,000 mg capsule 1,000 mg PO DAILY RF: 0 Centrum Silver 0.4-300-250 mg-mcg-mcg tablet 1 tab PO DAILY RF: 0 cranberry extract 200 mg capsule 200 mg PO DAILY RF: 0 Galzin 50 mg (zinc) capsule 50 mg PO DAILY RF: 0 Adult Probiotic 3 billion cell capsule 3,000 mmu cells PO DAILY RF: 0 Discharge Orders: Discharge Order (Routine); Ordered 03/23/21 Ordered By: Kobi Loya Activity on Discharge: As tolerated Stand Alone Forms: Patient Portal Discharge page Care Plan Goals: recovery Health Concerns: diverticulitis, inflammatory arthritis Plan of Treatment: antibiotics, prednisone, outpaitent follow up Assessment: see above
--- NOTE | 2021-03-23 10:02 | MHC.CM.PN ---
PT DISCHARGING TODAY HOME SELF-CARE, FAMILY FOR TRANSPORT.
[2021-03-23 11:51] VITALS: BP 134/44; PULSE 69; RESP 18; TEMP 36.1; O2SAT 92
== END 2021-03-23 12:35 | disposition home or self-care (01) | DRG 392 ==
LOC: HO.ED 13:04 → HO.EDOVER 15:03 → HO.S3 03-21 07:14
PROVIDERS: Internal Medicine; Admitting Provider Internal Medicine; Emergency Provider Emergency Medicine; PCP Internal Medicine; Visit Provider Internal Medicine
DX: K57.20 Diverticulitis of large intestine with perforation and abscess without bleeding (principal); N17.9 Acute kidney failure, unspecified; G25.81 Restless legs syndrome; M10.9 Gout, unspecified; I95.1 Orthostatic hypotension; E66.9 Obesity, unspecified; Z68.29 Body mass index [BMI] 29.0-29.9, adult; Z20.822 Contact with and (suspected) exposure to COVID-19; Z88.2 Allergy status to sulfonamides; Z79.82 Long term (current) use of aspirin; Z79.52 Long term (current) use of systemic steroids; Z79.899 Other long term (current) drug therapy
CPT/HCPCS: 36415; 73130; 73630; 74177; 80048; 80076; 81001; 81003; 83605; 83690; 83735; 84484; 84550; 85025; 87040; 87086; 87324; 87449; 87635; 93005; 93971; 96365; 96367; 96368; 96375; 99285; 99291; J1650; J2270; J2405; J2543; J3010; J3475; Q9967

== ENCOUNTER 2021-03-30 12:40 | Outpatient (REF) | payer MEDICARE, BC, SELFPAY ==
[2021-03-30 13:53] LABS: Hematocrit 37.8 % (37-47); Hemoglobin 12.6 g/dl (12.0-16.0); Mean Corpuscular HGB Conc 33.3 g/dl (31.0-35.0); Mean Corpuscular Hemoglobin 32.4 pg (27.0-33.0); Mean Corpuscular Volume 97.2 fL (80-98); Mean Platelet Volume 9.3 fL (9.4-12.3); Platelet Count 277 X10*3/uL (160-400); Red Blood Count 3.89 X10*6/uL (4.20-5.50); Red Cell Distribution Width 13.2 % (11.0-16.0); White Blood Count 8.1 X10*3/uL (4.8-10.8)
[2021-03-30 13:55] LABS: Immature Retic Fraction 11.1 % (3.0-15.9); Retic HGB Equivalent 36.9 pg (30.0-35.0); Reticulocyte Percent 2.3 % (0.5-1.8); Reticulocytes Absolute 0.089 X10*6/uL (0.026-0.095)
[2021-03-30 14:29] LABS: Alanine Aminotransferase 48 U/L (0-31); Albumin Level 3.8 g/dL (3.5-5.0); Alkaline Phosphatase 64 U/L (39-117); Anion Gap 15 (12-20); Aspartate Amino Transferase 41 U/L (5-31); Bilirubin Total 0.7 mg/dL (0.0-1.0); Blood Urea Nitrogen 12 mg/dL (9-16); Carbon Dioxide 26 mmol/L (22-29); Chloride 104 mmol/L (96-108); Estimated Glomerular Filt Rate 56; Glucose Random 105 mg/dL (60-115); Iron 78 mcg/dL (30-160); Percent Iron Saturation 37 % (15-50); Potassium 3.9 mmol/L (3.3-5.1); Sodium 141 mmol/L (135-145); Total Iron Binding Capacity 211 mcg/dL (228-428); Total Protein 6.6 g/dL (6.5-8.0); Unsaturated Iron Binding 133 ug/dL
[2021-03-30 15:14] LABS: Folate 16.7 ng/mL (> or = 4.0); Vitamin B12 933 pg/mL (200-900)
[2021-03-30 15:19] LABS: Ferritin 1465 ng/mL (10-250)
== END 2021-03-30 12:41 | disposition home or self-care (01) ==
LOC: HO.10HDL 12:40
PROVIDERS: Internal Medicine; Visit Provider Internal Medicine
DX: D64.9 Anemia, unspecified (principal); I10 Essential (primary) hypertension
CPT/HCPCS: 36415; 80053; 82607; 82728; 82746; 83540; 85027; 85045

== ENCOUNTER 2021-04-02 15:12 | Outpatient (REF) | payer MEDICARE, BC, SELFPAY ==
[2021-04-02 16:14] LABS: Anion Gap 15 (12-20); Blood Urea Nitrogen 8 mg/dL (9-16); Calcium 9.2 mg/dL (8.4-10.2); Carbon Dioxide 27 mmol/L (22-29); Chloride 102 mmol/L (96-108); Estimated Glomerular Filt Rate 52; Glucose Random 164 mg/dL (60-115); Potassium 3.4 mmol/L (3.3-5.1); Sodium 141 mmol/L (135-145)
[2021-04-04 08:08] LABS: HBS Num1 0.92 mIU/mL (0-7.99); HBsAGNum1 0.16 S/CO (0.00-0.99); Hepatitis B Core Antibody Nonreactive (Nonreactive); Hepatitis B Surface Antigen Negative (Negative); ~Hepatitis B Surface Antibody NONREACTIVE (Nonreactive)
[2021-04-04 08:30] LABS: ~HepC Num1 0.09 S/CO (0.00-0.79); ~Hepatitis C Antibody Nonreactive (Nonreactive)
== END 2021-04-02 15:13 | disposition home or self-care (01) ==
LOC: HO.LAB 15:12
PROVIDERS: Internal Medicine; PCP Internal Medicine; Visit Provider Internal Medicine
DX: D64.9 Anemia, unspecified (principal); R94.5 Abnormal results of liver function studies; R79.89 Other specified abnormal findings of blood chemistry
CPT/HCPCS: 36415; 80048; 86704; 86706; 86803; 87340

== ENCOUNTER 2021-04-04 09:56 | Outpatient (REF) | payer MEDICARE, BC, SELFPAY ==
--- NOTE | ~2021-04-04 | US_ITS ---
EXAMINATION: US ABDOMEN LIMITED CLINICAL INFORMATION: Other specified abnormal findings of blood chemistry. COMPARISON: CT abdomen and pelvis 03/20/2021 and 11/20/2020. Ultrasound abdomen 12/11/2012, report only. TECHNIQUE: Real-time imaging of the right upper quadrant abdominal viscera. FINDINGS: PANCREAS: Normal. LIVER: Echotexture is increased suggestive of fatty infiltration. Liver slightly enlarged. The liver is normal in contour. No focal liver lesion or intrahepatic biliary duct dilatation seen. GALLBLADDER: Surgically absent. COMMON BILE DUCT: The common bile duct is slightly dilated measuring 1.4 cm in diameter. This may be normal postcholecystectomy. This is similar to previous exams. RIGHT KIDNEY: Normal. No hydronephrosis. No renal calculi or focal parenchymal lesions. The kidney measures 9.6 cm in maximum dimension. FREE FLUID: None. US/US abdomen limited IMPRESSION: Enlarged echogenic liver suggestive of fatty infiltration. Postcholecystectomy. Dilated common bile duct similar to previous CT exams.
[2021-04-04 11:49] LABS: MANUAL DIFF FLAG NO
[2021-04-04 11:53] LABS: Basophils Absolute Auto 0.1 X10*3/uL (0.0-0.2); Basophils Percent Auto 1.4 % (0-2); Eosinophils Absolute Auto 0.2 X10*3/uL (0.0-0.4); Eosinophils Percent Auto 2.9 % (0-4); Hematocrit 38.5 % (37-47); Hemoglobin 12.7 g/dl (12.0-16.0); Imm Gran Abs Auto 0.04 X10*3/uL (0.00-0.03); Imm Gran Pct Auto 0.6 % (0.0-0.4); Lymphocytes Absolute Auto 2.6 X10*3/uL (1.2-4.9); Lymphocytes Percent Auto 39.8 % (20-40); Mean Corpuscular Hemoglobin 32.6 pg (27.0-33.0); Mean Corpuscular Volume 98.7 fL (80-98); Mean Platelet Volume 9.8 fL (9.4-12.3); Monocytes Absolute Auto 0.6 X10*3/uL (0.1-1.2); Monocytes Percent Auto 8.5 % (2-11); Neutrophils Percent Auto 46.8 % (45-73); Platelet Count 237 X10*3/uL (160-400); Red Cell Distribution Width 13.3 % (11.0-16.0); White Blood Count 6.5 X10*3/uL (4.8-10.8)
[2021-04-04 12:27] LABS: Alanine Aminotransferase 30 U/L (0-31); Albumin Level 3.9 g/dL (3.5-5.0); Alkaline Phosphatase 56 U/L (39-117); Anion Gap 13 (12-20); Aspartate Amino Transferase 45 U/L (5-31); Bilirubin Total 0.8 mg/dL (0.0-1.0); Blood Urea Nitrogen 9 mg/dL (9-16); Carbon Dioxide 28 mmol/L (22-29); Chloride 104 mmol/L (96-108); Estimated Glomerular Filt Rate 51; Glucose Random 109 mg/dL (60-115); Potassium 4.2 mmol/L (3.3-5.1); Sodium 141 mmol/L (135-145); Total Protein 6.6 g/dL (6.5-8.0)
[2021-04-04 12:37] LABS: Thyroid Stimulating Hormone 0.94 uIU/mL (0.32-4.0)
== END 2021-04-04 09:57 | disposition home or self-care (01) ==
LOC: HO.US 09:56
PROVIDERS: PCP Internal Medicine; Visit Provider Internal Medicine
DX: K62.5 Hemorrhage of anus and rectum (principal); R79.89 Other specified abnormal findings of blood chemistry
CPT/HCPCS: 36415; 76705; 80053; 84443; 85025

== ENCOUNTER 2021-05-04 15:22 | Outpatient (REF) | payer MEDICARE, BC, SELFPAY ==
[2021-05-04 16:33] LABS: Prothrombin Time 11.6 SEC (10.8-13.0)
[2021-05-04 17:09] LABS: Alanine Aminotransferase 39 U/L (0-31); Albumin Level 4.3 g/dL (3.5-5.0); Alkaline Phosphatase 60 U/L (39-117); Aspartate Amino Transferase 50 U/L (5-31); Bilirubin Direct 0.2 mg/dL (0.0-0.5); Bilirubin Total 0.5 mg/dL (0.0-1.0); Iron 108 mcg/dL (30-160); Percent Iron Saturation 39 % (15-50); Total Iron Binding Capacity 278 mcg/dL (228-428); Total Protein 7.1 g/dL (6.5-8.0); Unsaturated Iron Binding 170 ug/dL
[2021-05-04 18:24] LABS: Ferritin 2508 ng/mL (10-250)
[2021-05-07 03:43] LABS: HBsAGNum1 0.14 S/CO (0.00-0.99); Hepatitis B Core Antibody Nonreactive (Nonreactive); Hepatitis B Surface Antigen Negative (Negative); ~HepC Num1 0.07 S/CO (0.00-0.79); ~Hepatitis C Antibody Nonreactive (Nonreactive)
[2021-05-07 03:53] LABS: HBS Num1 0.16 mIU/mL (0-7.99); ~Hepatitis B Surface Antibody NONREACTIVE (Nonreactive)
[2021-05-07 15:52] LABS: Mitochondrial Antibodies NEGATIVE (NEGATIVE)
[2021-05-08 14:52] LABS: Anti Nuclear Antibody Pattern Nuclear, Homogeneous; Anti Nuclear Antibody Screen POSITIVE (NEGATIVE); Anti Nuclear Antibody Titer 1:40 titer
[2021-05-08 21:47] LABS: Alpha 1 Anti-trypsin 141 mg/dL (83-199)
[2021-05-09 22:26] LABS: Smooth Muscle Antibody <20 U (<20)
== END 2021-05-04 15:23 | disposition home or self-care (01) ==
LOC: HO.LAB 15:22
PROVIDERS: PCP Internal Medicine; Visit Provider Internal Medicine
DX: K76.0 Fatty (change of) liver, not elsewhere classified (principal); R79.89 Other specified abnormal findings of blood chemistry
CPT/HCPCS: 36415; 80076; 81256; 82103; 82728; 83540; 85610; 86038; 86039; 86255; 86256; 86704; 86706; 86803; 87340

== ENCOUNTER 2021-05-25 10:09 | Outpatient (REF) | payer MEDICARE, BC, SELFPAY ==
--- NOTE | ~2021-05-25 | MM_ITS ---
EXAMINATION: MM SCREENING DIGITAL BREAST TOMOSYNTHESIS, BILATERAL CLINICAL INFORMATION: Screening. Asymptomatic. The lifetime risk of breast cancer based on the Tyrer-Cuzick Model is 1%. COMPARISON: Mammography: 05/19/2020, 05/14/2019, 05/11/2018 TECHNIQUE: Digital breast tomosynthesis is performed in both the craniocaudal and mediolateral oblique views along with computer-aided detection (CAD). Synthesized 2D images are generated from the tomosynthesis. FINDINGS: There are scattered areas of fibroglandular density (ACR BI-RADS breast composition Category b). There are no significant masses, abnormal calcifications, or other abnormalities. There are scattered bilateral ductal secretory calcifications as well as some punctate round and vascular calcifications again noted. No significant changes from prior studies. MM/MM tomosynthesis screening BI IMPRESSION: No mammographic evidence of malignancy. ASSESSMENT: BI-RADS 2: Benign RECOMMENDATION: Routine annual mammography screening. This patient's information was entered into a reminder system with a target due date for their next mammogram.
[2021-05-25 10:59] LABS: MANUAL DIFF FLAG NO
[2021-05-25 11:37] LABS: Basophils Absolute Auto 0.1 X10*3/uL (0.0-0.2); Basophils Percent Auto 1.5 % (0-2); Eosinophils Absolute Auto 0.2 X10*3/uL (0.0-0.4); Eosinophils Percent Auto 3.9 % (0-4); Hematocrit 36.9 % (37-47); Hemoglobin 12.4 g/dl (12.0-16.0); Imm Gran Abs Auto 0.04 X10*3/uL (0.00-0.03); Imm Gran Pct Auto 0.7 % (0.0-0.4); Lymphocytes Absolute Auto 2.4 X10*3/uL (1.2-4.9); Lymphocytes Percent Auto 38.4 % (20-40); Mean Corpuscular HGB Conc 33.6 g/dl (31.0-35.0); Mean Corpuscular Hemoglobin 31.5 pg (27.0-33.0); Mean Corpuscular Volume 93.7 fL (80-98); Mean Platelet Volume 9.7 fL (9.4-12.3); Monocytes Absolute Auto 0.5 X10*3/uL (0.1-1.2); Monocytes Percent Auto 8.5 % (2-11); Neutrophils Absolute Auto 2.9 X10*3/uL (2.0-8.3); Platelet Count 196 X10*3/uL (160-400); Red Blood Count 3.94 X10*6/uL (4.20-5.50); Red Cell Distribution Width 12.1 % (11.0-16.0); White Blood Count 6.1 X10*3/uL (4.8-10.8)
[2021-05-25 11:56] LABS: Anion Gap 14 (12-20); Blood Urea Nitrogen 35 mg/dL (9-16); C Reactive Protein 0.43 mg/dL (< or = 0.50); Calcium 9.7 mg/dL (8.4-10.2); Carbon Dioxide 19 mmol/L (22-29); Chloride 107 mmol/L (96-108); Estimated Glomerular Filt Rate 34; Glucose Random 114 mg/dL (60-115); Potassium 5.3 mmol/L (3.3-5.1); Sodium 135 mmol/L (135-145)
[2021-05-25 12:15] LABS: Erythrocyte Sedimentation Rate 16 MM/HR (0-20)
[2021-05-25 16:43] LABS: Leukocytes Stool Qualitative NEGATIVE (NEGATIVE)
[2021-05-26 10:07] LABS: CDiff Gene PCR NEGATIVE (Negative)
== END 2021-05-25 10:10 | disposition home or self-care (01) ==
LOC: HO.MAMMO 10:09
PROVIDERS: Absent Provider Internal Medicine; PCP Internal Medicine; Visit Provider Internal Medicine
DX: Z12.31 Encounter for screening mammogram for malignant neoplasm of breast (principal); R19.7 Diarrhea, unspecified
CPT/HCPCS: 36415; 77063; 77067; 80048; 85025; 85652; 86140; 87045; 87046; 87493; 89055

== ENCOUNTER 2021-06-01 15:22 | Outpatient (REF) | payer MEDICARE, BC, SELFPAY ==
--- NOTE | ~2021-06-01 | US_ITS ---
EXAMINATION: US RETROPERITONEAL LIMITED (RENAL ONLY) CLINICAL INFORMATION: Essential primary hypertension. COMPARISON: Ultrasound abdomen limited 04/04/2021. CT abdomen and pelvis 03/20/2021. Ultrasound abdomen complete 12/11/2012. TECHNIQUE: Real-time imaging of the kidneys. FINDINGS: RIGHT KIDNEY: 10.0 x 4.3 x 4.9 cm (SAG x AP x TRV). The kidney is normal in size, contour, and echogenicity. Renal cortical thickness is normal. No calculi or focal parenchymal lesions. No hydronephrosis. LEFT KIDNEY: 9.9 x 3.9 x 4.2 cm (SAG x AP x TRV). The kidney is normal in size, contour, and echogenicity. Renal cortical thickness is normal. No calculi or focal parenchymal lesions. No hydronephrosis. US/US renal BI IMPRESSION: Unremarkable renal ultrasound..
[2021-06-01 16:20] LABS: Anion Gap 12 (12-20); Blood Urea Nitrogen 29 mg/dL (9-16); Calcium 9.8 mg/dL (8.4-10.2); Carbon Dioxide 22 mmol/L (22-29); Chloride 108 mmol/L (96-108); Estimated Glomerular Filt Rate 38; Glucose Random 100 mg/dL (60-115); Potassium 5.3 mmol/L (3.3-5.1); Sodium 137 mmol/L (135-145)
== END 2021-06-01 15:23 | disposition home or self-care (01) ==
LOC: HO.US 15:22
PROVIDERS: PCP Internal Medicine; Visit Provider Internal Medicine
DX: I10 Essential (primary) hypertension (principal)
CPT/HCPCS: 36415; 76775; 80048

== ENCOUNTER 2021-06-12 09:53 | Outpatient (REF) | payer MEDICARE, BC, SELFPAY ==
[2021-06-12 10:21] LABS: Basophils Absolute Auto 0.1 X10*3/uL (0.0-0.2); Basophils Percent Auto 1.9 % (0-2); Eosinophils Absolute Auto 0.3 X10*3/uL (0.0-0.4); Eosinophils Percent Auto 5.5 % (0-4); Hematocrit 35.7 % (37-47); Imm Gran Abs Auto 0.04 X10*3/uL (0.00-0.03); Imm Gran Pct Auto 0.6 % (0.0-0.4); Lymphocytes Absolute Auto 2.5 X10*3/uL (1.2-4.9); Lymphocytes Percent Auto 40.4 % (20-40); MANUAL DIFF FLAG NO; Mean Corpuscular HGB Conc 33.6 g/dl (31.0-35.0); Mean Corpuscular Hemoglobin 31.7 pg (27.0-33.0); Mean Corpuscular Volume 94.2 fL (80-98); Mean Platelet Volume 9.3 fL (9.4-12.3); Monocytes Absolute Auto 0.6 X10*3/uL (0.1-1.2); Monocytes Percent Auto 9.4 % (2-11); Neutrophils Absolute Auto 2.6 X10*3/uL (2.0-8.3); Neutrophils Percent Auto 42.2 % (45-73); Platelet Count 198 X10*3/uL (160-400); Red Blood Count 3.79 X10*6/uL (4.20-5.50); Red Cell Distribution Width 12.4 % (11.0-16.0); White Blood Count 6.2 X10*3/uL (4.8-10.8)
[2021-06-12 10:54] LABS: Alanine Aminotransferase 18 U/L (0-31); Alkaline Phosphatase 50 U/L (39-117); Aspartate Amino Transferase 26 U/L (5-31); Bilirubin Direct 0.2 mg/dL (0.0-0.5); Bilirubin Total 0.6 mg/dL (0.0-1.0); Iron 110 mcg/dL (30-160); Percent Iron Saturation 46 % (15-50); Total Iron Binding Capacity 240 mcg/dL (228-428); Total Protein 6.7 g/dL (6.5-8.0); Unsaturated Iron Binding 130 ug/dL
[2021-06-12 11:15] LABS: Ferritin 627 ng/mL (10-250); TSH reflex Free T4 1.62 uIU/mL (0.32-4.0)
[2021-06-13 14:42] LABS: Gliadin Deamidated IgA Ab 5 Units; Gliadin Deamidated IgG Ab 1 Units
[2021-06-13 17:16] LABS: Transglutaminase Ab IgG 1 U/mL; Transglutaminase IgA 1 U/mL
[2021-06-13 23:57] LABS: Immunoglobulin A 316 mg/dL (70-320)
[2021-06-16 11:25] LABS: Endomysial IgA Antibody Negative (Negative)
== END 2021-06-12 09:54 | disposition home or self-care (01) ==
LOC: HO.10HDL 09:53
PROVIDERS: Visit Provider Internal Medicine
DX: R19.7 Diarrhea, unspecified (principal); R63.4 Abnormal weight loss; R79.89 Other specified abnormal findings of blood chemistry
CPT/HCPCS: 36415; 80076; 82728; 82784; 83516; 83540; 84443; 85025; 86255; 86256

== ENCOUNTER 2021-08-27 12:26 | Outpatient (REF) | payer MEDICARE, BC, SELFPAY ==
[2021-08-27 14:29] LABS: Alanine Aminotransferase 15 U/L (0-31); Albumin Level 4.1 g/dL (3.5-5.0); Alkaline Phosphatase 53 U/L (39-117); Aspartate Amino Transferase 22 U/L (5-31); Bilirubin Direct 0.2 mg/dL (0.0-0.5); Bilirubin Total 0.3 mg/dL (0.0-1.0); Iron 114 mcg/dL (30-160); Percent Iron Saturation 47 % (15-50); Total Iron Binding Capacity 245 mcg/dL (228-428); Total Protein 6.7 g/dL (6.5-8.0); Unsaturated Iron Binding 131 ug/dL
[2021-08-27 14:51] LABS: Ferritin 499 ng/mL (10-250)
== END 2021-08-27 12:27 | disposition home or self-care (01) ==
LOC: HO.10HDL 12:26
PROVIDERS: Visit Provider Internal Medicine
DX: K76.0 Fatty (change of) liver, not elsewhere classified (principal); R79.89 Other specified abnormal findings of blood chemistry
CPT/HCPCS: 36415; 80076; 82728; 83540

== ENCOUNTER 2021-09-26 14:30 | Outpatient (REF) | payer MEDICARE, BC, SELFPAY ==
[2021-09-26 15:52] LABS: CDiff Gene PCR NEGATIVE (Negative)
[2021-09-26 16:29] LABS: Leukocytes Stool Qualitative NEGATIVE (NEGATIVE)
== END 2021-09-26 14:31 | disposition home or self-care (01) ==
LOC: HO.LNP 14:30
PROVIDERS: Visit Provider Internal Medicine
DX: R19.7 Diarrhea, unspecified (principal)
CPT/HCPCS: 87045; 87046; 87493; 89055

== ENCOUNTER 2022-02-18 11:16 | Outpatient (REF) | payer MEDICARE, BC, SELFPAY ==
[2022-02-18 12:25] LABS: MANUAL DIFF FLAG NO
[2022-02-18 12:32] LABS: Basophils Absolute Auto 0.1 X10*3/uL (0.0-0.2); Basophils Percent Auto 1.6 % (0-2); Eosinophils Absolute Auto 0.2 X10*3/uL (0.0-0.4); Hematocrit 37.7 % (37.0-47.0); Hemoglobin 12.4 g/dl (12.0-16.0); Imm Gran Abs Auto 0.02 X10*3/uL (0.00-0.03); Imm Gran Pct Auto 0.3 % (0.0-0.4); Immature Retic Fraction 6.5 % (3.0-15.9); Lymphocytes Absolute Auto 2.5 X10*3/uL (1.2-4.9); Lymphocytes Percent Auto 36.8 % (20-40); Mean Corpuscular HGB Conc 32.9 g/dl (31.0-35.0); Mean Corpuscular Hemoglobin 31.4 pg (27.0-33.0); Mean Corpuscular Volume 95.4 fL (80.0-98.0); Mean Platelet Volume 9.7 fL (9.4-12.3); Monocytes Absolute Auto 0.5 X10*3/uL (0.1-1.2); Monocytes Percent Auto 7.9 % (2-11); Neutrophils Absolute Auto 3.4 x10*3/uL (2.0-8.3); Neutrophils Percent Auto 50.4 % (45-73); Platelet Count 205 X10*3/uL (160-400); Red Blood Count 3.95 X10*6/uL (4.20-5.50); Red Cell Distribution Width 12.8 % (11.0-16.0); Retic HGB Equivalent 34.5 pg (30.0-35.0); White Blood Count 6.7 X10*3/uL (4.8-10.8)
[2022-02-18 12:53] LABS: Alanine Aminotransferase 12 U/L (0-31); Albumin Level 3.9 g/dL (3.5-5.0); Alkaline Phosphatase 56 U/L (39-117); Anion Gap 13 (12-20); Aspartate Amino Transferase 21 U/L (5-31); Bilirubin Total 0.7 mg/dL (0.0-1.0); Blood Urea Nitrogen 20 mg/dL (9-16); Calcium 9.4 mg/dL (8.4-10.2); Carbon Dioxide 26 mmol/L (22-29); Chloride 106 mmol/L (96-108); Cholesterol 138 mg/dL; Estimated Glomerular Filt Rate 48; Glucose Random 95 mg/dL (60-115); HDL Cholesterol 50 mg/dL; Iron 113 mcg/dL (30-160); LDL Cholesterol Calculated 67 mg/dl; Percent Iron Saturation 44 % (15-50); Sodium 140 mmol/L (135-145); Total Iron Binding Capacity 258 mcg/dL (228-428); Total Protein 6.7 g/dL (6.5-8.0); Triglycerides 109 mg/dL; Unsaturated Iron Binding 145 ug/dL
[2022-02-18 13:14] LABS: Ferritin 337 ng/mL (10-250); Free T4 (Free Thyroxine) 0.91 ng/dL (0.71-1.85); Thyroid Stimulating Hormone 1.75 uIU/mL (0.32-4.0); Vitamin D 25-OH Total 30.4 ng/mL (>30)
[2022-02-18 13:21] LABS: Alanine Aminotransferase 13 U/L (0-31); Albumin Level 3.9 g/dL (3.5-5.0); Alkaline Phosphatase 57 U/L (39-117); Aspartate Amino Transferase 21 U/L (5-31); Bilirubin Direct 0.2 mg/dL (0.0-0.5); Bilirubin Total 0.7 mg/dL (0.0-1.0); Total Protein 6.7 g/dL (6.5-8.0)
[2022-02-18 13:52] LABS: Folate 9.8 ng/mL (> or = 4.0); Vitamin B12 378 pg/mL (200-900)
== END 2022-02-18 11:17 | disposition home or self-care (01) ==
LOC: HO.10HDL 11:16
PROVIDERS: Internal Medicine; Visit Provider Internal Medicine
DX: E78.00 Pure hypercholesterolemia, unspecified (principal); K76.0 Fatty (change of) liver, not elsewhere classified; R79.89 Other specified abnormal findings of blood chemistry
CPT/HCPCS: 36415; 80053; 80061; 80076; 82248; 82306; 82607; 82728; 82746; 83540; 84439; 84443; 85025; 85045

== ENCOUNTER 2022-08-20 12:46 | Outpatient (REF) | payer MEDICARE, BC, SELFPAY ==
--- NOTE | ~2022-08-20 | MM_ITS ---
EXAMINATION: MM SCREENING DIGITAL BREAST TOMOSYNTHESIS, BILATERAL CLINICAL INFORMATION: Screening. Asymptomatic. The lifetime risk of breast cancer based on the Tyrer-Cuzick Model is 1%. COMPARISON: Mammography: 05/25/2021, 05/19/2020, 05/14/2019 TECHNIQUE: Digital breast tomosynthesis is performed in both the craniocaudal and mediolateral oblique views along with computer-aided detection (CAD). Synthesized 2D images are generated from the tomosynthesis. FINDINGS: There are scattered areas of fibroglandular density (ACR BI-RADS breast composition Category b). Parenchymal pattern is similar to prior studies. No developing density or architectural abnormality. Again, there are scattered bilateral ductal secretory calcifications and some vascular calcifications. The axilla are unremarkable. There are no significant changes. MM/MM tomosynthesis screening BI IMPRESSION: No mammographic evidence of malignancy. ASSESSMENT: BI-RADS 2: Benign RECOMMENDATION: Routine annual mammography screening. This patient's information was entered into a reminder system with a target due date for their next mammogram.
== END 2022-08-20 12:47 | disposition home or self-care (01) ==
LOC: HO.MAMMO 12:46
PROVIDERS: Visit Provider Internal Medicine
DX: Z12.31 Encounter for screening mammogram for malignant neoplasm of breast (principal)
CPT/HCPCS: 77063; 77067

== ENCOUNTER 2022-10-07 14:04 | Outpatient (REF) | payer MEDICARE, BC, SELFPAY ==
[2022-10-07 14:33] LABS: MANUAL DIFF FLAG NO
[2022-10-07 15:17] LABS: Basophils Absolute Auto 0.2 X10*3/uL (0.0-0.2); Eosinophils Absolute Auto 0.3 X10*3/uL (0.0-0.4); Eosinophils Percent Auto 3.3 % (0-4); Hematocrit 38.1 % (37.0-47.0); Hemoglobin 12.7 g/dl (12.0-16.0); Imm Gran Abs Auto 0.04 X10*3/uL (0.00-0.03); Imm Gran Pct Auto 0.5 % (0.0-0.4); Lymphocytes Absolute Auto 2.9 X10*3/uL (1.2-4.9); Lymphocytes Percent Auto 36.4 % (20-40); Mean Corpuscular HGB Conc 33.3 g/dl (31.0-35.0); Mean Corpuscular Hemoglobin 31.1 pg (27.0-33.0); Mean Corpuscular Volume 93.2 fL (80.0-98.0); Mean Platelet Volume 9.5 fL (9.4-12.3); Monocytes Absolute Auto 0.7 X10*3/uL (0.1-1.2); Monocytes Percent Auto 8.1 % (2-11); Neutrophils Percent Auto 49.7 % (45-73); Platelet Count 201 X10*3/uL (160-400); Red Blood Count 4.09 X10*6/uL (4.20-5.50); Red Cell Distribution Width 12.4 % (11.0-16.0)
[2022-10-07 15:51] LABS: Alanine Aminotransferase 13 U/L (0-31); Albumin Level 4.2 g/dL (3.5-5.0); Alkaline Phosphatase 55 U/L (39-117); Anion Gap 15 (12-20); Aspartate Amino Transferase 20 U/L (5-31); Bilirubin Total 0.7 mg/dL (0.0-1.0); Blood Urea Nitrogen 21 mg/dL (9-16); Calcium 9.6 mg/dL (8.4-10.2); Carbon Dioxide 24 mmol/L (22-29); Chloride 106 mmol/L (96-108); Cholesterol 141 mg/dL; Estimated Glomerular Filt Rate 46; Glucose Random 97 mg/dL (60-115); HDL Cholesterol 54 mg/dL; LDL Cholesterol Calculated 68 mg/dl; Potassium 4.7 mmol/L (3.3-5.1); Sodium 140 mmol/L (135-145); Total Protein 6.9 g/dL (6.5-8.0); Triglycerides 98 mg/dL
[2022-10-07 16:12] LABS: Free T4 (Free Thyroxine) 1.05 ng/dL (0.71-1.85); Thyroid Stimulating Hormone 1.45 uIU/mL (0.32-4.0)
== END 2022-10-07 14:05 | disposition home or self-care (01) ==
LOC: HO.LAB 14:04
PROVIDERS: Visit Provider Internal Medicine
DX: I10 Essential (primary) hypertension (principal); E78.00 Pure hypercholesterolemia, unspecified
CPT/HCPCS: 36415; 80053; 80061; 84439; 84443; 85025

== ENCOUNTER 2023-04-18 12:18 | Outpatient (REF) | payer MEDICARE, BC, SELFPAY ==
[2023-04-18 13:12] LABS: MANUAL DIFF FLAG NO
[2023-04-18 13:17] LABS: Appearance Urine Clear; Color Urine Yellow; Glucose Urine UA Negative (Negative); Leukocyte Esterase Urine Trace (Negative); Nitrite Urine Negative (Negative); PH 5.5 (5.0-9.0); UMIC TRIGGER UA YES; Urine Blood Negative (Negative); Urine Ketones Negative (Negative); Urine Protein Negative (Neg-Trace)
[2023-04-18 13:19] LABS: Basophils Absolute Auto 0.1 X10*3/uL (0.0-0.2); Basophils Percent Auto 1.7 % (0-2); Eosinophils Absolute Auto 0.2 X10*3/uL (0.0-0.4); Eosinophils Percent Auto 3.1 % (0-4); Hematocrit 36.4 % (37.0-47.0); Hemoglobin 11.9 g/dl (12.0-16.0); Imm Gran Abs Auto 0.03 X10*3/uL (0.00-0.03); Imm Gran Pct Auto 0.5 % (0.0-0.4); Lymphocytes Percent Auto 46.1 % (20-40); Mean Corpuscular HGB Conc 32.7 g/dl (31.0-35.0); Mean Corpuscular Hemoglobin 30.7 pg (27.0-33.0); Mean Corpuscular Volume 94.1 fL (80.0-98.0); Mean Platelet Volume 9.6 fL (9.4-12.3); Monocytes Absolute Auto 0.6 X10*3/uL (0.1-1.2); Monocytes Percent Auto 8.6 % (2-11); Neutrophils Absolute Auto 2.6 x10*3/uL (2.0-8.3); Platelet Count 202 X10*3/uL (160-400); Red Blood Count 3.87 X10*6/uL (4.20-5.50); Red Cell Distribution Width 12.8 % (11.0-16.0); White Blood Count 6.5 X10*3/uL (4.8-10.8)
[2023-04-18 13:21] LABS: Bacteria Urine None Seen (None Seen); Hyaline Casts Urine 0-2 /LPF (0-2); RBC Urine 0-2 /HPF (0-2); Squamous Epithelial Cell Urine 0-2 /HPF (0-2); WBC Urine 0-5 /HPF (0-5)
[2023-04-18 14:03] LABS: Alanine Aminotransferase 12 U/L (0-31); Albumin Level 3.9 g/dL (3.5-5.0); Alkaline Phosphatase 44 U/L (39-117); Anion Gap 12 (12-20); Aspartate Amino Transferase 20 U/L (5-31); Bilirubin Total 0.7 mg/dL (0.0-1.0); Blood Urea Nitrogen 15 mg/dL (9-16); Calcium 9.7 mg/dL (8.4-10.2); Carbon Dioxide 24 mmol/L (22-29); Chloride 110 mmol/L (96-108); Estimated Glomerular Filt Rate 53; Glucose Random 96 mg/dL (60-115); Magnesium 1.7 mg/dL (1.6-2.6); Potassium 4.7 mmol/L (3.3-5.1); Sodium 141 mmol/L (135-145); Total Protein 6.6 g/dL (6.5-8.0)
[2023-04-18 14:33] LABS: Folate 6.3 ng/mL (> or = 4.0); Free T4 (Free Thyroxine) 0.91 ng/dL (0.71-1.85); Thyroid Stimulating Hormone 1.55 uIU/mL (0.32-4.0); Vitamin B12 334 pg/mL (200-900)
== END 2023-04-18 12:19 | disposition home or self-care (01) ==
LOC: HO.10HDL 12:18
PROVIDERS: Visit Provider Internal Medicine
DX: I10 Essential (primary) hypertension (principal)
CPT/HCPCS: 36415; 80053; 81001; 82607; 82746; 83735; 84439; 84443; 85025

== ENCOUNTER 2023-06-09 12:50 | Outpatient (AMB) | payer MEDICARE, BC, SELFPAY ==
--- NOTE | 2023-06-09 12:55 | A.OFFPC_ITS ---
Vital Signs 06/09/23 12:58 Height 5 ft 4 in Weight 161 lb 4 oz BMI 27.7 BP 130/72 Blood Pressure Location Lt brachial Position Sitting Pulse 78 Pulse Source Pulse Oximeter Pulse Oximetry (%) 97 Oxygen Delivery Method Room Air Intake Visit Reasons: cataract 06/17/23 [facility] Herbertshanellbrandy Intake Note: Patient is here for a Pre-op for cataract scheduled with Denton Grimes on 06/17/23. Low Raw Sugar Cutter Required: No It Director: Not Required per policy Accompanied by: Self / Same As Patient Allergies Sulfa (Sulfonamide Antibiotics) [SULFA(SULFONAMIDE ANTIBIOTICS)] Allergy (Severe, Verified 06/09/23 12:57) HIVES sulfur Allergy (Unknown, Verified 06/09/23 12:57) Unknown Medication List - Last Reconciled 06/09/23 by Waqar Campuzano MD amitriptyline 75 mg PO BEDTIME aspirin (Adult Low Dose Aspirin) 81 mg PO DAILY atenolol 25 mg PO .QHS cholestyramine (with sugar) 4 gram PO clonazepam 0.5 mg PO BEDTIME 90 days cyclosporine 0.05% 1 drp ophthalmic (eye) Q12H diphenoxylate-atropine 2.5-0.025 mg (Lomotil) 1 tab PO BID PRN lisinopril 10 mg PO BID triamcinolone acetonide 0.5% 1 appl topical BID Tobacco use date assessed: 06/09/23 Fall risk assessment: No Falls in past year Last assessed Fall Risk: 06/09/23 Dental Screening Dental Screen Date: 06/09/23 Did you have a dental visit in the last 12 months?: Yes Did you have a dental problem in the last 6 months where you did not have access to dental care?: No Was dental information given to patient?: Patient has dentist HPI cataract 06/17/23 [facility] Grimes HPI Details having a cataract repaired; HTN controlled; no CAD PFSH Medical History (Updated 06/09/23 @ 13:23 by Waqar Campuzano MD) Abscess Acute diverticulitis Anemia Arthralgia Diverticular disease Diverticulitis Fatigue HTN (hypertension) Inflammatory arthritis LFT elevation Obesity (BMI 30-39.9) Orthostatic hypotension Restless leg Seizure Surgical History History of appendectomy History of bunionectomy Hx of cholecystectomy Spinal stenosis of lumbar region Social History Household Members: Significant Other Housing: House Do you presently have visiting nurse or other home services: No Alcohol intake: current Alcohol intake frequency: holidays/special occasions only Patient Tobacco Use Status: Former Tobacco user Tobacco use type: Cigarette Years Smoked: 5 e-Cigarette/Vaping Use: Never Used Second Hand Smoke Exposure: No Advance Directives Date on File: 03/14/21 service: No Current occupational status: retired Cognitive needs: No Hearing needs: No Vision needs: Yes Questionnaire PHQ-9 Over the last 2 weeks, how often have you been bothered by any of the following problems? 1. Little interest or pleasure in doing things: not at all 2. Feeling down, depressed, or hopeless: not at all 3. Trouble falling or staying asleep, or sleeping too much: not at all 4. Feeling tired or having little energy: not at all 5. Poor appetite or overeating: not at all 6. Feeling bad about yourself - or that you are a failure or have let yourself or your family down: not at all 7. Trouble concentrating on things, such as reading the newspaper or watching television: not at all 8. Moving or speaking so slowly that other people could have noticed. Or the opposite - being so fidgety or restless that you have been moving around a lot more than usual: not at all 9. Thoughts that you would be better off or of hurting yourself in some way: not at all Total score: 0 Depression Screening Interpretation: Negative Source: Developed by Drs. Dyllan Ansari, Maral Abdi, Osmani Rievra and colleagues, with an educational florentino from [employer]. Thrive Questionnaire Date Thrive assessed: 06/09/23 I am a: Patient What is your living situation today?: I have a steady place to live Within the past 12 months, did the food you bought not last and you didn't have the money to get more?: Never true Within the past 12 months, did you worry whether your food would run out before you got money to buy more?: Never true Do you have trouble paying for medicines?: No Do you have trouble getting transportation to medical appointments?: No Do you have trouble paying your heating and electricity bill?: No Do you have trouble taking care of your child, family member or friend?: No Do you have trouble with day-to-day activities such as bathing, preparing meals, shopping, managing finances, etc.?: No Are you currently unemployed and looking for a job?: No Are you interested in more education?: No Currently or been in a relationship where the following occur: no concerns reported AUDIT C Alcohol Use Questionnaire (AUDIT-C) 1. How often do you have a drink containing alcohol?: Monthly or less 2. How many drinks containing alcohol do you have on a typical day when you are drinking?: 1 or 2 Total Score: 1 JAKE-7 AMB Questionnaire JAKE-7 Date JAKE - 7 assessed: 06/09/23 Feeling nervous, anxious, or on edge: 0 = Not at all Not being able to stop or control worryin = Not at all Worrying too much about different things: 0 = Not at all Trouble relaxin = Not at all Being so restless that it is hard to sit still: 0 = Not at all Becoming easily annoyed or irritable: 0 = Not at all Feeling afraid as if something awful might happen: 0 = Not at all Total JAKE-7 score (0-4 normal; 5-9 mild; 10-14 moderate; 15-21 severe): 0 Source: Developed by Drs. Dyllan Ansari, Maral Abdi, Osmani Rivera and colleagues, with an educational florentino from [employer]. Review of Systems Const Denies chills, Denies fatigue, Denies headache(s) and Denies weight loss Eyes Denies change in vision, Denies diplopia and Denies eye pain ENT Denies vertigo, Denies dizziness, Denies headache(s) and Denies nasal discharge Card Denies chest pain, Denies rapid heart rate and Denies dyspnea on exertion Resp Denies chest congestion, Denies cough, Denies pain with cough and Denies dyspnea on exertion GI Denies abdominal pain, Denies hematochezia and Denies change in bowel habits Musc Denies myalgias, Denies arthralgias and Denies joint swelling Skin/Breast Denies lesions and Denies unusual bruising Neuro Denies vertigo, Denies dizziness, Denies headache(s) and Denies focal weakness Endo Denies fatigue Physical exam (Primary Care) Vital Signs: Last Vital Signs Pulse 78 06/09/23 12:58 BP 130/72 06/09/23 12:58 Pulse Ox 97 06/09/23 12:58 Oxygen Delivery Method Room Air 06/09/23 12:58 BMI result Body Mass Index 27.7 Tobacco/Smoking Status: Tobacco use Status Tobacco use date assessed 06/09/23 06/09/23 13:03 Patient Tobacco Use Status Former Tobacco user 06/09/23 13:03 Tobacco use type Cigarette 06/09/23 13:03 e-Cigarette/Vaping Use Never Used 06/09/23 13:03 PHQ-9: PHQ-9 Score PHQ-9: Total score 0 06/09/23 13:03 Depression Screening Interpretation: Negative Thrive Assessment: Date of Thrive Assessment Date Thrive assessed 06/09/23 06/09/23 13:03 Currently or been in a relationship where the following occur: no concerns reported Const General: cooperative, healthy appearing and no acute distress Orientation/consciousness: oriented to person, oriented to place and oriented to time HENMT Head: Yes normal to inspection, Yes normocephalic and Yes atraumatic Mouth: Normal oral and palatal mucosa present and tongue normal Throat: Yes posterior oropharynx normal and Yes uvula midline Eyes General: appearance normal, both eyes and all related structures Neck Neck: Yes normal visual inspection, Yes full ROM and Yes no lymphadenopathy Thyroid: Thyroid normal Carotids: normal carotid upstroke Chest Chest palpation & inspection: normal inspection of the chest Resp Effort & Inspection: normal respiratory effort and able to speak in complete sentences Auscultation: clear to auscultation bilaterally Cardio Jugular venous distension: no JVD Palpation: normal PMI Rate: regular rate Rhythm: regular rhythm Heart sounds: S1 normal heart sound present and S2 normal heart sound present GI Inspection: Yes normal to inspection Palpation (GI): Soft to palpation and No hepatosplenomegaly present Auscultation: normal bowel sounds General: Yes no CVA tenderness Back/Spine/Pelvis Back: no CVA tenderness Skin General skin exam: no rashes or lesions noted Neuro General: oriented to person, oriented to place and oriented to time Extrem General: Yes normal to inspection and Yes full ROM Assessment and Plan Assessment & Plan (1) Preop exam for internal medicine: Code(s): Z01.818 - Encounter for other preprocedural examination Plan: low risk of cardiovascular complications; cleared for surgery (2) HTN (hypertension): Code(s): I10 - Essential (primary) hypertension Qualifiers: Hypertension type: essential hypertension Qualified Code(s): I10 - Essential (primary) hypertension Plan: stable; same rx Coding Level of Care Code Est Pt Level 4 (68355) Diagnoses Preop exam for internal medicine Z01.818 HTN (hypertension) I10 Hypertension type: essential hypertension
[2023-06-09 12:58] VITALS: BP 130/72; PULSE 78; O2SAT 97; BMI 27.7
== END 2023-06-09 14:07 | disposition home or self-care (01) ==
PROVIDERS: PCP Internal Medicine; Visit Provider Internal Medicine
DX: Z01.818 Encounter for other preprocedural examination (principal); I10 Essential (primary) hypertension
CPT/HCPCS: 99214

== ENCOUNTER 2023-08-26 12:44 | Outpatient (REF) | payer MEDICARE, BC, SELFPAY ==
--- NOTE | ~2023-08-26 | MM_ITS ---
EXAMINATION: MM SCREENING DIGITAL BREAST TOMOSYNTHESIS, BILATERAL CLINICAL INFORMATION: Screening. Asymptomatic. COMPARISON: Mammography: This study is compared with prior exams dating back to 2019. TECHNIQUE: Digital breast tomosynthesis is performed in both the craniocaudal and mediolateral oblique views along with computer-aided detection (CAD). Synthesized 2D images are generated from the tomosynthesis. FINDINGS: The breasts are almost entirely fatty (ACR BI-RADS breast composition Category a). There are no significant masses, abnormal calcifications, or other abnormalities. There are bilateral, unchanged, benign secretory calcifications. MM/MM tomosynthesis screening BI IMPRESSION: No mammographic evidence of malignancy. ASSESSMENT: BI-RADS BI-RADS 2 - Benign Findings RECOMMENDATION: Routine annual mammography screening. 1 year F/U This examination should not preclude the clinical evaluation of a suspicious palpable abnormality. This patient's information was entered into a reminder system with a target due date for their next mammogram.
== END 2023-08-26 12:45 | disposition home or self-care (01) ==
LOC: HO.MAMMO 12:44
PROVIDERS: PCP Internal Medicine; Visit Provider Internal Medicine
DX: Z12.31 Encounter for screening mammogram for malignant neoplasm of breast (principal)
CPT/HCPCS: 77063; 77067

== ENCOUNTER → 2023-08-26 13:00 | Outpatient (BNV) | payer MEDICARE, BC, SELFPAY | PROVIDERS: PCP Internal Medicine; Visit Provider Radiology Diagnostic Radiology | DX: Z12.31 Encounter for screening mammogram for malignant neoplasm of breast (principal) | CPT/HCPCS: 77063; 77067 ==

== ENCOUNTER 2023-10-17 07:24 | Emergency (ER) | payer MEDICARE, BC, SELFPAY ==
--- NOTE | ~2023-10-17 | XR_ITS ---
EXAMINATION: XR RIBS, LEFT CLINICAL INFORMATION: Rib pain following a fall. COMPARISON: Chest CT dated 09/04/2020. TECHNIQUE: PA view of the chest as well as 3 views of the left ribs. FINDINGS: Nondisplaced fracture through the lateral aspect of the left 6th rib. No additional fracture. No dislocation. No concerning lytic or blastic osseous lesion. No abnormal soft tissue calcification. No airspace consolidation. No pleural effusion or pneumothorax. Stable cardiomediastinal silhouette. XR/XR ribs LT min 3V w CXR1V IMPRESSION: Nondisplaced fracture through the lateral aspect of the left 6th rib.
[2023-10-17 07:32] VITALS: BP 149/60; PULSE 81; RESP 20; TEMP 36.6; O2SAT 98; BMI 25.7
[2023-10-17 07:40] VITALS: O2SAT 99
--- NOTE | 2023-10-17 07:41 | ED.GENADULT ---
HPI - General Adult General Chief complaint: General Medical Stated complaint: weakness Time Seen by Provider: 10/17/23 07:33 Source: patient, RN notes reviewed and old records reviewed Mode of arrival: ambulatory History of Present Illness HPI narrative: 83-year-old female with a past medical history of diverticular disease, arthralgia, seizures, obesity, anemia, HTN, presenting to the ED complaining of sore throat, congestion, productive cough with bloody streaked sputum starting last week. Also reports left-sided rib pain s/p trip and fall 2 days ago when getting out of bed. Admits to feeling lightheaded, denies head trauma or LOC. Does take ASA. Denies chest pain, shortness of breath, abdominal pain, nausea/vomiting, pedal edema, focal weakness Related Data Home Medications Medication Instructions Recorded Confirmed aspirin 81 mg tablet,delayed 81 mg PO DAILY 02/02/21 06/09/23 release (Adult Low Dose Aspirin) cholestyramine (with sugar) 4 gram PO 02/04/22 06/09/23 oral powder cyclosporine 0.05 % eye drops in a 1 drp ophthalmic (eye) Q12H 10/15/22 06/09/23 dropperette Previous Rx's Medication Instructions Recorded diphenoxylate-atropine 2.5 1 tab PO BID PRN diarrhea #7 tabs 05/29/21 mg-0.025 mg tablet (Lomotil) triamcinolone acetonide 0.5 % 1 appl topical BID #15 grams 10/15/22 topical cream lisinopril 10 mg tablet 10 mg PO BID #180 tabs 12/20/22 atenolol 50 mg tablet 25 mg (1/2 x 50 mg) PO .QHS #90 06/18/23 tabs amitriptyline 75 mg tablet 75 mg PO BEDTIME #90 tabs 08/21/23 clonazepam 0.5 mg tablet 0.5 mg PO BEDTIME 90 days #90 tabs 09/22/23 acetaminophen 500 mg tablet 500 mg PO Q6H PRN fever or pain 10/17/23 (Tylenol Extra Strength) #14 tabs azithromycin 250 mg tablet See Rx Instructions PO .COMPLEX #6 10/17/23 (Zithromax Z-Sergio) tabs lidocaine 5 % topical patch 1 patch topical DAILY PRN pain #30 10/17/23 (Lidoderm) ea prednisone 20 mg tablet 40 mg (2 x 20 mg) PO DAILY 5 days 10/17/23 #10 tabs Allergies Allergy/AdvReac Type Severity Reaction Status Date / Time Sulfa (Sulfonamide Allergy Severe HIVES Verified 06/09/23 12:57 Antibiotics) [SULFA(SULFONAMIDE ANTIBIOTICS)] sulfur Allergy Unknown Unknown Verified 06/09/23 12:57 Review of Systems Review of Systems: Constitutional: No Fever, No Chills, No Fatigue, No Malaise ENT/Mouth: No Ear Pain, + Nasal Congestion, + sore throat, + Rhinorrhea, No Swallowing Difficulty Eyes: No Eye Pain, No Swelling, No Redness, No Vision Changes Cardiovascular: + Chest Wall Pain, No SOB, No Dyspnea on Exertion, No Orthopnea, No Edema, No Palpitations Respiratory: + Cough, + Sputum, No Wheezing, No Dyspnea Gastrointestinal: No Nausea, No Vomiting, No Diarrhea, No Constipation, No Abdominal pain Genitourinary: No Dysuria, No Urinary Frequency, No Hematuria, No Urinary Incontinence/retention, No Flank Pain Musculoskeletal: No joint pain, No Myalgias, No Joint Swelling Skin: No Skin Lesions, No rash Neuro: + Weakness, No Numbness, No Paresthesias, No Headache, + lightheaded Yes all other systems are reviewed and are negative Constitutional: Constitutional: Reports as per HPI Neurologic: Denies Abnormal speech present [facility] Past Medical History Attestation statement: The following information was validated with the patient. Source: old records reviewed Medical History Diverticular disease LFT elevation Fatigue Inflammatory arthritis Acute diverticulitis Arthralgia Abscess Orthostatic hypotension Seizure Obesity (BMI 30-39.9) Diverticulitis Anemia Restless leg HTN (hypertension) Surgical History History of appendectomy Spinal stenosis of lumbar region Hx of cholecystectomy History of bunionectomy Social History Household Members: Significant Other Housing: House Do you presently have visiting nurse or other home services: No Alcohol intake: current Alcohol intake frequency: holidays/special occasions only Patient Tobacco Use Status: Former Tobacco user Tobacco use type: Cigarette Years Smoked: 5 Smoked in Last 30 Days: No e-Cigarette/Vaping Use: Never Used Second Hand Smoke Exposure: No Use of substances other than those prescribed or required for medical reasons: No Advance Directives: No Advance Directives Information Provided: Yes Advance Directives Date on File: 03/14/21 service: No Current occupational status: retired Cognitive needs: No Hearing needs: No Vision needs: Yes Physical Exam ED Vital Signs: Vital Signs - 24 hr 10/17/23 07:32 10/17/23 07:40 10/17/23 09:56 Temperature 97.8 F Pulse Rate 81 98 Respiratory Rate 20 Blood Pressure 149/60 H 134/61 Pulse Oximetry 98 99 Oxygen Delivery Method Room Air Room Air 10/17/23 10:00 10/17/23 10:02 10/17/23 12:25 Temperature Pulse Rate 96 100 87 Respiratory Rate 16 Blood Pressure 161/59 H 136/61 Pulse Oximetry 97 Oxygen Delivery Method Room Air BMI result Body Mass Index 25.7 Const General: cooperative, healthy appearing and no acute distress Orientation/consciousness: patient oriented x3 Limitations: no limitations HENMT Head: Yes normal to inspection and Yes atraumatic Ears: hearing grossly normal bilaterally General nose exam: Normal external nose present Face and sinus: Yes normal facial exam Eyes General: appearance normal, both eyes and all related structures EOM: EOMs intact bilaterally Neck Neck: Yes normal visual inspection and Yes no meningeal signs Chest Other: Left anterior lateral chest wall reproducible tenderness. No flail chest, ecchymosis or erythema Chest palpation & inspection: normal inspection of the chest, no crepitus and tenderness Resp Effort & Inspection: normal respiratory effort and no respiratory distress Auscultation: clear to auscultation bilaterally, no crackles and no wheezes Cardio Rate: regular rate Heart sounds: S1 normal heart sound present and S2 normal heart sound present GI Inspection: Yes normal to inspection Palpation (GI): Soft to palpation, nontender, no guarding and not rigid General: Yes no CVA tenderness Back/Spine/Pelvis Other: No midline cervical/thoracic/lumbar spinous tenderness/step-off or deformity Back: no CVA tenderness Skin Rashes: no rashes Wounds: no wounds Neuro General: patient oriented x3, gait normal, tone normal, moves all extremities, no meningeal signs, no focal motor deficits and CN's II-XI intact bilaterally Cranial nerves: Yes CN's II-XII intact bilaterally Cognition (Neuro): normal cognition Speech: No Abnormal speech present Gait exam (Neuro): Normal gait present Motor exam (neuro): 5/5 motor strength present throughout and no tremor noted Extrem General: Yes normal to inspection, Yes no pedal edema and Yes no calf tenderness Course Course Course Narrative: -1002--H&H with slight drop 10.9/32.4 from (11.9/36.4), stable, no evidence of active bleeding. BUN mildly elevated. -troponin 25.6, elevated priors > will obtain 3 hour repeat. COVID/flu/RSV negative -1249--Troponin without rise, IN unlikely XR ribs LT min 3V w CXR1V IMPRESSION: Nondisplaced fracture through the lateral aspect of the left 6th rib. -1250--orthostatic VS negative Results discussed with patient including worrisome signs and symptoms and strict return precautions, and when to return to the emergency department. They verbalized understanding and feel safe for discharge at this time. Medications Administered Discontinued Medications Generic Name Dose Route Start Last Admin Trade Name Simeon PRN Reason Stop Dose Admin Acetaminophen 650 mg 10/17/23 11:02 10/17/23 11:22 Acetaminophen 325 Mg Tablet PO 10/17/23 11:03 650 mg ONCE ONE Administration Sodium Chloride 500 mls @ 999 mls/hr 10/17/23 08:00 10/17/23 11:22 Ns IV 10/17/23 08:30 Infused .Q31M BHUPINDER Infusion Lidocaine 1 patch 10/17/23 11:02 10/17/23 11:22 Lidocaine 4 % Patch Adh..Patch TRANSDERMA 10/17/23 11:03 1 patch ONCE ONE Administration Protocol Medical Decision Making Medical Decision Making MDM Narrative: 83-year-old female with a past medical history of diverticular disease, arthralgia, seizures, obesity, anemia, HTN, presenting to the ED complaining of sore throat, congestion, productive cough with bloody streaked sputum starting last week. Also reports left-sided rib pain s/p trip and lightheadedness. On exam vital signs stable, NAD, nontoxic appearing, no midline spinous tenderness throughout or red flag symptoms, reproducible left-sided rib tenderness, no focal neuro deficits. Lungs CTA. Concern for viral syndrome/bronchitis vs pneumonia vs metabolic/infectious etiology vs rib fracture/contusion. Lower suspicion for malignancy/PE or ACS, CVA/TIA or intrathoracic/intra-abdominal bleeding/hematoma at this time Plan: EKG, labs, UA, CXR, viral testing, IVF, re-evaluate Please refer to course for remaining clinical decision making, interpretation of labs/imaging results, and discussions with consultants and/or family members. Differential Diagnosis Differential Diagnoses: The differential diagnosis associated with the presentation includes As above Admission/Observation Consideration of admission/observation: Escalation of care including admission/observation considered Lab Data MDM Lab Attestation statement: I reviewed the patient's lab results. 10/17/23 08:23 10/17/23 08:23 Labs: Lab Results 10/17/23 10/17/23 10/17/23 Range/Units 08: 11:28 11:35 WBC 10.6 (4.8-10.8) X10*3/uL RBC 3.48 L (4.20-5.50) X10*6/uL Hgb 10.9 L (12.0-16.0) g/dl Hct 32.4 L (37.0-47.0) % MCV 93.1 (80.0-98.0) fL MCH 31.3 (27.0-33.0) pg MCHC 33.6 (31.0-35.0) g/dl RDW 12.5 (11.0-16.0) % Plt Count 198 (160-400) X10*3/uL MPV 10.2 (9.4-12.3) fL Immature Gran % (Auto) 0.8 H (0.0-0.4) % Neut % (Auto) 71.6 (45-73) % Lymph % (Auto) 13.9 L (20-40) % [place] % (Auto) 10.5 (2-11) % Eos % (Auto) 2.3 (0-4) % Baso % (Auto) 0.9 (0-2) % Lymph # (Auto) 1.5 (1.2-4.9) X10*3/uL [place] # (Auto) 1.1 (0.1-1.2) X10*3/uL Eos # (Auto) 0.2 (0.0-0.4) X10*3/uL Baso # (Auto) 0.1 (0.0-0.2) X10*3/uL Abs Immat Gran (auto) 0.08 H (0.00-0.03) X10*3/uL Absolute Neuts (auto) 7.6 (2.0-8.3) x10*3/uL Absolute Nucleated RBC 0.000 (0.0-0.012) X10*3/uL Nucleated RBC % (auto) 0.0 (0.0-0.2) /100WBC PT 11.9 (11.1-13.3) SEC INR 1.0 (0.9-1.1) Sodium 141 (135-145) mmol/L Potassium 3.7 D (3.3-5.1) mmol/L Chloride 109 H (96-108) mmol/L Carbon Dioxide 23 (22-29) mmol/L Anion Gap 13 (12-20) BUN 21 H (9-16) mg/dL Creatinine 1.10 (0.5-1.4) mg/dL Estim Creat Clear Calc 37.3 Estimated GFR 48 Random Glucose 103 (60-115) mg/dL Calcium 8.9 D (8.4-10.2) mg/dL Magnesium 1.7 (1.6-2.6) mg/dL Total Bilirubin 0.7 (0.0-1.0) mg/dL Direct Bilirubin 0.2 (0.0-0.5) mg/dL AST 21 (5-31) U/L ALT 12 (0-31) U/L Alkaline Phosphatase 51 (39-117) U/L Troponin I High Sens 25.6 H 27.5 H (<3.5-17.0) ng/L Total Protein 6.8 (6.5-8.0) g/dL Albumin 3.5 (3.5-5.0) g/dL Urine Color Yellow Urine Appearance Clear Urine pH 5.5 (5.0-9.0) Ur Specific [place] 1.010 (1.005-1.025) Urine Protein Negative (Neg-Trace) mg/dL Urine Glucose (UA) Negative (Negative) mg/dL Urine Ketones 15 (Negative) mg/dL Urine Blood Negative (Negative) Urine Nitrite Negative (Negative) Ur Leukocyte Esterase Negative (Negative) Influenza Type A (PCR) NEGATIVE (Negative) Influenza Type B (PCR) NEGATIVE (Negative) RSV RNA Qual (PCR) NEGATIVE (Negative) SARS-CoV-2 RNA (RT-PCR) NEGATIVE (Negative) Independent Interpretation I performed an independent interpretation of an: EKG Radiology Impression Discussion of test interpretation with radiology: I have reviewed the radiologist's reading. Independent Historian Clinical information obtained from an independent historian. History obtained from or confirmed by: Spouse External Record Review External record reviewed: Inpatient record, Office record, Outpatient record, Prior outpatient labs, Prior outpatient radiology, Primary care record and Outside ED record Tests considered The following testing was considered but not selected: As above Chronic Conditions Patient?s care impacted by: Hypertension Discharge Plan Discharge Clinical Impression: Closed rib fracture, Bronchitis, Lightheaded Patient Disposition: Home, Self-Care Instructions: Rib Fracture (ED), Acute Bronchitis (ED), Lightheadedness (ED) Additional Instructions: Your blood work is reassuring. Your x-ray does show a 6th rib fracture You likely have bronchitis with your bloody streaked sputum and upper respiratory symptoms. Prednisone as a steroid please take as prescribed Azithromycin is an antibiotic Please have close follow-up with your doctor. If symptoms persist or worsen return to the emergency department Prescriptions: New prednisone 20 mg tablet 40 mg PO DAILY 5 Days Qty: 10 0RF azithromycin [Zithromax Z-Sergio] 250 mg tablet See Rx Instructions .ROUTE .COMPLEX Qty: 6 0RF Rx Instructions: For 250 mg dose pack: take 500 mg today (day 1), then 250 mg for 4 days (days 2-5) lidocaine [Lidoderm] 5 % adhesive patch,medicated 1 patch topical DAILY MDD remove after 12 hours PRN (Reason: pain) Qty: 30 0RF Rx Instructions: leave on most painful area for up to 12 hrs acetaminophen [Tylenol Extra Strength] 500 mg tablet 500 mg PO Q6H PRN (Reason: fever or pain) Qty: 14 0RF No Action diphenoxylate-atropine [Lomotil] 2.5-0.025 mg tablet 1 tab PO BID PRN (Reason: diarrhea) Qty: 7 0RF lisinopril 10 mg tablet 10 mg PO BID Qty: 180 3RF atenolol 50 mg tablet 25 mg PO .QHS Qty: 90 0RF amitriptyline 75 mg tablet 75 mg PO BEDTIME Qty: 90 2RF clonazepam 0.5 mg tablet 0.5 mg PO BEDTIME 90 Days Qty: 90 0RF cholestyramine (with sugar) 4 gram powder PO aspirin [Adult Low Dose Aspirin] 81 mg tablet,delayed release (DR/EC) 81 mg PO DAILY cyclosporine 0.05 % dropperette 1 drp ophthalmic (eye) Q12H triamcinolone acetonide 0.5 % cream 1 appl topical BID Qty: 15 0RF Referrals: Po,Osvaldo Omalley MD [Primary Care Provider] - 3 days Interventions: ED Discharge Assessment Last Done: 10/17/23 13:14 Discharge Date/Time: 10/17/23 13:25
--- NOTE | 2023-10-17 07:41 | PC.NURSE ---
Patient reports having a cold for the last 4 days that started with sore throat Reports that 2 days ago she had a fall without headstrike but landed on ribs. Reports has been coughing up blood tinged mucus. Reports 07/03 facial pressure/pain. Denies n/v, chest pain or headache
--- NOTE | 2023-10-17 07:51 | ECG_ITS ---
Test Reason : LIGHTHEADED Blood Pressure : / mmHG Vent. Rate : 084 BPM Atrial Rate : 084 BPM P-R Int : 146 ms QRS Dur : 068 ms QT Int : 356 ms P-R-T Axes : 056 026 052 degrees QTc Int : 420 ms Normal sinus rhythm Normal ECG When compared with ECG of 20-MAR-2021 09:30, No significant change was found Referred By: Nemo Hartmann Electronically Signed By:AMALIA CROCKETT MD
--- NOTE | 2023-10-17 07:51 | PC.NURSE ---
NSR on monitor
[2023-10-17] MEDS: 0.9 % Sodium Chloride 500 ML 999 ML IV (08:25)
[2023-10-17 08:55] LABS: MANUAL DIFF FLAG NO
[2023-10-17 08:57] LABS: Basophils Absolute Auto 0.1 X10*3/uL (0.0-0.2); Basophils Percent Auto 0.9 % (0-2); Eosinophils Absolute Auto 0.2 X10*3/uL (0.0-0.4); Eosinophils Percent Auto 2.3 % (0-4); Hematocrit 32.4 % (37.0-47.0); Hemoglobin 10.9 g/dl (12.0-16.0); Imm Gran Abs Auto 0.08 X10*3/uL (0.00-0.03); Imm Gran Pct Auto 0.8 % (0.0-0.4); Lymphocytes Absolute Auto 1.5 X10*3/uL (1.2-4.9); Lymphocytes Percent Auto 13.9 % (20-40); Mean Corpuscular HGB Conc 33.6 g/dl (31.0-35.0); Mean Corpuscular Hemoglobin 31.3 pg (27.0-33.0); Mean Corpuscular Volume 93.1 fL (80.0-98.0); Mean Platelet Volume 10.2 fL (9.4-12.3); Monocytes Absolute Auto 1.1 X10*3/uL (0.1-1.2); Monocytes Percent Auto 10.5 % (2-11); Neutrophils Absolute Auto 7.6 x10*3/uL (2.0-8.3); Neutrophils Percent Auto 71.6 % (45-73); Platelet Count 198 X10*3/uL (160-400); Red Blood Count 3.48 X10*6/uL (4.20-5.50); Red Cell Distribution Width 12.5 % (11.0-16.0); White Blood Count 10.6 X10*3/uL (4.8-10.8)
[2023-10-17 09:02] LABS: Prothrombin Time 11.9 SEC (11.1-13.3)
[2023-10-17 09:18] LABS: Troponin-I High Sensitivity 25.6 ng/L (<3.5-17.0)
[2023-10-17 09:22] LABS: Alanine Aminotransferase 12 U/L (0-31); Albumin Level 3.5 g/dL (3.5-5.0); Alkaline Phosphatase 51 U/L (39-117); Anion Gap 13 (12-20); Aspartate Amino Transferase 21 U/L (5-31); Bilirubin Direct 0.2 mg/dL (0.0-0.5); Bilirubin Total 0.7 mg/dL (0.0-1.0); Blood Urea Nitrogen 21 mg/dL (9-16); Calcium 8.9 mg/dL (8.4-10.2); Carbon Dioxide 23 mmol/L (22-29); Chloride 109 mmol/L (96-108); Creatinine Clr Calc Pharmacy 37.3; Estimated Glomerular Filt Rate 48; Glucose Random 103 mg/dL (60-115); Magnesium 1.7 mg/dL (1.6-2.6); Potassium 3.7 mmol/L (3.3-5.1); Sodium 141 mmol/L (135-145); Total Protein 6.8 g/dL (6.5-8.0)
[2023-10-17 09:44] LABS: Influenza A PCR NEGATIVE (Negative); Influenza B PCR NEGATIVE (Negative); Resp Syncy Virus RNA Qual PCR NEGATIVE (Negative); SARS COV2 PCR INHOUSE NEGATIVE (Negative)
[2023-10-17 09:56] VITALS: BP 134/61; PULSE 98
[2023-10-17 10:00] VITALS: BP 161/59; PULSE 96
[2023-10-17 10:02] VITALS: BP 136/61; PULSE 100
[2023-10-17] MEDS: Lidocaine 4 % Patch ADH..PATCH 1 PATCH TRANSDERMA (11:22)
[2023-10-17] MEDS: Acetaminophen 325 MG TABLET 650 MG PO (11:22)
[2023-10-17 11:47] LABS: Appearance Urine Clear; Color Urine Yellow; Glucose Urine UA Negative (Negative); Leukocyte Esterase Urine Negative (Negative); Nitrite Urine Negative (Negative); PH 5.5 (5.0-9.0); Urine Blood Negative (Negative); Urine Ketones 15 mg/dL (Negative); Urine Protein Negative (Neg-Trace)
[2023-10-17 12:04] LABS: Troponin-I High Sensitivity 27.5 ng/L (<3.5-17.0)
[2023-10-17 12:25] VITALS: PULSE 87; RESP 16; O2SAT 97
== END 2023-10-17 13:25 | disposition home or self-care (01) ==
PROVIDERS: Physician Assistant; Emergency Provider Emergency Medicine; PCP Internal Medicine
DX: S22.32XA Fracture of one rib, left side, initial encounter for closed fracture (principal); J02.9 Acute pharyngitis, unspecified; J40 Bronchitis, not specified as acute or chronic; R05.9 Cough, unspecified; R42 Dizziness and giddiness; R07.81 Pleurodynia; X58.XXXA Exposure to other specified factors, initial encounter; Y93.9 Activity, unspecified; Y92.9 Unspecified place or not applicable; Y99.9 Unspecified external cause status; Z20.822 Contact with and (suspected) exposure to COVID-19; Z20.828 Contact with and (suspected) exposure to other viral communicable diseases; Z79.899 Other long term (current) drug therapy; Z87.891 Personal history of nicotine dependence
CPT/HCPCS: 0241U; 36415; 71101; 80048; 80076; 81003; 83735; 84484; 85025; 85610; 93005; 96360; 96361; 99284; 99285

== ENCOUNTER 2023-10-28 13:33 | Outpatient (AMB) | payer MEDICARE, BC, SELFPAY ==
--- NOTE | 2023-10-28 13:35 | A.OFFVIS_ITS ---
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 Patient of Dr. Gifford last seen in May. patient presents today for initial medicare wellness. Review of the notes patient was seen at [facility] Emergency Room on 10/17/2023 due to bronchitis and she had fallen while getting out of bed and suffered a rib fracture. Patient reports feeling better does occasionally have some soreness in the ribs. Patient reports her blood pressures have been running elevated at home 150/70's, patient reports occasionally that she will take an additional dose of her lisinopril in the afternoon just to level off her blood pressure. Will increase her lisinopril to 20 mg b.i.d. Patient reminded to get previously ordered fasting lab work completed Mammogram: UTD, discussed bone density screening; patient declined Eye exam: Follows with Dr. Grimes Patient up-to-date on recommended immunizations. [place] of care was reviewed with patient patient was provided with a written screening schedule. Healthcare proxy and MOLST forms were discussed with patient in office today patient advised to bring completed form to office to be scanned to chart. [facility] Medical History Diverticular disease LFT elevation Fatigue Inflammatory arthritis Acute diverticulitis Arthralgia Abscess Orthostatic hypotension Seizure Obesity (BMI 30-39.9) Diverticulitis Anemia Restless leg HTN (hypertension) Surgical History History of appendectomy Spinal stenosis of lumbar region Hx of cholecystectomy History of bunionectomy Social History Household Members: Significant Other Housing: House Do you presently have visiting nurse or other home services: No Alcohol intake: current Alcohol intake frequency: holidays/special occasions only Patient Tobacco Use Status: Former Tobacco user Tobacco use type: Cigarette Years Smoked: 5 e-Cigarette/Vaping Use: Never Used Second Hand Smoke Exposure: No Advance Directives Date on File: 03/14/21 service: No Current occupational status: retired Cognitive needs: No Hearing needs: No Vision needs: Yes Questionnaire Medicare Wellness Checkup What is your age?: 80 or older What gender do you identify with?: female During the past 4 weeks, how much have you been bothered by emotional problems such as feeling anxious, depressed, irritable, sad or downhearted, and blue?: not at all During the past 4 weeks, has your physical & emotional health limited your social activities with family, friends, neighbors, or groups?: not at all During the past 4 weeks, how much bodily pain have you generally had?: moderate pain During the past 4 weeks, was someone available to help you if you needed & wanted help?: yes, as much as I wanted During the past 4 weeks, what was the hardest physical activity you could do for at least 2 minutes?: moderate Can you get to places out of walking distance without help? (For eg., can you travel alone on buses, taxis or drive your car?): Yes Can you go shopping for groceries or clothes without someone's help?: Yes Can you prepare your own meals?: Yes Can you do your housework without help?: Yes Because of any health problems, do you need the help of another person with your personal care needs such as eating, bathing, dressing or getting around the house?: Yes Can you handle your own money without help?: Yes During the past 4 weeks, how would you rate your health in general?: good During the past 4 weeks how have things been going for you?: pretty well Are you having difficulties driving your car?: no Do you always fasten your seat belt when you are in a car?: yes, usually During past 4 weeks, have you been bothered by the following: never: Falling or dizzy when standing up, Sexual problems?, Trouble eating well?, Teeth or denture problems? and Problems using the telephone? and sometimes: Tiredness or fatigue? Have you fallen 2 or more times in the past year?: Yes Are you afraid of falling?: No Are you a smoker?: no During the past 4 weeks, how many drinks of wine, beer, or other alcoholic beverages did you have?: 1 drink or less per week Do you exercise for about 20 minutes 3 or more times a week?: no, I usually do not exercise this much Have you been given information to help with the following?: no: Hazards in your house that might hurt you? and no: Keeping track of your medications? How often do you have trouble taking medicines the way you have been told to take them?: I always take medicine as prescribed How confident are you that you can control & manage most of your health problems?: very confident What is your race?: White Activity of Daily Living Bathing - sponge bath, tub bath or shower: receives no assistance (gets in/out by self, if usual bathing means Dressing - getting clothes from closets & drawers, including inner/outer garments & fasteners.: gets clothes & gets completely dressed without help Toileting - going to the 'toilet room' for urine/bowel elimination & cleaning self/arranging clothes: goes to toilet room, cleans self, arranges clothes without help Transfer: moves in & out of bed and chair without help (may use support object) Continence: controls urination/bowel movements completely by self Feeding: feeds self without help Total Score: 0 Information obtained from: patient Using telephone: independent Traveling: independent Shopping: independent Preparing meals: independent Housework: independent Taking medicine: independent Managing money: independent PHQ-9 Over the last 2 weeks, how often have you been bothered by any of the following problems? 1. Little interest or pleasure in doing things: not at all 2. Feeling down, depressed, or hopeless: not at all 3. Trouble falling or staying asleep, or sleeping too much: not at all 4. Feeling tired or having little energy: not at all 5. Poor appetite or overeating: not at all 6. Feeling bad about yourself - or that you are a failure or have let yourself or your family down: not at all 7. Trouble concentrating on things, such as reading the newspaper or watching television: not at all 8. Moving or speaking so slowly that other people could have noticed. Or the opposite - being so fidgety or restless that you have been moving around a lot more than usual: not at all 9. Thoughts that you would be better off or of hurting yourself in some way: not at all Total score: 0 Depression Screening Interpretation: Negative Depression Screening Done: Yes 61641 - PHQ-9 Billing: Yes Source: Developed by Drs. Dyllan Ansari, Maral Abdi, Osmani Rivera and colleagues, with an educational florentino from [employer]. Physical Exam Vital Signs: Last Vital Signs Pulse 65 10/28/23 13:42 Resp 17 10/28/23 13:42 BP 144/68 H 10/28/23 13:42 Pulse Ox 100 10/28/23 13:42 Oxygen Delivery Method Room Air 10/28/23 13:42 BMI result Body Mass Index 28.2 Const General: cooperative and no acute distress Orientation/consciousness: patient oriented x3 HEENT Ears: other (whisper test: pass) Neuro General: patient oriented x3 Gait exam (Neuro): Normal gait present Coordination: tandem gait normal and Romberg test negative Assessment & Plan Assessment & Plan (1) HTN (hypertension): Code(s): I10 - Essential (primary) hypertension Qualifiers: Hypertension type: essential hypertension Qualified Code(s): I10 - Essential (primary) hypertension Plan: Continue on atenolol 25 mg q.h.s., lisinopril increased to 20 mg b.i.d.. Patient advised to follow low-salt diet and exercise. Patient recommended to continue to check blood pressures at home periodically after sitting down for 3-5 minutes and keep a log and notify PCP of any elevated or low blood pressure readings. (2) Medicare annual wellness visit, initial: Code(s): Z00.00 - Encounter for general adult medical examination without abnormal findings Plan: Follow-up in 1 year Plan Follow-up in 6 months Medications: New lisinopril 20 mg PO DAILY 30 tabs 3RF Discontinued lisinopril Discontinued Reason: Doctor's Order 10 mg PO BID 180 tabs 3RF I10 - Essential (primary) hypertension Quality Reporting (2019) Depression/Bipolar (159/160/161/177) PHQ-9: Total score: 0 Coding Level of Care Code Medicare First (G0438) Diagnoses Essential hypertension I10 Hypertension type: essential hypertension Medicare annual wellness visit, initial Z00.00 CPT Codes Advance Care Planning - Time spent: 1-15 minutes, not on file ([id number]) Advance Care Planning Date of discussion: 10/28/23 Who was present: Patient Forms completed: Health Care Proxy and MOLST Time spent: 1-15 minutes, not on file Actual minutes spent: 2 Did not discuss due to Cultural/Spiritual beliefs: No
[2023-10-28 13:42] VITALS: BP 144/68; PULSE 65; RESP 17; O2SAT 100; BMI 28.2
== END 2023-10-28 14:11 | disposition home or self-care (01) ==
PROVIDERS: PCP Internal Medicine; Visit Provider Nurse Practitioner Family
DX: I10 Essential (primary) hypertension (principal); Z00.00 Encounter for general adult medical examination without abnormal findings
CPT/HCPCS: 1124F; G0438

== ENCOUNTER 2023-11-18 13:09 | Outpatient (REF) | payer MEDICARE, BC, SELFPAY ==
[2023-11-18 13:21] LABS: MANUAL DIFF FLAG NO
[2023-11-18 13:39] LABS: Basophils Absolute Auto 0.1 X10*3/uL (0.0-0.2); Basophils Percent Auto 1.7 % (0-2); Eosinophils Absolute Auto 0.2 X10*3/uL (0.0-0.4); Hemoglobin 12.3 g/dl (12.0-16.0); Imm Gran Abs Auto 0.04 X10*3/uL (0.00-0.03); Imm Gran Pct Auto 0.6 % (0.0-0.4); Immature Retic Fraction 7.4 % (3.0-15.9); Lymphocytes Absolute Auto 2.9 X10*3/uL (1.2-4.9); Lymphocytes Percent Auto 41.9 % (20-40); Mean Corpuscular HGB Conc 33.2 g/dl (31.0-35.0); Mean Corpuscular Hemoglobin 31.5 pg (27.0-33.0); Mean Corpuscular Volume 94.6 fL (80.0-98.0); Mean Platelet Volume 9.6 fL (9.4-12.3); Monocytes Absolute Auto 0.6 X10*3/uL (0.1-1.2); Monocytes Percent Auto 8.3 % (2-11); Neutrophils Absolute Auto 3.1 x10*3/uL (2.0-8.3); Neutrophils Percent Auto 44.5 % (45-73); Platelet Count 188 X10*3/uL (160-400); Red Blood Count 3.91 X10*6/uL (4.20-5.50); Red Cell Distribution Width 13.2 % (11.0-16.0); Retic HGB Equivalent 35.6 pg (30.0-35.0); Reticulocytes Absolute 0.038 X10*6/uL (0.026-0.095)
[2023-11-18 14:15] LABS: Alanine Aminotransferase 13 U/L (0-31); Albumin Level 3.9 g/dL (3.5-5.0); Alkaline Phosphatase 48 U/L (39-117); Anion Gap 12 (12-20); Aspartate Amino Transferase 21 U/L (5-31); Bilirubin Total 0.5 mg/dL (0.0-1.0); Blood Urea Nitrogen 18 mg/dL (9-16); Calcium 9.6 mg/dL (8.4-10.2); Carbon Dioxide 27 mmol/L (22-29); Chloride 108 mmol/L (96-108); Cholesterol 135 mg/dL (<200); Estimated Glomerular Filt Rate 58; Glucose Random 94 mg/dL (60-115); HDL Cholesterol 58 mg/dL (>40); Iron 109 mcg/dL (30-160); LDL Cholesterol Calculated 62 mg/dL (<100); Percent Iron Saturation 48 % (15-50); Potassium 4.5 mmol/L (3.3-5.1); Sodium 142 mmol/L (135-145); Total Iron Binding Capacity 229 mcg/dL (228-428); Total Protein 6.7 g/dL (6.5-8.0); Triglycerides 77 mg/dL (<150); Unsaturated Iron Binding 120 ug/dL
[2023-11-18 14:34] LABS: Ferritin 222 ng/mL (10-250); Free T4 (Free Thyroxine) 0.81 ng/dL (0.71-1.85); Thyroid Stimulating Hormone 1.18 uIU/mL (0.32-4.0); Vitamin D 25-OH Total 56.5 ng/mL (>30)
[2023-11-18 14:52] LABS: Folate 7.4 ng/mL (> or = 4.0)
[2023-11-19 14:24] LABS: Vitamin B12 632 pg/mL (200-900)
== END 2023-11-18 13:10 | disposition home or self-care (01) ==
LOC: HO.LAB 13:09
PROVIDERS: PCP Internal Medicine; Visit Provider Internal Medicine
DX: D64.9 Anemia, unspecified (principal); E78.00 Pure hypercholesterolemia, unspecified
CPT/HCPCS: 36415; 80053; 80061; 82306; 82607; 82728; 82746; 83540; 84439; 84443; 85025; 85045

== ENCOUNTER 2023-12-02 14:08 | Outpatient (REF) | payer MEDICARE, BC, SELFPAY ==
[2023-12-02 15:36] LABS: Appearance Urine Clear; Color Urine Yellow; Glucose Urine UA Negative (Negative); Leukocyte Esterase Urine Trace (Negative); Nitrite Urine Negative (Negative); PH 5.5 (5.0-9.0); Specific Gravity - Urine 1.015 (1.005-1.025); UMIC TRIGGER UACC YES; Urine Blood Negative (Negative); Urine Ketones Negative (Negative); Urine Protein Negative (Neg-Trace)
[2023-12-02 15:41] LABS: Bacteria Urine None Seen (None Seen); Hyaline Casts Urine 0-2 /LPF (0-2); RBC Urine 0-2 /HPF (0-2); Squamous Epithelial Cell Urine 0-2 /HPF (0-2); WBC Urine 0-5 /HPF (0-5)
== END 2023-12-02 14:09 | disposition home or self-care (01) ==
LOC: HO.LAB 14:08
PROVIDERS: Visit Provider Internal Medicine
DX: R39.89 Other symptoms and signs involving the genitourinary system (principal)
CPT/HCPCS: 81001; 87086

== ENCOUNTER 2023-12-25 09:58 | Emergency (ER) | payer MEDICARE, BC, SELFPAY ==
--- NOTE | ~2023-12-25 | CT_ITS ---
EXAMINATION: CT ABDOMEN AND PELVIS WITH CONTRAST CLINICAL INFORMATION: Lower abdominal pain and tenderness COMPARISON: None available. TECHNIQUE: Multidetector volumetric images were obtained from the superior aspect of the liver through the pubic symphysis following administration 85 mL of Omnipaque 350 intravenous contrast. Sagittal and coronal reformatted images were obtained on the technologist's workstation. Oral contrast: No This CT examination was performed using dose optimization techniques as appropriate, variously including the following: *Automated exposure control *Adjustment of mA and/or kV according to patient size (this includes techniques or standardized protocols for targeted exams where dose is matched to indication/reason for exam; i.e. extremities or head) *Use of iterative reconstruction technique DLP: 548 mGy-cm FINDINGS: LUNG BASES: The visualized lung bases are unremarkable. LIVER, GALLBLADDER, AND BILIARY TREE: The liver is normal in size, shape, and attenuation. No focal hepatic lesion or biliary ductal dilatation is present. Gallbladder absent. Chronic distention of the biliary tree and common duct noted. PANCREAS: Unremarkable. SPLEEN: Unremarkable. ADRENAL GLANDS: Unremarkable. KIDNEYS AND URETERS: The kidneys are normal in size, shape, and attenuation. No hydronephrosis, hydroureter, or calculi seen. No perinephric stranding. BLADDER: Unremarkable. GASTROINTESTINAL TRACT: Moderate sigmoid diverticular disease but no diverticulitis. No bowel obstruction or left lower quadrant inflammatory change. ABDOMINAL WALL: No significant hernia is appreciated. LYMPH NODES: Normal. VASCULAR: Aorta atherosclerotic but nonaneurysmal. PELVIC VISCERA: Unremarkable. OSSEOUS STRUCTURES: Advanced degenerative change in the lumbar spine but no fracture. CT/CT abdomen pelvis w IV con IMPRESSION: Sigmoid diverticulosis but no diverticulitis. No acute findings. Fleischner guidelines were followed.
[2023-12-25 10:00] VITALS: BP 157/47; PULSE 78; RESP 16; TEMP 36.1; O2SAT 98; BMI 27.4
--- NOTE | 2023-12-25 11:21 | PC.NURSE ---
Patient reports abnormal BM`s x 1.5 weeks. Patient reports has been passing gas with a strong odor. Reports had blood in stool today along with mucos. Reports cramping abdominal pain that started 3 days ago. Denies sob or chest pain
[2023-12-25 11:25] VITALS: BP 154/51; PULSE 76; RESP 20; TEMP 36.6; O2SAT 97
[2023-12-25 11:42] LABS: MANUAL DIFF FLAG NO
[2023-12-25 11:48] LABS: Basophils Absolute Auto 0.2 X10*3/uL (0.0-0.2); Basophils Percent Auto 2.2 % (0-2); Eosinophils Absolute Auto 0.2 X10*3/uL (0.0-0.4); Eosinophils Percent Auto 3.4 % (0-4); Hematocrit 36.7 % (37.0-47.0); Hemoglobin 12.4 g/dl (12.0-16.0); Imm Gran Abs Auto 0.03 X10*3/uL (0.00-0.03); Imm Gran Pct Auto 0.4 % (0.0-0.4); Lymphocytes Absolute Auto 2.1 X10*3/uL (1.2-4.9); Lymphocytes Percent Auto 29.8 % (20-40); Mean Corpuscular HGB Conc 33.8 g/dl (31.0-35.0); Mean Corpuscular Hemoglobin 31.6 pg (27.0-33.0); Mean Corpuscular Volume 93.6 fL (80.0-98.0); Mean Platelet Volume 9.4 fL (9.4-12.3); Monocytes Absolute Auto 0.6 X10*3/uL (0.1-1.2); Neutrophils Absolute Auto 3.9 x10*3/uL (2.0-8.3); Neutrophils Percent Auto 56.2 % (45-73); Platelet Count 179 X10*3/uL (160-400); Red Blood Count 3.92 X10*6/uL (4.20-5.50); Red Cell Distribution Width 13.2 % (11.0-16.0)
[2023-12-25 12:00] LABS: Alanine Aminotransferase 13 U/L (0-31); Albumin Level 4.3 g/dL (3.5-5.0); Alkaline Phosphatase 43 U/L (39-117); Anion Gap 12 (12-20); Aspartate Amino Transferase 21 U/L (5-31); Bilirubin Total 0.5 mg/dL (0.0-1.0); Blood Urea Nitrogen 17 mg/dL (9-16); Calcium 9.7 mg/dL (8.4-10.2); Carbon Dioxide 25 mmol/L (22-29); Chloride 109 mmol/L (96-108); Creatinine Clr Calc Pharmacy 39.6; Estimated Glomerular Filt Rate 54; Glucose Random 104 mg/dL (60-115); Potassium 4.1 mmol/L (3.3-5.1); Sodium 142 mmol/L (135-145); Total Protein 7.3 g/dL (6.5-8.0)
--- NOTE | 2023-12-25 12:58 | ED_ITS ---
HPI - General Adult General Chief complaint: Abdominal Pain Stated complaint: Rectal bleeding, dizziness Time Seen by Provider: 12/25/23 12:43 History of Present Illness HPI narrative: The patient is an 83-year-old woman with diverticulosis who has had previous episodes of diverticulitis. She has also had a cholecystectomy (her appendix was removed at that time she says). The patient says that she has had some mild lower abdominal discomfort for about 3 or 4 days that has gotten worse over the last 12 hours. This morning she also had some mucousy and bloody stool. She feels the pain in both lower quadrants. No definite fever. No vomiting. Related Data Home Medications Medication Instructions Recorded Confirmed aspirin 81 mg tablet,delayed 81 mg PO DAILY 02/02/21 06/09/23 release (Adult Low Dose Aspirin) cholestyramine (with sugar) 4 gram PO 02/04/22 06/09/23 oral powder cyclosporine 0.05 % eye drops in a 1 drp ophthalmic (eye) Q12H 10/15/22 06/09/23 dropperette Previous Rx's Medication Instructions Recorded diphenoxylate-atropine 2.5 1 tab PO BID PRN diarrhea #7 tabs 05/29/21 mg-0.025 mg tablet (Lomotil) triamcinolone acetonide 0.5 % 1 appl topical BID #15 grams 10/15/22 topical cream atenolol 50 mg tablet 25 mg (1/2 x 50 mg) PO .QHS #90 06/18/23 tabs amitriptyline 75 mg tablet 75 mg PO BEDTIME #90 tabs 08/21/23 acetaminophen 500 mg tablet 500 mg PO Q6H PRN fever or pain 10/17/23 (Tylenol Extra Strength) #14 tabs azithromycin 250 mg tablet See Rx Instructions PO .COMPLEX #6 10/17/23 (Zithromax Z-Sergio) tabs lidocaine 5 % topical patch 1 patch topical DAILY PRN pain #30 10/17/23 (Lidoderm) ea prednisone 20 mg tablet 40 mg (2 x 20 mg) PO DAILY 5 days 10/17/23 #10 tabs lisinopril 20 mg tablet 20 mg PO DAILY #30 tabs 10/28/23 clonazepam 0.5 mg tablet 0.5 mg PO BEDTIME 90 days #90 tabs 12/15/23 Allergies Allergy/AdvReac Type Severity Reaction Status Date / Time Sulfa (Sulfonamide Allergy Severe HIVES Verified 06/09/23 12:57 Antibiotics) [SULFA(SULFONAMIDE ANTIBIOTICS)] sulfur Allergy Unknown Unknown Verified 06/09/23 12:57 Review of Systems 2 Review of Systems: Yes all other systems are reviewed and are negative [facility] Past Medical History Medical History Diverticular disease LFT elevation Fatigue Inflammatory arthritis Acute diverticulitis Arthralgia Abscess Orthostatic hypotension Seizure Obesity (BMI 30-39.9) Diverticulitis Anemia Restless leg HTN (hypertension) Surgical History History of appendectomy Spinal stenosis of lumbar region Hx of cholecystectomy History of bunionectomy Social History Social History Household Members: Significant Other Housing: House Do you presently have visiting nurse or other home services: No Alcohol intake: current Alcohol intake frequency: holidays/special occasions only Patient Tobacco Use Status: Former Tobacco user Tobacco use type: Cigarette Years Smoked: 5 Smoked in Last 30 Days: No e-Cigarette/Vaping Use: Never Used Second Hand Smoke Exposure: No Use of substances other than those prescribed or required for medical reasons: No Advance Directives: No Advance Directives Information Provided: Yes Advance Directives Date on File: 03/14/21 service: No Current occupational status: retired Cognitive needs: No Hearing needs: No Vision needs: Yes Physical Exam ED Vital Signs: Vital Signs - 24 hr 12/25/23 10:00 12/25/23 11:25 Temperature 97 F 97.8 F Pulse Rate 78 76 Respiratory Rate 16 20 Blood Pressure 157/47 H 154/51 H Pulse Oximetry 98 97 Oxygen Delivery Method Room Air Room Air BMI result Body Mass Index 27.4 Const Other: The patient is a pleasant 83-year-old who is awake and alert and does not appear in overt distress or obviously toxic HENMT Other: The face is symmetrical. ?Mucous membranes moist. Eyes Other: Pupils are round equal, conjunctivae are clear, extraocular movements intact Neck Neck: Yes no JVD Resp Effort & Inspection: normal respiratory effort Cardio Rate: regular rate Rhythm: regular rhythm Heart sounds: S1 normal heart sound present and S2 normal heart sound present GI Other: The abdomen is nondistended. The abdomen is soft. She is tender in both lower quadrants, right more so than left, but without rebound or guarding. Rectal exam showed possibly some very small hemorrhoids. There was no blood at the anus. No blood on digital rectal exam. The rectal vault was empty. General: Yes no CVA tenderness Back/Spine/Pelvis Back: no CVA tenderness Skin Other: Skin is pale and dry and unremarkable Neuro Other: Awake, alert, appropriate, nontoxic. Grossly neurologically intact Extrem Other: No peripheral edema. Medications Administered Discontinued Medications Generic Name Dose Route Start Last Admin Trade Name Freq PRN Reason Stop Dose Admin Sodium Chloride 1,000 mls @ 999 mls/hr 12/25/23 13:00 12/25/23 14:27 Ns IV 12/25/23 14:00 Infused .Q1H1M BHUPINDER Infusion Iohexol 85 ml 12/25/23 13:19 12/25/23 13:19 Iohexol 350 Mg/Ml 100 Ml Infus..Btl IV 12/25/23 13:20 85 ml ONCE ONE Administration Medical Decision Making Medical Decision Making [facility] Narrative: The patient presents with lower abdominal discomfort mostly in the right lower quadrant. She also had some mucousy stool with some blood. She thought that she might have another episode of diverticulitis. The patient's labs and CT scan are unremarkable and not consistent with acute diverticulitis. The patient was reassured that there are no concerning findings on her workup in the emergency room. Perhaps the blood in the stool is hemorrhoidal. In any event she looks well enough for discharge and outpatient management. Lab Data 12/25/23 11:36 12/25/23 11:36 Labs: Lab Results 12/25/23 12/25/23 Range/Units 11:36 13:24 WBC 7.0 (4.8-10.8) X10*3/uL RBC 3.92 L (4.20-5.50) X10*6/uL Hgb 12.4 (12.0-16.0) g/dl Hct 36.7 L (37.0-47.0) % MCV 93.6 (80.0-98.0) fL MCH 31.6 (27.0-33.0) pg MCHC 33.8 (31.0-35.0) g/dl RDW 13.2 (11.0-16.0) % Plt Count 179 (160-400) X10*3/uL MPV 9.4 (9.4-12.3) fL Immature Gran % (Auto) 0.4 (0.0-0.4) % Neut % (Auto) 56.2 (45-73) % Lymph % (Auto) 29.8 (20-40) % Dewitt % (Auto) 8.0 (2-11) % Eos % (Auto) 3.4 (0-4) % Baso % (Auto) 2.2 H (0-2) % Lymph # (Auto) 2.1 (1.2-4.9) X10*3/uL Dewitt # (Auto) 0.6 (0.1-1.2) X10*3/uL Eos # (Auto) 0.2 (0.0-0.4) X10*3/uL Baso # (Auto) 0.2 (0.0-0.2) X10*3/uL Abs Immat Gran (auto) 0.03 (0.00-0.03) X10*3/uL Absolute Neuts (auto) 3.9 (2.0-8.3) x10*3/uL Absolute Nucleated RBC 0.000 (0.0-0.012) X10*3/uL Nucleated RBC % (auto) 0.0 (0.0-0.2) /100WBC Sodium 142 (135-145) mmol/L Potassium 4.1 (3.3-5.1) mmol/L Chloride 109 H (96-108) mmol/L Carbon Dioxide 25 (22-29) mmol/L Anion Gap 12 (12-20) BUN 17 H (9-16) mg/dL Creatinine 0.99 (0.5-1.4) mg/dL Estim Creat Clear Calc 39.6 Estimated GFR 54 Random Glucose 104 (60-115) mg/dL Calcium 9.7 (8.4-10.2) mg/dL Total Bilirubin 0.5 (0.0-1.0) mg/dL AST 21 (5-31) U/L ALT 13 (0-31) U/L Alkaline Phosphatase 43 (39-117) U/L C-Reactive Protein < 0.10 (< or = 0.50) mg/dL Total Protein 7.3 (6.5-8.0) g/dL Albumin 4.3 (3.5-5.0) g/dL Lipase 29 (8-78) U/L Urine Color Yellow Urine Appearance Clear Urine pH 5.5 (5.0-9.0) Ur Specific Ponce <= 1.005 (1.005-1.025) Urine Protein Negative (Neg-Trace) mg/dL Urine Glucose (UA) Negative (Negative) mg/dL Urine Ketones Negative (Negative) mg/dL Urine Blood Negative (Negative) Urine Nitrite Negative (Negative) Ur Leukocyte Esterase Negative (Negative) Discharge Plan Discharge Clinical Impression: Lower abdominal pain, Bleeding per rectum Patient Disposition: Home, Self-Care Additional Instructions: Your testing in the emergency room today is quite reassuring. There is no sign of inflammation or infection. Your blood testing is also reassuring. Please continue your regular medications. Drink a lot of fluids. You may use Tylenol for discomfort. Please follow-up with your regular doctor soon. Return to the emergency room if worse. Prescriptions: No Action diphenoxylate-atropine [Lomotil] 2.5-0.025 mg tablet 1 tab PO BID PRN (Reason: diarrhea) Qty: 7 0RF atenolol 50 mg tablet 25 mg PO .QHS Qty: 90 0RF amitriptyline 75 mg tablet 75 mg PO BEDTIME Qty: 90 2RF clonazepam 0.5 mg tablet 0.5 mg PO BEDTIME 90 Days Qty: 90 0RF prednisone 20 mg tablet 40 mg PO DAILY 5 Days Qty: 10 0RF azithromycin [Zithromax Z-Sergio] 250 mg tablet See Rx Instructions .ROUTE .COMPLEX Qty: 6 0RF Rx Instructions: For 250 mg dose pack: take 500 mg today (day 1), then 250 mg for 4 days (days 2-5) lidocaine [Lidoderm] 5 % adhesive patch,medicated 1 patch topical DAILY MDD remove after 12 hours PRN (Reason: pain) Qty: 30 0RF Rx Instructions: leave on most painful area for up to 12 hrs acetaminophen [Tylenol Extra Strength] 500 mg tablet 500 mg PO Q6H PRN (Reason: fever or pain) Qty: 14 0RF cholestyramine (with sugar) 4 gram powder PO aspirin [Adult Low Dose Aspirin] 81 mg tablet,delayed release (DR/EC) 81 mg PO DAILY cyclosporine 0.05 % dropperette 1 drp ophthalmic (eye) Q12H triamcinolone acetonide 0.5 % cream 1 appl topical BID Qty: 15 0RF lisinopril 20 mg tablet 20 mg PO DAILY Qty: 30 3RF Interventions: ED Discharge Assessment Last Done: 12/25/23 14:28 Discharge Date/Time: 12/25/23 14:28
[2023-12-25] MEDS: 0.9 % Sodium Chloride 1,000 ML 999 ML IV (13:07)
[2023-12-25 13:16] LABS: C Reactive Protein < 0.10 mg/dL (< or = 0.50); Lipase 29 U/L (8-78)
[2023-12-25] MEDS: iohexoL 350 MG/ML 100 ML INFUS..BTL 85 ML IV (13:19)
[2023-12-25 13:39] LABS: Appearance Urine Clear; Color Urine Yellow; Glucose Urine UA Negative (Negative); Leukocyte Esterase Urine Negative (Negative); Nitrite Urine Negative (Negative); PH 5.5 (5.0-9.0); Specific Gravity - Urine <= 1.005 (1.005-1.025); Urine Blood Negative (Negative); Urine Ketones Negative (Negative); Urine Protein Negative (Neg-Trace)
== END 2023-12-25 14:28 | disposition home or self-care (01) ==
PROVIDERS: Emergency Provider Emergency Medicine; PCP Internal Medicine
DX: R10.30 Lower abdominal pain, unspecified (principal); K62.5 Hemorrhage of anus and rectum; I10 Essential (primary) hypertension; Z90.49 Acquired absence of other specified parts of digestive tract; Z79.82 Long term (current) use of aspirin; Z79.899 Other long term (current) drug therapy
CPT/HCPCS: 36415; 74177; 80053; 81003; 83690; 85025; 86140; 96360; 99284; Q9967

== ENCOUNTER 2024-01-21 13:02 | Outpatient (AMB) | payer MEDICARE, BC, SELFPAY ==
[2024-01-21 13:05] VITALS: BP 164/92; PULSE 74; O2SAT 97; BMI 29.6
--- NOTE | 2024-01-21 13:05 | MHC.PC.OV ---
Vital Signs 01/21/24 13:05 Height 5 ft 2 in Weight 162 lb BMI 29.6 BP 164/92 H Blood Pressure Location Lt brachial Position Sitting Pulse 74 Pulse Source Pulse Oximeter Pulse Oximetry (%) 97 Oxygen Delivery Method Room Air Intake Visit Reasons: High Blood Pressure, leg numb Allergies Sulfa (Sulfonamide Antibiotics) [SULFA(SULFONAMIDE ANTIBIOTICS)] Allergy (Severe, Verified 01/21/24 13:05) HIVES sulfur Allergy (Unknown, Verified 01/21/24 13:05) Unknown Tobacco use date assessed: 01/21/24 Fall risk assessment: 1 Fall in past year Last assessed Fall Risk: 01/21/24 Dental Screening Dental Screen Date: 01/21/24 Did you have a dental visit in the last 12 months?: Yes Did you have a dental problem in the last 6 months where you did not have access to dental care?: No Was dental information given to patient?: Patient has dentist HPI High Blood Pressure, leg numb HPI Details 83-year-old overweight female with hypertension anemia restless leg syndrome last seen in April 2023. Patient is up-to-date with colonoscopy mammogram. Noted ER visit December 2023 complained of lower abdominal pain and bloody stool. Patient had a wellness visit recently in October under nurse practitioner - no more rectal bleeding . concern on HTN BP has been high [facility] Medical History (Updated 01/21/24 @ 13:50 by Osvaldo Gifford MD) Rectal bleeding Diverticular disease LFT elevation Fatigue Inflammatory arthritis Acute diverticulitis Arthralgia Abscess Orthostatic hypotension Seizure Obesity (BMI 30-39.9) Diverticulitis Anemia Restless leg HTN (hypertension) Surgical History History of appendectomy Spinal stenosis of lumbar region Hx of cholecystectomy History of bunionectomy Social History Household Members: Significant Other Housing: House Do you presently have visiting nurse or other home services: No Alcohol intake: current Alcohol intake frequency: holidays/special occasions only Patient Tobacco Use Status: Former Tobacco user Tobacco use type: Cigarette Years Smoked: 5 e-Cigarette/Vaping Use: Never Used Second Hand Smoke Exposure: No Advance Directives Date on File: 03/14/21 service: No Current occupational status: retired Cognitive needs: No Hearing needs: No Vision needs: Yes Questionnaire PHQ-9 Over the last 2 weeks, how often have you been bothered by any of the following problems? 1. Little interest or pleasure in doing things: not at all 2. Feeling down, depressed, or hopeless: not at all 3. Trouble falling or staying asleep, or sleeping too much: not at all 4. Feeling tired or having little energy: not at all 5. Poor appetite or overeating: not at all 6. Feeling bad about yourself - or that you are a failure or have let yourself or your family down: not at all 7. Trouble concentrating on things, such as reading the newspaper or watching television: not at all 8. Moving or speaking so slowly that other people could have noticed. Or the opposite - being so fidgety or restless that you have been moving around a lot more than usual: not at all 9. Thoughts that you would be better off or of hurting yourself in some way: not at all Total score: 0 Depression Screening Interpretation: Negative Depression Screening Done: Yes 41337 - PHQ-9 Billing: Yes Source: Developed by Drs. Dyllan Ansari, Maral Abdi, Osmani Rivera and colleagues, with an educational florentino from [employer]. Thrive Questionnaire Date Thrive assessed: 01/21/24 I am a: Patient What is your living situation today?: I have a steady place to live Within the past 12 months, did the food you bought not last and you didn't have the money to get more?: Never true Within the past 12 months, did you worry whether your food would run out before you got money to buy more?: Never true Do you have trouble paying for medicines?: No Do you have trouble getting transportation to medical appointments?: No Do you have trouble paying your heating and electricity bill?: No Do you have trouble taking care of your child, family member or friend?: No Do you have trouble with day-to-day activities such as bathing, preparing meals, shopping, managing finances, etc.?: No Are you currently unemployed and looking for a job?: No Are you interested in more education?: No Currently or been in a relationship where the following occur: no concerns reported THRIVE Score: 0 AUDIT C Alcohol Use Questionnaire (AUDIT-C) 1. How often do you have a drink containing alcohol?: Monthly or less 2. How many drinks containing alcohol do you have on a typical day when you are drinking?: 1 or 2 Total Score: 1 JAKE-7 AMB Questionnaire JAKE-7 Date JAKE - 7 assessed: 01/21/24 Feeling nervous, anxious, or on edge: 0 = Not at all Not being able to stop or control worryin = Not at all Worrying too much about different things: 0 = Not at all Trouble relaxin = Not at all Being so restless that it is hard to sit still: 0 = Not at all Becoming easily annoyed or irritable: 0 = Not at all Feeling afraid as if something awful might happen: 0 = Not at all Total JAKE-7 score (0-4 normal; 5-9 mild; 10-14 moderate; 15-21 severe): 0 Source: Developed by Drs. Dyllan Ansari, Maral Abdi, Osmani Rivera and colleagues, with an educational florentino from [employer]. Physical exam (Primary Care) Vital Signs: Last Vital Signs Pulse 74 01/21/24 13:05 BP 164/92 H 01/21/24 13:05 Pulse Ox 97 01/21/24 13:05 Oxygen Delivery Method Room Air 01/21/24 13:05 BMI result Body Mass Index 29.6 Tobacco/Smoking Status: Tobacco use Status Tobacco use date assessed 01/21/24 01/21/24 13:12 Patient Tobacco Use Status Former Tobacco user 01/21/24 13:12 Tobacco use type Cigarette 01/21/24 13:12 e-Cigarette/Vaping Use Never Used 01/21/24 13:12 PHQ-9: PHQ-9 Score PHQ-9: Total score 0 01/21/24 13:12 Depression Screening Interpretation: Negative Thrive Assessment: Date of Thrive Assessment Date Thrive assessed 01/21/24 01/21/24 13:12 Currently or been in a relationship where the following occur: no concerns reported Const General: alert; No acute distress Eyes Conjunctivae: conjunctivae normal Resp Auscultation: clear to auscultation bilaterally Cardio Rate: regular rate Rhythm: regular rhythm GI Inspection: Yes normal to inspection Extrem General: Yes normal to inspection and No edema Assessment and Plan Assessment & Plan (1) Rectal bleeding: Code(s): K62.5 - Hemorrhage of anus and rectum Plan: Continuing to monitor and resolved (2) HTN (hypertension): Code(s): I10 - Essential (primary) hypertension Qualifiers: Hypertension type: essential hypertension Qualified Code(s): I10 - Essential (primary) hypertension Plan: Continue with blood pressure medication. Decrease salt intake and exercise presently on atenolol 25 mg at bedtime lisinopril 20 mg once a day. adjust ment done. (3) Overweight (BMI 25.0-29.9): Code(s): E66.3 - Overweight Plan: Diet and exercise Medications: Changed From atenolol 25 mg (1/2 x 50 mg) PO .QHS 45 tabs 2RF I10 - Essential (primary) hypertension To atenolol 25 mg (1/2 x 50 mg) PO BID 90 days 90 tabs 2RF I10 - Essential (primary) hypertension From lisinopril 20 mg PO DAILY 30 tabs 3RF I10 - Essential (primary) hypertension To lisinopril 30 mg PO DAILY 90 days 90 tabs 3RF I10 - Essential (primary) hypertension Coding Level of Care Code Est Pt Level 4 (72766) Diagnoses Rectal bleeding K62.5 Essential hypertension I10 Hypertension type: essential hypertension Overweight (BMI 25.0-29.9) E66.3
== END 2024-01-21 14:39 | disposition home or self-care (01) ==
PROVIDERS: PCP Internal Medicine; Visit Provider Internal Medicine
DX: K62.5 Hemorrhage of anus and rectum (principal); I10 Essential (primary) hypertension; E66.3 Overweight
CPT/HCPCS: 99214

== ENCOUNTER 2024-02-06 11:05 | Outpatient (AMB) | payer MEDICARE, BC, SELFPAY ==
--- NOTE | 2024-02-06 11:27 | AM.OFFWIN_ITS ---
Intake Vital Signs 02/06/24 11:28 Weight 165 lb BP 150/80 H Blood Pressure Location Rt brachial Position Sitting Pulse 54 Pulse Source Pulse Oximeter Pulse Oximetry (%) 97 Oxygen Delivery Method Room Air Intake Visit Reasons: EP Blood pressure Intake Note: Patient here for elevated BP that has been going on for a few days and PCP told her to double her current med which she has been but states its only been staying low for a few hurs and goes right back up Patient Tobacco Use Status: Former Tobacco user Allergies Sulfa (Sulfonamide Antibiotics) [SULFA(SULFONAMIDE ANTIBIOTICS)] Allergy (Severe, Verified 02/06/24 11:29) HIVES sulfur Allergy (Unknown, Verified 02/06/24 11:29) Unknown Do you need a note to return to daycare/school/sports/work: No HPI HPI Comments History of Present Illness Details This is an 83-year-old female with past medical history significant for essential hypertension who presented to the walk-in clinic complaining elevated blood pressures. Patient states her systolic blood pressures have been elevated in the 150s-160s for the past several weeks. She was evaluated by her primary care physician on 01/21/2024 who recommended she increase her atenolol to 25 mg twice daily (from 25 mg daily) and increase her lisinopril to 30 mg (from 20 mg). Patient states that she has been taking his medications as prescribed; however, her blood pressures continued to be elevated with systolic blood pressures in the 130s-140s. Patient reports occasional headaches when her blood pressure is high but she denies any visual disturbances, chest pain, shortness for breath. [facility] Medical History (Updated 01/21/24 @ 13:50 by Osvaldo Gifford MD) Rectal bleeding Diverticular disease LFT elevation Fatigue Inflammatory arthritis Acute diverticulitis Arthralgia Abscess Orthostatic hypotension Seizure Obesity (BMI 30-39.9) Diverticulitis Anemia Restless leg HTN (hypertension) Surgical History History of appendectomy Spinal stenosis of lumbar region Hx of cholecystectomy History of bunionectomy Social History Household Members: Significant Other Housing: House Do you presently have visiting nurse or other home services: No Alcohol intake: current Alcohol intake frequency: holidays/special occasions only Patient Tobacco Use Status: Former Tobacco user Tobacco use type: Cigarette Years Smoked: 5 e-Cigarette/Vaping Use: Never Used Second Hand Smoke Exposure: No Advance Directives Date on File: 03/14/21 service: No Current occupational status: retired Cognitive needs: No Hearing needs: No Vision needs: Yes Review of Systems Const All systems reviewed & are unremarkable except as noted in HPI and below Reports no additional complaints Eyes Reports no additional complaints ENT Reports no additional complaints Card Reports no additional complaints Resp Reports no additional complaints GI Reports no additional complaints Reports no additional complaints Musc Reports no additional complaints Skin/Breast Reports system reviewed and no additional complaints, except as documented Neuro Reports no additional complaints Psych Reports no additional complaints Endo Reports no additional complaints Ralph/Lymph Reports no additional complaints Aller/Immun Reports no additional complaints Physical Exam Vital Signs: Last Vital Signs Pulse 54 02/06/24 11:28 BP 150/80 H 02/06/24 11:28 Pulse Ox 97 02/06/24 11:28 Oxygen Delivery Method Room Air 02/06/24 11:28 Const Other: Vital signs reviewed. Constitutional: Non-toxic appearing. No acute distress. Well-developed and well-nourished. HEENT: Normocephalic and atraumatic. Skin: Warm and dry. No rashes or lesions noted. Neck: Full and painless range of motion. No cervical lymphadenopathy. Cardio: Regular rate and rhythm. No murmurs, gallops, or rubs. No lower extremity edema. No JVD. Pulmonary: No respiratory distress. No accessory muscle usage. Clear to auscultation bilaterally without wheezing, crackles, or rhonchi. Gastrointestinal: Soft, nontender, and nondistended in all 4 quadrants. Normoactive bowel sounds in all 4 quadrants. Musculoskeletal: Normal range of motion in joints throughout the body. No deformity or other signs of injury. No pronator drift. No ataxia with [id number] bilaterally. No ataxia with ambulation. Neuro: Alert and oriented x4. Cranial nerves 2-12 grossly intact. No focal deficits appreciated. Psych: Normal mood and affect. Assessment & Plan Assessment & Plan (1) Elevated blood pressure reading: Code(s): R03.0 - Elevated blood-pressure reading, without diagnosis of hypertension Plan: This is an 83 year old female who presented to the walk-in clinic complaining of persistently elevated blood pressures despite increase in her blood pressure medications. Patient's blood pressure cuff/monitor was reviewed and her systolic blood pressures have ranged 130-160s. Patient was reassured that while her blood pressures are slightly above goal, I am not super concerned about her blood pressure readings. I also explained to the patient that she likely does not need to be checking her blood pressure as often as she does as she is checking her blood pressure multiple times a day, which is likely increasing her anxiety/stress regarding her blood pressure, which in turn is causing elevated readings. I told the patient she should increase her p.o. lisinopril to 40 mg daily and keep her atenolol as is. I told the patient she can check her blood pressure once in the morning prior to taking her morning medications and once at nighttime prior to taking her nighttime medications but she does not need to check her blood pressure in between if she is asymptomatic. Patient was also reassured that her neurological exam is completely within normal limits without focal deficits. Patient was educated about symptoms of a stroke and she was encouraged to follow-up directly with the emergency room if she were to develop any stroke symptoms or if her blood pressure were to be significantly elevated with a systolic greater than 180. Patient verbalized understanding and she is in agreement with the plan and she felt reassured upon leaving the office today. Coding Level of Care Code Est Pt Level 3 (07498) Diagnoses Elevated blood pressure reading R03.0
[2024-02-06 11:28] VITALS: BP 150/80; PULSE 54; O2SAT 97
== END 2024-02-06 14:22 | disposition home or self-care (01) ==
PROVIDERS: PCP Internal Medicine; Visit Provider Physician Assistant Medical
DX: R03.0 Elevated blood-pressure reading, without diagnosis of hypertension (principal)
CPT/HCPCS: 99213

== ENCOUNTER 2024-04-27 13:37 | Outpatient (AMB) | payer MEDICARE, BC, SELFPAY ==
[2024-04-27 13:40] VITALS: BP 118/72; PULSE 72; O2SAT 97; BMI 28.9
--- NOTE | 2024-04-27 13:40 | MHC.PC.OV ---
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 Last seen in 01/13/2024 had some rectal bleeding that resolved. Review of the notes in 02/11/2024 went to the Urgent Center with concerns on the blood pressure being elevated advised to increase lisinopril to 40 mg. states BP has been low at times. rectal bleeding resolved. having teeth taken out 05/06/2024 [facility] Medical History (Updated 04/27/24 @ 14:12 by Osvaldo Gifford MD) Rectal bleeding Diverticular disease LFT elevation Fatigue Inflammatory arthritis Acute diverticulitis Arthralgia Abscess Orthostatic hypotension Seizure Obesity (BMI 30-39.9) Diverticulitis Anemia Restless leg HTN (hypertension) Surgical History History of appendectomy Spinal stenosis of lumbar region Hx of cholecystectomy History of bunionectomy Social History Household Members: Significant Other Housing: House Do you presently have visiting nurse or other home services: No Alcohol intake: current Alcohol intake frequency: holidays/special occasions only Patient Tobacco Use Status: Former Tobacco user Tobacco use type: Cigarette Years Smoked: 5 e-Cigarette/Vaping Use: Never Used Second Hand Smoke Exposure: No Advance Directives Date on File: 03/14/21 service: No Current occupational status: retired Cognitive needs: No Hearing needs: No Vision needs: Yes Questionnaire Thrive Questionnaire Date Thrive assessed: 01/21/24 AUDIT C Alcohol Use Questionnaire (AUDIT-C) 1. How often do you have a drink containing alcohol?: Monthly or less 2. How many drinks containing alcohol do you have on a typical day when you are drinking?: 1 or 2 3. How often do you have six or more drinks on one occasion?: Never Total Score: 1 JAKE-7 AMB Questionnaire JAKE-7 Date JAKE - 7 assessed: 01/21/24 Source: Developed by Drs. Dyllan Ansari, Maral Abdi, Osmani Rivera and colleagues, with an educational florentino from [employer]. Physical exam (Primary Care) Vital Signs: Last Vital Signs Pulse 72 04/27/24 13:40 BP 118/72 04/27/24 13:40 Pulse Ox 97 04/27/24 13:40 Oxygen Delivery Method Room Air 04/27/24 13:40 BMI result Body Mass Index 28.9 Tobacco/Smoking Status: Tobacco use Status Tobacco use date assessed 04/27/24 04/27/24 13:41 Patient Tobacco Use Status Former Tobacco user 04/27/24 13:41 Tobacco use type Cigarette 04/27/24 13:41 e-Cigarette/Vaping Use Never Used 04/27/24 13:41 Thrive Assessment: Date of Thrive Assessment Date Thrive assessed 01/21/24 04/27/24 13:41 Const General: alert; No acute distress Eyes Conjunctivae: conjunctivae normal Resp Auscultation: clear to auscultation bilaterally Cardio Rate: regular rate Rhythm: regular rhythm GI Inspection: Yes normal to inspection Extrem General: Yes normal to inspection and No edema Assessment and Plan Assessment & Plan (1) HTN (hypertension): Code(s): I10 - Essential (primary) hypertension Qualifiers: Hypertension type: essential hypertension Qualified Code(s): I10 - Essential (primary) hypertension Plan: Continue with blood pressure medication. Decrease salt intake and exercise presently on lisinopril 40 mg once a day atenolol 25 mg twice a day (2) Overweight (BMI 25.0-29.9): Code(s): E66.3 - Overweight Plan: Diet and exercise (3) Restless leg: Comment: amitriptylline Code(s): G25.81 - Restless legs syndrome Plan: Continue with present medication (4) Trigger finger: Code(s): M65.30 - Trigger finger, unspecified finger Plan: advised splint and voltaren gel Orders: Orders Complete Blood Count Auto Diff Today I10 - Essential (primary) hypertension Free T4 (Free Thyroxine) Today I10 - Essential (primary) hypertension Comprehensive Met. Panel Today I10 - Essential (primary) hypertension UA CC w/rflx Micro + Cult Today I10 - Essential (primary) hypertension, R30.0 - Dysuria Medications: Changed From atenolol 25 mg (1/2 x 50 mg) PO BID 90 days 90 tabs 2RF I10 - Essential (primary) hypertension To atenolol 25 mg (1/2 x 50 mg) PO .QHS 45 tabs 2RF 90 days I10 - Essential (primary) hypertension From lisinopril 40 mg PO DAILY 90 days 90 tabs 3RF I10 - Essential (primary) hypertension To lisinopril 30 mg PO DAILY 90 tabs 3RF 90 days I10 - Essential (primary) hypertension Coding Level of Care Code Est Pt Level 4 (31663) Diagnoses Essential hypertension I10 Hypertension type: essential hypertension Overweight (BMI 25.0-29.9) E66.3 Restless leg G25.81 Trigger finger M65.30
== END 2024-04-27 14:16 | disposition home or self-care (01) ==
PROVIDERS: PCP Internal Medicine; Visit Provider Internal Medicine
DX: I10 Essential (primary) hypertension (principal); E66.3 Overweight; G25.81 Restless legs syndrome; M65.30 Trigger finger, unspecified finger
CPT/HCPCS: 99214

== ENCOUNTER 2024-08-10 13:48 | Outpatient (AMB) | payer MEDICARE, BC, SELFPAY ==
[2024-08-10 13:50] VITALS: BP 106/52; PULSE 72; O2SAT 96; BMI 28.3
--- NOTE | 2024-08-10 13:50 | A.OFFPC_ITS ---
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: No Accompanied by: Spouse Allergies Sulfa (Sulfonamide Antibiotics) [SULFA(SULFONAMIDE ANTIBIOTICS)] Allergy (Severe, Verified 08/10/24 13:53) HIVES sulfur Allergy (Unknown, Verified 08/10/24 13:53) Unknown codeine Adverse Reaction (Mild, Verified 08/10/24 13:53) Abdominal Pain Medication List - Last Reconciled 08/10/24 by Osvaldo Gifford MD amitriptyline 75 mg PO BEDTIME aspirin (Adult Low Dose Aspirin) 81 mg PO DAILY atenolol 12.5 mg (1/2 x 25 mg) PO BID 90 days cholestyramine (with sugar) 4 gram 4 grams PO BID clonazepam 0.5 mg PO BEDTIME 30 days cyclosporine 0.05% 1 drp ophthalmic (eye) Q12H triamcinolone acetonide 0.5% 1 appl topical BID Tobacco use date assessed: 04/27/24 Fall risk assessment: 2 + Falls in past year Last assessed Fall Risk: 08/10/24 Dental Screening Dental Screen Date: 04/27/24 HPI irregular blood pressure readings HPI Details 84-year-old overweight female with a his tory of hypertension fatty liver coming in for follow-up. Patient was last seen in April 2024. Patient is up-to-date with colonoscopy. M low blood pressures systolic of double digits. Patient has been taking lisinopril and atenolol. But the atenolol has been staying for the reason of palpitations. [facility] Medical History (Updated 04/27/24 @ 14:12 by Osvaldo Gifford MD) Rectal bleeding Diverticular disease LFT elevation Fatigue Inflammatory arthritis Acute diverticulitis Arthralgia Abscess Orthostatic hypotension Seizure Obesity (BMI 30-39.9) Diverticulitis Anemia Restless leg HTN (hypertension) Surgical History History of appendectomy Spinal stenosis of lumbar region Hx of cholecystectomy History of bunionectomy Social History Household Members: Significant Other Housing: House Do you presently have visiting nurse or other home services: No Alcohol intake: current Alcohol intake frequency: holidays/special occasions only Patient Tobacco Use Status: Former Tobacco user Tobacco use type: Cigarette Years Smoked: 5 e-Cigarette/Vaping Use: Never Used Second Hand Smoke Exposure: No Advance Directives Date on File: 03/14/21 service: No Current occupational status: retired Cognitive needs: No Hearing needs: No Vision needs: Yes Questionnaire Thrive Questionnaire Date Thrive assessed: 01/21/24 Are you currently unemployed and looking for a job?: No JAKE-7 AMB Questionnaire JAKE-7 Date JAKE - 7 assessed: 01/21/24 Source: Developed by Drs. Dyllan Ansari, Maral Abdi, Osmani Rivera and colleagues, with an educational florentino from [employer]. Physical exam (Primary Care) Vital Signs: Last Vital Signs Pulse 72 08/10/24 13:50 BP 106/52 L 08/10/24 13:50 Pulse Ox 96 08/10/24 13:50 Oxygen Delivery Method Room Air 08/10/24 13:50 BMI result Body Mass Index 28.3 Tobacco/Smoking Status: Tobacco use Status Tobacco use date assessed 04/27/24 08/10/24 13:55 Patient Tobacco Use Status Former Tobacco user 08/10/24 13:55 Tobacco use type Cigarette 08/10/24 13:55 e-Cigarette/Vaping Use Never Used 08/10/24 13:55 Thrive Assessment: Date of Thrive Assessment Date Thrive assessed 01/21/24 08/10/24 13:55 Const General: alert; No acute distress Eyes Conjunctivae: conjunctivae normal Resp Auscultation: clear to auscultation bilaterally Cardio Rate: regular rate Rhythm: regular rhythm GI Inspection: Yes normal to inspection Extrem General: Yes normal to inspection and No edema Assessment and Plan Assessment & Plan (1) HTN (hypertension): Code(s): I10 - Essential (primary) hypertension Qualifiers: Hypertension type: essential hypertension Qualified Code(s): I10 - Essential (primary) hypertension Plan: Continue with blood pressure medication. Decrease salt intake and exercise presently on lisinopril 30 mg once a day and atenolol 25 mg at bedtime. Noted to have multiple readings of hypotension. Advised to discontinue the lisinopril and with beta blockers being used for palpitations advised to decrease the dose to 12.5 mg twice a day. Continue to monitor blood pressure. (2) Overweight (BMI 25.0-29.9): Code(s): E66.3 - Overweight Plan: Diet and exercise (3) Fatty liver: Code(s): K76.0 - Fatty (change of) liver, not elsewhere classified Plan: Low-fat diet and exercise Orders: Orders Thyroid Stimulating Hormone Today I10 - Essential (primary) hypertension Free T4 (Free Thyroxine) Today I10 - Essential (primary) hypertension Vitamin B12 and Folate Today I10 - Essential (primary) hypertension UA w Microscopic Today I10 - Essential (primary) hypertension Medications: Changed From atenolol 25 mg (1/2 x 50 mg) PO .QHS 90 days 45 tabs 2RF I10 - Essential (primary) hypertension To atenolol 12.5 mg (1/2 x 25 mg) PO BID 90 days 90 tabs 0RF I10 - Essential (primary) hypertension Coding Level of Care Code Est Pt Level 4 (43953) Diagnoses Essential hypertension I10 Hypertension type: essential hypertension Overweight (BMI 25.0-29.9) E66.3 Fatty liver K76.0
== END 2024-08-10 14:34 | disposition home or self-care (01) ==
PROVIDERS: PCP Internal Medicine; Visit Provider Internal Medicine
DX: I10 Essential (primary) hypertension (principal); E66.3 Overweight; K76.0 Fatty (change of) liver, not elsewhere classified

== ENCOUNTER 2024-08-10 13:48 | Outpatient (REF) | payer MEDICARE, BC, SELFPAY ==
[2024-08-10 15:10] LABS: MANUAL DIFF FLAG NO
[2024-08-10 16:33] LABS: Basophils Absolute Auto 0.1 X10*3/uL (0.0-0.2); Basophils Percent Auto 1.6 % (0-2); Eosinophils Absolute Auto 0.2 X10*3/uL (0.0-0.4); Eosinophils Percent Auto 3.2 % (0-4); Hematocrit 32.4 % (37.0-47.0); Imm Gran Abs Auto 0.05 X10*3/uL (0.00-0.03); Imm Gran Pct Auto 0.7 % (0.0-0.4); Lymphocytes Absolute Auto 3.4 X10*3/uL (1.2-4.9); Lymphocytes Percent Auto 44.6 % (20-40); Mean Corpuscular Hemoglobin 31.3 pg (27.0-33.0); Mean Corpuscular Volume 92.3 fL (80.0-98.0); Mean Platelet Volume 9.5 fL (9.4-12.3); Monocytes Absolute Auto 0.6 X10*3/uL (0.1-1.2); Monocytes Percent Auto 8.2 % (2-11); Neutrophils Absolute Auto 3.1 x10*3/uL (2.0-8.3); Neutrophils Percent Auto 41.7 % (45-73); Platelet Count 200 X10*3/uL (160-400); Red Blood Count 3.51 X10*6/uL (4.20-5.50); Red Cell Distribution Width 12.7 % (11.0-16.0); White Blood Count 7.5 X10*3/uL (4.8-10.8)
[2024-08-10 17:05] LABS: Alanine Aminotransferase 9 U/L (0-31); Alkaline Phosphatase 33 U/L (39-117); Anion Gap 12 (12-20); Aspartate Amino Transferase 19 U/L (5-31); Bilirubin Total 0.3 mg/dL (0.0-1.0); Blood Urea Nitrogen 18 mg/dL (9-16); Calcium 9.7 mg/dL (8.4-10.2); Carbon Dioxide 24 mmol/L (22-29); Chloride 108 mmol/L (96-108); Estimated Glomerular Filt Rate 34; Glucose Random 91 mg/dL (60-115); Potassium 4.6 mmol/L (3.3-5.1); Sodium 139 mmol/L (135-145); Total Protein 6.7 g/dL (6.5-8.0)
[2024-08-10 17:12] LABS: Free T4 (Free Thyroxine) 0.86 ng/dL (0.71-1.85); Thyroid Stimulating Hormone 0.98 uIU/mL (0.32-4.0)
[2024-08-10 17:14] LABS: Appearance Urine Clear; Color Urine Yellow; Glucose Urine UA Negative (Negative); Leukocyte Esterase Urine Small (1+) (Negative); Nitrite Urine Negative (Negative); PH 5.5 (5.0-9.0); UMIC TRIGGER UA YES; UMIC TRIGGER UACC YES; Urine Blood Negative (Negative); Urine Ketones Negative (Negative); Urine Protein Negative (Neg-Trace)
[2024-08-10 17:22] LABS: Bacteria Urine None Seen (None Seen); Hyaline Casts Urine 0-2 /LPF (0-2); RBC Urine 0-2 /HPF (0-2); UACC Culture Trigger YES
[2024-08-10 17:23] LABS: Folate 10.9 ng/mL (> or = 4.0); Vitamin B12 559 pg/mL (200-900)
== END 2024-08-10 13:49 | disposition home or self-care (01) ==
LOC: HO.LAB 13:48
PROVIDERS: PCP Internal Medicine; Visit Provider Internal Medicine
DX: I10 Essential (primary) hypertension (principal); E66.3 Overweight; K76.0 Fatty (change of) liver, not elsewhere classified; R82.90 Unspecified abnormal findings in urine
CPT/HCPCS: 36415; 80053; 81001; 81003; 82607; 82746; 84439; 84443; 85025; 87086; 99212

== ENCOUNTER 2024-08-20 15:53 | Outpatient (REF) | payer MEDICARE, BC, SELFPAY ==
[2024-08-20 16:04] LABS: MANUAL DIFF FLAG NO
[2024-08-20 17:45] LABS: Appearance Urine Clear; Color Urine Yellow; Glucose Urine UA Negative (Negative); Leukocyte Esterase Urine Small (1+) (Negative); Nitrite Urine Negative (Negative); UMIC TRIGGER UACC YES; Urine Blood Negative (Negative); Urine Ketones Negative (Negative); Urine Protein Negative (Neg-Trace)
[2024-08-20 17:46] LABS: Basophils Absolute Auto 0.2 X10*3/uL (0.0-0.2); Basophils Percent Auto 1.9 % (0-2); Eosinophils Absolute Auto 0.3 X10*3/uL (0.0-0.4); Hematocrit 33.9 % (37.0-47.0); Hemoglobin 11.7 g/dl (12.0-16.0); Imm Gran Abs Auto 0.03 X10*3/uL (0.00-0.03); Imm Gran Pct Auto 0.4 % (0.0-0.4); Immature Retic Fraction 6.8 % (3.0-15.9); Lymphocytes Absolute Auto 4.2 X10*3/uL (1.2-4.9); Lymphocytes Percent Auto 49.7 % (20-40); Mean Corpuscular HGB Conc 34.5 g/dl (31.0-35.0); Mean Corpuscular Volume 92.6 fL (80.0-98.0); Mean Platelet Volume 9.7 fL (9.4-12.3); Monocytes Absolute Auto 0.8 X10*3/uL (0.1-1.2); Platelet Count 201 X10*3/uL (160-400); Red Blood Count 3.66 X10*6/uL (4.20-5.50); Red Cell Distribution Width 12.6 % (11.0-16.0); Retic HGB Equivalent 34.5 pg (30.0-35.0); Reticulocyte Percent 0.9 % (0.5-1.8); Reticulocytes Absolute 0.031 X10*6/uL (0.026-0.095); White Blood Count 8.5 X10*3/uL (4.8-10.8)
[2024-08-20 17:48] LABS: Bacteria Urine None Seen (None Seen); Hyaline Casts Urine 0-2 /LPF (0-2); RBC Urine 0-2 /HPF (0-2); Squamous Epithelial Cell Urine 0-2 /HPF (0-2); UACC Culture Trigger YES
[2024-08-20 18:08] LABS: Alanine Aminotransferase 14 U/L (0-31); Albumin Level 4.2 g/dL (3.5-5.0); Alkaline Phosphatase 39 U/L (39-117); Anion Gap 11 (12-20); Aspartate Amino Transferase 21 U/L (5-31); Bilirubin Total 0.3 mg/dL (0.0-1.0); Blood Urea Nitrogen 17 mg/dL (9-16); Carbon Dioxide 26 mmol/L (22-29); Chloride 106 mmol/L (96-108); Estimated Glomerular Filt Rate 39; Glucose Random 103 mg/dL (60-115); Iron 61 mcg/dL (30-160); Percent Iron Saturation 30 % (15-50); Potassium 4.4 mmol/L (3.3-5.1); Sodium 139 mmol/L (135-145); Total Iron Binding Capacity 205 mcg/dL (228-428); Total Protein 7.2 g/dL (6.5-8.0); Unsaturated Iron Binding 144 ug/dL
[2024-08-20 18:21] LABS: Ferritin 267 ng/mL (10-250)
[2024-08-20 18:36] LABS: Folate 10.2 ng/mL (> or = 4.0); Vitamin B12 476 pg/mL (200-900)
== END 2024-08-20 15:54 | disposition home or self-care (01) ==
LOC: HO.LAB 15:53
PROVIDERS: PCP Internal Medicine; Visit Provider Internal Medicine
DX: D64.9 Anemia, unspecified (principal); N28.9 Disorder of kidney and ureter, unspecified; R30.0 Dysuria; I10 Essential (primary) hypertension
CPT/HCPCS: 36415; 80053; 81001; 82607; 82728; 82746; 83540; 85025; 85045; 87086

== ENCOUNTER 2024-09-23 10:04 | Emergency (ER) | payer MEDICARE, BC, SELFPAY ==
--- NOTE | ~2024-09-23 | XR_ITS ---
EXAMINATION: XR FOOT, RIGHT CLINICAL INFORMATION: Pain and swelling COMPARISON: None available. TECHNIQUE: AP, lateral, and oblique views of the right foot. FINDINGS: Remodeling of the distal diaphysis and epiphysis of the first metatarsal with soft tissue opacity. Questionable exostosis in in the lateral aspect distal first metatarsal. No subcutaneous emphysema. No acute cortical disruption or gross malalignment.. XR/XR foot RT 2V IMPRESSION: Concerning inflammatory versus infectious process first metatarsophalangeal joint. Electronically signed by: Parker Laurent MD 09/23/2024 11:29 AM EDT
[2024-09-23 10:22] VITALS: BP 156/55; PULSE 64; RESP 16; TEMP 36.6; O2SAT 98; BMI 28.5
[2024-09-23 10:44] LABS: MANUAL DIFF FLAG NO
[2024-09-23 10:47] LABS: Basophils Absolute Auto 0.1 X10*3/uL (0.0-0.2); Basophils Percent Auto 1.5 % (0-2); Eosinophils Absolute Auto 0.4 X10*3/uL (0.0-0.4); Hematocrit 34.7 % (37.0-47.0); Hemoglobin 11.7 g/dl (12.0-16.0); Imm Gran Abs Auto 0.04 X10*3/uL (0.00-0.03); Imm Gran Pct Auto 0.4 % (0.0-0.4); Lymphocytes Absolute Auto 2.6 X10*3/uL (1.2-4.9); Lymphocytes Percent Auto 27.6 % (20-40); Mean Corpuscular HGB Conc 33.7 g/dl (31.0-35.0); Mean Corpuscular Hemoglobin 31.5 pg (27.0-33.0); Mean Corpuscular Volume 93.3 fL (80.0-98.0); Mean Platelet Volume 9.1 fL (9.4-12.3); Monocytes Percent Auto 10.5 % (2-11); Neutrophils Absolute Auto 5.2 x10*3/uL (2.0-8.3); Platelet Count 207 X10*3/uL (160-400); Red Blood Count 3.72 X10*6/uL (4.20-5.50); Red Cell Distribution Width 12.8 % (11.0-16.0); White Blood Count 9.3 X10*3/uL (4.8-10.8)
[2024-09-23 11:01] LABS: Alanine Aminotransferase 25 U/L (0-31); Albumin Level 3.8 g/dL (3.5-5.0); Alkaline Phosphatase 56 U/L (39-117); Anion Gap 10 (12-20); Aspartate Amino Transferase 62 U/L (5-31); Bilirubin Total 0.9 mg/dL (0.0-1.0); Blood Urea Nitrogen 12 mg/dL (9-16); Calcium 9.9 mg/dL (8.4-10.2); Carbon Dioxide 29 mmol/L (22-29); Chloride 107 mmol/L (96-108); Creatinine Clr Calc Pharmacy 39.3; Estimated Glomerular Filt Rate 53; Glucose Random 110 mg/dL (60-115); Sodium 142 mmol/L (135-145)
[2024-09-23 12:56] VITALS: BP 151/54; PULSE 64; RESP 14; TEMP 36.8; O2SAT 97
--- NOTE | 2024-09-23 13:01 | ED_ITS ---
HPI - Extremity Problem General Chief complaint: Extremity Problem Stated complaint: r foot pain/swelling Time Seen by Provider: 09/23/24 12:57 Source: patient and RN notes reviewed Mode of arrival: ambulatory Limitations: no limitations History of Present Illness ED Provider: Julieta Stewart PA-C HPI Narrative: This is a 84-year-old female, with a past medical history of hypertension, presents emergency department with complaints of atraumatic right foot pain for the last 4 days. Patient denies any recent trauma or injury. She states that the pain has become increasingly more painful, and states that she has had difficulty with weight-bearing secondary to the pain. She denies any fevers or chills. No history of injury to this foot in the past. She has been taking Tylenol to treat her pain, last dosage was yesterday, which provided her with minimal relief. No history of known gout. No other complaints or concerns at this time. MD Complaint: extremity pain and extremity swelling Onset (ago): day(s) Pain Consistency: constant Location: right and lower extremity Quality: aching Radiation: none Relieving factors: nothing Exacerbating factors: nothing Associated symptoms: denies other symptoms Related Data Home Medications ?Medication ?Instructions ?Recorded ?Confirmed aspirin 81 mg tablet,delayed 81 mg PO DAILY 02/02/21 08/10/24 release (Adult Low Dose Aspirin) cyclosporine 0.05 % eye drops in a 1 drp ophthalmic (eye) Q12H 10/15/22 08/10/24 dropperette Previous Rx's ?Medication ?Instructions ?Recorded triamcinolone acetonide 0.5 % 1 appl topical BID #15 grams 10/15/22 topical cream cholestyramine (with sugar) 4 gram 4 g PO BID #378 grams 04/09/24 oral powder amitriptyline 75 mg tablet 75 mg PO BEDTIME #90 tabs 08/03/24 atenolol 25 mg tablet 12.5 mg (1/2 x 25 mg) PO BID 90 08/10/24 days #90 tabs nitrofurantoin 100 mg PO Q12H 7 days #14 caps 08/30/24 monohydrate/macrocrystals 100 mg capsule (Macrobid) clonazepam 0.5 mg tablet 0.5 mg PO BEDTIME 90 days #90 tabs 09/21/24 cephalexin 500 mg capsule 500 mg PO QID 5 days #20 caps 09/23/24 prednisone 20 mg tablet 20 mg PO DAILY 4 days #4 tabs 09/23/24 Allergies Allergy/AdvReac Type Severity Reaction Status Date / Time Sulfa (Sulfonamide Allergy Severe HIVES Verified 09/23/24 10:23 Antibiotics) [SULFA(SULFONAMIDE ANTIBIOTICS)] sulfur Allergy Unknown Unknown Verified 09/23/24 10:23 codeine AdvReac Mild Abdominal Verified 09/23/24 10:23 Pain Review of Systems 2 Review of Systems: Yes all other systems are reviewed and are negative Constitutional: Constitutional: Reports as per HPI [facility] Past Medical History Medical History (Updated 09/23/24 @ 14:39 by IVORY Mercedes) Rectal bleeding Diverticular disease LFT elevation Fatigue Inflammatory arthritis Acute diverticulitis Arthralgia Abscess Orthostatic hypotension Seizure Obesity (BMI 30-39.9) Diverticulitis Anemia Restless leg HTN (hypertension) Surgical History History of appendectomy Spinal stenosis of lumbar region Hx of cholecystectomy History of bunionectomy Social History Social History Household Members: Significant Other Housing: House Do you presently have visiting nurse or other home services: No Alcohol intake: former Patient Tobacco Use Status: Former Tobacco user Tobacco use type: Cigarette Years Smoked: 5 Smoked in Last 30 Days: No e-Cigarette/Vaping Use: Never Used Second Hand Smoke Exposure: No Use of substances other than those prescribed or required for medical reasons: No Advance Directives: Yes Advance Directives Information Provided: Yes Advance Directives on File: No Advance Directives Date on File: 03/14/21 Do you have a plan to hurt others: No Plan service: No Current occupational status: retired Cognitive needs: No Hearing needs: No Vision needs: Yes Physical Exam 2 Vital Signs: Vital Signs: Last Vital Signs Temp 98.2 F 09/23/24 14:28 Pulse 68 09/23/24 14:28 Resp 14 09/23/24 14:28 BP 106/80 09/23/24 14:28 Pulse Ox 96 09/23/24 14:28 O2 Del Method Room Air 09/23/24 14:28 BMI result Body Mass Index 28.5 Const: General: cooperative, comfortable and no acute distress O rientation/consciousness: patient oriented x3 Limitations: no limitations HEENT: Head: Yes normal to inspection, Yes normocephalic and Yes atraumatic Ears: hearing grossly normal bilaterally General nose exam: Normal external nose present Face and sinus: Yes normal facial exam Mouth: Normal oral and palatal mucosa present, oropharynx normal and moist mucous membranes Throat: Yes posterior oropharynx normal Eyes: General: appearance normal, both eyes and all related structures E yelids: Yes eyelids normal Conjunctivae: conjunctivae normal Sclerae: s clerae normal Pupils: Equal, round and reactive pupils present EOM: EOMs intact bilaterally Neck: Neck: Yes normal visual inspection, Yes full ROM and Yes no lymphadenopathy Lymphatic: no lymphadenopathy noted Chest: Chest palpation & inspection: normal inspection of the chest Resp: Effort & Inspection: normal respiratory effort and able to speak in complete sentences Auscultation: clear to auscultation bilaterally, no crackles, no rales, no rhonchi and no wheezes Cardio: Rate: regular rate Rhythm: regular rhythm Heart sounds: S1 normal heart sound present and S2 normal heart sound present GI: Inspection: Yes normal to inspection Skin: General skin exam: no rashes or lesions noted Trauma: no lacerations or abrasions Wounds: no wounds Neuro: General: patient oriented x3 and moves all extremities Cranial nerves: Yes Equal, round and reactive pupils present Extrem: Other: right foot dorsal aspect there is faint erythema, with edema and warmth noted over the 3rd 4th and 5th metatarsals. Strong DP pulse. First metatarsal nontender, no erythema or edema in this region. Strong DP pulse. Able to plantar and dorsiflex General: Yes normal to inspection Right upper extremity: normal to inspection Left upper extremity: normal to inspection Left lower extremity: normal to inspection Medications Administered Discontinued Medications Generic Name Dose Route Start Last Admin Trade Name Freq PRN Reason Stop Dose Admin Acetaminophen 650 mg 09/23/24 13:14 09/23/24 13:32 Acetaminophen 325 Mg Tablet PO 09/23/24 13:15 650 mg ONCE ONE Administration Medical Decision Making Medical Decision Making [facility] Narrative: This is a 84-year-old female, with a history of hypertension, who presents emergency department with complaints of atraumatic right foot pain x4 days. No trauma or injury, right foot with tenderness palpation along the 3rd 4th and 5th metatarsals. She has no 1st metatarsal tenderness. On arrival, blood pressure 156/55, all other vital signs within normal limits. Differential Diagnosis Differential Diagnoses: The differential diagnosis associated with the presentation includes Admission/Observation Consideration of admission/observation: Escalation of care including admission/observation considered Lab Data MDM Lab Attestation statement: I reviewed the patient's lab results. No l 09/23/24 10:38 09/23/24 10:38 Labs: Lab Results 09/23/24 Range/Units 10:38 WBC 9.3 (4.8-10.8) X10*3/uL RBC 3.72 L (4.20-5.50) X10*6/uL Hgb 11.7 L (12.0-16.0) g/dl Hct 34.7 L (37.0-47.0) % MCV 93.3 (80.0-98.0) fL MCH 31.5 (27.0-33.0) pg MCHC 33.7 (31.0-35.0) g/dl RDW 12.8 (11.0-16.0) % Plt Count 207 (160-400) X10*3/uL MPV 9.1 L (9.4-12.3) fL Immature Gran % (Auto) 0.4 (0.0-0.4) % Neut % (Auto) 56.0 (45-73) % Lymph % (Auto) 27.6 (20-40) % Gregg % (Auto) 10.5 (2-11) % Eos % (Auto) 4.0 (0-4) % Baso % (Auto) 1.5 (0-2) % Lymph # (Auto) 2.6 (1.2-4.9) X10*3/uL Gregg # (Auto) 1.0 (0.1-1.2) X10*3/uL Eos # (Auto) 0.4 (0.0-0.4) X10*3/uL Baso # (Auto) 0.1 (0.0-0.2) X10*3/uL Abs Immat Gran (auto) 0.04 H (0.00-0.03) X10*3/uL Absolute Neuts (auto) 5.2 (2.0-8.3) x10*3/uL Absolute Nucleated RBC 0.000 (0.0-0.012) X10*3/uL Nucleated RBC % (auto) 0.0 (0.0-0.2) /100WBC Sodium 142 (135-145) mmol/L Potassium 4.0 (3.3-5.1) mmol/L Chloride 107 (96-108) mmol/L Carbon Dioxide 29 (22-29) mmol/L Anion Gap 10 L (12-20) BUN 12 (9-16) mg/dL Creatinine 1.00 (0.5-1.4) mg/dL Estim Creat Clear Calc 39.3 Estimated GFR 53 Random Glucose 110 (60-115) mg/dL Uric Acid 6.9 H (2.4-5.7) mg/dL Calcium 9.9 (8.4-10.2) mg/dL Total Bilirubin 0.9 (0.0-1.0) mg/dL AST 62 H (5-31) U/L ALT 25 (0-31) U/L Alkaline Phosphatase 56 (39-117) U/L Total Protein 7.0 (6.5-8.0) g/dL Albumin 3.8 (3.5-5.0) g/dL Radiology Impression Discussion of test interpretation with radiology: I have reviewed the radiologist's reading. External Record Review External record reviewed: Inpatient record, Office record, Outpatient record, Prior outpatient labs, Prior outpatient radiology, Primary care record and Outside ED record Discharge Plan Discharge Clinical Impression: Cellulitis Patient Disposition: Still a Patient Instructions: Cellulitis (ED), Low Purine Diet (ED) Additional Instructions: You were seen in the emergency department due to pain and redness to your right foot. We are treating or a skin infection. We are also covering you with prednisone to help if this is a gout like flare-up. Your x-ray does not show any broken bones, however does show inflammation. You received your 1st dose of prednisone in the department, please resume tomorrow. Cephalexin is the antibiotic that you are being placed on, you received your 1st dose in the department. Please take this 4 times per day. Your blood work was reassuring. Your blood work does show questionable evidence of gout. I am treating you for a skin infection. Please take full course of antibiotics even if your symptoms improve. You may also take prednisone, this will help with inflammation. Please watch for any increased redness, swelling, pain. If the redness extends beyond the drawn line significantly, please seek emergent care. Also if you have decreased range of motion of your ankle joint, this is also an indication for you to return. You may continue taking Tylenol for pain. If any new or worsening symptoms occur including but not limited to above symptoms, high fevers, increased pain, chest pain, shortness of breath, please seek emergent care. Prescriptions: New cephalexin 500 mg capsule 500 mg PO QID 5 Days Qty: 20 0RF prednisone 20 mg tablet 20 mg PO DAILY 4 Days Qty: 4 0RF Rx Instructions: Took first dose on 09/23 No Action cholestyramine (with sugar) 4 gram powder 4 g PO BID Qty: 378 3RF amitriptyline 75 mg tablet 75 mg PO BEDTIME Qty: 90 1RF nitrofurantoin monohyd/m-cryst [Macrobid] 100 mg capsule 100 mg PO Q12H 7 Days Qty: 14 0RF Rx Instructions: must administer with a meal/food clonazepam 0.5 mg tablet 0.5 mg PO BEDTIME 90 Days Qty: 90 0RF Rx Instructions: administer 30 minutes before bedtime aspirin [Adult Low Dose Aspirin] 81 mg tablet,delayed release (DR/EC) 81 mg PO DAILY cyclosporine 0.05 % dropperette 1 drp ophthalmic (eye) Q12H triamcinolone acetonide 0.5 % cream 1 appl topical BID Qty: 15 0RF atenolol 25 mg tablet 12.5 mg PO BID 90 Days Qty: 90 0RF Print Language: Tongan
[2024-09-23] MEDS: Acetaminophen 325 MG TABLET 650 MG PO (13:32)
[2024-09-23 13:52] LABS: Uric Acid 6.9 mg/dL (2.4-5.7)
[2024-09-23 14:28] VITALS: BP 106/80; PULSE 68; RESP 14; TEMP 36.8; O2SAT 96
[2024-09-23] MEDS: cephALEXin 500 MG CAPSULE PO (15:14)
[2024-09-23] MEDS: predniSONE 20 MG TABLET PO (15:14)
[2024-09-23 15:17] VITALS: BP 165/48; PULSE 65; RESP 18; TEMP 36.7; O2SAT 97
[2024-09-23 15:18] VITALS: BP 165/48; PULSE 65; RESP 18; TEMP 36.6; O2SAT 98
== END 2024-09-23 15:25 | disposition home or self-care (01) ==
PROVIDERS: Physician Assistant Medical; Emergency Provider Emergency Medicine Emergency Medical Services; PCP Internal Medicine
DX: L03.115 Cellulitis of right lower limb (principal); M79.671 Pain in right foot; I10 Essential (primary) hypertension
CPT/HCPCS: 36415; 73620; 80053; 84550; 85025; 99283; 99284

== ENCOUNTER → 2024-09-23 10:59 | Outpatient (BNV) | payer MEDICARE, BC, SELFPAY | PROVIDERS: PCP Internal Medicine; Visit Provider Radiology Diagnostic Radiology | DX: M79.671 Pain in right foot (principal) | CPT/HCPCS: 73620 ==

== ENCOUNTER 2024-10-04 12:49 | Outpatient (AMB) | payer MEDICARE, BC, SELFPAY ==
--- NOTE | 2024-10-04 12:51 | MHC.PC.OV ---
Vital Signs 10/04/24 12:52 Height 5 ft 2 in Weight 154 lb BMI 28.2 BP 108/62 Blood Pressure Location Lt brachial Position Sitting Pulse 85 Pulse Source Pulse Oximeter Pulse Oximetry (%) 97 Oxygen Delivery Method Room Air Intake Visit Reasons: [facility] 09/23 r foot pain/swelling Allergies Sulfa (Sulfonamide Antibiotics) [SULFA(SULFONAMIDE ANTIBIOTICS)] Allergy (Severe, Verified 10/04/24 12:55) HIVES sulfur Allergy (Unknown, Verified 10/04/24 12:55) Unknown codeine Adverse Reaction (Mild, Verified 10/04/24 12:55) Abdominal Pain Tobacco use date assessed: 10/04/24 Fall risk assessment: 1 Fall in past year Last assessed Fall Risk: 10/04/24 Dental Screening Dental Screen Date: 10/04/24 Did you have a dental visit in the last 12 months?: Yes Did you have a dental problem in the last 6 months where you did not have access to dental care?: No Was dental information given to patient?: Patient has dentist HPI [facility] 09/23 r foot pain/swelling HPI Details 84-year-old overweight female with a history of hypertension chronic anemia coming in for follow-up. Last seen in July but patient was recently seen in the emergency room for right foot swelling. Treated with cephalexin and prednisone as cellulitis. [facility] Medical History Rectal bleeding Diverticular disease LFT elevation Fatigue Inflammatory arthritis Acute diverticulitis Arthralgia Abscess Orthostatic hypotension Seizure Obesity (BMI 30-39.9) Diverticulitis Anemia Restless leg HTN (hypertension) Surgical History History of appendectomy Spinal stenosis of lumbar region Hx of cholecystectomy History of bunionectomy Social History Household Members: Significant Other Housing: House Do you presently have visiting nurse or other home services: No Alcohol intake: former Patient Tobacco Use Status: Former Tobacco user Tobacco use type: Cigarette Years Smoked: 5 e-Cigarette/Vaping Use: Never Used Second Hand Smoke Exposure: No Advance Directives Date on File: 03/14/21 service: No Current occupational status: retired Cognitive needs: No Hearing needs: No Vision needs: Yes Questionnaire PHQ-9 Over the last 2 weeks, how often have you been bothered by any of the following problems? 1. Little interest or pleasure in doing things: not at all 2. Feeling down, depressed, or hopeless: not at all 3. Trouble falling or staying asleep, or sleeping too much: not at all 4. Feeling tired or having little energy: not at all 5. Poor appetite or overeating: not at all 6. Feeling bad about yourself - or that you are a failure or have let yourself or your family down: not at all 7. Trouble concentrating on things, such as reading the newspaper or watching television: not at all 8. Moving or speaking so slowly that other people could have noticed. Or the opposite - being so fidgety or restless that you have been moving around a lot more than usual: not at all 9. Thoughts that you would be better off or of hurting yourself in some way: not at all Total score: 0 Depression Screening Interpretation: Negative Depression Screening Done: Yes 08248 - PHQ-9 Billing: Yes Source: Developed by Drs. Dyllan Ansari, Maral Abdi, Osmani Rivera and colleagues, with an educational florentino from [employer]. Thrive Questionnaire Date Thrive assessed: 10/04/24 I am a: Patient What is your living situation today?: I have a steady place to live Within the past 12 months, did the food you bought not last and you didn't have the money to get more?: Never true Within the past 12 months, did you worry whether your food would run out before you got money to buy more?: Never true Do you have trouble paying for medicines?: No Do you have trouble getting transportation to medical appointments?: No Do you have trouble paying your heating and electricity bill?: No Do you have trouble taking care of your child, family member or friend?: No Do you have trouble with day-to-day activities such as bathing, preparing meals, shopping, managing finances, etc.?: No Are you currently unemployed and looking for a job?: No Are you interested in more education?: No THRIVE Score: 0 AUDIT C Alcohol Use Questionnaire (AUDIT-C) 1. How often do you have a drink containing alcohol?: Monthly or less 2. How many drinks containing alcohol do you have on a typical day when you are drinking?: 1 or 2 3. How often do you have six or more drinks on one occasion?: Never Total Score: 1 JAKE-7 AMB Questionnaire JAKE-7 Date JAKE - 7 assessed: 10/04/24 Feeling nervous, anxious, or on edge: 0 = Not at all Not being able to stop or control worryin = Not at all Worrying too much about different things: 0 = Not at all Trouble relaxin = Not at all Being so restless that it is hard to sit still: 0 = Not at all Becoming easily annoyed or irritable: 0 = Not at all Feeling afraid as if something awful might happen: 0 = Not at all Total JAKE-7 score (0-4 normal; 5-9 mild; 10-14 moderate; 15-21 severe): 0 Source: Developed by Drs. Dyllan Ansari, Maral Abdi, Osmani Rivera and colleagues, with an educational florentino from [employer]. Physical exam (Primary Care) Vital Signs: Last Vital Signs Pulse 85 10/04/24 12:52 BP 108/62 10/04/24 12:52 Pulse Ox 97 10/04/24 12:52 Oxygen Delivery Method Room Air 10/04/24 12:52 BMI result Body Mass Index 28.2 Tobacco/Smoking Status: Tobacco use Status Tobacco use date assessed 10/04/24 10/04/24 12:57 Patient Tobacco Use Status Former Tobacco user 10/04/24 12:57 Tobacco use type Cigarette 10/04/24 12:57 e-Cigarette/Vaping Use Never Used 10/04/24 12:57 PHQ-9: PHQ-9 Score PHQ-9: Total score 0 10/04/24 12:57 Depression Screening Interpretation: Negative Thrive Assessment: Date of Thrive Assessment Date Thrive assessed 10/04/24 10/04/24 12:57 Const General: alert; No acute distress Eyes Conjunctivae: conjunctivae normal Resp Auscultation: clear to auscultation bilaterally Cardio Rate: regular rate Rhythm: regular rhythm GI Inspection: Yes normal to inspection Extrem General: Yes normal to inspection and No edema Coding Level of Care Code Est Pt Level 4 (22244) Diagnoses Essential hypertension I10 Hypertension type: essential hypertension Anemia, unspecified type D64.9 Anemia type: unspecified type Overweight (BMI 25.0-29.9) E66.3 Renal insufficiency N28.9 Cellulitis of right foot L03.115 Additional Codes PHQ-9 - 22704 - PHQ-9 Billing: Yes ([id number]) Assessment & Plan Assessment & Plan (1) HTN (hypertension): Code(s): I10 - Essential (primary) hypertension Category: Medical Qualifiers: Hypertension type: essential hypertension Qualified Code(s): I10 - Essential (primary) hypertension Plan: Continue with blood pressure medication. Decrease salt intake and exercise patient is taking atenolol 12.5 mg twice a day (2) Anemia: Code(s): D64.9 - Anemia, unspecified Category: Medical Qualifiers: Anemia type: unspecified type Qualified Code(s): D64.9 - Anemia, unspecified Plan: Chronic and stable (3) Overweight (BMI 25.0-29.9): Code(s): E66.3 - Overweight Category: Medical Plan: Diet and exercise (4) Renal insufficiency: Code(s): N28.9 - Disorder of kidney and ureter, unspecified Category: Medical Plan: Resolved, avoid NSAIDs (5) Cellulitis of right foot: Code(s): L03.115 - Cellulitis of right lower limb Category: Medical Plan: Patient was treated in the emergency room with cephalexin in prednisone.
[2024-10-04 12:52] VITALS: BP 108/62; PULSE 85; O2SAT 97; BMI 28.2
== END 2024-10-04 13:52 | disposition home or self-care (01) ==
PROVIDERS: PCP Internal Medicine; Visit Provider Internal Medicine
DX: I10 Essential (primary) hypertension (principal); D64.9 Anemia, unspecified; E66.3 Overweight; N28.9 Disorder of kidney and ureter, unspecified; L03.115 Cellulitis of right lower limb

== ENCOUNTER → 2024-10-04 12:49 | Outpatient (BNVA) | payer MEDICARE, BC, SELFPAY | PROVIDERS: PCP Internal Medicine; Visit Provider Internal Medicine | DX: I10 Essential (primary) hypertension (principal); D64.9 Anemia, unspecified; E66.3 Overweight; N28.9 Disorder of kidney and ureter, unspecified; L03.115 Cellulitis of right lower limb | CPT/HCPCS: 96127; 99212 ==

== ENCOUNTER 2024-10-25 13:37 | Outpatient (AMB) | payer MEDICARE, BC, SELFPAY ==
--- NOTE | 2024-10-25 13:41 | A.OFFVIS_ITS ---
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 Patient reports having a fall on her right side about 2 months. States she tripped and fell on a curved and was yanked on her arm to avoid from falling. Seen at an urgent care visit on 09/21/24 where xrays were taken. Reports she was told she had soft tissue injury and was referred to orthopedics. Currently states her pain has worsen. She is limited ROM, pain when lifting items and radiating down her arm. Denies neck pain, numbness or tingling in hand. Also denies prior injury to shou lder. No past injections. 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 She reports she tripped and fell on a curve and was yanked on her arm to avoid from falling. She was seen at urgent care on 09/21/24 where x-rays were performed and she was referred to our office. She currently states she has limited ROM, mild swelling and worsening pain in her shoulder that radiates down to her arm. Her pain is aggravated with lifting items and overhead reaching. She denies any neck pain, numbness, or tingling. She has not had any prior injury to her shoulder. She does not have a history of diabetes. [facility] Medical History Rectal bleeding Diverticular disease LFT elevation Fatigue Inflammatory arthritis Acute diverticulitis Arthralgia Abscess Orthostatic hypotension Seizure Obesity (BMI 30-39.9) Diverticulitis Anemia Restless leg HTN (hypertension) Surgical History History of appendectomy Spinal stenosis of lumbar region Hx of cholecystectomy History of bunionectomy Social History Household Members: Significant Other Housing: House Do you presently have visiting nurse or other home services: No Alcohol intake: former Patient Tobacco Use Status: Former Tobacco user Tobacco use type: Cigarette Years Smoked: 5 e-Cigarette/Vaping Use: Never Used Second Hand Smoke Exposure: No Advance Directives Date on File: 03/14/21 service: No Current occupational status: retired Cognitive needs: No Hearing needs: No Vision needs: Yes Review of Systems Const All systems reviewed & are unremarkable except as noted in HPI and below Physical Exam Vital Signs: BMI result Body Mass Index 28.2 Const General: cooperative, healthy appearing, comfortable, no acute distress, well developed and alert Orientation/consciousness: patient oriented x3 HEENT Head: Yes normal to inspection, Yes normocephalic and Yes atraumatic Eyes General: appearance normal, both eyes and all related structures Resp Effort & Inspection: normal respiratory effort and able to speak in complete sentences Cardio Rate: regular rate Peripheral pulses: Peripheral pulses 2+ throughout GI Palpation (GI): Soft to palpation Skin Lesions: no lesions Rashes: no rashes Neuro General: patient oriented x3 Extrem Other: Right shoulder: Normal to inspection. Tenderness over the bicipital groove and along the deltoid region of the shoulder. Forward flexion to 175, external rotation to 90, internal rotation to S1. Weakness with external rotation against resistance comparted to the contralateral side. Positive belly press. NVI. Results Reviewed Results Reviewed: Xrays were obtained in the office today and personally reviewed by me of the right shoulder show acj and ghj oa Assessment & Plan Assessment & Plan (1) Osteoarthritis of right shoulder: Code(s): M19.011 - Primary osteoarthritis, right shoulder Category: Medical Plan We discussed options today, which include steroid injection. The patient did consent to move forward with the right shoulder injection, which was tolerated well. I recommended rest, ice, and elevation and OTC anti-inflammatories as needed for discomfort. She was also referred to a course of physical therapy in the office today. If symptoms persist or worsens over the next 6 weeks, patient will contact the office and we will order an MRI of the right shoulder, otherwise follow-up as needed. Orders: Orders XR shoulder RT min 2V Today M25.511 - Pain in right shoulder Patient Instructions: Scribed for Tito Luis PA-C, by Loyd Acuna medical claims manager, on 10/25/2024 at 1:45 PM EST.? I, Tito Luis PA-C, have personally reviewed and agree with the information entered by the scribe. Coding Level of Care Code New Pt Level 3 (06519) Complex EM visit Add On G2211 Diagnoses Osteoarthritis of right shoulder M19.011
[2024-10-25 13:58] VITALS: BMI 28.2
== END 2024-10-25 15:11 | disposition home or self-care (01) ==
PROVIDERS: PCP Internal Medicine; Visit Provider Physician Assistant
DX: M19.011 Primary osteoarthritis, right shoulder (principal)
CPT/HCPCS: 99203; G2211

== ENCOUNTER 2024-10-25 15:21 | Outpatient (REF) | payer MEDICARE, BC, SELFPAY ==
--- NOTE | ~2024-10-25 | XR_ITS ---
EXAMINATION: XR SHOULDER RIGHT CLINICAL INFORMATION: Pain in right shoulder M25.511. COMPARISON: None available TECHNIQUE: Three views of the right shoulder. FINDINGS: Moderate hypertrophic osteoarthritis of the acromioclavicular joint. Prominent subacromial spur anteriorly. Mild to moderate osteoarthritis of glenohumeral joint Surrounding bone and soft tissues unremarkable XR/XR shoulder RT min 2V IMPRESSION: Degenerative changes of the right shoulder. Electronically signed by: Rey Rice MD 11/14/2024 09:25 AM DEVAN HERMAN
== END 2024-10-25 15:22 | disposition home or self-care (01) ==
LOC: HO.HOSX 15:21
PROVIDERS: Visit Provider Physician Assistant
DX: M25.511 Pain in right shoulder (principal); M19.011 Primary osteoarthritis, right shoulder
CPT/HCPCS: 20610; 73030; 99202; J1010; J2003

== ENCOUNTER 2024-11-18 12:51 | Outpatient (AMB) | payer MEDICARE, BC, SELFPAY ==
--- NOTE | 2024-11-18 12:58 | AM.OFFVISMDC ---
Intake Vital Signs 11/18/24 13:00 Height 5 ft 2 in Weight 157 lb BMI 28.7 BP 142/76 H Blood Pressure Location Lt brachial Position Sitting Pulse 66 Pulse Source Pulse Oximeter Pulse Oximetry (%) 96 Oxygen Delivery Method Room Air Intake Visit Reasons: [facility] Director Of Patient Safety Required: No Accompanied by: Self / Same As Patient Allergies Sulfa (Sulfonamide Antibiotics) [SULFA(SULFONAMIDE ANTIBIOTICS)] Allergy (Severe, Verified 11/18/24 13:03) HIVES sulfur Allergy (Unknown, Verified 11/18/24 13:03) Unknown codeine Adverse Reaction (Mild, Verified 11/18/24 13:03) Abdominal Pain Medication List - Last Reconciled 11/18/24 by Osvaldo Gifford MD amitriptyline 75 mg PO BEDTIME aspirin (Adult Low Dose Aspirin) 81 mg PO DAILY atenolol 25 mg PO BID 90 days cane As directed clonazepam 0.5 mg PO BEDTIME 90 days cyclosporine 0.05% 1 drp ophthalmic (eye) Q12H multivitamin 1 tab PO DAILY HPI SWV HPI Details admits to forgetting BP med . 2 month fall on a trip, dizzy on standing The patient is an 84-year-old female presenting for a follow-up on her chronic conditions including hypertension, past falls, macular degeneration, and irritable bowel syndrome. The hypertension is noted with recent elevated readings of 142/xx, though typically it is controlled at 122/60 when medications are taken as prescribed. The patient has experienced past falls, one occurring approximately two months ago during a trip when she misjudged a curb height and another while carrying heavy items upstairs. She reports reduced visual acuity due to macular degeneration, with ongoing treatment by specialists. The irritable bowel syndrome is described as intermittent diarrhea controlled with loperamide, and she has opted to discontinue cholestyramine due to personal preference. In addition, she has a history of mild anemia, currently stable with a hemoglobin level of 11.7 g/dL. She mentions episodes of positional dizziness upon standing. - Pneumonia vaccine (received at [facility], [facility]) - Flu shot is up-to-date - Shingles vaccine administered - Regular eye exams for macular degeneration - Blood pressure medication adherence emphasized - Drinks wine occasionally, mostly at family events - No current smoking history - Engages in light physical activity, recently acquired an exercise bike - Dietary habits include use of multivitamins; cautious about high iron intake - Plays card games for social interaction despite visual impairment - - Cardiovascular: Reports positional dizziness - Respiratory: Denies shortness of breath and chest pain - Gastrointestinal: Denies nausea, vomiting, constipation, but reports food occasionally feeling stuck - Genitourinary: Denies nocturia - Ophthalmologic: Reports visual impairment requiring volume adjustment on TV - Musculoskeletal: Denies unsteadiness in gait PFSH Medical History Rectal bleeding Diverticular disease LFT elevation Fatigue Inflammatory arthritis Acute diverticulitis Arthralgia Abscess Orthostatic hypotension Seizure Obesity (BMI 30-39.9) Diverticulitis Anemia Restless leg HTN (hypertension) Surgical History History of appendectomy Spinal stenosis of lumbar region Hx of cholecystectomy History of bunionectomy Social History (Updated 11/18/24 @ 13:33 by Osvaldo Gifford MD) Household Members: Significant Other Housing: House Do you presently have visiting nurse or other home services: No Alcohol intake: former Comment: wine douglas and new year - and oncew a month 1 drink Patient Tobacco Use Status: Former Tobacco user Tobacco use type: Cigarette Years Smoked: 5 e-Cigarette/Vaping Use: Never Used Second Hand Smoke Exposure: No Advance Directives Date on File: 03/14/21 service: No Current occupational status: retired Cognitive needs: No Hearing needs: No Vision needs: Yes Questionnaire Medicare Wellness Checkup What is your age?: 80 or older What gender do you identify with?: female During the past 4 weeks, how much have you been bothered by emotional problems such as feeling anxious, depressed, irritable, sad or downhearted, and blue?: not at all During the past 4 weeks, has your physical & emotional health limited your social activities with family, friends, neighbors, or groups?: not at all During the past 4 weeks, how much bodily pain have you generally had?: very mild pain During the past 4 weeks, was someone available to help you if you needed & wanted help?: yes, as much as I wanted During the past 4 weeks, what was the hardest physical activity you could do for at least 2 minutes?: moderate Can you get to places out of walking distance without help? (For eg., can you travel alone on buses, taxis or drive your car?): Yes Can you go shopping for groceries or clothes without someone's help?: Yes Can you prepare your own meals?: Yes Can you do your housework without help?: Yes Because of any health problems, do you need the help of another person with your personal care needs such as eating, bathing, dressing or getting around the house?: No Can you handle your own money without help?: Yes During the past 4 weeks, how would you rate your health in general?: good During the past 4 weeks how have things been going for you?: very well; could hardly better Are you having difficulties driving your car?: not applicable, I don't use a car Do you always fasten your seat belt when you are in a car?: yes, usually During past 4 weeks, have you been bothered by the following: never: Sexual problems?, Trouble eating well?, Teeth or denture problems?, Problems using the telephone? and Tiredness or fatigue? and seldom: Falling or dizzy when standing up Have you fallen 2 or more times in the past year?: Yes Are you afraid of falling?: No During the past 4 weeks, how many drinks of wine, beer, or other alcoholic beverages did you have?: 1 drink or less per week Do you exercise for about 20 minutes 3 or more times a week?: no, I usually do not exercise this much Have you been given information to help with the following?: no: Hazards in your house that might hurt you? and no: Keeping track of your medications? How often do you have trouble taking medicines the way you have been told to take them?: I always take medicine as prescribed How confident are you that you can control & manage most of your health problems?: very confident What is your race?: White PHQ-9 Over the last 2 weeks, how often have you been bothered by any of the following problems? 1. Little interest or pleasure in doing things: not at all 2. Feeling down, depressed, or hopeless: not at all 3. Trouble falling or staying asleep, or sleeping too much: not at all 4. Feeling tired or having little energy: not at all 5. Poor appetite or overeating: not at all 6. Feeling bad about yourself - or that you are a failure or have let yourself or your family down: not at all 7. Trouble concentrating on things, such as reading the newspaper or watching television: not at all 8. Moving or speaking so slowly that other people could have noticed. Or the opposite - being so fidgety or restless that you have been moving around a lot more than usual: not at all 9. Thoughts that you would be better off or of hurting yourself in some way: not at all Total score: 0 Depression Screening Interpretation: Negative Depression Screening Done: Yes 92511 - PHQ-9 Billing: Yes Source: Developed by Drs. Dyllan Ansari, Maral Abdi, Osmani Rivera and colleagues, with an educational florentino from [employer]. JAKE-7 AMB Questionnaire JAKE-7 Date JAKE - 7 assessed: 11/18/24 Feeling nervous, anxious, or on edge: 0 = Not at all Not being able to stop or control worryin = Not at all Worrying too much about different things: 0 = Not at all Trouble relaxin = Not at all Being so restless that it is hard to sit still: 0 = Not at all Becoming easily annoyed or irritable: 0 = Not at all Feeling afraid as if something awful might happen: 0 = Not at all Total JAKE-7 score (0-4 normal; 5-9 mild; 10-14 moderate; 15-21 severe): 0 Source: Developed by Drs. Dyllan Ansari, Maral Abdi, Osmani Rivera and colleagues, with an educational florentino from [employer]. Thrive Questionnaire Date Thrive assessed: 11/18/24 I am a: Patient What is your living situation today?: I have a steady place to live Within the past 12 months, did the food you bought not last and you didn't have the money to get more?: Never true Within the past 12 months, did you worry whether your food would run out before you got money to buy more?: Never true Do you have trouble paying for medicines?: No Do you have trouble getting transportation to medical appointments?: No Do you have trouble paying your heating and electricity bill?: No Do you have trouble taking care of your child, family member or friend?: No Do you have trouble with day-to-day activities such as bathing, preparing meals, shopping, managing finances, etc.?: No Are you currently unemployed and looking for a job?: No Are you interested in more education?: No Please select the resources that you would like help with: None Currently or been in a relationship where the following occur: No concerns reported THRIVE Score: 0 AUDIT C Alcohol Use Questionnaire (AUDIT-C) 1. How often do you have a drink containing alcohol?: Monthly or less 2. How many drinks containing alcohol do you have on a typical day when you are drinking?: 1 or 2 3. How often do you have six or more drinks on one occasion?: Never Total Score: 1 Fall Risk Assessment Fall Risk Assessment Fall risk assessment: No Falls in past year Review of Systems Const Denies poor appetite and Denies weakness Eyes Denies no additional complaints ENT Reports Normal hearing present, Denies dizziness, Denies nasal congestion, Denies tinnitus and Denies sore throat Card Denies chest pain, Denies syncope, Denies rapid heart rate and Denies dyspnea Resp Denies cough and Denies dyspnea GI Denies change in stool character, Reports constipation, Denies diarrhea, Denies nausea and Denies vomiting Denies urinary frequency, Denies difficulty voiding and Denies dysuria Neuro Reports Normal hearing present, Denies confusion, Denies dizziness, Denies syncope and Denies weakness Psych Denies confusion Physical Exam Vital Signs: Last Vital Signs Pulse 66 11/18/24 13:00 BP 142/76 H 11/18/24 13:00 Pulse Ox 96 11/18/24 13:00 Oxygen Delivery Method Room Air 11/18/24 13:00 BMI result Body Mass Index 28.7 Const General: No confusion Orientation/consciousness: No confusion HEENT Head: Yes normocephalic Ears: external ears normal and TM's normal bilaterally Face and sinus: Yes normal facial exam Mouth: moist mucous membranes Throat: Yes tonsils normal Eyes Conjunctivae: conjunctivae normal Pupils: Equal, round and reactive pupils present and Pupil accommodation reflex normal Direct Ophthalmoscopy: normal light reflex Neck Neck: No lymphadenopathy Thyroid: Thyroid normal Chest Chest palpation & inspection: normal inspection of the chest Resp Effort & Inspection: normal respiratory effort and no audible wheezes Auscultation: clear to auscultation bilaterally, no crackles, no wheezes and lung sounds not diminished Cardio Rate: regular rate Rhythm: regular rhythm Peripheral pulses: radial pulses present and dorsalis pedis present GI Palpation (GI): no masses Auscultation: normal bowel sounds and normoactive bowel sounds Rectal Exam - Female: deferred Skin General skin exam: no rashes or lesions noted Rashes: no rashes Neuro General: No confusion Cranial nerves: Yes Equal, round and reactive pupils present and Yes Normal hearing present Cognition (Neuro): normal cognition Gait exam (Neuro): Normal gait present Motor exam (neuro): 5/5 motor strength present throughout Deep tendon reflexes (DTR's): Right brachioradialis reflex intensity grade: 2+, Left brachioradialis reflex intensity grade: 2+, Right patellar reflex intensity grade: 2+ and Left patellar reflex intensity grade: 2+ Extrem General: No edema Assessment & Plan Assessment & Plan (1) Medicare annual wellness visit, subsequent: Code(s): Z00.00 - Encounter for general adult medical examination without abnormal findings Plan: Patient is advised to eat healthy, keep well hydrated, keep active and have adequate sleep. (2) HTN (hypertension): Code(s): I10 - Essential (primary) hypertension Qualifiers: Hypertension type: essential hypertension Qualified Code(s): I10 - Essential (primary) hypertension Plan: Continue with blood pressure medication. Decrease salt intake and exercise on atenolol 12.5 mg twice a day (3) Inflammatory arthritis: Comment: bilateral hip area Code(s): M19.90 - Unspecified osteoarthritis, unspecified site Plan: Continue to be active (4) Anemia: Code(s): D64.9 - Anemia, unspecified Qualifiers: Anemia type: unspecified type Qualified Code(s): D64.9 - Anemia, unspecified Plan: Continue to monitor (5) Overweight (BMI 25.0-29.9): Code(s): E66.3 - Overweight Plan: Diet and exercise (6) Recurrent falls: Code(s): R29.6 - Repeated falls Plan - Labs: Mild anemia with hemoglobin at 11.7 g/dL; stable - Kidney function normal - Liver function mildly elevated historically - Blood glucose not fasting; levels not specified - A prescription for atenolol 25 mg twice daily is recommended for blood pressure management. - Encouragement of cane use if future falls occur, and installation of grab bars in bathroom. - A fasting blood test is planned to monitor blood glucose and iron levels. 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 - Ensure vaccination status is current, specifically for pneumonia and influenza. - Reinforce importance of regular multivitamin intake while monitoring iron-related considerations. I discussed the need for better blood pressure control with the patient and recommended adjusting her atenolol dosage to 25 mg twice daily. We also discussed strategies to prevent falls, including considering the use of a cane and installing grab bars in the bathroom. I emphasized the need for continued management of macular degeneration with regular specialist consultations. A fasting blood test was advised to further evaluate her glycemic and iron status. I encouraged maintaining a healthy lifestyle with regular exercise, proper hydration, and monitoring anemia. I also reiterated the importance of staying up-to-date with vaccinations to prevent infections. - Take atenolol 25 mg two times daily as prescribed for hypertension. - Consider using a cane for stability to prevent falls and have grab bars installed in the bathroom. - Schedule an eye exam regularly to monitor macular degeneration. - Follow up for fasting blood work as discussed to check blood glucose and iron levels. - Maintain regular exercise and a balanced diet. - Ensure vaccinations are up-to-date for flu and pneumonia. - Stay hydrated and continue taking multivitamins with caution regarding iron content. Orders: Orders Ferritin Today D64.9 - Anemia, unspecified IRON PROFILE Today D64.9 - Anemia, unspecified Lipid Panel Today D64.9 - Anemia, unspecified, E78.00 - Pure hypercholesterolemia, unspecified Free T4 (Free Thyroxine) Today D64.9 - Anemia, unspecified Thyroid Stimulating Hormone Today D64.9 - Anemia, unspecified Vitamin B12 and Folate Today D64.9 - Anemia, unspecified Vitamin D 25-OH Total Today D64.9 - Anemia, unspecified Reticulocyte Count Today D64.9 - Anemia, unspecified Hepatitis B,C Profile Today D64.9 - Anemia, unspecified, R79.89 - Other specified abnormal findings of blood chemistry Complete Blood Count Auto Diff Today D64.9 - Anemia, unspecified Comprehensive Met. Panel Today D64.9 - Anemia, unspecified Hemoglobin A1c Today D64.9 - Anemia, unspecified Magnesium Today D64.9 - Anemia, unspecified UA CC w/rflx Micro + Cult Today D64.9 - Anemia, unspecified, R30.0 - Dysuria Medications: New cane As directed 1 ea 0RF R29.6 - Repeated falls Quality Reporting (2019) Fall Risk Screening ([facility] 139) Fall risk assessment: No Falls in past year Depression/Bipolar (159/160/161/177) PHQ-9: Total score: 0 Coding Level of Care Code Medicare Subsequent (G0439) Diagnoses Medicare annual wellness visit, subsequent Z00.00 Essential hypertension I10 Hypertension type: essential hypertension Inflammatory arthritis M19.90 Anemia, unspecified type D64.9 Anemia type: unspecified type Overweight (BMI 25.0-29.9) E66.3 Recurrent falls R29.6 Additional Codes PHQ-9 - 25311 - PHQ-9 Billing: Yes ([id number])
[2024-11-18 13:00] VITALS: BP 142/76; PULSE 66; O2SAT 96; BMI 28.7
== END 2024-11-18 13:56 | disposition home or self-care (01) ==
PROVIDERS: PCP Internal Medicine; Visit Provider Internal Medicine
DX: Z00.00 Encounter for general adult medical examination without abnormal findings (principal); I10 Essential (primary) hypertension; M19.90 Unspecified osteoarthritis, unspecified site; D64.9 Anemia, unspecified; E66.3 Overweight; R29.6 Repeated falls

== ENCOUNTER → 2024-11-18 12:51 | Outpatient (BNVA) | payer MEDICARE, BC, SELFPAY | PROVIDERS: PCP Internal Medicine; Visit Provider Internal Medicine | DX: Z00.00 Encounter for general adult medical examination without abnormal findings (principal); I10 Essential (primary) hypertension; M19.90 Unspecified osteoarthritis, unspecified site; K58.0 Irritable bowel syndrome with diarrhea; D64.9 Anemia, unspecified; E66.3 Overweight; R29.6 Repeated falls; R79.89 Other specified abnormal findings of blood chemistry | CPT/HCPCS: 96127 ==

== ENCOUNTER 2024-12-06 10:48 | Emergency (ER) | payer MEDICARE, BC, SELFPAY ==
--- NOTE | ~2024-12-06 | CT_ITS ---
CLINICAL HISTORY: aphasia since Friday CT Head without contrast. CT angiography head and neck with contrast. 3D Postprocessing. Comparison: CT - CT SOFT TISSUE NECK W CON - 09/04/20 17:25 EDT Findings: HEAD CT: Minimal subcortical white matter hypoattenuation in the lingula and around the frontal horns of the lateral ventricles likely chronic small-vessel ischemic changes. No acute intracranial hemorrhage, midline shift or transcortical infarct. The visualized paranasal sinuses and mastoid air cells are normal. No acute findings in the orbits. There is no acute fracture. HEAD AND NECK CTA: Cervical arteries are patent. Short-segment stenosis of the left vertebral artery at the level of C4-C5 from facet arthropathy. No occlusion. Mild atherosclerosis at both carotid bifurcations without hemodynamically significant stenosis. Intracranial arteries are patent. No aneurysm, dissection, or occlusion. No abnormal intracranial enhancement. The visualized thyroid gland is unremarkable. No cervical mass or fluid collection. Nonspecific mosaic attenuation in the visualized lungs. No consolidation. Degenerative changes of the spine. IMPRESSION: 1. No acute intracranial findings. 2. Patent head and neck CTA. This document has been electronically signed by: Washington Cuello MD on 12/06/2024 21:35:46
--- NOTE | ~2024-12-06 | XR_ITS ---
EXAMINATION: XR CHEST CLINICAL INFORMATION: weakness COMPARISON: October 17, 2023 and January 08, 2020 TECHNIQUE: Frontal view of the chest was obtained. FINDINGS: No consolidation, pleural effusion or pneumothorax. Cardiomediastinal silhouette demonstrates calcified plaque in the aortic arch. Multilevel thoracic spondylosis. Degenerative changes in both shoulders. XR/XR chest 1V IMPRESSION: No acute airspace disease. Stable chest. Electronically signed by: Parker Laurent MD 12/06/2024 12:23 PM [facility]
--- NOTE | ~2024-12-06 | XR_ITS ---
CLINICAL HISTORY: pain swelling 3 view left foot Comparison: CR - XR FOOT LT MIN 3V - 03/20/21 14:13 EDT Findings: No fractures or dislocations. Chronic deformities of the 1st and 4th metatarsals. Plantar calcaneal spur. Achilles enthesopathy. No ankle effusion. No radiopaque foreign body. IMPRESSION: 1. No acute osseous findings. This document has been electronically signed by: Washington Cuello MD on 12/06/2024 18:56:03
[2024-12-06 11:06] VITALS: BP 148/62; PULSE 84; O2SAT 99
--- NOTE | 2024-12-06 11:42 | ED_ITS ---
HPI - Altered Mental Status General Chief Complaint: Neuro Symptoms/Deficit Stated Complaint: L FOOT PAIN, CONFUSION PER EMS Time Seen by Provider: 12/06/24 18:13 Source: patient and family Limitations: no limitations History of Present Illness ED Provider: Marina Rizzo PA-C HPI narrative: 84-year-old female with a history of hypertension, chronic kidney disease, arthritis, restless leg syndrome, IBS, presents with multiple complaints. Patient developed atraumatic left foot pain over the past 5 days, she just started on prednisone yesterday after being seen by her primary care. Associated overlying redness of the foot. Denies fever. Patient and her family also note that she has been having word-finding difficulty over the past 3 days. Her symptoms are intermittent, and random. Denies associated dysarthria, facial droop, weakness of upper or lower extremity. Patient has not had episodes like this in the past. Denies headache, dizziness, nausea vomiting. No visual changes. No chest pain , palpitation or shortness of breath. Related Data Home Medications ?Medication ?Instructions ?Recorded ?Confirmed aspirin 81 mg tablet,delayed 81 mg PO DAILY 02/02/21 11/18/24 release (Adult Low Dose Aspirin) cyclosporine 0.05 % eye drops in a 1 drp ophthalmic (eye) Q12H 10/15/22 11/18/24 dropperette multivitamin 1 tab PO DAILY 11/18/24 11/18/24 Previous Rx's ?Medication ?Instructions ?Recorded amitriptyline 75 mg tablet 75 mg PO BEDTIME #90 tabs 08/03/24 clonazepam 0.5 mg tablet 0.5 mg PO BEDTIME 90 days #90 tabs 09/21/24 atenolol 25 mg tablet 25 mg PO BID 90 days #180 tabs 11/18/24 cane #1 ea 11/18/24 prednisone 20 mg tablet 60 mg (3 x 20 mg) PO DAILY #9 tabs 12/04/24 doxycycline hyclate 100 mg capsule 100 mg PO BID #13 caps 12/06/24 indomethacin 50 mg capsule 50 mg PO TID PRN pain #15 caps 12/06/24 Allergies Allergy/AdvReac Type Severity Reaction Status Date / Time Sulfa (Sulfonamide Allergy Severe HIVES Verified 12/09/24 05:33 Antibiotics) [SULFA(SULFONAMIDE ANTIBIOTICS)] sulfur Allergy Unknown Unknown Verified 12/09/24 05:33 codeine AdvReac Mild Abdominal Verified 12/09/24 05:33 Pain Review of Systems 2 Review of Systems: Yes all other systems are reviewed and are negative Constitutional: Constitutional: Denies fatigue, Denies fever(s) and Denies headache(s) Eyes: Eyes: Denies change in vision ENT: Denies dizziness and Denies headache(s) Cardiovascular: Cardiovascular: Denies chest pain, Denies irregular heart rhythm, Denies palpitations and Denies dyspnea Respiratory: Respiratory: Denies dyspnea Gastrointestinal: Gastrointestinal: Denies nausea and Denies vomiting Musculoskeletal: Musculoskeletal: Denies muscle weakness, Denies numbness and Denies tingling Neurologic: Denies dizziness, Denies headache(s), Denies numbness and Denies tingling Endocrine: Endocrine: Denies fatigue and Denies palpitations PMFSH Past Medical History Attestation statement: The following information was validated with the patient. Medical History Rectal bleeding Diverticular disease LFT elevation Fatigue Inflammatory arthritis Acute diverticulitis Arthralgia Abscess Orthostatic hypotension Seizure Obesity (BMI 30-39.9) Diverticulitis Anemia Restless leg HTN (hypertension) Surgical History History of appendectomy Spinal stenosis of lumbar region Hx of cholecystectomy History of bunionectomy Social History Social History Household Members: Significant Other Housing: House Do you presently have visiting nurse or other home services: No Alcohol intake: former Comment: wine douglas and new year - and oncew a month 1 drink Patient Tobacco Use Status: Former Tobacco user Tobacco use type: Cigarette Years Smoked: 5 e-Cigarette/Vaping Use: Never Used Second Hand Smoke Exposure: No Advance Directives Date on File: 03/14/21 service: No Current occupational status: retired Cognitive needs: No Hearing needs: No Vision needs: Yes Physical Exam ED Vital Signs: Vital Signs - 24 hr 12/06/24 11:44 12/06/24 20:26 Temperature 97.5 F Pulse Rate 71 93 Respiratory Rate 18 20 Blood Pressure 113/63 149/64 H Pulse Oximetry 96 98 Oxygen Delivery Method Room Air Room Air BMI result Body Mass Index 25.7 Const Other: Alert well-appearing Orientation/consciousness: patient oriented x3 Resp Effort & Inspection: normal respiratory effort Cardio Other: Normal peripheral perfusion Skin Other: Warm dry no rash Neuro Other: No dysarthria or aphasia noted at this time General: patient oriented x3, gait normal, no focal motor deficits and CN's II- XI intact bilaterally Extrem Other: Strength 5/5 bilateral upper and lower extremities with resistance. The dorsum of the left foot is erythematous, warm to touch, she is hypersensitive with palpation of the dorsum of the foot, subtle swelling noted. Patient is able to flex and extend from the ankle and move all of the toes. Psych Other: Cooperative NIH Stroke Scale Internal: Initial- Upon Arrival Level of Consciousness: Alert Level of Consciousness Questions: Answers both questions correctly Level of Consciousness Commands: Performs both tasks correctly Best Gaze: Normal Visual: No visual loss Facial Palsy: Normal Motor Arm (Right): No drift Motor Arm (Left): No drift Motor Leg (Right): No drift Motor Leg (Left): No drift Limb Ataxia: Absent Sensory: Normal Best Language: No aphasia Dysarthia: Normal Extinction and Inattention: No abnormality Score: 0 Course Course Course Narrative: 84 yo female with PMH of anemia, arthritis, HTN, IBS here with c/o diffuse weakness and word finding difficulties with confusion not making sense per her spouse. Has L toe gout since friday with history of gout on prednisone since yesterday. Patient denies fevers, no n/v/d, no CP/SOB. No recent trauma. She is not on blood thinners. At this time will need labs, UA, CXR to rule out any pathology as cause and angio head and neck given aphasia and word finding difficulties since Friday. this is a RAPID medical screening exam the rest of the history and physical exam is to be done by the main provider. Reevaluation(s) Reevaluation #1: Discussed with the patient that the angiograms were normal, that she is not having a stroke. I did relate to her that sadly her symptoms could be evidence of early signs of dementia, that she needs to follow up with the primary care provider for further evaluation. In regard to the foot, I am treating her for cellulitis versus gout. Again she can follow up with the primary care provider in regard to the foot pain. Medications Administered Discontinued Medications Generic Name Dose Route Start Last Admin Trade Name Simeon PRN Reason Stop Dose Admin Doxycycline Monohydrate 100 mg 12/06/24 22:33 12/07/24 00:18 Doxycycline Monohydrate 100 Mg Capsule PO 12/06/24 22:34 100 mg ONCE ONE Administration Indomethacin 50 mg 12/06/24 23:09 12/07/24 00:17 Indomethacin 25 Mg Capsule PO 12/06/24 23:10 50 mg ONCE ONE Administration Iohexol 70 ml 12/06/24 20:39 12/06/24 20:39 Iohexol 350 Mg/Ml 100 Ml Infus..Btl IV 12/06/24 20:40 70 ml ONCE ONE Administration Medical Decision Making Medical Decision Making MDM Narrative: 84-year-old female with a history of hypertension, chronic kidney disease, arthritis, restless leg syndrome, IBS, presents with multiple complaints. Patient developed atraumatic left foot pain over the past 5 days, she just started on prednisone yesterday after being seen by her primary care. Associated overlying redness of the foot. Denies fever. Patient and her family also note that she has been having word-finding difficulty over the past 3 days. Her symptoms are intermittent, and random. Denies associated dysarthria, facial droop, weakness of upper or lower extremity. Patient has not had episodes like this in the past. Denies headache, dizziness, nausea vomiting. No visual changes. No chest pain , palpitation or shortness of breath. I have considered the following differential diagnoses: Cellulitis, fracture, dislocation, gout, septic joint, osteomyelitis, stroke, early dementia Plan: In regard to the patient's foot pain, likely not a fracture or dislocation given there has been no trauma. I am concerned for gout versus cellulitis. There was no evidence of septic joint based on my exam she can freely move the foot. Some screening labs are in process and x-rays already been obtained, there was no evidence osteomyelitis. We will add on uric acid. In regard to the patient's word-finding difficulty, I am concerned for stroke. She is out of the window for emergent intervention we will order the angiograms. She is asymptomatic at this time. I have independently reviewed the following tests: Labs: Leukocytosis with left shift noted, not anemic, ESR 73, uric acid is 6.7 EKG: Normal sinus rhythm, rate 84 no ischemic changes no ectopy Chest x-ray:FINDINGS: No consolidation, pleural effusion or pneumothorax. Cardiomediastinal silhouette demonstrates calcified plaque in the aortic arch. Multilevel thoracic spondylosis. Degenerative changes in both shoulders. XR/XR chest 1V IMPRESSION: No acute airspace disease. Stable chest. Electronically signed by: Parker Laurent MD 12/06/2024 12:23 PM [facility] X-ray foot left: Findings: No fractures or dislocations. Chronic deformities of the 1st and 4th metatarsals. Plantar calcaneal spur. Achilles enthesopathy. No ankle effusion. No radiopaque foreign body. IMPRESSION: 1. No acute osseous findings. This document has been electronically signed by: Washington Cuello MD on 12/06/2024 18:56:03 CT angio head and neck:HEAD CT: Minimal subcortical white matter hypoattenuation in the lingula and around the frontal horns of the lateral ventricles likely chronic small-vessel ischemic changes. No acute intracranial hemorrhage, midline shift or transcortical infarct. The visualized paranasal sinuses and mastoid air cells are normal. No acute findings in the orbits. There is no acute fracture. HEAD AND NECK CTA: Cervical arteries are patent. Short-segment stenosis of the left vertebral artery at the level of C4-C5 from facet arthropathy. No occlusion. Mild atherosclerosis at both carotid bifurcations without hemodynamically significant stenosis. Intracranial arteries are patent. No aneurysm, dissection, or occlusion. No abnormal intracranial enhancement. The visualized thyroid gland is unremarkable. No cervical mass or fluid collection. Nonspecific mosaic attenuation in the visualized lungs. No consolidation. Degenerative changes of the spine. IMPRESSION: 1. No acute intracranial findings. 2. Patent head and neck CTA. This document has been electronically signed by: Washington Cuello MD on 12/06/2024 21:35:46 Lab Data 12/06/24 12:14 12/06/24 12:14 Labs: Lab Results 12/06/24 12/06/24 12/06/24 Range/Units 12:14 18:58 21:13 WBC 17.1 H (4.8-10.8) X10*3/uL RBC 3.72 L (4.20-5.50) X10*6/uL Hgb 11.5 L (12.0-16.0) g/dl Hct 33.4 L (37.0-47.0) % MCV 89.8 (80.0-98.0) fL MCH 30.9 (27.0-33.0) pg MCHC 34.4 (31.0-35.0) g/dl RDW 13.1 (11.0-16.0) % Plt Count 229 (160-400) X10*3/uL MPV 9.4 (9.4-12.3) fL Immature Gran % (Auto) 0.7 H (0.0-0.4) % Neut % (Auto) 85.2 H (45-73) % Lymph % (Auto) 6.4 L (20-40) % Dolores % (Auto) 7.5 (2-11) % Eos % (Auto) 0.0 (0-4) % Baso % (Auto) 0.2 (0-2) % Lymph # (Auto) 1.1 L (1.2-4.9) X10*3/uL Dolores # (Auto) 1.3 H (0.1-1.2) X10*3/uL Eos # (Auto) 0.0 (0.0-0.4) X10*3/uL Baso # (Auto) 0.0 (0.0-0.2) X10*3/uL Abs Immat Gran (auto) 0.12 H (0.00-0.03) X10*3/uL Absolute Neuts (auto) 14.6 H (2.0-8.3) x10*3/uL Absolute Nucleated RBC 0.000 (0.0-0.012) X10*3/uL Nucleated RBC % (auto) 0.0 (0.0-0.2) /100WBC ESR 73 H (0-20) MM/HR Sodium 140 (135-145) mmol/L Potassium 3.5 (3.3-5.1) mmol/L Chloride 107 (96-108) mmol/L Carbon Dioxide 26 (22-29) mmol/L Anion Gap 11 L (12-20) BUN 19 H (9-16) mg/dL Creatinine 0.87 (0.5-1.4) mg/dL Estim Creat Clear Calc 46.4 Estimated GFR > 60 Random Glucose 108 (60-115) mg/dL Lactic Acid 1.3 (0.5-2.0) mmol/L Uric Acid 6.7 H (2.4-5.7) mg/dL Calcium 9.5 (8.4-10.2) mg/dL Magnesium 1.8 (1.6-2.6) mg/dL Total Bilirubin 0.4 (0.0-1.0) mg/dL Direct Bilirubin 0.2 (0.0-0.5) mg/dL AST 41 H (5-31) U/L ALT 16 (0-31) U/L Alkaline Phosphatase 60 (39-117) U/L Troponin I High Sens 21.3 H 21.6 H (<3.5-17.0) ng/L C-Reactive Protein 15.12 H (< or = 0.50) mg/dL Total Protein 7.3 (6.5-8.0) g/dL Albumin 3.7 (3.5-5.0) g/dL Urine Color Yellow Urine Appearance Clear Urine pH 5.5 (5.0-9.0) Ur Specific [place] 1.015 (1.005-1.025) Urine Protein Negative (Neg-Trace) mg/dL Urine Glucose (UA) Negative (Negative) mg/dL Urine Ketones Negative (Negative) mg/dL Urine Blood Negative (Negative) Urine Nitrite Negative (Negative) Ur Leukocyte Esterase Trace H (Negative) Urine RBC 0-2 (0-2) /HPF Urine WBC 0-5 (0-5) /HPF Ur Squamous Epith Cells 0-2 (0-2) /HPF Urine Bacteria None Seen (None Seen) Hyaline Casts 0-2 (0-2) /LPF Discharge Plan Discharge Clinical Impression: Cellulitis of left foot, Gout, Confusion Patient Disposition: Home, Self-Care Instructions: Cellulitis (ED), Low Purine Diet (ED), Gout (ED) Additional Instructions: The angiograms of your head and neck were unremarkable, you were not having a stroke. You need further assessment in regard to your recent confusion, your symptoms could potentially be related to early onset dementia. In regard to your foot pain, you are being treated for cellulitis versus gout attack. See home care instructions. Take the doxycycline as directed this is an antibiotic. Use the indomethacin as needed for pain, this is an anti-inflammatory. Call your primary care provider this week for an appointment. Prescriptions: New indomethacin 50 mg capsule 50 mg PO TID PRN (Reason: pain) Qty: 15 0RF Rx Instructions: administer with food or milk doxycycline hyclate 100 mg capsule 100 mg PO BID Qty: 13 0RF No Action amitriptyline 75 mg tablet 75 mg PO BEDTIME Qty: 90 1RF clonazepam 0.5 mg tablet 0.5 mg PO BEDTIME 90 Days Qty: 90 0RF Rx Instructions: administer 30 minutes before bedtime atenolol 25 mg tablet 25 mg PO BID 90 Days Qty: 180 2RF prednisone 20 mg tablet 60 mg PO DAILY Qty: 9 0RF aspirin [Adult Low Dose Aspirin] 81 mg tablet,delayed release (DR/EC) 81 mg PO DAILY cyclosporine 0.05 % dropperette 1 drp ophthalmic (eye) Q12H (DME) cane Device See Rx Instructions .Route Qty: 1 0RF Rx Instructions: As directed multivitamin Tablet 1 tab PO DAILY Discharge Date/Time: 12/07/24 00:26 Print Language: Japanese
[2024-12-06 11:44] VITALS: BP 113/63; PULSE 71; RESP 18; TEMP 36.4; O2SAT 96; BMI 25.7
--- NOTE | 2024-12-06 11:44 | ECG_ITS ---
Test Reason : WEAKNESS Blood Pressure : */* mmHG Vent. Rate : 84 BPM Atrial Rate : 84 BPM P-R Int : 144 ms QRS Dur : 74 ms QT Int : 364 ms P-R-T Axes : 61 15 27 degrees QTcB Int : 430 ms Normal sinus rhythm Normal ECG When compared with ECG of 17-Oct-2023 08:21, No significant change was found Referred By: Chinyere Motta Electronically Signed By: Sean Victoria
[2024-12-06 12:20] LABS: MANUAL DIFF FLAG NO
[2024-12-06 12:29] LABS: Basophils Percent Auto 0.2 % (0-2); Hematocrit 33.4 % (37.0-47.0); Hemoglobin 11.5 g/dl (12.0-16.0); Imm Gran Abs Auto 0.12 X10*3/uL (0.00-0.03); Imm Gran Pct Auto 0.7 % (0.0-0.4); Lymphocytes Absolute Auto 1.1 X10*3/uL (1.2-4.9); Lymphocytes Percent Auto 6.4 % (20-40); Mean Corpuscular HGB Conc 34.4 g/dl (31.0-35.0); Mean Corpuscular Hemoglobin 30.9 pg (27.0-33.0); Mean Corpuscular Volume 89.8 fL (80.0-98.0); Mean Platelet Volume 9.4 fL (9.4-12.3); Monocytes Absolute Auto 1.3 X10*3/uL (0.1-1.2); Monocytes Percent Auto 7.5 % (2-11); Neutrophils Absolute Auto 14.6 x10*3/uL (2.0-8.3); Neutrophils Percent Auto 85.2 % (45-73); Platelet Count 229 X10*3/uL (160-400); Red Blood Count 3.72 X10*6/uL (4.20-5.50); Red Cell Distribution Width 13.1 % (11.0-16.0); White Blood Count 17.1 X10*3/uL (4.8-10.8)
[2024-12-06 12:41] LABS: Troponin-I High Sensitivity 21.3 ng/L (<3.5-17.0)
[2024-12-06 12:44] LABS: Alanine Aminotransferase 16 U/L (0-31); Albumin Level 3.7 g/dL (3.5-5.0); Alkaline Phosphatase 60 U/L (39-117); Anion Gap 11 (12-20); Aspartate Amino Transferase 41 U/L (5-31); Bilirubin Direct 0.2 mg/dL (0.0-0.5); Bilirubin Total 0.4 mg/dL (0.0-1.0); Blood Urea Nitrogen 19 mg/dL (9-16); C Reactive Protein 15.12 mg/dL (< or = 0.50); Calcium 9.5 mg/dL (8.4-10.2); Carbon Dioxide 26 mmol/L (22-29); Chloride 107 mmol/L (96-108); Creatinine Clr Calc Pharmacy 46.4; Estimated Glomerular Filt Rate > 60; Glucose Random 108 mg/dL (60-115); Magnesium 1.8 mg/dL (1.6-2.6); Potassium 3.5 mmol/L (3.3-5.1); Sodium 140 mmol/L (135-145); Total Protein 7.3 g/dL (6.5-8.0)
[2024-12-06 12:45] LABS: Lactic Acid 1.3 mmol/L (0.5-2.0)
[2024-12-06 13:15] LABS: Erythrocyte Sedimentation Rate 73 MM/HR (0-20)
[2024-12-06 18:41] LABS: Uric Acid 6.7 mg/dL (2.4-5.7)
[2024-12-06 19:24] LABS: Troponin-I High Sensitivity 21.6 ng/L (<3.5-17.0)
[2024-12-06 20:26] VITALS: BP 149/64; PULSE 93; RESP 20; O2SAT 98
[2024-12-06] MEDS: iohexoL 350 MG/ML 100 ML INFUS..BTL 70 ML IV (20:39)
[2024-12-06 21:26] LABS: Appearance Urine Clear; Color Urine Yellow; Glucose Urine UA Negative (Negative); Leukocyte Esterase Urine Trace (Negative); Nitrite Urine Negative (Negative); PH 5.5 (5.0-9.0); Specific Gravity - Urine 1.015 (1.005-1.025); UMIC TRIGGER UACC YES; Urine Blood Negative (Negative); Urine Ketones Negative (Negative); Urine Protein Negative (Neg-Trace)
[2024-12-06 21:31] LABS: Bacteria Urine None Seen (None Seen); Hyaline Casts Urine 0-2 /LPF (0-2); RBC Urine 0-2 /HPF (0-2); Squamous Epithelial Cell Urine 0-2 /HPF (0-2); WBC Urine 0-5 /HPF (0-5)
[2024-12-07] VITALS: BP 142/65; PULSE 84; RESP 18; TEMP 36.8; O2SAT 99
[2024-12-07 00:02] VITALS: BP 138/77; PULSE 88; RESP 16; TEMP 36.7; O2SAT 97
[2024-12-07] MEDS: Indomethacin 25 MG CAPSULE 50 MG PO (00:17)
[2024-12-07] MEDS: Doxycycline Monohydrate 100 MG CAPSULE PO (00:18)
== END 2024-12-07 00:26 | disposition home or self-care (01) ==
PROVIDERS: Physician Assistant Medical; Emergency Provider Emergency Medicine; PCP Internal Medicine
DX: L03.116 Cellulitis of left lower limb (principal); M10.9 Gout, unspecified; M79.672 Pain in left foot; R53.1 Weakness; R41.0 Disorientation, unspecified; I10 Essential (primary) hypertension; Z87.891 Personal history of nicotine dependence
CPT/HCPCS: 36415; 70496; 70498; 71045; 73630; 80048; 80076; 81001; 83605; 83735; 84484; 84550; 85025; 85652; 86140; 87040; 93005; 99285; Q9967

== ENCOUNTER → 2024-12-06 11:44 | Outpatient (BNV) | payer MEDICARE, BC, SELFPAY | PROVIDERS: Emergency Provider Emergency Medicine; PCP Internal Medicine; Visit Provider Internal Medicine Cardiovascular Disease | DX: R53.1 Weakness (principal) | CPT/HCPCS: 93010 ==

== ENCOUNTER → 2024-12-06 11:45 | Outpatient (BNV) | payer MEDICARE, BC, SELFPAY | PROVIDERS: PCP Internal Medicine; Visit Provider Radiology Diagnostic Radiology | DX: R47.01 Aphasia (principal); R53.1 Weakness; M79.672 Pain in left foot | CPT/HCPCS: 71045 ==

== ENCOUNTER 2024-12-09 05:19 | Emergency (ER) | payer MEDICARE, BC, SELFPAY ==
[2024-12-09] VITALS (8 sets, daily range): BP systolic 124–159; BP diastolic 45–63; PULSE 54–77; RESP 10–18; TEMP 36.1–37.1; O2SAT 95–99; BMI 27.5
--- NOTE | ~2024-12-09 | MR_ITS ---
CLINICAL HISTORY: Persistent dizziness MR Brain without gadolinium Comparison: CT/SR - CT ANGIO HEAD NECK - 12/06/24 20:30 EST Findings: No restricted diffusion. No intracranial mass or hemorrhage. There are a few small nonspecific foci of white matter T2 hyperintensity within the cerebrum. Likely due to chronic small vessel ischemic disease. No midline shift. No hydrocephalus. Vascular flow voids are intact. The orbits are normal. The sinuses and mastoid air cells are clear. No focal bone lesion. IMPRESSION: No acute findings. This document has been electronically signed by: Lisseth Mujica MD on 12/09/2024 23:19:30
--- NOTE | 2024-12-09 05:25 | ECG_ITS ---
Test Reason : chest pain Blood Pressure : */* mmHG Vent. Rate : 61 BPM Atrial Rate : 61 BPM P-R Int : 122 ms QRS Dur : 74 ms QT Int : 408 ms P-R-T Axes : 41 16 44 degrees QTcB Int : 410 ms Normal sinus rhythm Normal ECG When compared with ECG of 06-Dec-2024 11:59, No significant change was found Referred By: Generic ED Physician Electronically Signed By:
[2024-12-09 05:51] LABS: MANUAL DIFF FLAG NO
[2024-12-09 05:52] LABS: Basophils Percent Auto 0.1 % (0-2); Hemoglobin 10.9 g/dl (12.0-16.0); Imm Gran Abs Auto 0.05 X10*3/uL (0.00-0.03); Imm Gran Pct Auto 0.5 % (0.0-0.4); Lymphocytes Absolute Auto 1.4 X10*3/uL (1.2-4.9); Mean Corpuscular HGB Conc 34.1 g/dl (31.0-35.0); Mean Corpuscular Hemoglobin 30.8 pg (27.0-33.0); Mean Corpuscular Volume 90.4 fL (80.0-98.0); Mean Platelet Volume 9.1 fL (9.4-12.3); Monocytes Absolute Auto 0.6 X10*3/uL (0.1-1.2); Monocytes Percent Auto 5.8 % (2-11); Neutrophils Absolute Auto 8.4 x10*3/uL (2.0-8.3); Neutrophils Percent Auto 80.6 % (45-73); Platelet Count 261 X10*3/uL (160-400); Red Blood Count 3.54 X10*6/uL (4.20-5.50); Red Cell Distribution Width 12.8 % (11.0-16.0); White Blood Count 10.4 X10*3/uL (4.8-10.8)
[2024-12-09 06:09] LABS: Anion Gap 14 (12-20); Blood Urea Nitrogen 50 mg/dL (9-16); Calcium 8.9 mg/dL (8.4-10.2); Carbon Dioxide 19 mmol/L (22-29); Chloride 109 mmol/L (96-108); Creatinine Clr Calc Pharmacy 34.3; Estimated Glomerular Filt Rate 42; Glucose Random 115 mg/dL (60-115); Potassium 4.3 mmol/L (3.3-5.1); Sodium 138 mmol/L (135-145)
[2024-12-09 06:16] LABS: Troponin-I High Sensitivity 17.5 ng/L (<3.5-17.0)
--- NOTE | 2024-12-09 07:52 | ED_ITS ---
HPI - Chest Pain General Chief Complaint: Chest Pain Stated Complaint: chest pain Time Seen by Provider: 12/09/24 07:29 Source: patient Mode of arrival: EMS History of Present Illness ED Provider: Juan HPI narrative: 84-year-old female with history of hypertension, states that she felt head fullness in the the middle of the night, checked her blood pressure noted that the systolic and diastolic were significantly elevated, she reports that she took lisinopril and then went back to sleep and woke up again later and was experiencing chest discomfort and is now asymptomatic. States that she was recently admitted and worked up with scans to include an MRI. She also reports that she had 2 episodes of her heart racing and at that time felt dizzy. Related Data Home Medications ?Medication ?Instructions ?Recorded ?Confirmed aspirin 81 mg tablet,delayed 81 mg PO DAILY 02/02/21 11/18/24 release (Adult Low Dose Aspirin) cyclosporine 0.05 % eye drops in a 1 drp ophthalmic (eye) Q12H 10/15/22 11/18/24 dropperette multivitamin 1 tab PO DAILY 11/18/24 11/18/24 Previous Rx's ?Medication ?Instructions ?Recorded amitriptyline 75 mg tablet 75 mg PO BEDTIME #90 tabs 08/03/24 clonazepam 0.5 mg tablet 0.5 mg PO BEDTIME 90 days #90 tabs 09/21/24 atenolol 25 mg tablet 25 mg PO BID 90 days #180 tabs 11/18/24 cane #1 ea 11/18/24 prednisone 20 mg tablet 60 mg (3 x 20 mg) PO DAILY #9 tabs 12/04/24 doxycycline hyclate 100 mg capsule 100 mg PO BID #13 caps 12/06/24 indomethacin 50 mg capsule 50 mg PO TID PRN pain #15 caps 12/06/24 Allergies Allergy/AdvReac Type Severity Reaction Status Date / Time Sulfa (Sulfonamide Allergy Severe HIVES Verified 12/09/24 05:33 Antibiotics) [SULFA(SULFONAMIDE ANTIBIOTICS)] sulfur Allergy Unknown Unknown Verified 12/09/24 05:33 codeine AdvReac Mild Abdominal Verified 12/09/24 05:33 Pain Review of Systems 2 Review of Systems: Pertinent positives and negatives as stated in HPI [facility] Past Medical History Source: nursing notes reviewed Medical History Rectal bleeding Diverticular disease LFT elevation Fatigue Inflammatory arthritis Acute diverticulitis Arthralgia Abscess Orthostatic hypotension Seizure Obesity (BMI 30-39.9) Diverticulitis Anemia Restless leg HTN (hypertension) Surgical History History of appendectomy Spinal stenosis of lumbar region Hx of cholecystectomy History of bunionectomy Social History Social History Household Members: Significant Other Housing: House Do you presently have visiting nurse or other home services: No Alcohol intake: former Comment: wine douglas and new year - and oncew a month 1 drink Patient Tobacco Use Status: Former Tobacco user Tobacco use type: Cigarette Years Smoked: 5 Smoked in Last 30 Days: No e-Cigarette/Vaping Use: Never Used Second Hand Smoke Exposure: No Use of substances other than those prescribed or required for medical reasons: No Advance Directives: Yes Advance Directives on File: Yes Advance Directives Date on File: 03/14/21 Do you have a plan to hurt others: No Plan service: No Current occupational status: retired Cognitive needs: No Hearing needs: No Vision needs: Yes Physical Exam 2 Vital Signs: Vital Signs: Last Vital Signs Temp 98.2 F 12/09/24 13:25 Pulse 56 12/09/24 13:25 Resp 18 12/09/24 13:25 BP 141/54 H 12/09/24 13:25 Pulse Ox 98 12/09/24 13:25 O2 Del Method Room Air 12/09/24 13:25 BMI result Body Mass Index 27.5 VITAL SIGNS: Reviewed. GENERAL: Well developed, well nourished, in no acute distress. HEAD: Normocephalic/atraumatic EYES: PERRLA, EOMI EARS: Ext canals without abnormality NOSE: Nares patent bilateral OROPHARYNX: no oral lesions noted, posterior pharynx clear NECK: Supple, no adenopathy LUNGS: Normal breath sounds. No adventitious sounds or accessory muscle use. SpO2<98> CARDIOVASCULAR: Regular rate and rhythm without noted murmurs, no JVD or lower extremity edema. ABDOMEN: Soft, non-tender, non-distended with bowel sounds. MUSCULOSKELETAL: No tenderness, deformities, or effusions noted on gross inspection. EXTREMITIES: No cyanosis, clubbing or edema. SKIN: Inspection of the skin reveals no rashes NEUROLOGIC: Alert and oriented x 4. Strength and sensation to light touch were grossly intact x 4, no facial asymmetry, no pronator drift, cranial nerves 2-12 are grossly intact, cerebellar testing intact. Medical Decision Making Medical Decision Making [facility] Narrative: 84-year-old female with history and clinical presentation, DD DX: Palpitations, given her dizziness raising some concern for possible underlying thyroid dysfunction versus possible paroxysmal atrial fibrillation though she is in sinus rhythm at this time, chest pain has completely resolved. Will further evaluate for any underlying infection, anemia, will continue to keep on cardiac monitoring for further evaluation, will also perform CT of the head, review all chart/documentation lab work on prior admission. EKG: Sinus bradycardia, HR-59, no STEMI, WI/QRS/QTC are within normal limits, there are no acute changes when compared to prior EKG from 12/06/2024. I reviewed and interpreted all investigations there is no infectious leukocytosis, there is a stable anemia no thrombocytopenia. There is no demonstrate LYNDA/electrolyte or liver enzyme derangements. Serial high sensitivity troponins are detectable flat and not associated with any ischemic changes on the EKG, TSH is within normal limits. Urinalysis is negative for UTI or hematuria. Signed out to Dr Mullen for MRI follow up, if negative d/c to home with PCP follow up. Differential Diagnosis Differential Diagnoses: The differential diagnosis associated with the presentation includes See above Admission/Observation Consideration of admission/observation: Escalation of care including admission/observation considered See above Lab Data [facility] Lab Attestation statement: I reviewed the patient's lab results. See above 12/09/24 05:46 12/09/24 05:46 Labs: Lab Results 12/09/24 12/09/24 Range/Units 05:46 11:30 WBC 10.4 (4.8-10.8) X10*3/uL RBC 3.54 L (4.20-5.50) X10*6/uL Hgb 10.9 L (12.0-16.0) g/dl Hct 32.0 L (37.0-47.0) % MCV 90.4 (80.0-98.0) fL MCH 30.8 (27.0-33.0) pg MCHC 34.1 (31.0-35.0) g/dl RDW 12.8 (11.0-16.0) % Plt Count 261 (160-400) X10*3/uL MPV 9.1 L (9.4-12.3) fL Immature Gran % (Auto) 0.5 H (0.0-0.4) % Neut % (Auto) 80.6 H (45-73) % Lymph % (Auto) 13.0 L (20-40) % [place] % (Auto) 5.8 (2-11) % Eos % (Auto) 0.0 (0-4) % Baso % (Auto) 0.1 (0-2) % Lymph # (Auto) 1.4 (1.2-4.9) X10*3/uL [place] # (Auto) 0.6 (0.1-1.2) X10*3/uL Eos # (Auto) 0.0 (0.0-0.4) X10*3/uL Baso # (Auto) 0.0 (0.0-0.2) X10*3/uL Abs Immat Gran (auto) 0.05 H (0.00-0.03) X10*3/uL Absolute Neuts (auto) 8.4 H (2.0-8.3) x10*3/uL Absolute Nucleated RBC 0.000 (0.0-0.012) X10*3/uL Nucleated RBC % (auto) 0.0 (0.0-0.2) /100WBC Sodium 138 (135-145) mmol/L Potassium 4.3 D (3.3-5.1) mmol/L Chloride 109 H (96-108) mmol/L Carbon Dioxide 19 L (22-29) mmol/L Anion Gap 14 (12-20) BUN 50 H (9-16) mg/dL Creatinine 1.21 (0.5-1.4) mg/dL Estim Creat Clear Calc 34.3 Estimated GFR 42 Random Glucose 115 (60-115) mg/dL Calcium 8.9 D (8.4-10.2) mg/dL Troponin I High Sens 17.5 H (<3.5-17.0) ng/L TSH 0.44 (0.32-4.0) uIU/mL Urine Color Yellow Urine Appearance Clear Urine pH 5.5 (5.0-9.0) Ur Specific [place] <= 1.005 (1.005-1.025) Urine Protein Negative (Neg-Trace) mg/dL Urine Glucose (UA) Negative (Negative) mg/dL Urine Ketones Negative (Negative) mg/dL Urine Blood Negative (Negative) Urine Nitrite Negative (Negative) Ur Leukocyte Esterase Negative (Negative) Independent Interpretation I performed an independent interpretation of an: EKG Interpretation: See above Radiology Impression Discussion of test interpretation with radiology: I have reviewed the radiologist's reading. Radiologist Impression: See above External Record Review External record reviewed: Prior outpatient labs and Prior outpatient radiology Chronic Conditions Patient?s care impacted by: Hypertension Discharge Plan Discharge Clinical Impression: Dizziness, Palpitations Patient Disposition: Still a Patient Instructions: Dizziness (ED), Heart Palpitations (ED) Additional Instructions: Recommend follow-up with Cardiology for further evaluation of your heart palpitations. You will need to follow-up with your primary care doctor in the next 2-3 days for re-evaluation further outpatient management. Do not hesitate to return to the emergency room for any acute worsening of your symptoms. Prescriptions: No Action amitriptyline 75 mg tablet 75 mg PO BEDTIME Qty: 90 1RF clonazepam 0.5 mg tablet 0.5 mg PO BEDTIME 90 Days Qty: 90 0RF Rx Instructions: administer 30 minutes before bedtime atenolol 25 mg tablet 25 mg PO BID 90 Days Qty: 180 2RF prednisone 20 mg tablet 60 mg PO DAILY Qty: 9 0RF indomethacin 50 mg capsule 50 mg PO TID PRN (Reason: pain) Qty: 15 0RF Rx Instructions: administer with food or milk doxycycline hyclate 100 mg capsule 100 mg PO BID Qty: 13 0RF aspirin [Adult Low Dose Aspirin] 81 mg tablet,delayed release (DR/EC) 81 mg PO DAILY cyclosporine 0.05 % dropperette 1 drp ophthalmic (eye) Q12H (DME) cane Device See Rx Instructions .Route Qty: 1 0RF Rx Instructions: As directed multivitamin Tablet 1 tab PO DAILY Referrals: Sean Victoria MD [Physician] - Print Language: Citizen Of [place]
[2024-12-09 11:21] LABS: Thyroid Stimulating Hormone 0.44 uIU/mL (0.32-4.0)
--- NOTE | 2024-12-09 11:35 | PC.NURSE ---
MRI screening form completed with patient and scanned to MRI , MRI stating will get patient around 2pm
[2024-12-09 11:44] LABS: Appearance Urine Clear; Color Urine Yellow; Glucose Urine UA Negative (Negative); Leukocyte Esterase Urine Negative (Negative); Nitrite Urine Negative (Negative); PH 5.5 (5.0-9.0); Specific Gravity - Urine <= 1.005 (1.005-1.025); Urine Blood Negative (Negative); Urine Ketones Negative (Negative); Urine Protein Negative (Neg-Trace)
--- NOTE | 2024-12-09 16:36 | PC.NURSE ---
Multiple calls/ tiger messages sent to MRI regarding when patient will be brought to MRI- awaiting response
--- NOTE | 2024-12-09 18:14 | PC.NURSE ---
Brought to MRI
--- NOTE | 2024-12-09 22:32 | MHC.EDTECH ---
Addendum entered by Addis Moreira 12/09/24 22:53: Response received from Shayla @[id number], She states amarilis Darnell and Luz have sent the images to [facility] now to be read. Original Note: Contacted [facility] at [phone] regarding brain mri done at 2001 which we have not received a read for. Was informed that the imaging had not been confirmed by our MRI team. Called MRI but at tis time we do not have then in house. Tried to check with ct/xray if they were able to do anything but they do not have access to the system needed. Reached out to Shayla Ramon via priority message on [employer] text @[phone].
--- NOTE | 2024-12-09 23:59 | MHC.EDTECH ---
Called patient for Dr. Banks to inform them that the tests were all normal.
== END 2024-12-09 23:12 | disposition still patient (30) ==
PROVIDERS: Student in an Organized Health Care Education/Training Program; Emergency Provider Emergency Medicine
DX: R07.89 Other chest pain (principal); R00.2 Palpitations; R42 Dizziness and giddiness; Z79.899 Other long term (current) drug therapy
CPT/HCPCS: 36415; 70551; 80048; 81003; 84443; 84484; 85025; 93005; 99285

== ENCOUNTER → 2024-12-09 10:56 | Outpatient (BNV) | payer MEDICARE, BC, SELFPAY | PROVIDERS: Emergency Provider Emergency Medicine; Visit Provider Radiology Diagnostic Radiology | DX: R42 Dizziness and giddiness (principal) | CPT/HCPCS: 70551 ==

== ENCOUNTER 2024-12-14 09:50 | Outpatient (AMB) | payer MEDICARE, BC, SELFPAY ==
--- NOTE | 2024-12-14 10:05 | A.OFFPC_ITS ---
Vital Signs 12/14/24 10:07 Height 5 ft 4 in Weight 154 lb BMI 26.4 BP 120/70 Blood Pressure Location Lt brachial Position Sitting Temp 96.8 F Temp Source Skin Intake Visit Reasons: left foot pain confusion per EMS Intake Note: Patient is here to follow-up after a visit the emergency department at [facility] [place] [facility] on 12/09/24 Eyeglass Maker Required: No Information Systems Administrator: Present Accompanied by: Spouse Allergies Sulfa (Sulfonamide Antibiotics) [SULFA(SULFONAMIDE ANTIBIOTICS)] Allergy (Severe, Verified 12/14/24 19:12) HIVES sulfur Allergy (Unknown, Verified 12/14/24 19:12) Unknown codeine Adverse Reaction (Mild, Verified 12/14/24 19:12) Abdominal Pain Medication List - Last Reconciled 12/14/24 by CHELE Calero amitriptyline 75 mg PO BEDTIME aspirin (Adult Low Dose Aspirin) 81 mg PO DAILY atenolol 25 mg PO BID 90 days cane As directed clonazepam 0.5 mg PO BEDTIME 90 days cyclosporine 0.05% 1 drp ophthalmic (eye) Q12H doxycycline hyclate 100 mg PO BID indomethacin 50 mg PO TID PRN multivitamin 1 tab PO DAILY Tobacco use date assessed: 12/14/24 Fall risk assessment: 1 Fall in past year Last assessed Fall Risk: 12/14/24 Dental Screening Dental Screen Date: 12/14/24 Did you have a dental visit in the last 12 months?: Yes Did you have a dental problem in the last 6 months where you did not have access to dental care?: No Was dental information given to patient?: Patient has dentist HPI left foot pain confusion per EMS HPI Details The patient is a 84-year-old female with significant past medical history of anemia, renal insufficiency, recurrent falls, MAC macular degeneration, fatty liver, and irritable bowel syndrome and hypertension The patient of Dr. Gifford, she was last seen in office on 11/18/2024 Patient was seen in the ED on 11/25/2015 25 for complaints of mild chest discomfort, dizziness and lightheadedness and elevated blood pressure The patient reports that she was also having difficulty speaking and felt conf used ECG was normal in her labs were reassuring, the patient was worked up for stroke CT of the head MRI was done, both showed no acute findings Chart review: The patient also went to the ED on 12/06/2024 for left foot atraumatic pain that she reported at the time was going on for 5 days. Reported that she was started on prednisone at the primary care a day before coming into the ED The patient is following up today with her left foot doing much better, reports that the pain is gone and the swelling came down The patient was able to move her left ankle and toes without any pain, she denies pain to palpation The patient was concerned about her experience that brought her to the hospital Reports that all her exam is came back negative and she would like to know what could have caused those symptoms Discussed with patient that there isn't any clear cause She reported that they told her in the hospital to get a cardiac workup We will refer the patient to Cardiology The patient denies chest pain, shortness of breath, heart palpitation. Patient reports that she does have a history of PVCs she had those for a long time never felt like this before She does have a history of dizziness reports that her blood pressure medication was decreased due to these symptoms The patient is also chronically anemic. The patient reports drinking 2 to 3 bottles of water per day Discussed with patient to increase fluids to at least 6 bottles per day because her BUN was 50 on most recent labs and this is an indication of dehydration. Discussed with patient that increasing her hydration might assist with decreasing her incidents of gout flares and feeling dizziness. ---labs ordered for a 3 months follow ap pt with Dr. Gifford [facility] Medical History (Updated 12/14/24 @ 19:45 by CHELE Calero) Gout Rectal bleeding Diverticular disease LFT elevation Fatigue Inflammatory arthritis Acute diverticulitis Arthralgia Abscess Orthostatic hypotension Seizure Obesity (BMI 30-39.9) Diverticulitis Anemia Restless leg HTN (hypertension) Surgical History History of appendectomy Spinal stenosis of lumbar region Hx of cholecystectomy History of bunionectomy Social History Household Members: Significant Other Housing: House Do you presently have visiting nurse or other home services: No Alcohol intake: former Comment: wine douglas and new year - and oncew a month 1 drink Patient Tobacco Use Status: Former Tobacco user Tobacco use type: Cigarette Years Smoked: 5 e-Cigarette/Vaping Use: Never Used Second Hand Smoke Exposure: No Advance Directives Date on File: 03/14/21 service: No Current occupational status: retired Cognitive needs: No Hearing needs: No Vision needs: Yes (Glasses) Questionnaire PHQ-9 Over the last 2 weeks, how often have you been bothered by any of the following problems? 1. Little interest or pleasure in doing things: not at all 2. Feeling down, depressed, or hopeless: not at all 3. Trouble falling or staying asleep, or sleeping too much: not at all 4. Feeling tired or having little energy: not at all 5. Poor appetite or overeating: not at all 6. Feeling bad about yourself - or that you are a failure or have let yourself or your family down: not at all 7. Trouble concentrating on things, such as reading the newspaper or watching television: not at all 8. Moving or speaking so slowly that other people could have noticed. Or the opposite - being so fidgety or restless that you have been moving around a lot more than usual: not at all 9. Thoughts that you would be better off or of hurting yourself in some way: not at all Total score: 0 Depression Screening Interpretation: Negative Depression Screening Done: Yes 52387 - PHQ-9 Billing: Yes Source: Developed by Drs. Dyllan Ansari, Maral Abdi, Osmani Rivera and colleagues, with an educational florentino from [employer]. Thrive Questionnaire Date Thrive assessed: 12/14/24 I am a: Patient What is your living situation today?: I have a steady place to live Within the past 12 months, did the food you bought not last and you didn't have the money to get more?: Never true Within the past 12 months, did you worry whether your food would run out before you got money to buy more?: Never true Do you have trouble paying for medicines?: No Do you have trouble getting transportation to medical appointments?: No Do you have trouble paying your heating and electricity bill?: No Do you have trouble taking care of your child, family member or friend?: No Do you have trouble with day-to-day activities such as bathing, preparing meals, shopping, managing finances, etc.?: No Are you currently unemployed and looking for a job?: No Are you interested in more education?: No Please select the resources that you would like help with: None Currently or been in a relationship where the following occur: No concerns reported THRIVE Score: 0 AUDIT C Alcohol Use Questionnaire (AUDIT-C) 1. How often do you have a drink containing alcohol?: Monthly or less 2. How many drinks containing alcohol do you have on a typical day when you are drinking?: 1 or 2 Total Score: 1 Score Reviewed/Action Taken: Yes JAKE-7 AMB Questionnaire JAKE-7 Date JAKE - 7 assessed: 12/14/24 Feeling nervous, anxious, or on edge: 0 = Not at all Not being able to stop or control worryin = Not at all Worrying too much about different things: 0 = Not at all Trouble relaxin = Not at all Being so restless that it is hard to sit still: 0 = Not at all Becoming easily annoyed or irritable: 0 = Not at all Feeling afraid as if something awful might happen: 0 = Not at all Total JAKE-7 score (0-4 normal; 5-9 mild; 10-14 moderate; 15-21 severe): 0 Source: Developed by Drs. Dyllan Ansari, Maral Abdi, Osmani Rivera and colleagues, with an educational florentino from [employer]. JAKE-7 Assessment Billing JAKE-7 Assessment Tool: JAKE-7 Assessment 38027 Review of Systems Const Details: Denies chills, Denies fatigue, Denies fever(s), Denies headache(s) and Denies weakness HEENT Denies change in vision, reports recurrent dizziness-but feeling well today, Denies headache(s), Denies hearing loss, Denies nasal congestion, Denies sinus pain, Denies sinus pressure and Denies sore throat Card Denies chest pain, Denies lightheadedness, Denies dyspnea and Denies other (palpitations) Resp Denies cough, Denies dyspnea and Denies wheezing GI Denies abdominal pain, Denies melena, Denies hematochezia, Denies change in bowel habits, Denies dyspepsia and Denies nausea Denies hematuria and Denies dysuria Musc Denies abnormal gait, Denies myalgias, Denies arthralgias, Denies numbness and Denies tingling Skin/Breast Denies rash, Denies unusual bruising and Denies wounds Neuro Denies abnormal gait, Denies headache(s), Denies memory loss, Denies numbness, Denies Sensory deficit (Neuro), Denies tingling and Denies weakness Psych Denies anxiety, Denies depression and Denies memory loss Endo Denies cold intolerance, Denies fatigue, Denies heat intolerance, Denies polydipsia and Denies polyuria Ralph/Lymph Denies easy bleeding and Denies easy bruising Aller/Immun Denies wheezing Physical exam (Primary Care) Vital Signs: Last Vital Signs Temp 96.8 F 12/14/24 10:07 BP 120/70 12/14/24 10:07 BMI result Body Mass Index 26.4 Tobacco/Smoking Status: Tobacco use Status Tobacco use date assessed 12/14/24 12/14/24 10:12 Patient Tobacco Use Status Former Tobacco user 12/14/24 10:12 Tobacco use type Cigarette 12/14/24 10:12 e-Cigarette/Vaping Use Never Used 12/14/24 10:12 PHQ-9: PHQ-9 Score PHQ-9: Total score 0 12/14/24 19:11 Depression Screening Interpretation: Negative Thrive Assessment: Date of Thrive Assessment Date Thrive assessed 12/14/24 12/14/24 10:12 Currently or been in a relationship where the following occur: No concerns reported Const Other: General: no acute distress, well developed, alert and awake Nutritional Appearance: well nourished Orientation/consciousness: patient oriented x3 HENMT Head: Yes normocephalic and Yes atraumatic Ears: hearing grossly normal bilaterally and TM's normal bilaterally General nose exam: Normal external nose present and Normal nares present Eyes Pupils: Equal, round and reactive pupils present and Pupil accommodation reflex normal EOM: EOMs intact bilaterally Neck Neck: Yes normal visual inspection, Yes no lymphadenopathy and Yes trachea midline Thyroid: Thyroid normal Carotids: no bruits Lymphatic: no lymphadenopathy noted Chest Chest palpation & inspection: normal inspection of the chest Resp Effort & Inspection: normal respiratory effort Auscultation: clear to auscultation bilaterally Cardio Rate: regular rate Rhythm: regular rhythm Heart sounds: S1 normal heart sound present, S2 normal heart sound present, no gallops, no murmurs and no rubs GI Palpation (GI): abdomen soft and nontender to palpation, No present and No Rebound tenderness present Auscultation: normal bowel sounds General: Yes no CVA tenderness Back/Spine/Pelvis Back: no CVA tenderness bilateral feet without swelling, erythema. +ROM without pain, no pain to palpation Skin General: warm and dry. Normal skin color. Normal skin turgor Lesions: no lesions Nails: normal Neuro General: patient oriented x3, gait normal Cranial nerves: Yes Equal, round and reactive pupils present Cognition (Neuro): normal cognition Gait exam (Neuro): Normal gait present Extrem General: Yes normal to inspection, No edema and No calf tenderness Psych Appearance: grossly normal Affect: normal affect Attitude: cooperative Thought process: Normal thought process present Results Reviewed Results Reviewed: Laboratory Tests 12/09/24 12/09/24 05:46 11:30 WBC 10.4 RBC 3.54 L Hgb 10.9 L Hct 32.0 L MCV 90.4 MCH 30.8 Sodium 138 Potassium 4.3 D Chloride 109 H Carbon Dioxide 19 L BUN 50 H Creatinine 1.21 Estimated GFR 42 Random Glucose 115 Calcium 8.9 D Troponin I High Sens 17.5 H TSH 0.44 Urine Color Yellow Urine Appearance Clear Urine pH 5.5 Ur Specific [place] <= 1.005 Urine Protein Negative Urine Glucose (UA) Negative Urine Ketones Negative Urine Blood Negative Urine Nitrite Negative Ur Leukocyte Esterase Negative Coding Level of Care Code Est Pt Level 4 (53341) Diagnoses Chest pain, unspecified type R07.9 Chest pain type: unspecified Essential hypertension I10 Hypertension type: essential hypertension Anemia, unspecified type D64.9 Anemia type: unspecified type Irritable bowel syndrome with diarrhea K58.0 Irritable bowel syndrome type: with diarrhea Chronic gout of multiple sites, unspecified cause M1A.[id number] Chronicity: chronic Gout etiology: unspecified cause Gout site: multiple sites Additional Codes JAKE-7 Assessment Billing - JAKE-7 Assessment Tool: JAKE-7 Assessment 78665 ([id number]) PHQ-9 - 45352 - PHQ-9 Billing: Yes ([id number]) Time Spent (min) 32 Assessment & Plan Assessment & Plan (1) Chest pain: Code(s): R07.9 - Chest pain, unspecified Category: Medical Qualifiers: Chest pain type: unspecified Qualified Code(s): R07.9 - Chest pain, unspecified Plan: The patient was admitted in the hospital for mild chest pain with elevated blood pressure and heart palpitation EKG negative for any acute findings. The patient was then worked up for stroke, CT and MRI negative for any acute findings. Will refer to cardiology for an baseline work up per patient request. (2) HTN (hypertension): Code(s): I10 - Essential (primary) hypertension Category: Medical Qualifiers: Hypertension type: essential hypertension Qualified Code(s): I10 - Essential (primary) hypertension Plan: reinforced low salt diet continue atenolol 25 mg BID (3) Anemia: Code(s): D64.9 - Anemia, unspecified Category: Medical Qualifiers: Anemia type: unspecified type Qualified Code(s): D64.9 - Anemia, unspecified Plan: Ongoing anemia: the patient was on iron supplement and developed elevated iron and had to be taken off. She continues to be anemia but appears to be from chronic conditions. Will continue to monitor (4) Irritable bowel syndrome: Code(s): K58.9 - Irritable bowel syndrome, unspecified Category: Medical Qualifiers: Irritable bowel syndrome type: with diarrhea Qualified Code(s): K58.0 - Irritable bowel syndrome with diarrhea Plan: The patient reported that this has been less frequent May use loperamide as needed (5) Gout: Code(s): M10.9 - Gout, unspecified Category: Medical Qualifiers: Chronicity: chronic Gout etiology: unspecified cause Gout site: multiple sites Qualified Code(s): M1A.09X0 - Idiopathic chronic gout, multiple sites, without tophus (tophi) Plan: The patient been treated for gout on and off. Encouraged fluid hydration: reports only 2-3 bottles of water/day and avoid foods high in purine Will repeat uric acid in 3 months Plan follow up appt in 3 months for chronic conditions. Get labs done prior to appt Orders: Orders Complete Blood Count Auto Diff 3 Months D64.9 - Anemia, unspecified, I10 - Essential (primary) hypertension, M10.9 - Gout, unspecified Vitamin D 25-OH Total 3 Months D64.9 - Anemia, unspecified, I10 - Essential (primary) hypertension, M10.9 - Gout, unspecified TSH reflex Free T4 3 Months D64.9 - Anemia, unspecified, I10 - Essential (primary) hypertension, M10.9 - Gout, unspecified UA CC w/rflx Micro + Cult 3 Months D64.9 - Anemia, unspecified, I10 - Essential (primary) hypertension, M10.9 - Gout, unspecified Uric Acid 3 Months D64.9 - Anemia, unspecified, I10 - Essential (primary) hypertension, M10.9 - Gout, unspecified Comprehensive Leon. Panel Fast 3 Months D64.9 - Anemia, unspecified, I10 - Essential (primary) hypertension, M10.9 - Gout, unspecified Referrals Cardiology Referral R00.2 - Palpitations, R07.9 - Chest pain, unspecified
[2024-12-14 10:07] VITALS: BP 120/70; TEMP 36; BMI 26.4
== END 2024-12-14 10:48 | disposition home or self-care (01) ==
PROVIDERS: PCP Internal Medicine
DX: R07.9 Chest pain, unspecified (principal); I10 Essential (primary) hypertension; D64.9 Anemia, unspecified; K58.0 Irritable bowel syndrome with diarrhea; M1A.09X0 Idiopathic chronic gout, multiple sites, without tophus (tophi)

== ENCOUNTER → 2024-12-14 09:50 | Outpatient (BNVA) | payer MEDICARE, BC, SELFPAY | PROVIDERS: PCP Internal Medicine | DX: R07.9 Chest pain, unspecified (principal); D64.9 Anemia, unspecified; I10 Essential (primary) hypertension; K58.0 Irritable bowel syndrome with diarrhea; M1A.09X0 Idiopathic chronic gout, multiple sites, without tophus (tophi) | CPT/HCPCS: 96127; 99212 ==

== ENCOUNTER 2024-12-23 10:13 | Outpatient (AMB) | payer MEDICARE, BC, SELFPAY ==
--- NOTE | 2024-12-23 10:14 | A.OFFPC_ITS ---
Intake Visit Reasons: HDF Loss of speech, back pain, gout Allergies Sulfa (Sulfonamide Antibiotics) [SULFA(SULFONAMIDE ANTIBIOTICS)] Allergy (Severe, Verified 12/23/24 10:14) HIVES sulfur Allergy (Unknown, Verified 12/23/24 10:14) Unknown codeine Adverse Reaction (Mild, Verified 12/23/24 10:14) Abdominal Pain Tobacco use date assessed: 12/14/24 Fall risk assessment: No Falls in past year Last assessed Fall Risk: 12/23/24 Dental Screening Dental Screen Date: 12/14/24 HPI HDF Loss of speech, back pain, gout HPI Details confusionThe patient is an 84-year-old female presenting with essential hypertension. The patient initially experienced a significant increase in blood pressure, reaching over 200/100 mmHg, leading to hospital visits. She denies a stroke as two MRIs returned without significant findings. The initial blood pressure crisis occurred concomitant with transient dysarthria likely due to prednisone use for a foot condition, which has since resolved. Subsequent management includes a prescribed regimen of 25 mg antihypertensives administered nocturnally and diurnally, which the patient reports has significantly stabilized her condition. Furthermore, a recent gout attack was noted, yet the patient clarifies this was not the presenting reason for her medical visit. Dehydration was identified during hospital admissions where access to water was restricted, resulting in an elevated BUN level of 50. Rehydration has since been a focus. - Cardiovascular: Reports episodes of ch est pain previously; currently resolved. - Neurological: Denies any ongoing sympt oms of dysarthria or stuttering. - Hydration: Reports previous inadequate fluid intake during hospital stays. - Medication: Reports taking atenolol, c lonazepam, amitriptyline, and uses multivitamins. [facility] Medical History (Updated 12/23/24 @ 11:22 by Osvaldo Gifford MD) Gout Rectal bleeding Diverticular disease LFT elevation Fatigue Inflammatory arthritis Acute diverticulitis Arthralgia Abscess Orthostatic hypotension Seizure Obesity (BMI 30-39.9) Diverticulitis Anemia Restless leg HTN (hypertension) Surgical History History of appendectomy Spinal stenosis of lumbar region Hx of cholecystectomy History of bunionectomy Social History Household Members: Significant Other Housing: House Do you presently have visiting nurse or other home services: No Alcohol intake: former Comment: wine douglas and new year - and oncew a month 1 drink Patient Tobacco Use Status: Former Tobacco user Tobacco use type: Cigarette Years Smoked: 5 e-Cigarette/Vaping Use: Never Used Second Hand Smoke Exposure: No Advance Directives Date on File: 03/14/21 service: No Current occupational status: retired Cognitive needs: No Hearing needs: No Vision needs: Yes (Glasses) Questionnaire Thrive Questionnaire Date Thrive assessed: 12/14/24 JAKE-7 AMB Questionnaire JAKE-7 Date JAKE - 7 assessed: 12/14/24 Source: Developed by Drs. Dyllan Ansari, Maral Abdi, Osmani Rivera and colleagues, with an educational florentino from [employer]. Physical exam (Primary Care) Tobacco/Smoking Status: Tobacco use Status Tobacco use date assessed 12/14/24 12/23/24 10:15 Patient Tobacco Use Status Former Tobacco user 12/23/24 10:15 Tobacco use type Cigarette 12/23/24 10:15 e-Cigarette/Vaping Use Never Used 12/23/24 10:15 Thrive Assessment: Date of Thrive Assessment Date Thrive assessed 12/14/24 12/23/24 10:15 Telehealth Telehealth Telehealth Platform: Telephone Location of provider rendering services: practice address Location of patient: address on file Patient Identification confirmed using: Name, : Yes Telehealth method: video (IPhone) Patient verbally consented to treatment: Yes Patient verbally consented to billing insurance company: Yes Patient informed of any privacy concerns related to visit: Yes Minutes spent on Phone/Video with Pt.: 25 Coding Level of Care Code Tele Est Pt Level 4 (96121) Diagnoses Dehydration E86.0 Essential hypertension I10 Hypertension type: essential hypertension Assessment & Plan Assessment & Plan (1) Dehydration: Code(s): E86.0 - Dehydration Category: Medical (2) HTN (hypertension): Code(s): I10 - Essential (primary) hypertension Category: Medical Qualifiers: Hypertension type: essential hypertension Qualified Code(s): I10 - Essential (primary) hypertension Plan - Continue current regimen of antihypertensives, splitting dosage between morning and evening to maintain blood pressure control. - Monitor for recurrent signs of gout; continue current management and reassess necessity of different modalities. - Encourage increased daily fluid intake to prevent dehydration, aiming for at least 6 to 8 glasses of water per day. - No current antibiotics due to absence of infection. - Confirm the patient's ability to access a cane for mobility support post- prescription authorization. - Advise avoiding potential influenza exposure and encourage maintaining infection control practices. I discussed the management of hypertension, highlighting the necessity of maintaining adherence to the antihypertensive regimen to prevent further crises, especially given her family history of stroke. Options for managing dehydration were explored, emphasizing the importance of consistent fluid intake. I advised avoiding exposure to flu through distancing techniques and recommended the flu vaccine to enhance protection. The patient expressed interest in a cane, and I provided a prescription. Lastly, the forthcoming cardiac evaluation in February was noted, ensuring her cardiology follow-up plan remains in place. - Continue antihypertensive medication as prescribed, splitting doses between morning and evening. - Aim to drink at least 6 to 8 glasses of water each day. - Avoid close contact with individuals showing symptoms of flu and consider timely vaccination. - Contact the clinic if any new symptoms arise or conditions worsen. - Attend the scheduled cardiac workup in February as planned. - Utilize prescribed cane for stability as needed. Medications: New [cane] As directed 1 ea 0RF M1A.09X0 - Idiopathic chronic gout, multiple sites, without tophus (tophi) amoxicillin 875 mg PO BID 14 tabs 0RF Discontinued doxycycline hyclate Discontinued Reason: Doctor's Order 100 mg PO BID 13 caps 0RF indomethacin administer with food or milk Discontinued Reason: Patient Completed Course 50 mg PO TID PRN 15 caps 0RF pain
--- OUTSIDE RECORDS SUMMARY | 2024-12-23 13:30 | XMS_ITS | Patient Health Record ---
Author Organization [facility] Address [address] [place] [address] Care Team Providers Care Cake Wringer Name Role Phone Po Osvaldo TABARES Primary Care Provider Gracie Mcguire Unavailable [phone] ALLERGIES Allergen (clinical drug ingredient) Drug/Non Drug Allergy documented on EMR Reaction Allergy Type Onset Date Status Sulfacet-R Unknown Drug Allergy Active acetaminophen / oxycodone Percocet Unknown Drug Allergy Active Codeine Phosphate Unknown Drug Allergy Active REASON FOR REFERRAL No Information MEDICATIONS Medication SIG (Take, Route, Frequency, Duration) Notes Start Date End Date Status Cholestyramine 4 GM/DOSE MIX 1/2 TO 1 SC OOP IN 8 OUNCES OF WATER OR ORANGE JUICE EVERY DAY OR TWICE A DAY FOR DIARRHEA. for 30 Active Aspirin 81 81 MG 1 tablet Orally Once a day Active Probiotic - as directed Orally Active Cholestyramine 4 GM/DOSE MIX 1/2 TO 1 SC OOP IN 8 OUNCES OF WATER OR ORANGE JUICE EVERY DAY OR TWICE A DAY FOR DIARRHEA. Orally Once or twice a day for diarrhea for 30 days Active Aleve PM 220-25 MG 1 tablet Orally once at hs Not-Taking Flagyl 500 MG 1 tablet Orally Thre e times a day for 7 days 07/27/2021 Active Ciprofloxacin HCl 500 MG 1 tablet Orally every 12 hrs for 7 days PRN 08/02/2019 Active Melatonin 1 tablet in the even ing Orally as directed Active Amitriptyline HCl 75 MG 1 tablet at bedt nori Orally at bedtime Active Atenolol 50 MG TAKE ONE TABLET BY MOUTH EVERY DAY Oral for 90 Active Lisinopril 20 MG TAKE ONE TABLET BY MOUTH TWICE A DAY Oral for 90 Active Ocuvite Active Turmeric Active clonazePAM 0.5 MG (Schedule IV Drug) T NENA ONE TABLET BY MOUTH AT BEDTIME Oral for 90 Active IMMUNIZATIONS Vaccine Route Administration Date Status Comme nts Influenza Unknown 10/24/2016 Administered Influenza Unknown 06/24/2018 Administered Influenza Unknown 09/06/2020 Administered Influenza Unknown 09/12/2021 Administered SOCIAL HISTORY Sex Assigned At : Social History Observation Description Sex Assigned At Unknown PROBLEMS Problem Type ICD Code Onset Dates Problem Status W/U Status Risk SNOMED Code Notes Problem Diverticulitis of large intestine without perforation or abscess without bleeding (K57.32) Active confirmed 6956717 Problem Encounter for screening for malignant neoplasm of colon (Z12.11) Active confirmed 610511983 Problem Weight loss (R63.4) Active confirmed 28308490 Problem Encounter for screening for malignant neoplasm of rectum (Z12.12) Active confirmed Screening for malignant neoplasm of rectum (445043121) Problem Elevated liver function tests (R79.89) Active confirmed 510609695 Problem Diverticulosis of large intestine without hemorrhage (K57.30) Active confirmed 037683392 Problem Fatty liver (K76.0) Active confirmed 186403550 Problem Elevated ferritin (R79.89) Active confirmed 414071158 Problem Diarrhea, unspecified type (R19.7) Active confirmed 49561985 Problem Irritable bowel syndrome with constipation (K58.1) Active confirmed 232857685 Problem Hypertension, unspecified type (I10) Active confirmed 27693914 Problem Abdominal pain, diffuse (R10.84) Active confirmed 941822002 Problem Elevated ferritin level (R79.89) Active confirmed 862081604 Encounters Encounter Location Date Provider Diagnosis [facility] [address] [place] [address] 04/08/2024 Gracie Houston PLAN OF TREATMENT Pending Test Test Name Order Date CHEM 7 PROFILE 05/24/2021 LIVER PROFILE 05/10/2021 LIVER PROFILE 09/04/2021 LIVER PROFILE 06/15/2021 LIVER PROFILE 08/25/2017 LIVER PROFILE 05/04/2021 AMYLASE 08/25/2017 LIPASE 08/25/2017 IRON + IBC (FE) 05/10/2021 IRON + IBC (FE) 06/15/2021 FERRITIN 05/10/2021 CRP 05/24/2021 CRP 08/25/2017 CBC w DIFF 05/24/2021 CBC w DIFF 05/10/2021 CBC with MANUAL DIFFERENTIAL 08/25/2017 SED RATE (ESR) 05/24/2021 SED RATE (ESR) 08/25/2017 HEPATITIS B PROFILE 05/04/2021 CLOSTRIDIUM DIFF TOXIN A&B (C DIFF) 0801/2017 CLOSTRIDIUM DIFF TOXIN A&B (C DIFF) 03/24 CLOSTRIDIUM DIFF TOXIN A&B (C DIFF) 12/2016 STOOL WBC 06/26/2017 STOOL WBC 04/10/2018 STOOL WBC 08/25/2017 CELIAC PANEL #10 06/08/2021 ENDOMYSIAL IGA 02/06/2013 MITOCHONDRIAL AB 05/04/2021 HEMOCHROMATOSIS (C282Y) 05/04/2021 TRANSGLUTAMINASE AB IGA 02/06/2013 TRANSGLUTAMINASE AB IGG 02/06/2013 GIARDIA AG, STOOL EIA 06/26/2017 GIARDIA AG, STOOL EIA 04/10/2018 GIARDIA AG, STOOL EIA 08/25/2017 OVA & PARASITES (O&P) 06/26/2017 OVA & PARASITES (O&P) 04/10/2018 OVA & PARASITES (O&P) 08/25/2017 CULTURE, STOOL 05/24/2021 CULTURE, STOOL 09/25/2021 CULTURE, STOOL 06/26/2017 CULTURE, STOOL 04/10/2018 CULTURE, STOOL 08/25/2017 FLUOR. ANTINUCLEAR AB SCREEN (SASHA) 04/24 TSH REFLEX FREE T4 06/08/2021 STOOL WBC 05/24/2021 STOOL WBC 09/25/2021 C DIFFICILE RFLX PCR 09/25/2021 C DIFFICILE RFLX PCR 05/24/2021 IRON PROFILE 09/04/2021 Ferritin 09/04/2021 Ferritin 06/15/2021 Hepatitis C Antibody 05/04/2021 Future Test Test Name Order Date COLONOSCOPY 02/13/2017 Insurance Providers Payer Name Payer Address Payer Phone Subscriber Number Group Number Insured Name Patient Relationship to Insured Coverage Start Date Coverage End Date MEDICARE OF [place] [address] [place] [address] [id number] JIMBO BOWMAN Self - patient is the insured [facility] [address] [place], [place] [id number] [phone] [id number] JIMBO BOWMAN Self - patient is the insured MEDICAL (GENERAL) HISTORY Medical History History ICD Code Sigmoid Diverticulitis 08/2017---negativ e CT scan in 11/2017 and 03/2018 HTN Neg. colonoscopy in 1997, 12 06, and 2016--except for diverticulosis and hemorrhoids Denies [place],DM,CVA,Lung disease,renal dise ase Headaches Sigmoid diverticulitis on CT scan 10/2020--went to ER--treated with outpatient antibiotics Restless leg syndrome Fatty liver and elevated ottoniel ritin level--- imaging studies reveal some hepatomegaly, mildly dilated common bile duct status post cholecystectomy; no evidence of any splenomegaly or ascites; elevated ferritin leve > 1000 but with normal iron saturation. Genetic testing for hemochromatosis was negative except for one gene of the H63D mutation. The C282Y mutation was completely negative. Her liver workup was otherwise completely negative. Diverticulitis in 02/2021-inp atient antibiotics--small intramural abscess noted in the sigmoid colon--seen by Dr. Alonso--did not require surgery nor drainage Macular degeneration Negative celiac disease labs in May of 2021 IBS and diarrhea improved on cholestyram ine powder Surgical History Surgery Date(Month/Year) Cholecystectomy Spinal stenosis Bunion surgery
--- OUTSIDE RECORDS SUMMARY | 2024-12-23 13:30 | XMS_ITS ---
Author Organization [facility] Address [address] [facility] [address] [place] [address] Care Team Providers Care Packager Machine Name Role Phone Po Osvaldo TABARES Primary Care Provider Dyllan Mcguire Unavailable [phone] REASON FOR VISIT script MEDICATIONS Medication SIG (Take, Route, Frequency, Duration) Notes Start Date End Date Status Cholestyramine 4 GM/DOSE MIX 1/2 TO 1 SC OOP IN 8 OUNCES OF WATER OR ORANGE JUICE EVERY DAY OR TWICE A DAY FOR DIARRHEA. Orally Once or twice a day for diarrhea for 30 days Active Flagyl 500 MG 1 tablet Orally Thre e times a day for 7 days 07/27/2021 Active Ciprofloxacin HCl 500 MG 1 tablet Orally every 12 hrs for 7 days PRN 08/02/2019 Active Encounters Encounter Location Date Provider Diagnosis [facility] [address] 04/08/2024 Dyllan Houston PLAN OF TREATMENT Medication Medication Name Sig Start Date Stop Date Notes Cholestyramine 4 GM/DOSE MIX 1/2 TO 1 SC OOP IN 8 OUNCES OF WATER OR ORANGE JUICE EVERY DAY OR TWICE A DAY FOR DIARRHEA. Orally Once or twice a day for diarrhea for 30 days Flagyl 500 MG 1 tablet Orally Thre e times a day for 7 days 07/27/2021 Ciprofloxacin HCl 500 MG 1 tablet Orally every 12 hrs for 7 days 08/02/2019 PRN
== END 2024-12-23 11:43 | disposition home or self-care (01) ==
LOC: HO.HMCH 10:13
PROVIDERS: PCP Internal Medicine; Visit Provider Internal Medicine
DX: E86.0 Dehydration (principal); I10 Essential (primary) hypertension

== ENCOUNTER → 2024-12-23 10:13 | Outpatient (BNVA) | payer MEDICARE, BC, SELFPAY | PROVIDERS: PCP Internal Medicine; Visit Provider Internal Medicine ==

== ENCOUNTER 2025-02-04 14:25 | Outpatient (AMB) | payer MEDICARE, BC, SELFPAY ==
--- NOTE | 2025-02-04 14:37 | A.OFFPC_ITS ---
Vital Signs 02/04/25 14:38 Height 5 ft 4 in Weight 152 lb BMI 26.1 BP 120/60 Blood Pressure Location Lt brachial Position Sitting Pulse 68 Pulse Source Pulse Oximeter Temp 97.1 F Temp Source Temporal Artery Scan Pulse Oximetry (%) 94 Oxygen Delivery Method Room Air Intake Visit Reasons: [facility] 01/26 Intake Note: Patient is here for hospital discharge follow up. Patient was discharged from [facility] on 01/24/25. De Icer Element Winder Required: No Joiner Helper: Present Accompanied by: Spouse Allergies Sulfa (Sulfonamide Antibiotics) [SULFA(SULFONAMIDE ANTIBIOTICS)] Allergy (Severe, Verified 02/04/25 14:38) HIVES sulfur Allergy (Unknown, Verified 02/04/25 14:38) Unknown codeine Adverse Reaction (Mild, Verified 02/04/25 14:38) Abdominal Pain Tobacco use date assessed: 02/04/25 Fall risk assessment: No Falls in past year Last assessed Fall Risk: 02/04/25 Dental Screening Dental Screen Date: 12/14/24 HPI HPI Comments History of Present Illness Details 84 y/o Female patient who presents to [facility] for HDF. Pt was admitted at [facility] on 01/26/25 due to B/L Feet Pain. She was discharged home the same day with Oxycodone and Prednisone Taper. Pt reports pain has resolved for now. [facility] Medical History (Updated 02/04/25 @ 15:22 by Debi Loza NP) Pain in both feet Gout Rectal bleeding Diverticular disease LFT elevation Fatigue Inflammatory arthritis Acute diverticulitis Arthralgia Abscess Orthostatic hypotension Seizure Obesity (BMI 30-39.9) Diverticulitis Anemia Restless leg HTN (hypertension) Surgical History History of appendectomy Spinal stenosis of lumbar region Hx of cholecystectomy History of bunionectomy Social History Household Members: Significant Other Housing: House Do you presently have visiting nurse or other home services: No Alcohol intake: former Comment: wine douglas and new year - and oncew a month 1 drink Patient Tobacco Use Status: Former Tobacco user Tobacco use type: Cigarette Years Smoked: 5 e-Cigarette/Vaping Use: Never Used Second Hand Smoke Exposure: Yes Advance Directives Date on File: 03/14/21 service: No Current occupational status: retired Cognitive needs: No Hearing needs: No Vision needs: Yes (Glasses) Questionnaire Thrive Questionnaire Date Thrive assessed: 12/14/24 JAKE-7 AMB Questionnaire JAKE-7 Date JAKE - 7 assessed: 12/14/24 Source: Developed by Drs. Dyllan Ansari, Maral Abdi, Osmani Rivera and colleagues, with an educational florentino from [employer]. Review of Systems Const All systems reviewed & are unremarkable except as noted in HPI and below Physical exam (Primary Care) Vital Signs: Last Vital Signs Temp 97.1 F 02/04/25 14:38 Pulse 68 02/04/25 14:38 BP 120/60 02/04/25 14:38 Pulse Ox 94 02/04/25 14:38 Oxygen Delivery Method Room Air 02/04/25 14:38 BMI result Body Mass Index 26.1 Tobacco/Smoking Status: Tobacco use Status Tobacco use date assessed 02/04/25 02/04/25 14:51 Patient Tobacco Use Status Former Tobacco user 02/04/25 14:51 Tobacco use type Cigarette 02/04/25 14:51 e-Cigarette/Vaping Use Never Used 02/04/25 14:51 Thrive Assessment: Date of Thrive Assessment Date Thrive assessed 12/14/24 02/04/25 14:51 Const General: cooperative and no acute distress Orientation/consciousness: patient oriented x3 Skin General skin exam: no rashes or lesions noted Neuro General: patient oriented x3, gait normal and moves all extremities Extrem Right lower extremity: foot Details: normal capillary refill, toes with normal ROM and no edema; no tenderness Left lower extremity: foot Details: normal capillary refill, toes with normal ROM and no edema; no tenderness Psych Speech and movement: Normal speech and movement present Coding Level of Care Code Est Pt Level 4 (67216) Diagnoses Chronic gout of multiple sites, unspecified cause M1A.09X0 Chronicity: chronic Gout etiology: unspecified cause Gout site: multiple sites Pain in both feet M79.671; M79.672 Time Spent (min) 20 Assessment & Plan Assessment & Plan (1) Gout: Code(s): M10.9 - Gout, unspecified Category: Medical Qualifiers: Chronicity: chronic Gout etiology: unspecified cause Gout site: multiple sites Qualified Code(s): M1A.09X0 - Idiopathic chronic gout, multiple sites, without tophus (tophi) Plan: Continue taking Oxy as ordered for pain relief. Ordered Indomethacine for pain control (2) Pain in both feet: Code(s): M79.671 - Pain in right foot; M79.672 - Pain in left foot Category: Medical Plan: Continue taking Oxy as ordered for pain relief. Ordered Indomethacine for pain control Medications: New indomethacin administer with food or milk 50 mg PO BID 20 caps 0RF M1A.09X0 - Idiopathic chronic gout, multiple sites, without tophus (tophi) Refilled [cane] As directed 1 ea 0RF M1A.09X0 - Idiopathic chronic gout, multiple sites, without tophus (tophi)
[2025-02-04 14:38] VITALS: BP 120/60; PULSE 68; TEMP 36.2; O2SAT 94; BMI 26.1
--- OUTSIDE RECORDS SUMMARY | 2025-02-04 16:04 | XMS_ITS | Patient Health Record ---
Author Organization [facility] Address [address] [place] [address] Care Team Providers Care Business Process Lead Name Role Phone Po Osvaldo TABARES Primary Care Provider Gracie Mcguire Unavailable [phone] Allergies Allergen (clinical drug ingredient) Drug/Non Drug Allergy documented on EMR Reaction Allergy Type Onset Date Status Sulfacet-R Unknown Drug Allergy Active acetaminophen / oxycodone Percocet Unknown Drug Allergy Active Codeine Phosphate Unknown Drug Allergy Active Reason For Referral No Information Medications Medication SIG (Take, Route, Frequency, Duration) Notes [...] MOUTH AT BEDTIME Oral for 90 Active Immunizations Vaccine Route Administration Date Status Comme nts Influenza Unknown 10/24/2016 Administered Influenza Unknown 06/24/2018 Administered Influenza Unknown 09/06/2020 Administered Influenza Unknown 09/12/2021 Administered Problems Problem Type SNOMED Code ICD Code Onset Dates Problem Status W/U Status Risk Notes Problem 8231057 Diverticulitis o f large intestine without perforation or abscess without bleeding (K57.32) Active confirmed Problem 007222156 Encounter for screening for malignant neoplasm of colon (Z12.11) Active confirmed Problem 36921988 Weight loss (R63.4) Active confirmed Problem Screening for malignant neoplasm of rectum (775903531) Encounter for screening for malignant neoplasm of rectum (Z12.12) Active confirmed Problem 450802543 Elevated liver function tests (R79.89) Active confirmed Problem 560978964 Diverticulosis o f large intestine without hemorrhage (K57.30) Active confirmed Problem 642464028 Fatty liver (K76.0) Active confirmed Problem 148028197 Elevated ferriti n (R79.89) Active confirmed Problem 67908895 Diarrhea, unspecified type (R19.7) Active confirmed Problem 704193914 Irritable bowel syndrome with constipation (K58.1) Active confirmed Problem 23781461 Hypertension, unspecified type (I10) Active confirmed Problem 226986823 Abdominal pain, diffuse (R10.84) Active confirmed Problem 116121206 Elevated ferriti n level (R79.89) Active confirmed Encounters Encounter Location Date Provider Diagnosis [facility] [address] [place] [address] 04/08/2024 Gracie Houston Plan Of Treatment Pending Test Test Name Order Date CHEM 7 PROFILE 05/24/2021 LIVER PROFILE 06/15/2021 LIVER PROFILE 08/25/2017 LIVER PROFILE 05/10/2021 LIVER PROFILE 09/04/2021 LIVER PROFILE 05/04/2021 AMYLASE 08/25/2017 LIPASE 08/25/2017 IRON + IBC (FE) 06/15/2021 IRON + IBC (FE) 05/10/2021 FERRITIN 05/10/2021 CRP 05/24/2021 CRP 08/25/2017 CBC w DIFF 05/10/2021 CBC w DIFF 05/24/2021 CBC with MANUAL DIFFERENTIAL 08/25/2017 SED RATE (ESR) 05/24/2021 SED RATE (ESR) 08/25/2017 HEPATITIS B PROFILE 05/04/2021 CLOSTRIDIUM DIFF TOXIN A&B (C DIFF) 01/2017 CLOSTRIDIUM DIFF TOXIN A&B (C DIFF) 12/2016 CLOSTRIDIUM DIFF TOXIN A&B (C DIFF) 03/24 STOOL WBC 06/26/2017 STOOL WBC 08/25/2017 STOOL WBC 04/10/2018 CELIAC PANEL #10 06/08/2021 ENDOMYSIAL IGA 02/06/2013 MITOCHONDRIAL AB 05/04/2021 HEMOCHROMATOSIS (C282Y) 05/04/2021 TRANSGLUTAMINASE AB IGA 02/06/2013 TRANSGLUTAMINASE AB IGG 02/06/2013 GIARDIA AG, STOOL EIA 06/26/2017 GIARDIA AG, STOOL EIA 08/25/2017 GIARDIA AG, STOOL EIA 04/10/2018 OVA & PARASITES (O&P) 08/25/2017 OVA & PARASITES (O&P) 04/10/2018 OVA & PARASITES (O&P) 06/26/2017 CULTURE, STOOL 08/25/2017 CULTURE, STOOL 05/24/2021 CULTURE, STOOL 04/10/2018 CULTURE, STOOL 09/25/2021 CULTURE, STOOL 06/26/2017 FLUOR. ANTINUCLEAR AB SCREEN (SASHA) 04/24 TSH REFLEX FREE T4 06/08/2021 STOOL WBC 05/24/2021 STOOL WBC 09/25/2021 C DIFFICILE RFLX PCR 05/24/2021 C DIFFICILE RFLX PCR 09/25/2021 IRON PROFILE 09/04/2021 Ferritin 09/04/2021 Ferritin 06/15/2021 Hepatitis C Antibody 05/04/2021 Future Test Test Name Order Date COLONOSCOPY 02/13/2017 Insurance Providers Payer Name Payer Address Payer Phone Subscriber Number Group Number Insured Name Patient Relationship to Insured Coverage Start Date Coverage End Date MEDICARE OF [place] [address] [place] [id number] [phone] [id number] JIMBO BOWMAN Self - patient is the insured [facility] [address] [place], [place] [id number] JIMBO BOWMAN Self - patient is the insured Medical (General) History Medical History History ICD Code Sigmoid Diverticulitis 08/2017---negativ e CT scan in 11/2017 and 03/2018 HTN Neg. colonoscopy in 1997, 12 06, and 2016--except for diverticulosis and hemorrhoids Denies SD,DM,CVA,Lung disease,renal dise ase Headaches Sigmoid diverticulitis on [...]
--- OUTSIDE RECORDS SUMMARY | 2025-02-04 16:05 | XMS_ITS ---
Author Organization [facility] Address [address] [facility] [address] [place] [address] Care Team Providers Care Human Resources Hr Representative Name Role Phone Po Osvaldo TABARES Primary Care Provider Gracie Mcguire Unavailable [phone] REASON FOR VISIT script Medications Medication SIG (Take, Route, Frequency, Duration) [...] Active Encounters Encounter Location Date Provider Diagnosis [address] [address] 04/08/2024 Gracie Houston Plan Of Treatment Medication Medication Name Sig Start Date Stop [...] 12 hrs for 7 days 08/02/2019 PRN Progress Notes * JIMBO BOWMAN EDOB:[birth year] (83 yo F)Acc No.[id number]:04/08/2024 Patient:?JIMBO BOWMAN :1940???Age:83 Y???Sex:Female Address:[address] [place] [address], [place] [address] * Refills? Refill Ciprofloxacin HCl Tablet, 500 MG, Orally, 14 Tablet, 1 tablet, every 12 hrs, 7 days, Refills=0 Refill Flagyl Tablet, 500 MG, Orally, 21 Tablet, 1 tablet, Three times a day, 7 days, Refills=0 Refill Cholestyramine Powder, 4 GM/DOSE, Orally, 1, MIX 1/2 TO 1 SCOOP IN 8 OUNCES OF WATER OR ORANGE JUICE EVERY DAY OR TWICE A DAY FOR DIARRHEA., Once or twice a day for diarrhea, 30 days, Refills=4 * true * Date:? Generated for Verónica reece/Ana/Silvestre on:?02/04/2025 04:04 PM EDT
== END 2025-02-04 15:26 | disposition home or self-care (01) ==
LOC: HO.HMCH 14:26
PROVIDERS: PCP Internal Medicine; Visit Provider Nurse Practitioner Family
DX: M1A.09X0 Idiopathic chronic gout, multiple sites, without tophus (tophi) (principal); M79.671 Pain in right foot; M79.672 Pain in left foot

== ENCOUNTER → 2025-02-04 14:25 | Outpatient (BNVA) | payer MEDICARE, BC, SELFPAY | PROVIDERS: PCP Internal Medicine; Visit Provider Nurse Practitioner Family | DX: M1A.09X0 Idiopathic chronic gout, multiple sites, without tophus (tophi) (principal); M79.671 Pain in right foot; M79.672 Pain in left foot | CPT/HCPCS: 99212 ==

== ENCOUNTER 2025-03-21 13:49 | Outpatient (AMB) | payer MEDICARE, BC, SELFPAY ==
--- NOTE | 2025-03-21 14:03 | A.OFFVIS_ITS ---
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 Flying Ii Instructor Required: No Accompanied by: Significant Other Allergies Sulfa (Sulfonamide Antibiotics) [SULFA(SULFONAMIDE ANTIBIOTICS)] Allergy (Severe, Verified 02/04/25 14:38) HIVES sulfur Allergy (Unknown, Verified 02/04/25 14:38) Unknown codeine Adverse Reaction (Mild, Verified 02/04/25 14:38) Abdominal Pain Medication List - Last Reconciled 03/21/25 by Kaiser Solorio MD amitriptyline 75 mg PO BEDTIME aspirin (Adult Low Dose Aspirin) 81 mg PO DAILY atenolol 25 mg PO BID 90 days cane As directed [cane As directed] clonazepam 0.5 mg PO BEDTIME 90 days cyclosporine 0.05% 1 drp ophthalmic (eye) Q12H indomethacin 50 mg PO BID multivitamin 1 tab PO DAILY HPI Comments Details: Thank you for referring Devi in cardiology consultation today for PVCs. Patient is 84-year-old female, says has has PVCs for many years since she was 31 years old. She was had workup done in the past and was told everything was within normal limits and not to worry about a PVCs. More recently she had significantly labile blood pressure and her medications have been changed to atenolol. Since then she says a blood pressure is much more controlled. She was also says symptoms of PVCs and much subdued since been started on atenolol therapy. Overall she feels well. She was referred here after she presented emergency room November for bilateral foot pain which was diagnose with gout although she denies having gout and was at that time prescribed prednisone therapy with resolution of his symptoms. Her CRP was markedly elevated along with elevated uric acid noted in the past. Patient denies having gout. Patient is currently taking aspirin and atenolol therapy and feels well. She has not had any recurrent gout like episodes. While in the emergency room she was told that she had frequent PVCs which led to the referral today. She had EKG done in the emergency room at that time which had shown normal sinus rhythm. EKG again today confirms normal sinus rhythm. She denies any significant exertional chest pain or shortness of breath and remains active without any issues. No lightheadedness, syncope. No prolonged irregular heartbeat or palpitations. She does have tendency for anxiety and currently on clonazepam [facility] Medical History Pain in both feet Gout Rectal bleeding Diverticular disease LFT elevation Fatigue Inflammatory arthritis Acute diverticulitis Arthralgia Abscess Orthostatic hypotension Seizure Obesity (BMI 30-39.9) Diverticulitis Anemia Restless leg HTN (hypertension) Surgical History History of appendectomy Spinal stenosis of lumbar region Hx of cholecystectomy History of bunionectomy Social History Household Members: Significant Other Housing: House Do you presently have visiting nurse or other home services: No Alcohol intake: former Comment: wine douglas and new year - and oncew a month 1 drink Patient Tobacco Use Status: Former Tobacco user Tobacco use type: Cigarette Years Smoked: 5 e-Cigarette/Vaping Use: Never Used Second Hand Smoke Exposure: Yes Advance Directives Date on File: 03/14/21 service: No Current occupational status: retired Cognitive needs: No Hearing needs: No Vision needs: Yes (Glasses) Review of Systems Const Denies chills, Denies fatigue, Denies fever(s), Denies frequent falls, Denies weakness, Denies weight gain and Denies weight loss ENT Denies dizziness Card Denies chest pain, Denies leg edema, Denies lightheadedness, Denies palpitations, Denies dyspnea, Denies dyspnea on exertion and Denies orthopnea Resp Denies cough, Denies dyspnea and Denies dyspnea on exertion GI Denies bloating and Denies change in bowel habits Musc Denies muscle weakness, Denies numbness and Denies tingling Neuro Denies dizziness, Denies frequent falls, Denies numbness, Denies tingling and Denies weakness Endo Denies fatigue and Denies palpitations Physical Exam Vital Signs: Last Vital Signs Pulse 67 03/21/25 14:05 BP 120/62 03/21/25 14:05 BMI result Body Mass Index 28.4 Const General: cooperative, comfortable, no acute distress, alert, awake, Physically active, anxious and well groomed Nutritional Appearance: average body habitus Orientation/consciousness: patient oriented x3 Limitations: no limitations HEENT Head: Yes normocephalic and Yes atraumatic Neck Neck: Yes trachea midline, Yes supple and Yes no JVD Resp Effort & Inspection: normal respiratory effort Auscultation: clear to auscultation bilaterally Cardio Jugular venous distension: no JVD Palpation: normal PMI Rate: regular rate Rhythm: regular rhythm Heart sounds: S1 normal heart sound present, S2 normal heart sound present, no click, no gallops, no murmurs and no rubs GI Auscultation: normal bowel sounds Skin General skin exam: no rashes or lesions noted Neuro General: patient oriented x3 and no focal motor deficits Extrem General: Yes no clubbing, cyanosis or edema Psych Appearance: grossly normal Office Procedures EKG Details: EKG shows normal sinus rhythm with normal EKG [id number], Complete Assessment & Plan Assessment & Plan (1) PVCs (premature ventricular contractions): Code(s): I49.3 - Ventricular premature depolarization Category: Medical Plan: Patient with PVCs for more than 5 decades without any obvious cardiac complications. A symptoms of much more subdued on atenolol therapy which is expected. I would continue with the atenolol therapy. She needs to participate in stress mitigation strategies. Avoidance of stimulants was discussed. Isolated PVCs in the setting of prior workup from cardiac perspective with normal workup is associated with benign prognosis this was discussed with her. No change in therapy at this point in time. (2) HTN (hypertension): Code(s): I10 - Essential (primary) hypertension Category: Medical Qualifiers: Hypertension type: essential hypertension Qualified Code(s): I10 - Essential (primary) hypertension Plan: Labile blood pressure which as per her is now better controlled on atenolol therapy. This most likely driven by anxiety/stress as well. Blood pressure is well optimized at this point time. Continue atenolol therapy. Stress mitigation strategies was discussed. Low-salt diet was discussed. Advised to maintain adequate hydration. Will follow up in the clinic if need be. Thank you for allowing me to partake in her care Coding Level of Care Code New Pt Level 4 (90458) Complex EM visit Add On G2211 Diagnoses PVCs (premature ventricular contractions) I49.3 Essential hypertension I10 Hypertension type: essential hypertension CPT Codes EKG - CPT: 66556-[id number], Complete ([id number])
[2025-03-21 14:05] VITALS: BP 120/62; PULSE 67; BMI 28.4
== END 2025-03-21 14:59 | disposition home or self-care (01) ==
LOC: HO.HCS 13:50
PROVIDERS: PCP Internal Medicine; Visit Provider Internal Medicine Cardiovascular Disease
DX: I49.3 Ventricular premature depolarization (principal); I10 Essential (primary) hypertension
CPT/HCPCS: 93010; 99204; G2211

== ENCOUNTER → 2025-03-21 13:49 | Outpatient (BNVA) | payer MEDICARE, BC, SELFPAY | PROVIDERS: PCP Internal Medicine; Visit Provider Internal Medicine Cardiovascular Disease | DX: I49.3 Ventricular premature depolarization (principal); I10 Essential (primary) hypertension | CPT/HCPCS: 93005; 99202 ==

== ENCOUNTER 2025-04-29 14:39 | Outpatient (REF) | payer MEDICARE, BC, SELFPAY ==
[2025-04-29 16:27] LABS: MANUAL DIFF FLAG NO
[2025-04-29 16:37] LABS: Basophils Absolute Auto 0.2 X10*3/uL (0.0-0.2); Eosinophils Absolute Auto 0.2 X10*3/uL (0.0-0.4); Eosinophils Percent Auto 2.9 % (0-4); Hematocrit 34.8 % (37.0-47.0); Hemoglobin 11.8 g/dl (12.0-16.0); Imm Gran Abs Auto 0.03 X10*3/uL (0.00-0.03); Imm Gran Pct Auto 0.4 % (0.0-0.4); Lymphocytes Absolute Auto 3.9 X10*3/uL (1.2-4.9); Lymphocytes Percent Auto 47.1 % (20-40); Mean Corpuscular HGB Conc 33.9 g/dl (31.0-35.0); Mean Corpuscular Hemoglobin 30.6 pg (27.0-33.0); Mean Corpuscular Volume 90.4 fL (80.0-98.0); Mean Platelet Volume 9.2 fL (9.4-12.3); Monocytes Absolute Auto 0.7 X10*3/uL (0.1-1.2); Monocytes Percent Auto 8.5 % (2-11); Neutrophils Absolute Auto 3.2 x10*3/uL (2.0-8.3); Neutrophils Percent Auto 39.1 % (45-73); Platelet Count 185 X10*3/uL (160-400); Red Blood Count 3.85 X10*6/uL (4.20-5.50); Red Cell Distribution Width 14.4 % (11.0-16.0); White Blood Count 8.2 X10*3/uL (4.8-10.8)
[2025-04-30 18:28] LABS: A. Phagocytphilium DNA,RT-PCR NOT DETECTED (NOT DETECTED); Babesia Microti DNA, RT-PCR NOT DETECTED (NOT DETECTED); Borrelia Miyamotoi,DNA RT-PCR NOT DETECTED (NOT DETECTED); E.Chaffeensis DNA RT-PCR NOT DETECTED (NOT DETECTED); Lyme(Borrelia ssp)DNA RT-PCR NOT DETECTED (NOT DETECTED)
== END 2025-04-29 14:40 | disposition home or self-care (01) ==
LOC: HO.HMGCLDS 14:39
PROVIDERS: PCP Internal Medicine; Visit Provider Physician Assistant
DX: M79.10 Myalgia, unspecified site (principal); R53.83 Other fatigue
CPT/HCPCS: 36415; 85025; 87468; 87469; 87478; 87484; 87798; 99212

== ENCOUNTER 2025-04-29 14:39 | Outpatient (AMB) | payer MEDICARE, BC, SELFPAY ==
--- OUTSIDE RECORDS SUMMARY | 2025-04-29 14:41 | XMS_ITS | Patient Health Record ---
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 Railroad Name Role Phone Po Osvaldo TABARES Primary Care Provider Gracie Mcguire Unavailable [phone] Allergies Allergen (clinical drug ingredient) Drug/Non Drug [...] Problem Status W/U Status Risk Notes Problem 2136384 Diverticulitis o f large intestine without perforation or abscess without bleeding (K57.32) Active confirmed Problem 283804109 Encounter for screening for malignant neoplasm of colon (Z12.11) Active confirmed Problem 79909775 Weight loss (R63.4) Active confirmed Problem Screening for malignant neoplasm of rectum (446600921) Encounter for screening for malignant neoplasm of rectum (Z12.12) Active confirmed Problem 340260892 Elevated liver function tests (R79.89) Active confirmed Problem 367145013 Diverticulosis o f large intestine without hemorrhage (K57.30) Active confirmed Problem 307483330 Fatty liver (K76.0) Active confirmed Problem 389132717 Elevated ferriti n (R79.89) Active confirmed Problem 57697885 Diarrhea, unspecified type (R19.7) Active confirmed Problem 553947734 Irritable bowel syndrome with constipation (K58.1) Active confirmed Problem 08926374 Hypertension, unspecified type (I10) Active confirmed Problem 101555954 Abdominal pain, diffuse (R10.84) Active confirmed Problem 783114512 Elevated ferriti n level (R79.89) Active confirmed Plan Of Treatment Pending Test Test Name Order Date CHEM 7 PROFILE 05/24/2021 LIVER PROFILE 05/10/2021 LIVER PROFILE 09/04/2021 LIVER PROFILE 05/04/2021 LIVER PROFILE 06/15/2021 LIVER PROFILE 08/25/2017 AMYLASE 08/25/2017 LIPASE 08/25/2017 IRON + IBC (FE) 05/10/2021 IRON + IBC (FE) 06/15/2021 FERRITIN 05/10/2021 CRP 05/24/2021 CRP 08/25/2017 CBC w DIFF 05/24/2021 CBC w DIFF 05/10/2021 CBC with MANUAL DIFFERENTIAL 08/25/2017 SED RATE (ESR) 05/24/2021 SED RATE (ESR) 08/25/2017 HEPATITIS B PROFILE 05/04/2021 CLOSTRIDIUM DIFF TOXIN A&B (C DIFF) 03/24 CLOSTRIDIUM DIFF TOXIN A&B (C DIFF) 01/2017 CLOSTRIDIUM DIFF TOXIN A&B (C DIFF) 12/2016 STOOL WBC 08/25/2017 STOOL WBC 04/10/2018 STOOL WBC 06/26/2017 CELIAC PANEL #10 06/08/2021 ENDOMYSIAL IGA 02/06/2013 MITOCHONDRIAL AB 05/04/2021 HEMOCHROMATOSIS (C282Y) 05/04/2021 TRANSGLUTAMINASE AB IGA 02/06/2013 TRANSGLUTAMINASE AB IGG 02/06/2013 GIARDIA AG, STOOL EIA 08/25/2017 GIARDIA AG, STOOL EIA 04/10/2018 GIARDIA AG, STOOL EIA 06/26/2017 OVA & PARASITES (O&P) 06/26/2017 OVA & PARASITES (O&P) 08/25/2017 OVA & PARASITES (O&P) 04/10/2018 CULTURE, STOOL 06/26/2017 CULTURE, STOOL 08/25/2017 CULTURE, STOOL 05/24/2021 CULTURE, STOOL 04/10/2018 CULTURE, STOOL 09/25/2021 FLUOR. ANTINUCLEAR AB SCREEN (SASHA) 04/24 TSH REFLEX FREE T4 06/08/2021 STOOL WBC 05/24/2021 STOOL WBC 09/25/2021 C DIFFICILE RFLX PCR 05/24/2021 C DIFFICILE RFLX PCR 09/25/2021 IRON PROFILE 09/04/2021 Ferritin 06/15/2021 Ferritin 09/04/2021 Hepatitis C Antibody 05/04/2021 Future Test Test Name Order Date COLONOSCOPY 02/13/2017 Insurance Providers Payer Name Payer Address Payer Phone Subscriber Number Group Number Insured Name Patient Relationship to Insured Coverage Start Date Coverage End Date MEDICARE OF [place] [address] [place] [address] [phone] [id number] JIMBO BOWMAN Self - patient is the insured [facility] [address] [place], [place] [id number] JIMBO BOWMAN Self - patient is the insured Medical (General) History Medical History History ICD Code Sigmoid Diverticulitis 08/2017---negativ e CT scan in 11/2017 and 03/2018 HTN Neg. colonoscopy in 1997, 12 06, and 2016--except for diverticulosis and hemorrhoids Denies NH,DM,CVA,Lung disease,renal dise ase Headaches Sigmoid diverticulitis on [...]
[2025-04-29 14:49] VITALS: BP 100/60; PULSE 77; RESP 16; TEMP 36.8; O2SAT 98; BMI 25.2
--- NOTE | 2025-04-29 14:49 | AM.OFFWIN_ITS ---
Intake Vital Signs 04/29/25 14:49 Height 5 ft 4 in Weight 147 lb BMI 25.2 BP 100/60 Blood Pressure Location Lt brachial Position Sitting Respiration 16 Pulse 77 Pulse Source Pulse Oximeter Temp 98.2 F Temp Source Oral Pulse Oximetry (%) 98 Oxygen Delivery Method Room Air Intake Visit Reasons: EP Tick bite ? Lyme disease Intake Note: Pt is here today ?tick bite noticed 2 spots on Rt side of face Patient Tobacco Use Status: Former Tobacco user Allergies Sulfa (Sulfonamide Antibiotics) [SULFA(SULFONAMIDE ANTIBIOTICS)] Allergy (Severe, Verified 04/29/25 14:54) HIVES sulfur Allergy (Unknown, Verified 04/29/25 14:54) Unknown codeine Adverse Reaction (Mild, Verified 04/29/25 14:54) Abdominal Pain HPI HPI Comments History of Present Illness Details She presents with concern for lyme She has been outside more recently She noticed 5 days ago she had a small bug crawling near her that resembled a tick Pt felt like current symptoms could be lyme disease She feels like symptoms present x 6 days ago + headaches intermittent, sore glands in throat, felt slightly off balanced (without syncope, falls or HT) She denies fever or chills No skin rashes or lesions aside from red dot on R side of chin. Doesn't recall bite Did not remove tick off of her but noticed it inside next to her She states in office she has fatigue and slight joint aches No cough congestion ST No chest pain or dyspnea PFSH Medical History (Updated 04/29/25 @ 15:10 by Marline Hidalgo PA-C) Fatigue Pain in both feet Gout Rectal bleeding Diverticular disease LFT elevation Inflammatory arthritis Acute diverticulitis Arthralgia Abscess Orthostatic hypotension Seizure Obesity (BMI 30-39.9) Diverticulitis Anemia Restless leg HTN (hypertension) Surgical History History of appendectomy Spinal stenosis of lumbar region Hx of cholecystectomy History of bunionectomy Social History Household Members: Significant Other Housing: House Do you presently have visiting nurse or other home services: No Alcohol intake: former Comment: wine douglas and new year - and oncew a month 1 drink Patient Tobacco Use Status: Former Tobacco user Tobacco use type: Cigarette Years Smoked: 5 e-Cigarette/Vaping Use: Never Used Second Hand Smoke Exposure: Yes Advance Directives Date on File: 03/14/21 service: No Current occupational status: retired Cognitive needs: No Hearing needs: No Vision needs: Yes (Glasses) Review of Systems Const Denies chills, Reports fatigue, Denies fever(s) and Reports headache(s) Eyes Denies change in vision ENT Denies dizziness, Reports headache(s), Denies mouth pain, Denies nasal congestion, Denies nose pain, Denies sinus pain, Denies sinus pressure and Denies sore throat Card Denies chest pain and Denies dyspnea Resp Denies cough and Denies dyspnea Musc Reports myalgias Skin/Breast Denies erythema and Denies rash Neuro Denies dizziness and Reports headache(s) Endo Reports fatigue Physical Exam Vital Signs: Last Vital Signs Temp 98.2 F 04/29/25 14:49 Pulse 77 04/29/25 14:49 Resp 16 04/29/25 14:49 BP 100/60 04/29/25 14:49 Pulse Ox 98 04/29/25 14:49 Oxygen Delivery Method Room Air 04/29/25 14:49 BMI result Body Mass Index 25.2 General: Non-toxic, NAD. Speaking full sentences. Skin: Warm dry throughout. There is 2 small erythematous scabbed pustules to R chin. No drainage. Eye: EOMI, PERRLA HENT: Airway patent. Uvula midline. No pharyngeal erythema or edema. No SALES RECRUITMENT SPECIALIST. Bilateral canals clear. TM non-erythematous, non-bulging. No TM perforation or hemotympanum noted. Respiratory: CTA bilaterally. No wheezes, rales or rhonchi Cardiac: RRR. No murmur MSK: Full ROM extremities. Neurology: A/O x 3. CN 2-12 grossly intact. Finger to nose tracing equal. 5/5 vice president network strength. No aphasia or facial droop. Gait without abnormality Psych: Good mood and affect Assessment & Plan Assessment & Plan (1) Myalgia: Code(s): M79.10 - Myalgia, unspecified site Plan: Patient seen and evaluated. No neuro deficit on exam No erythema migrans on exam Will order tick panel CBC and CMP ordered F/U with PCP ER s/s discussed and patient gave verbal understanding and had no additional questions or concerns at time of discharge All questions answered (2) Fatigue: Code(s): R53.83 - Other fatigue Qualifiers: Fatigue type: unspecified Qualified Code(s): R53.83 - Other fatigue Plan: see above Orders: Orders Tick-borne Disease Molecular Today M79.10 - Myalgia, unspecified site Complete Blood Count Auto Diff Today R53.83 - Other fatigue Comprehensive Met. Panel Today R53.83 - Other fatigue Coding Level of Care Code Est Pt Level 3 (64347) Diagnoses Myalgia M79.10 Fatigue, unspecified type R53.83 Fatigue type: unspecified
== END 2025-04-29 15:14 | disposition home or self-care (01) ==
PROVIDERS: PCP Internal Medicine; Visit Provider Physician Assistant
DX: M79.10 Myalgia, unspecified site (principal); R53.83 Other fatigue

== ENCOUNTER 2025-05-16 10:36 | Outpatient (REF) | payer MEDICARE, BC, SELFPAY ==
--- OUTSIDE RECORDS SUMMARY | 2025-05-16 11:53 | XMS_ITS | Patient Health Record ---
Author Organization [facility] Address [address] [place] [address] Care Team Providers Care Truck Cleaner Name Role Phone Po Osvaldo TABARES Primary Care Provider Gracie Mcguire Unavailable [phone] Allergies Allergen (clinical drug ingredient) Drug/Non Drug [...] Problem Status W/U Status Risk Notes Problem 4189349 Diverticulitis o f large intestine without perforation or abscess without bleeding (K57.32) Active confirmed Problem 804745715 Encounter for screening for malignant neoplasm of colon (Z12.11) Active confirmed Problem 52121319 Weight loss (R63.4) Active confirmed Problem Screening for malignant neoplasm of rectum (271807409) Encounter for screening for malignant neoplasm of rectum (Z12.12) Active confirmed Problem 204321928 Elevated liver function tests (R79.89) Active confirmed Problem 836737367 Diverticulosis o f large intestine without hemorrhage (K57.30) Active confirmed Problem 651942627 Fatty liver (K76.0) Active confirmed Problem 536797924 Elevated ferriti n (R79.89) Active confirmed Problem 95323443 Diarrhea, unspecified type (R19.7) Active confirmed Problem 111435754 Irritable bowel syndrome with constipation (K58.1) Active confirmed Problem 98995762 Hypertension, unspecified type (I10) Active confirmed Problem 973095065 Abdominal pain, diffuse (R10.84) Active confirmed Problem 471365577 Elevated ferriti n level (R79.89) Active confirmed [...] [place] [address] [place] [address] [id number] JIMBO BOWMAN Self - patient is the insured [facility] [address] [place], [place] [phone] [id number] JIMBO BOWMAN Self - patient is the insured Medical (General) History Medical History History ICD Code Sigmoid Diverticulitis 08/2017---negativ e CT scan in 11/2017 and 03/2018 HTN Neg. colonoscopy in 1997, 12 06, and 2016--except for diverticulosis and hemorrhoids Denies DC,DM,CVA,Lung disease,renal dise ase Headaches Sigmoid diverticulitis on [...]
[2025-05-16 13:09] LABS: Color Urine Yellow; Glucose Urine UA Negative (Negative); Leukocyte Esterase Urine Trace (Negative); Nitrite Urine Negative (Negative); PH 6.5 (5.0-9.0); UMIC TRIGGER UACC YES; Urine Blood Negative (Negative); Urine Ketones Negative (Negative); Urine Protein Negative (Neg-Trace)
[2025-05-16 13:10] LABS: Appearance Urine Clear
[2025-05-16 13:11] LABS: Bacteria Urine None Seen (None Seen); Hyaline Casts Urine 0-2 /LPF (0-2); RBC Urine 0-2 /HPF (0-2); Squamous Epithelial Cell Urine 0-2 /HPF (0-2); WBC Urine 0-5 /HPF (0-5)
[2025-05-16 13:18] LABS: Basophils Absolute Auto 0.2 X10*3/uL (0.0-0.2); Basophils Percent Auto 3.1 % (0-2); Eosinophils Absolute Auto 0.2 X10*3/uL (0.0-0.4); Eosinophils Percent Auto 2.9 % (0-4); Hematocrit 38.9 % (37.0-47.0); Hemoglobin 12.9 g/dl (12.0-16.0); Imm Gran Abs Auto 0.02 X10*3/uL (0.00-0.03); Imm Gran Pct Auto 0.3 % (0.0-0.4); Immature Retic Fraction 5.4 % (3.0-15.9); Lymphocytes Absolute Auto 2.4 X10*3/uL (1.2-4.9); MANUAL DIFF FLAG SCAN; Mean Corpuscular HGB Conc 33.2 g/dl (31.0-35.0); Mean Corpuscular Hemoglobin 30.6 pg (27.0-33.0); Mean Corpuscular Volume 92.4 fL (80.0-98.0); Mean Platelet Volume 9.4 fL (9.4-12.3); Monocytes Absolute Auto 0.6 X10*3/uL (0.1-1.2); Monocytes Percent Auto 8.1 % (2-11); Neutrophils Absolute Auto 3.5 x10*3/uL (2.0-8.3); Neutrophils Percent Auto 50.6 % (45-73); Platelet Count 195 X10*3/uL (160-400); Red Blood Count 4.21 X10*6/uL (4.20-5.50); Red Cell Distribution Width 13.9 % (11.0-16.0); Retic HGB Equivalent 34.6 pg (30.0-35.0); Reticulocyte Percent 0.7 % (0.5-1.8); SCAN SMEAR FLAG 1; White Blood Count 6.8 X10*3/uL (4.8-10.8)
[2025-05-16 13:20] LABS: Estimated Average Glucose 105 mg/dL; Hemoglobin A1C 117.6164 umol/L; Hemoglobin A1c % 5.3 % (<6.0)
[2025-05-16 13:42] LABS: Alanine Aminotransferase 15 U/L (0-31); Albumin Level 4.2 g/dL (3.5-5.0); Alkaline Phosphatase 51 U/L (39-117); Anion Gap 12 (12-20); Aspartate Amino Transferase 28 U/L (5-31); Bilirubin Total 0.5 mg/dL (0.0-1.0); Blood Urea Nitrogen 11 mg/dL (9-16); Calcium 9.6 mg/dL (8.4-10.2); Carbon Dioxide 28 mmol/L (22-29); Chloride 105 mmol/L (96-108); Cholesterol 137 mg/dL (<200); Estimated Glomerular Filt Rate 52; Glucose Random 99 mg/dL (60-115); HDL Cholesterol 59 mg/dL (>40); Iron 89 mcg/dL (30-160); LDL Cholesterol Calculated 64 mg/dL (<100); Magnesium 1.7 mg/dL (1.6-2.6); Percent Iron Saturation 38 % (15-50); Potassium 4.8 mmol/L (3.3-5.1); Sodium 140 mmol/L (135-145); Total Iron Binding Capacity 235 mcg/dL (228-428); Triglycerides 72 mg/dL (<150); Unsaturated Iron Binding 146 ug/dL
[2025-05-16 13:46] LABS: Ferritin 139 ng/mL (10-250); Vitamin D 25-OH Total 50.8 ng/mL (>30)
[2025-05-16 13:52] LABS: HBS Num1 0.36 mIU/mL (0-7.99); HBc Num1 0.09 S/CO (0.00-0.79); HBsAGNum1 0.33 S/CO (0.00-0.99); Hepatitis B Core Antibody Nonreactive (Nonreactive); Hepatitis B Surface Antigen Negative (Negative); ~HepC Num1 0.13 S/CO (0.00-0.79); ~Hepatitis B Surface Antibody NONREACTIVE (Nonreactive); ~Hepatitis C Antibody Nonreactive (Nonreactive)
[2025-05-16 13:56] LABS: Folate 12.2 ng/mL (> or = 4.0); Vitamin B12 578 pg/mL (200-900)
[2025-05-16 14:44] LABS: SLIDE REVIEW VERIFIED
== END 2025-05-16 10:37 | disposition home or self-care (01) ==
LOC: HO.10HDL 10:36
PROVIDERS: Visit Provider Internal Medicine
DX: D64.9 Anemia, unspecified (principal); E78.00 Pure hypercholesterolemia, unspecified; R79.89 Other specified abnormal findings of blood chemistry; R30.0 Dysuria
CPT/HCPCS: 36415; 80053; 80061; 81001; 82306; 82607; 82728; 82746; 83036; 83540; 83735; 84439; 84443; 85025; 85045; 86704; 86706; 86803; 87340

== ENCOUNTER 2025-05-18 12:50 | Outpatient (AMB) | payer MEDICARE, BC, SELFPAY ==
[2025-05-18 13:03] VITALS: BP 128/80; PULSE 67; O2SAT 97; BMI 24.9
--- NOTE | 2025-05-18 13:03 | MHC.PC.OV ---
Vital Signs 05/18/25 13:03 Height 5 ft 4 in Weight 145 lb BMI 24.9 BP 128/80 Blood Pressure Location Lt brachial Position Sitting Pulse 67 Pulse Source Pulse Oximeter Pulse Oximetry (%) 97 Oxygen Delivery Method Room Air Intake Visit Reasons: 6 Month F/U Batch Or Continuous Still Operator Required: No Accompanied by: Self / Same As Patient Allergies Sulfa (Sulfonamide Antibiotics) (SULFA(SULFONAMIDE ANTIBIOTICS)) Allergy (Severe, Verified 05/18/25 13:03) HIVES sulfur Allergy (Unknown, Verified 05/18/25 13:03) Unknown codeine Adverse Reaction (Mild, Verified 05/18/25 13:03) Abdominal Pain Medication List - Last Reconciled 05/18/25 by Osvaldo Omalley Po, amitriptyline 75 mg PO BEDTIME atenolol 25 mg PO BID 90 days cane As directed [cane As directed] clonazepam 0.5 mg PO BEDTIME 90 days cyclosporine 0.05% 1 drp ophthalmic (eye) Q12H meloxicam 7.5 mg PO DAILY multivitamin 1 tab PO DAILY ai-pyt-MC-vit T-yvcspp-afvubsj 200 mcg-15 mcg- 5 mg-1 mg (PreserVision AREDS 2 Plus Multivit) caps PO nitrofurantoin monohyd/m-cryst 100 mg (Macrobid) 100 mg PO Q12H 7 days Tobacco use date assessed: 05/18/25 Fall risk assessment: 2 + Falls in past year Last assessed Fall Risk: 05/18/25 Dental Screening Dental Screen Date: 05/18/25 Did you have a dental visit in the last 12 months?: Yes Did you have a dental problem in the last 6 months where you did not have access to dental care?: No Was dental information given to patient?: Patient has dentist [facility] Medical History (Updated 04/29/25 @ 15:10 by Marline Hidalgo PA-C) Fatigue Pain in both feet Gout Rectal bleeding Diverticular disease LFT elevation Inflammatory arthritis Acute diverticulitis Arthralgia Abscess Orthostatic hypotension Seizure Obesity (BMI 30-39.9) Diverticulitis Anemia Restless leg HTN (hypertension) Surgical History History of appendectomy Spinal stenosis of lumbar region Hx of cholecystectomy History of bunionectomy Social History Household Members: Significant Other Housing: House Do you presently have visiting nurse or other home services: No Alcohol intake: former Comment: wine douglas and new year - and oncew a month 1 drink Patient Tobacco Use Status: Former Tobacco user Tobacco use type: Cigarette Years Smoked: 5 e-Cigarette/Vaping Use: Never Used Second Hand Smoke Exposure: Yes Advance Directives Date on File: 03/14/21 service: No Current occupational status: retired Cognitive needs: No Hearing needs: No Vision needs: Yes (Glasses) Questionnaire PHQ-9 Over the last 2 weeks, how often have you been bothered by any of the following problems? 1. Little interest or pleasure in doing things: not at all 2. Feeling down, depressed, or hopeless: not at all 3. Trouble falling or staying asleep, or sleeping too much: not at all 4. Feeling tired or having little energy: not at all 5. Poor appetite or overeating: not at all 6. Feeling bad about yourself - or that you are a failure or have let yourself or your family down: not at all 7. Trouble concentrating on things, such as reading the newspaper or watching television: not at all 8. Moving or speaking so slowly that other people could have noticed. Or the opposite - being so fidgety or restless that you have been moving around a lot more than usual: not at all 9. Thoughts that you would be better off or of hurting yourself in some way: not at all Total score: 0 Source: Developed by Drs. Dyllan Ansari, Maral Abdi, Osmani Rivera and colleagues, with an educational florentino from [employer]. Thrive Questionnaire Date Thrive assessed: 05/18/25 I am a: Patient What is your living situation today?: I have a steady place to live Within the past 12 months, did the food you bought not last and you didn't have the money to get more?: Never true Within the past 12 months, did you worry whether your food would run out before you got money to buy more?: Never true Do you have trouble paying for medicines?: No Do you have trouble getting transportation to medical appointments?: No Do you have trouble paying your heating and electricity bill?: No Do you have trouble taking care of your child, family member or friend?: No Do you have trouble with day-to-day activities such as bathing, preparing meals, shopping, managing finances, etc.?: No Are you currently unemployed and looking for a job?: No Are you interested in more education?: No Please select the resources that you would like help with: None Currently or been in a relationship where the following occur: No concerns reported THRIVE Score: 0 AUDIT C Alcohol Use Questionnaire (AUDIT-C) 1. How often do you have a drink containing alcohol?: Never 3. How often do you have six or more drinks on one occasion?: Never Total Score: 0 JAKE-7 AMB Questionnaire JAKE-7 Date JAKE - 7 assessed: 05/18/25 Feeling nervous, anxious, or on edge: 0 = Not at all Not being able to stop or control worryin = Not at all Worrying too much about different things: 0 = Not at all Trouble relaxin = Not at all Being so restless that it is hard to sit still: 0 = Not at all Becoming easily annoyed or irritable: 0 = Not at all Feeling afraid as if something awful might happen: 0 = Not at all Total JAKE-7 score (0-4 normal; 5-9 mild; 10-14 moderate; 15-21 severe): 0 Source: Developed by Drs. Dyllan Ansari, Maral Abdi, Osmani Rivera and colleagues, with an educational florentino from [employer]. Physical exam (Primary Care) Vital Signs: Last Vital Signs Pulse 67 05/18/25 13:03 BP 128/80 05/18/25 13:03 Pulse Ox 97 05/18/25 13:03 Oxygen Delivery Method Room Air 05/18/25 13:03 BMI result Body Mass Index 24.9 Tobacco/Smoking Status: Tobacco use Status Tobacco use date assessed 05/18/25 05/18/25 13:09 Patient Tobacco Use Status Former Tobacco user 05/18/25 13:09 Tobacco use type Cigarette 05/18/25 13:09 e-Cigarette/Vaping Use Never Used 05/18/25 13:09 PHQ-9: PHQ-9 Score PHQ-9: Total score 0 05/18/25 13:40 Thrive Assessment: Date of Thrive Assessment Date Thrive assessed 05/18/25 05/18/25 13:09 Currently or been in a relationship where the following occur: No concerns reported Const General: alert; No acute distress Eyes Conjunctivae: conjunctivae normal Resp Auscultation: clear to auscultation bilaterally Cardio Rate: regular rate Rhythm: regular rhythm GI Inspection: Yes normal to inspection Extrem General: Yes normal to inspection and No edema Coding Level of Care Code Est Pt Level 4 (03025) Complex EM visit Add On G2211 Diagnoses Essential hypertension I10 Hypertension type: essential hypertension PVCs (premature ventricular contractions) I49.3 Fatty liver K76.0 Renal insufficiency N28.9 Anemia, unspecified type D64.9 Anemia type: unspecified type Chronic gout of multiple sites, unspecified cause M1A.09X0 Chronicity: chronic Gout etiology: unspecified cause Gout site: multiple sites Assessment & Plan Assessment & Plan (1) HTN (hypertension): Code(s): I10 - Essential (primary) hypertension Category: Medical Qualifiers: Hypertension type: essential hypertension Qualified Code(s): I10 - Essential (primary) hypertension Plan: Patient on atenolol 25 mg once a day Continue with blood pressure medication. Decrease salt intake and exercise (2) PVCs (premature ventricular contractions): Code(s): I49.3 - Ventricular premature depolarization Category: Medical Plan: Patient has seen Cardiology and reassurance (3) Fatty liver: Code(s): K76.0 - Fatty (change of) liver, not elsewhere classified Category: Medical Plan: Low-fat diet and exercise (4) Renal insufficiency: Code(s): N28.9 - Disorder of kidney and ureter, unspecified Category: Medical Plan: Stable avoid NSAID keep well hydrated (5) Anemia: Code(s): D64.9 - Anemia, unspecified Category: Medical Qualifiers: Anemia type: unspecified type Qualified Code(s): D64.9 - Anemia, unspecified Plan: Resolved (6) Gout: Code(s): M10.9 - Gout, unspecified Category: Medical Qualifiers: Chronicity: chronic Gout etiology: unspecified cause Gout site: multiple sites Qualified Code(s): M1A.09X0 - Idiopathic chronic gout, multiple sites, without tophus (tophi) Plan: Low purine diet keep well hydrated Plan History of Present Illness The patient is an 84-year-old female presenting for a follow-up visit. She has a history of hypertension, irritable bowel syndrome, hepatic steatosis, renal insufficiency, osteoarthritis, and gout. Her last colonoscopy was in 2016, and her last mammogram was in August 2024. The patient experienced muscle aches and was evaluated for Lyme disease at an urgent care center in April, with negative results. Blood work done on May 16 showed normal blood count, electrolytes, renal function, blood sugar, magnesium, iron, liver function, cholesterol, and thyroid levels. She was seen by cardiology in February for premature ventricular contractions and was reassured about her condition. The patient reports severe pain in both feet, described as excruciating and not related to gout, as her uric acid levels are low. X-rays of the left foot in November showed arthritis but no fractures. The pain is intermittent, with no current pain reported during the visit. The patient has a history of macular degeneration and is receiving treatment with injections. 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 - Engages in housework and chores, which may exacerbate physical symptoms. Review of Systems - Musculoskeletal: Reports severe, intermittent pain in both feet, denies knee pain. - Cardiovascular: Denies chest pain, reports history of premature ventricular contractions. - Neurological: Denies numbness or tingling. - Ophthalmologic: Reports macular degeneration. Physical Exam - Circulation: Pulses palpable in feet, indicating good blood flow Results - Labs: Normal blood count, electrolytes, renal function, blood sugar, magnesium, iron, liver function, cholesterol, and thyroid levels as of May 16. - Imaging: X-rays of the left foot in November showed arthritis but no fractures. Plan The patient will continue with atenolol 25 mg daily for hypertension management and reassurance regarding premature ventricular contractions. A low-purine diet and adequate hydration are recommended to manage gout symptoms. For osteoarthritis-related foot pain, meloxicam will be prescribed for use as needed, with caution advised regarding NSAID use due to potential renal implications. The patient is advised to maintain a no-fat diet and engage in regular exercise to support overall health and manage hepatic steatosis. Regular follow-up with cardiology is recommended to monitor cardiac health, and the patient should continue with current ophthalmologic care for macular degeneration. Preventative care measures include scheduling an overdue colonoscopy and ensuring regular mammograms. Patient was informed and verbally consented to the use of an ambient scribe for clinic note documentation during this visit. Discussion Notes During the visit, I discussed with the patient the management of her hypertension with atenolol and the reassurance provided by cardiology regarding her premature ventricular contractions. We reviewed the importance of a low-purine diet and hydration for gout management and the cautious use of meloxicam for osteoarthritis pain. I emphasized the need for a no-fat diet and regular exercise to manage hepatic steatosis and advised on the continuation of ophthalmologic care for macular degeneration. Preventative care discussions included the need for an overdue colonoscopy and regular mammograms. Patient Instructions - Continue taking atenolol 25 mg daily. - Follow a low-purine diet and stay hydrated to manage gout. - Use meloxicam as needed for foot pain, but avoid NSAIDs if possible. - Maintain a no-fat diet and engage in regular exercise. - Schedule a colonoscopy and ensure regular mammograms. - Continue with current eye care for macular degeneration. Medications: New meloxicam 7.5 mg PO DAILY 14 tabs 0RF
--- OUTSIDE RECORDS SUMMARY | 2025-05-18 14:56 | XMS_ITS | Patient Health Record ---
Author Organization [facility] Address [address] [place] [address] Care Team Providers Care Java [id number] Application Developer Name Role Phone Po Osvaldo TABARES Primary Care Provider Gracie Mcguire Unavailable [phone] Allergies Allergen (clinical drug ingredient) Drug/Non Drug [...] Problem Status W/U Status Risk Notes Problem [id number] Diverticulitis o f large intestine without perforation or abscess without bleeding (K57.32) Active confirmed Problem 636297927 Encounter for screening for malignant neoplasm of colon (Z12.11) Active confirmed Problem 36701247 Weight loss (R63.4) Active confirmed Problem Screening for malignant neoplasm of rectum (362490310) Encounter for screening for malignant neoplasm of rectum (Z12.12) Active confirmed Problem 568023871 Elevated liver function tests (R79.89) Active confirmed Problem 962775922 Diverticulosis o f large intestine without hemorrhage (K57.30) Active confirmed Problem 187784751 Fatty liver (K76.0) Active confirmed Problem 625456125 Elevated ferriti n (R79.89) Active confirmed Problem 96591817 Diarrhea, unspecified type (R19.7) Active confirmed Problem 475082308 Irritable bowel syndrome with constipation (K58.1) Active confirmed Problem 39200018 Hypertension, unspecified type (I10) Active confirmed Problem 361436753 Abdominal pain, diffuse (R10.84) Active confirmed Problem 735744861 Elevated ferriti n level (R79.89) Active confirmed [...] [place] [address] [place] [address] [id number] JIMBO BOWMAN Self - patient is the insured [facility] [address] [place], [place] [id number] [phone] [id number] JIMBO BOWMAN Self - patient is the [...]
== END 2025-05-18 13:57 | disposition home or self-care (01) ==
LOC: HO.HMCH 12:51
PROVIDERS: PCP Internal Medicine; Visit Provider Internal Medicine
DX: I10 Essential (primary) hypertension (principal); I49.3 Ventricular premature depolarization; K76.0 Fatty (change of) liver, not elsewhere classified; N28.9 Disorder of kidney and ureter, unspecified; D64.9 Anemia, unspecified; M1A.09X0 Idiopathic chronic gout, multiple sites, without tophus (tophi)

== ENCOUNTER → 2025-05-18 12:50 | Outpatient (BNVA) | payer MEDICARE, BC, SELFPAY | PROVIDERS: PCP Internal Medicine; Visit Provider Internal Medicine | DX: I10 Essential (primary) hypertension (principal); I49.3 Ventricular premature depolarization; K76.0 Fatty (change of) liver, not elsewhere classified; N28.9 Disorder of kidney and ureter, unspecified; D64.9 Anemia, unspecified; M1A.09X0 Idiopathic chronic gout, multiple sites, without tophus (tophi) | CPT/HCPCS: 99212 ==

== ENCOUNTER 2025-09-16 01:35 | Emergency (ER) | payer MEDICARE, BC, SELFPAY ==
[2025-09-16] VITALS (7 sets, daily range): BP systolic 100–143; BP diastolic 35–86; PULSE 61–73; RESP 12–16; TEMP 36.4–36.8; O2SAT 94–99; BMI 28.0
--- NOTE | ~2025-09-16 | XR_ITS ---
CLINICAL HISTORY: Fall; Trauma; Pain 4 views left shoulder Comparison: None provided Findings: There is a comminuted left humeral neck fracture with anteromedial displacement of the humeral shaft relative to the humeral head. The humeral head remains normally aligned with the glenoid. There is mild glenohumeral osteoarthritis. Impression: Left humeral neck fracture. This document has been electronically signed by: Earnest Mancini MD on 09/16/2025 04:58:05
--- NOTE | ~2025-09-16 | CT_ITS ---
CLINICAL HISTORY: Fall; Head Strike CT head without contrast Comparison: MR - MR HEAD/BRAIN WO CON - 12/09/24 18:[address]/SR - CT ANGIO HEAD NECK - 12/06/24 20:30 EST Findings: No intra-axial mass, midline shift, hydrocephalus, or acute hemorrhage. No significant atrophy-like change or white matter disease. The visualized paranasal sinuses and mastoid air cells are normal. The orbits are unremarkable. No skull fracture. IMPRESSION: 1. No acute intracranial findings. This document has been electronically signed by: Lamine Vega MD on 09/16/2025 05:30:43
--- NOTE | ~2025-09-16 | CT_ITS ---
CLINICAL HISTORY: Fall; Head Strike CT cervical spine without contrast Comparison: CT/SR - CT ANGIO HEAD NECK - 12/06/24 20:30 EST Findings: Normal vertebral body alignment. There are severe multilevel degenerative disc disease with disc space narrowing seen at the C2-3 through C6-7 levels. There is multilevel uncinate joint arthropathy and bilateral neural foraminal narrowing is seen at the C3-4 through C6-7 levels. No acute fractures or dislocations. Visualized intracranial contents are unremarkable. Soft tissues of the neck are normal. Lung apices are clear. IMPRESSION: No acute findings. Severe degenerative changes as above with bilateral neural foraminal narrowing from C3-4 through C6-7. This document has been electronically signed by: Lamine Vega MD on 09/16/2025 05:30:13
--- NOTE | 2025-09-16 02:45 | ED_ITS ---
HPI - Fall General Chief Complaint: Fall Stated Complaint: FALL/LOC/COLLARED/ LFT SIDED SHOULDER PAIN Time Seen by Provider: 09/16/25 02:32 Source: patient and EMS Mode of arrival: EMS Limitations: no limitations History of Present Illness ED Provider: Bismark DODSON HPI Narrative: The patient is an 85-year-old female presenting to the ED for evaluation after a mechanical fall. Patient reports her slipper fell off her foot, while bending over to roller picker a slipper to place it back on her foot she suffered a loss of balance resulting in falling forward and striking the left side of her face and had on the doorjamb. The patient reports she was able to somewhat brace herself before striking the door jamb, patient does not believe she lost consciousness, however lives alone and is not entirely sure. The patient denies any anticoagulation. Patient reports she also struck her left shoulder on the ground/doorjamb. The patient denies dizziness, headache, focal neurological deficit, chest pain, shortness of breath, or other prodrome prior to the fall. Related Data Home Medications ?Medication ?Instructions ?Recorded ?Confirmed cyclosporine 0.05 % eye drops in a 1 drp ophthalmic (e ye) Q12H 10/15/22 05/18/25 dropperette multivitamin 1 tab PO DAILY 11/18/2404/25 mv-mn-folic 200 mcg-vit K 15 cap PO 05/18/25 05/18/25 mcg-lutein 5 mg-zeaxanthin 1 mg capsule (PreserVision AREDS 2 Plus Multivit) Previous Rx's ?Medication ?Instructions ?Recorded atenolol 25 mg tablet 25 mg PO BID 90 days #180 ta bs 11/18/24 cane #1 ea 11/18/24 amitriptyline 75 mg tablet 75 mg PO BEDTIME #90 tabs 0 01/07/25 cane #1 ea 02/04/25 nitrofurantoin 100 mg PO Q12H 7 days #14 ca ps 04/26/25 monohydrate/macrocrystals 100 mg capsule (Macrobid) meloxicam 7.5 mg tablet 7.5 mg PO DAILY #14 tabs clonazepam 0.5 mg tablet 0.5 mg PO BEDTIME 90 days #9 0 tabs 09/09/25 Allergies Allergy/AdvReac Type Severity Reaction Status Date / Time Sulfa (Sulfonamide Allergy Severe HIVES Verified 09/16/25 01:56 Antibiotics) (SULFA(SULFONAMIDE ANTIBIOTICS)) sulfur Allergy Unknown Unknown Verified 09/16/25 01:56 codeine AdvReac Mild Abdominal Verified 09/16/25 01:56 Pain Review of Systems 2 Review of Systems: Yes all other systems are reviewed and are negative PMFSH Past Medical History Medical History (Updated 09/16/25 @ 11:01 by IVORY Donald) Diverticular disease Fatigue Pain in both feet Gout Rectal bleeding LFT elevation Inflammatory arthritis Acute diverticulitis Arthralgia Abscess Orthostatic hypotension Seizure Obesity (BMI 30-39.9) Diverticulitis Anemia Restless leg HTN (hypertension) Surgical History History of appendectomy Spinal stenosis of lumbar region Hx of cholecystectomy History of bunionectomy Social History Social History Household Members: Significant Other Housing: House Do you presently have visiting nurse or other home services: No Alcohol intake: current Alcohol intake frequency: holidays/special occasions only Alcohol type: wine Comment: wine douglas and new year - and oncew a month 1 drink Patient Tobacco Use Status: Former Tobacco user Tobacco use type: Cigarette Years Smoked: 5 e-Cigarette/Vaping Use: Never Used Second Hand Smoke Exposure: Yes Advance Directives Date on File: 03/14/21 service: No Current occupational status: retired Cognitive needs: No Hearing needs: No Vision needs: Yes (Glasses) Physical Exam 2 Vital Signs: Vital Signs: Last Vital Signs Temp 98.2 F 09/16/25 11:20 Pulse 61 09/16/25 11:20 Resp 12 09/16/25 11:20 BP 112/35 L 09/16/25 11:20 Pulse Ox 95 09/16/25 11:20 O2 Del Method Room Air 09/16/25 11:20 BMI result Body Mass Index 28.0 CONSTITUTIONAL: The patient appears non-toxic, well nourished and in no acute distress. Vital signs as documented. HEAD: Atraumatic, normocephalic. EYES: EOMs grossly intact, pupils equal, conjunctiva clear, no exudate. ENT: Nares patent, no discharge. Airway patent, no audible stridor, visible mucosa is pink and moist without noted lesions. NECK: Trachea is midline, no obvious masses or gross abnormalities. Mild midline spinous process tenderness, negative crepitus or step-off. Full nonpainful range of motion. CHEST: Symmetric movement, normal appearance. LUNGS: LS present and CTAB, no w/r/r. Non-labored work of breathing. CARDIAC: Regular Rhythm, S1/S2 appreciated, no murmurs, rubs or gallops. ABDOMEN: Abdomen soft and non-tender x4 quadrants, no palpable masses or organomegaly. : Deferred. EXTREMITIES: There is a hematoma noted to the anterior proximal left humerus, no deltoid step-off, no bony anterior fullness. Distal CSM intact, 2+ radial pulse. Limited range of motion secondary to pain. Normal tone, moves all other extremities spontaneously without reported pain. No other obvious acute injury or deformity noted. NEURO: Alert and oriented x3, CN II-XII appear grossly intact. Cerebellar Functioning grossly intact. No obvious sensory or motor deficits. Speech clear and appropriate. PSYCH: normal affect, appropriate eye contact, fluid speech, with appropriate response to questioning. No reported suicidality or homicidality. SKIN: Warm, dry, color appropriate, normal turgor. No rashes noted. Medications Administered Discontinued Medications Generic Name Dose Route Start Last Admin Trade Name Freq PRN Reason Stop Dose Admin Acetaminophen 650 mg 09/16/25 08:22 09/16/25 09:59 Acetaminophen 325 Mg Tablet PO 650 mg Q6H PRN Administration Pain, Moderate(Pain Scale 4-6) Acetaminophen 1,000 mg in 100 mls @ 400 mls/hr 09/16/25 06:16 09/16/25 08:00 Ofirmev IV 09/16/25 06:30 Infused ONCE ONE Infusion Ibuprofen 600 mg 09/16/25 09:50 09/16/25 09:59 Ibuprofen 600 Mg Tablet PO 600 mg Q8H PRN Administration Pain, Moderate(Pain Scale 4-6) Morphine Sulfate 4 mg 09/16/25 03:15 09/16/25 03:25 Morphine Sulfate 4 Mg/Ml Cartridge IVPUSH 09/16/25 03:16 4 mg ONCE ONE Administration Protocol Morphine Sulfate 4 mg 09/16/25 04:26 09/16/25 04:45 Morphine Sulfate 4 Mg/Ml Cartridge IVPUSH 09/16/25 04:27 4 mg ONCE ONE Administration Protocol Oxycodone HCl 10 mg 09/16/25 08:22 09/16/25 08:37 Oxycodone Hcl Immed Release 5 Mg Tablet PO 10 mg Q6H PRN Administration Pain, Moderate(Pain Scale 4-6) Medical Decision Making Medical Decision Making MDM Narrative: 3:28 AM 09/16/2025 (Cornell DODSON): The patient is an 85-year-old female presenting to the ED for evaluation after a mechanical fall. Patient reports her slipper fell off her foot, while bending over to roller picker a slipper to place it back on her foot she suffered a loss of balance resulting in falling forward and striking the left side of her face and had on the doorjamb. The patient reports she was able to somewhat brace herself before striking the door jamb, patient does not believe she lost consciousness, however lives alone and is not entirely sure. The patient denies any anticoagulation. Patient reports she also struck her left shoulder on the ground/doorjamb. The patient denies dizziness, headache, focal neurological deficit, chest pain, shortness of breath, or other prodrome prior to the fall. The patient in the ED denies headache or neck pain, however patient does report severe pain in the left shoulder with limited range of motion secondary to pain, concerning for a distracting injury. Exam reveals a moderate-sized hematoma to the anterior proximal humerus on the left, no deltoid step-off, no palpable bony anterior fullness, distal CSM is intact, chief crew scheduler strength 5/5, 2+ radial pulse. Patient will be treated with morphine for pain, and evaluated with CT head and neck, as well as left shoulder x-ray. 5:08 AM 09/16/2025 (Cornell DODSON): The patient is shoulder x-ray shows a comminuted fracture of the humeral neck with significant displacement of the distal portion of the humerus. Patient was placed in a sling, however due to the degree of displacement, orthopedics on-call was consulted. Patient's case was discussed with Dr. Julien from Orthopedics, who recommends patient remain in the ED for general orthopedic team to review this morning and consider need for surgical intervention. The patient will be signed out to oncoming personnel pending surgical consultation. If patient does not require surgical intervention the patient will need case management and PT evaluation to ensure safe care plan for returning home as the patient lives alone. 5:37 AM 09/16/2025 (Cornell DODSON): Patient's CT head and neck are negative for acute traumatic pathology. Time: 10:58 Date: 09/16/25 Provider: IVORY Donald Physician observation ended at 1100. Physical therapy recommended short-term rehab. Patient declining and will go home with significant other. Patient agreeable to home PT. Orthopedics evaluated patient this morning, nonsurgical. Will need to follow up in office Admission/Observation Consideration of admission/observation: Escalation of care including admission/observation considered Consult Healthcare Provider Management of the patient was discussed with: Online Publisher Lab Data 09/16/25 08:02 09/16/25 06:52 Labs: Lab Results 09/16/25 09/16/25 09/16/25 Range/Units 06:52 08:02 08:36 WBC 13.0 H (4.8-10.8) X10*3/uL RBC 3.32 L D (4.20-5.50) X10*6/uL Hgb 10.5 L (12.0-16.0) g/dl Hct 30.9 L D (37.0-47.0) % MCV 93.1 (80.0-98.0) fL MCH 31.6 (27.0-33.0) pg MCHC 34.0 (31.0-35.0) g/dl RDW 13.2 (11.0-16.0) % Plt Count 155 L (160-400) X10*3/uL MPV 9.3 L (9.4-12.3) fL Immature Gran % (Auto) 0.4 (0.0-0.4) % Neut % (Auto) 70.1 (45-73) % Lymph % (Auto) 18.4 L (20-40) % [place] % (Auto) 9.2 (2-11) % Eos % (Auto) 1.0 (0-4) % Baso % (Auto) 0.9 (0-2) % Lymph # (Auto) 2.4 (1.2-4.9) X10*3/uL [place] # (Auto) 1.2 (0.1-1.2) X10*3/uL Eos # (Auto) 0.1 (0.0-0.4) X10*3/uL Baso # (Auto) 0.1 (0.0-0.2) X10*3/uL Abs Immat Gran (auto) 0.05 H (0.00-0.03) X10*3/uL Absolute Neuts (auto) 9.1 H (2.0-8.3) x10*3/uL Absolute Nucleated RBC 0.000 (0.0-0.012) X10*3/uL Nucleated RBC % (auto) 0.0 (0.0-0.2) /100WBC PT 10.1 L (10.9-12.4) SEC INR 0.9 (0.9-1.1) Sodium 140 (135-145) mmol/L Potassium 3.8 D (3.3-5.1) mmol/L Chloride 108 (96-108) mmol/L Carbon Dioxide 22 (22-29) mmol/L Anion Gap 14 (12-20) BUN 18 H (9-16) mg/dL Creatinine 0.84 (0.5-1.4) mg/dL Estim Creat Clear Calc 47.3 Estimated GFR > 60 Random Glucose 117 H (60-115) mg/dL Calcium 8.9 D (8.4-10.2) mg/dL COVID-19 (ADRIANNA) Negative (Negative) COVID-19 Clin Com See Note Radiology Impression Discussion of test interpretation with radiology: I have reviewed the radiologist's reading. Radiologist Impression: CLINICAL HISTORY: Fall; Trauma; Pain 4 views left shoulder Comparison: None provided Findings: There is a comminuted left humeral neck fracture with anteromedial displacement of the humeral shaft relative to the humeral head. The humeral head remains normally aligned with the glenoid. There is mild glenohumeral osteoarthritis. Impression: Left humeral neck fracture. This document has been electronically signed by: Earnest Mancini MD on 09/16/2025 04:58:05 CT head without contrast Comparison: MR - MR HEAD/BRAIN WO CON - 12/09/24 18:[address]/SR - CT ANGIO HEAD NECK - 12/06/24 20:30 EST Findings: No intra-axial mass, midline shift, hydrocephalus, or acute hemorrhage. No significant atrophy-like change or white matter disease. The visualized paranasal sinuses and mastoid air cells are normal. The orbits are unremarkable. No skull fracture. IMPRESSION: 1. No acute intracranial findings. This document has been electronically signed by: Lamine Vega MD on 09/16/2025 05:30:43 CT cervical spine without contrast Comparison: CT/SR - CT ANGIO HEAD NECK - 12/06/24 20:30 EST Findings: Normal vertebral body alignment. There are severe multilevel degenerative disc disease with disc space narrowing seen at the C2-3 through C6-7 levels. There is multilevel uncinate joint arthropathy and bilateral neural foraminal narrowing is seen at the C3-4 through C6-7 levels. No acute fractures or dislocations. Visualized intracranial contents are unremarkable. Soft tissues of the neck are normal. Lung apices are clear. IMPRESSION: No acute findings. Severe degenerative changes as above with bilateral neural foraminal narrowing from C3-4 through C6-7. This document has been electronically signed by: Lamine Vega MD on 09/16/2025 05:30:13 Discharge Plan Discharge Clinical Impression: Fracture of neck of humerus Patient Disposition: Home, Self-Care Instructions: Arm Fracture in Adults (DC) Additional Instructions: You have a fracture of your humerus. You need to wear sling at all times, you may only take off to shower. You need to follow-up with the market development specialist. Call to make an appointment Rehab was recommended however you are declining. Case management will work on setting up home physical therapy for you Please have close follow up with your primary care doctor as well If symptoms persist or worsen you have persistent or worsening pain, increasing swelling, numbness, pain is unbearable please return to the emergency department Prescriptions: No Action atenolol 25 mg tablet 25 mg PO BID 90 Days Qty: 180 2RF amitriptyline 75 mg tablet 75 mg PO BEDTIME Qty: 90 2RF nitrofurantoin monohyd/m-cryst [Macrobid] 100 mg capsule 100 mg PO Q12H 7 Days Qty: 14 0RF Rx Instructions: must administer with a meal/food clonazepam 0.5 mg tablet 0.5 mg PO BEDTIME 90 Days Qty: 90 0RF Rx Instructions: administer 30 minutes before bedtime cyclosporine 0.05 % dropperette 1 drp ophthalmic (eye) Q12H meloxicam 7.5 mg tablet 7.5 mg PO DAILY Qty: 14 0RF PreserVision AREDS 2 Plus MV 200 mcg-15 mcg- 5 mg-1 mg capsule PO (DME) cane See Rx Instructions .Route .MEDSUPPLY Qty: 1 0RF Rx Instructions: As directed (DME) cane Device See Rx Instructions .Route Qty: 1 0RF Rx Instructions: As directed multivitamin Tablet 1 tab PO DAILY Referrals: [facility] [Provider Group] - 5 days [facility] [Outside] Referral Note: Agency will call to arrange a visit. Balta,Osvaldo Omalley MD [Primary Care Provider, Internal Medicine] - 1 week Interventions: ED Discharge Assessment Last Done: 09/16/25 11:20 Discharge Date/Time: 09/16/25 11:21 Print Language: Slovenian
--- OUTSIDE RECORDS SUMMARY | 2025-09-16 03:45 | XMS_ITS | Clinical Summary ---
Author Organization [facility] Address [address] [place] [phone] Phone Care Team Providers Care Furrier Apprentice Name Role Phone Osvaldo Gifford MD Primary Care Provider [phone] Allergies Active Allergy Reactions Criticality Noted Date Comments Codeine Nausea and/or Vomiting 01/26/2025 Sulfa (Sulfonamide Antibiotics) Hives 01/26/2025 Medications oxyCODONE 5 MG immediate release tablet Take 0.5-1 tablets (2.5-5 mg total) by mouth every 4 (four) hours as needed for pain (specific location in comments). Partial fill ok 8 tablet 01/26/2025 Active Social History Tobacco Use Types Packs/Day Years Used Date Smoking Tobacco: Never Assessed Education Answer Date Recorded Are you interested in more education? Not on pema e 01/26/2025 Are you concerned about learning? Not on file 01/26/2025 No 01/26/2025 No 01/26/2025 Digital Access Answer Date Recorded No 01/26/2025 No 01/26/2025 Reliable internet access at home? Not on file 01/26/2025 Device with a working camera? Not on file Intimate Partner Violence Answer Date R ecorded Are you denied basic needs s uch as food, clothing, or medical care? No 01/26/2025 In the past 12 months have y ou been in a relationship with a person who hurts, threatens, or tries to control you? No 01/26/2025 Are you denied basic needs s uch as food, clothing, or medical care? No 01/26/2025 In the past 12 months have y ou been in a relationship with a person who hurts, threatens, or tries to control you? No 01/26/2025 Comments Unknown Sex and Gender Information Value Date Recorded Sex Assigned at Female 01/26/2025 9:54 PM EST Legal Sex Female 5:26 PM EST Gender Identity Female 01/26/2025 9:54 PM EST Sexual Orientation Straight 01/26/2025 9: 54 PM EST Last Filed Vital Signs Vital Sign Reading Time Taken Comments Blood Pressure 114/75 01/26/2025 10:55 PM EST Pulse 80 01/26/2025 10:55 PM EST Temperature 36.8 C (98.2 F) 01/26/2025 10:55 PM EST Respiratory Rate 16 01/26/2025 10:55 PM EST Oxygen Saturation 96% 01/26/2025 10:55 PM EST Inhaled Oxygen Concentration - - Weight 68 kg (150 lb) 01/26/2025 6:32 PM EST Height 164 cm (5' 4.57 ) 01/26/2025 6:32 PM EST Body Mass Index 25.3 01/26/2025 6:32 PM EST Plan of Treatment Health Maintenance Due Date Last Done Comments Adult Td,Tdap Booster 1941 DEPRESSION SCREENING 1953 PNEUMOCOCCAL VACCINES (50+ y ears) (1 of 1 - PCV) 1991 ZOSTER VACCINES (1 of 2) 1991 OSTEOPOROSIS SCREENING INITI AL (ONE-TIME) 2006 RSV VACCINE (1 - 1-dose 75+ series) 2016 INFLUENZA VACCINE (#1) 2025 COVID-19 VACCINE ( - 2024-2 6 season) 2025 HEPATITIS A VACCINES Aged Out No long er eligible based on patient's age to complete this topic HIB VACCINES Aged Out No longer eligi ble based on patient's age to complete this topic MENINGOCOCCAL VACCINES (ACWY) Aged Out No longer eligible based on patient's age to complete this topic MENINGOCOCCAL VACCINES (B) Aged Out N o longer eligible based on patient's age to complete this topic Medical Devices Not on file Insurance MEDICARE PART A & B [facility] Care Teams Furrier Apprentice Relationship Specialty Start Date End Date Osvaldo Gifford MD [address] [place] [id number] PCP - General Internal Medicine 01/26/25 Additional Source Comments The information contained in this document represents components of the legal health record. It is not the complete legal health record.[facility]
[2025-09-16 07:08] LABS: INTERNATIONAL NORM RATIO 0.9 (0.9-1.1); Prothrombin Time 10.1 SEC (10.9-12.4)
--- NOTE | 2025-09-16 07:09 | PC.NURSE ---
Assumed care of patient. Pt is A+Ox4, calm, cooperative. Pt c/o 06/02 but tylenol still running iv, slowly. IV flushed to try to speed up tylenol infusion. RR even and unlabored, denies CP or SOB. L arm in sling, csms present.
[2025-09-16 07:42] LABS: Anion Gap 14 (12-20); Blood Urea Nitrogen 18 mg/dL (9-16); Calcium 8.9 mg/dL (8.4-10.2); Carbon Dioxide 22 mmol/L (22-29); Chloride 108 mmol/L (96-108); Creatinine Clr Calc Pharmacy 47.3; Estimated Glomerular Filt Rate > 60; Potassium 3.8 mmol/L (3.3-5.1); Sodium 140 mmol/L (135-145)
[2025-09-16 08:09] LABS: Hematocrit 30.9 % (37.0-47.0); Hemoglobin 10.5 g/dl (12.0-16.0); Imm Gran Abs Auto 0.05 X10*3/uL (0.00-0.03); Imm Gran Pct Auto 0.4 % (0.0-0.4); Lymphocytes Absolute Auto 2.4 X10*3/uL (1.2-4.9); Mean Corpuscular HGB Conc 34.0 g/dl (31.0-35.0); Mean Corpuscular Hemoglobin 31.6 pg (27.0-33.0); Mean Corpuscular Volume 93.1 fL (80.0-98.0); NRBC Abs Auto 0.000 X10*3/uL (0.0-0.012); NRBC Pct Auto 0.0 /100WBC (0.0-0.2); Platelet Count 155 X10*3/uL (160-400); Red Blood Count 3.32 X10*6/uL (4.20-5.50); White Blood Count 13.0 X10*3/uL (4.8-10.8)
[2025-09-16 08:17] LABS: MANUAL DIFF FLAG NO
[2025-09-16] MEDS: oxyCODONE HCl Immed Release 5 MG TABLET 10 MG PO (08:37)
[2025-09-16 08:57] LABS: COVID-19 Test Negative (Negative); IDNOW Serial# 55D5AD1C
--- NOTE | 2025-09-16 09:59 | PC.NURSE ---
Medicated with tylenol and ibuprofen for 8/10 pain after oxycodone given 1 hr ago, authorized to give tylenol and ibuprofren by provider for current pain level.
--- NOTE | 2025-09-16 10:53 | MHC.CM.ED ---
Received case management consult from Nemo DODSON. Patient came to the ER due to a fall. Currently in a left arm sling. Physical therapy eval completed. Short term rehab is recommended. Met with patient and sig other, Juan, in regards to discharge planning. Patient lives alone, ambulates independently and had no services prior to coming to the ER. Juan is with patient from morning until night and then returns to his home. PCP verified. Copy of HCP verified to be on file. Patient declining STR. Agreeable to physical therapy at home. Referral made to NA. Patient agreeable Juan will transport patient home. Ramos BAUGH and Nemo DODSON aware. Continue to monitor for d/c needs.
== END 2025-09-16 11:21 | disposition home or self-care (01) ==
PROVIDERS: Emergency Medicine; Physician Assistant; Emergency Provider Emergency Medicine; PCP Internal Medicine
DX: S42.212A Unspecified displaced fracture of surgical neck of left humerus, initial encounter for closed fracture (principal); R51.9 Headache, unspecified; M54.2 Cervicalgia; R26.2 Difficulty in walking, not elsewhere classified; M79.602 Pain in left arm; X58.XXXA Exposure to other specified factors, initial encounter; W01.0XXA Fall on same level from slipping, tripping and stumbling without subsequent striking against object, initial encounter; Z91.81 History of falling; Y93.9 Activity, unspecified; Y92.9 Unspecified place or not applicable; Y99.8 Other external cause status; Z11.52 Encounter for screening for COVID-19; Z79.899 Other long term (current) drug therapy
CPT/HCPCS: 36415; 70450; 72125; 73030; 80048; 85025; 85610; 87635; 96365; 96375; 96376; 97162; 99285; J0131; J2270

== ENCOUNTER → 2025-09-16 02:46 | Outpatient (BNV) | payer MEDICARE, BC, SELFPAY | PROVIDERS: Emergency Provider Emergency Medicine; PCP Internal Medicine; Visit Provider Radiology Diagnostic Radiology | DX: S42.212A Unspecified displaced fracture of surgical neck of left humerus, initial encounter for closed fracture (principal); Z04.3 Encounter for examination and observation following other accident | CPT/HCPCS: 73030 ==

== ENCOUNTER 2025-09-19 11:28 | Emergency (ER) | payer MEDICARE, BC, SELFPAY ==
[2025-09-19 11:34] VITALS: BP 102/58; BP 116/45; PULSE 79; PULSE 90; RESP 16; TEMP 36.8; O2SAT 95; O2SAT 96; BMI 24.0
--- NOTE | 2025-09-19 12:45 | ED_ITS ---
HPI - General Adult General Chief complaint: Fall Stated complaint: lt shoulder pain, lt humerus fracture on Time Seen by Provider: 09/19/25 11:34 Source: patient, family ( at bedside), RN notes reviewed and old records reviewed Mode of arrival: EMS Limitations: no limitations History of Present Illness ED Provider: EDUARDA Sun HPI narrative: 85-year-old female with medical history of diverticulosis, gout, anemia, hepatic steatosis, IBS, HTN, presents to the ED by EMS due to worsening pain of the left shoulder. Patient was recently in the department after mechanical fall where she sustained a left humerus fracture. Patient was recommended to discharge to short-term rehab for physical therapy however patient denied this and wanted to be discharged home. Patient states the pain has been difficult to manage at home and is requesting placement in short-term rehab. MD complaint: Fracture pain, short-term rehab placement Related Data Home Medications ?Medication ?Instructions ?Recorded ?Confirmed cyclosporine 0.05 % eye drops in a 1 drp ophthalmic (reggie xavier) Q12H 10/15/22 09/20/25 dropperette multivitamin 1 tab PO DAILY 11/18/2408/25 mv-mn-folic 200 mcg-vit K 15 1 cap PO BID 05/18/25 mcg-lutein 5 mg-zeaxanthin 1 mg capsule (PreserVision AREDS 2 Plus Multivit) amitriptyline 75 mg tablet 75 mg PO BEDTIME 09/20/25 1 atenolol 25 mg tablet 25 mg PO BID PRN Blood Press ure 09/20/25 09/20/25 meloxicam 7.5 mg tablet 7.5 mg PO DAILY PRN Gout Fla re 09/20/25 09/20/25 Previous Rx's ?Medication ?Instructions ?Recorded cane #1 ea 11/18/24 cane #1 ea 02/04/25 clonazepam 0.5 mg tablet 0.5 mg PO BEDTIME 90 days #9 0 tabs 09/09/25 oxycodone 5 mg tablet 5 mg PO TID PRN pain #15 tab s 09/17/25 Allergies Allergy/AdvReac Type Severity Reaction Status Date / Time Sulfa (Sulfonamide Allergy Severe HIVES Verified 09/19/25 11:36 Antibiotics) (SULFA(SULFONAMIDE ANTIBIOTICS)) sulfur Allergy Unknown Unknown Verified 09/19/25 11:36 codeine AdvReac Mild Abdominal Verified 09/19/25 11:36 Pain Review of Systems 2 Review of Systems: CONST: Negative for fever, body aches and chills. HENT: Negative for neck pain/stiffness, headache, congestion, sore throat, swelling. EYES: Negative for discharge/pain or vision changes. RESP: Negative for cough/hemoptysis and shortness of breath. CV: Negative chest pain, difficulty breathing, palpitations. ABD: Negative pain, nausea, vomiting. : Negative increase frequency, dysuria, blood in urine or stool. MUSC: Negative for muscle aches, edema. POS pain of the L shoulder due to humerus fracture SKIN: Negative rash, lesions/sores. NEURO: Negative headache, dizziness, weakness. Yes all other systems are reviewed and are negative PMFSH Past Medical History Attestation statement: The following information was validated with the patient. Source: old records reviewed and nursing notes reviewed Medical History Diverticular disease Fatigue Pain in both feet Gout Rectal bleeding LFT elevation Inflammatory arthritis Acute diverticulitis Arthralgia Abscess Orthostatic hypotension Seizure Obesity (BMI 30-39.9) Diverticulitis Anemia Restless leg HTN (hypertension) Surgical History History of appendectomy Spinal stenosis of lumbar region Hx of cholecystectomy History of bunionectomy Social History Social History Household Members: Significant Other Housing: House Do you presently have visiting nurse or other home services: No Alcohol intake: current Alcohol intake frequency: holidays/special occasions only Alcohol type: wine Comment: wine douglas and new year - and oncew a month 1 drink Patient Tobacco Use Status: Former Tobacco user Tobacco use type: Cigarette Years Smoked: 5 e-Cigarette/Vaping Use: Never Used Second Hand Smoke Exposure: Yes Advance Directives Date on File: 03/14/21 service: No Current occupational status: retired Cognitive needs: No Hearing needs: No Vision needs: Yes (Glasses) Physical Exam ED Vital Signs: Vital Signs - 24 hr 09/21/25 08:39 09/21/25 09:55 09/21/25 16:54 Temperature 98.2 F 97.6 F Pulse Rate 73 77 81 Respiratory Rate 18 18 Blood Pressure 121/45 L 103/47 L 127/50 L Pulse Oximetry 95 99 Oxygen Delivery Method Room Air Room Air 09/21/25 21:57 09/22/25 06:30 09/22/25 07:11 Temperature 97.1 F Pulse Rate 68 75 75 Respiratory Rate 16 18 16 Blood Pressure 116/44 L 124/43 L 96/40 L Pulse Oximetry 99 95 97 Oxygen Delivery Method Room Air Room Air Room Air BMI result Body Mass Index 24.0 GENERAL APPEARANCE: ?AxOx4, generally well-appearing, no acute distress. HEENT: ?NC, AT. MMM. EOMI, clear conjunctiva, oropharynx clear. NECK: ?Supple without lymphadenopathy.? No stiffness or restricted ROM. HEART:? Normal rate and regular rhythm, normal S1/S1, no m/r/g LUNGS:? CTAB, moving air well. No crackles or wheezes are heard. ABDOMEN: ?Soft, nontender, nondistended with good bowel sounds heard. BACK: No CVAT, no obvious deformity. EXTREMITIES: ?Without cyanosis, clubbing or edema. NEUROLOGICAL: ?Grossly nonfocal. Alert and oriented, moving all 4 extremities, but LUE is in sling due to fracture, SILT, radial pulses 2+. Skin: ?Warm and dry without any rash. Course Reevaluation(s) Reevaluation #1: Physician observation continued. Uneventful night. Vital signs stable. No complaints from nursing overnight. Med reconciliation reviewed and done. [facility] is requesting instructions from ortho. I reached out to Tito Morillo PA-C who recommended placement in sling with follow up in the next 4-6 weeks. Awaiting approval for admission to [facility] for STR needs . Will continue to monitor as we await disposition. Time: 17:05 Reevaluation #2: Time: 08:09 Date: 09/21/25 Provider: IVORY Diaz Patient in physician observation for case management needs. No acute events reported overnight.? No current issues or complaints. VS stable. Patient is pending placement at facility. Will continue to monitor. Time: 08:16 Date: 09/22/25 Provider: IVORY Saeed Patient in physician observation for case management needs. No acute events reported overnight.? No current issues or complaints. VS stable. Patient is pending placement at STR facility. Will continue to monitor. Reevaluation #3: 09/22/25 1400 phys obs ended transferred to [facility] Medications Administered Discontinued Medications Generic Name Dose Route Start Last Admin Trade Name Freq PRN Reason Stop Dose Admin Acetaminophen 975 mg 09/19/25 13:26 09/19/25 13:45 Acetaminophen 325 Mg Tablet PO 09/19/25 13:27 975 mg ONCE ONE Administration Acetaminophen 650 mg 09/19/25 22:22 09/21/25 16:20 Acetaminophen 325 Mg Tablet PO 650 mg Q6H PRN Administration Pain, Mild (Pain Scale 1-3) Amitriptyline HCl 75 mg 09/20/25 21:00 09/21/25 22:01 Amitriptyline Hcl 25 Mg Tablet PO 75 mg BEDTIME BHUPINDER Administration Atenolol 25 mg 09/20/25 09:30 09/22/25 08:42 Atenolol 25 Mg Tablet PO 25 mg BID BHUPINDER Administration Protocol Clonazepam 0.5 mg 09/20/25 21:00 09/21/25 22:00 Clonazepam 0.5 Mg Tablet PO 0.5 mg BEDTIME BHUPINDER Administration Multivitamins/Vitamin C 1 tab 09/20/25 09:30 09/22/25 08:42 Multivitamin Tablet PO 1 tab DAILY BHUPINDER Administration Oxycodone HCl 5 mg 09/19/25 13:26 09/19/25 13:44 Oxycodone Hcl Immed Release 5 Mg Tablet PO 09/19/25 13:27 5 mg ONCE ONE Administration Oxycodone HCl 5 mg 09/19/25 22:22 09/21/25 22:42 Oxycodone Hcl Immed Release 5 Mg Tablet PO 5 mg Q6H PRN Administration Pain, Moderate(Pain Scale 4-6) Medical Decision Making Medical Decision Making MDM Narrative: 85-year-old female with medical history of diverticulosis, gout, anemia, hepatic steatosis, IBS, HTN, presents to the ED by EMS due to worsening pain of the left shoulder. Patient was recently in the department after mechanical fall where she sustained a left humerus fracture. Patient was recommended to discharge to short-term rehab for physical therapy however patient denied this and wanted to be discharged home. Patient states the pain has been difficult to manage at home and is requesting placement in short-term rehab. Labs reveal leukocytosis of 12.4, normocytic anemia with a hemoglobin of 9.5, hematocrit of 28.4, hyponatremia with a sodium of 134, increased total bilirubin of 1.3, mild transaminitis with AST of 58, ALT of 35, no electrolyte abnormalities. Patient without abdominal pain, history of hepatic steatosis, may be elevated due to this. Patient awaiting STR placement Differential Diagnosis Differential Diagnoses: The differential diagnosis associated with the presentation includes Left humerus fracture Needs for short-term rehab placement Admission/Observation Consideration of admission/observation: Escalation of care including admission/observation considered Lab Data MDM Lab Attestation statement: I reviewed the patient's lab results. 09/19/25 13:15 09/19/25 13:15 Labs: Lab Results 09/19/25 09/19/25 Range/Units 13:15 13:32 WBC 12.4 H (4.8-10.8) X10*3/uL RBC 3.02 L (4.20-5.50) X10*6/uL Hgb 9.5 L (12.0-16.0) g/dl Hct 28.4 L (37.0-47.0) % MCV 94.0 (80.0-98.0) fL MCH 31.5 (27.0-33.0) pg MCHC 33.5 (31.0-35.0) g/dl RDW 12.8 (11.0-16.0) % Plt Count 192 (160-400) X10*3/uL MPV 9.4 (9.4-12.3) fL Immature Gran % (Auto) 1.0 H (0.0-0.4) % Neut % (Auto) 69.4 (45-73) % Lymph % (Auto) 15.2 L (20-40) % [place] % (Auto) 12.7 H (2-11) % Eos % (Auto) 0.8 (0-4) % Baso % (Auto) 0.9 (0-2) % Lymph # (Auto) 1.9 (1.2-4.9) X10*3/uL [place] # (Auto) 1.6 H (0.1-1.2) X10*3/uL Eos # (Auto) 0.1 (0.0-0.4) X10*3/uL Baso # (Auto) 0.1 (0.0-0.2) X10*3/uL Abs Immat Gran (auto) 0.12 H (0.00-0.03) X10*3/uL Absolute Neuts (auto) 8.6 H (2.0-8.3) x10*3/uL Absolute Nucleated RBC 0.000 (0.0-0.012) X10*3/uL Nucleated RBC % (auto) 0.0 (0.0-0.2) /100WBC Smear Tech's Comments VERIFIED Sodium 134 L (135-145) mmol/L Potassium 3.7 (3.3-5.1) mmol/L Chloride 103 (96-108) mmol/L Carbon Dioxide 23 (22-29) mmol/L Anion Gap 12 (12-20) BUN 18 H (9-16) mg/dL Creatinine 0.91 (0.5-1.4) mg/dL Estim Creat Clear Calc 39.7 Estimated GFR 59 Random Glucose 95 (60-115) mg/dL Calcium 8.9 (8.4-10.2) mg/dL Magnesium 1.7 (1.6-2.6) mg/dL Total Bilirubin 1.3 H (0.0-1.0) mg/dL AST 58 H (5-31) U/L ALT 35 H (0-31) U/L Alkaline Phosphatase 62 (39-117) U/L Total Protein 6.2 L (6.5-8.0) g/dL Albumin 3.6 (3.5-5.0) g/dL COVID-19 (ADRIANNA) Negative (Negative) COVID-19 Clin Com See Note Influenza Type A (DEDRA) Negative (Negative) Influenza Type B (DEDRA) Negative (Negative) Influenza A & B Note See Note Independent Historian Clinical information obtained from an independent historian. History obtained from or confirmed by: Spouse ( at bedside) External Record Review External record reviewed: Inpatient record, Office record and Outpatient record Chronic Conditions Patient?s care impacted by: Other (Diverticulosis, gout, anemia, hepatic steatosis, IBS, HTN) Discharge Plan Discharge Clinical Impression: Fracture, humerus Patient Disposition: Xfer Inpatient Rehab Fac Transfer Details: TO: DR CAROL CHRISTINE ACCEPTING Prescriptions: No Action clonazepam 0.5 mg tablet 0.5 mg PO BEDTIME 90 Days Qty: 90 0RF Rx Instructions: administer 30 minutes before bedtime oxycodone 5 mg tablet 5 mg PO TID PRN (Reason: pain) Qty: 15 0RF Rx Instructions: Partial Fill upon patient request. amitriptyline 75 mg tablet 75 mg PO BEDTIME atenolol 25 mg tablet 25 mg PO BID PRN (Reason: Blood Pressure) meloxicam 7.5 mg tablet 7.5 mg PO DAILY PRN (Reason: Gout Flare) cyclosporine 0.05 % dropperette 1 drp ophthalmic (eye) Q12H PreserVision AREDS 2 Plus MV 200 mcg-15 mcg- 5 mg-1 mg capsule 1 cap PO BID (DME) cane See Rx Instructions .Route .MEDSUPPLY Qty: 1 0RF Rx Instructions: As directed (DME) cane Device See Rx Instructions .Route Qty: 1 0RF Rx Instructions: As directed multivitamin Tablet 1 tab PO DAILY Referrals: [facility] [Other] Tito Luis PA-C [Physician Senior Lead Software Engineer, Orthopedics] Referral Note: NEED TO F/U OUPT FOR LEFT PROX HUMERUS FX, SLING FOR COMFORT, NO LIFTING, NO WEIGHT BEARING Osvaldo Gutierrez MD [Primary Care Provider, Internal Medicine] - 11/21/25 2:15 pm Referral Note: 2 6M F/U APPTS IN COMPUTER NOVEMBER [id number] Discharge Date/Time: 09/22/25 14:08 Print Language: Dominican
[2025-09-19 13:26] LABS: Hematocrit 28.4 % (37.0-47.0); Hemoglobin 9.5 g/dl (12.0-16.0); Imm Gran Abs Auto 0.12 X10*3/uL (0.00-0.03); Imm Gran Pct Auto 1.0 % (0.0-0.4); Lymphocytes Absolute Auto 1.9 X10*3/uL (1.2-4.9); MANUAL DIFF FLAG SCAN; Mean Corpuscular HGB Conc 33.5 g/dl (31.0-35.0); Mean Corpuscular Hemoglobin 31.5 pg (27.0-33.0); Mean Corpuscular Volume 94.0 fL (80.0-98.0); NRBC Abs Auto 0.000 X10*3/uL (0.0-0.012); NRBC Pct Auto 0.0 /100WBC (0.0-0.2); Platelet Count 192 X10*3/uL (160-400); Red Blood Count 3.02 X10*6/uL (4.20-5.50); SCAN SMEAR FLAG 1; White Blood Count 12.4 X10*3/uL (4.8-10.8)
[2025-09-19 13:40] LABS: Alanine Aminotransferase 35 U/L (0-31); Albumin Level 3.6 g/dL (3.5-5.0); Alkaline Phosphatase 62 U/L (39-117); Anion Gap 12 (12-20); Aspartate Amino Transferase 58 U/L (5-31); Blood Urea Nitrogen 18 mg/dL (9-16); Calcium 8.9 mg/dL (8.4-10.2); Carbon Dioxide 23 mmol/L (22-29); Chloride 103 mmol/L (96-108); Creatinine Clr Calc Pharmacy 39.7; Estimated Glomerular Filt Rate 59; Magnesium 1.7 mg/dL (1.6-2.6); Potassium 3.7 mmol/L (3.3-5.1); Sodium 134 mmol/L (135-145); Total Protein 6.2 g/dL (6.5-8.0)
[2025-09-19] MEDS: oxyCODONE HCl Immed Release 5 MG TABLET PO ×2 (13:44→22:47)
[2025-09-19 13:55] LABS: COVID-19 Test Negative (Negative); IDNOW Serial# 55D5AD1C
[2025-09-19 13:56] LABS: IDNOW Serial# 58CA691E; Influenza B2 Negative (Negative)
[2025-09-19 14:08] VITALS: BP 110/49; PULSE 76; RESP 16; TEMP 36.7; O2SAT 96
--- NOTE | 2025-09-19 14:30 | MHC.CM.ED ---
Received case management consult from Lobo DODSON. Patient was in the ER on Sunday 09/16. Rehab was recommended at that time. Patient declined and went home with Leo PENA. Patient returned to ER due to pain. Physical therapy eval is ordered and pending. Patient has not had a qualifying hospital stay. Referral will be sent to all 3 acute rehab facilities. Continue to monitor for d/c needs.
--- OUTSIDE RECORDS SUMMARY | 2025-09-19 15:24 | XMS_ITS | Patient Health Record ---
Author Organization [facility] Address [address] [place] [address] Care Team Providers Care Primary Operator Name Role Phone Osvaldo Gifford MD Primary Care Provider Gracie Mcguire Unavailable [phone] Allergies Allergen (clinical drug ingredient) Drug/Non Drug [...] Orally Once or twice a day for diarrhea; Duration: 30 days Not-Taking Melatonin 1 tablet in the even ing Orally as directed Not-Taking Cholestyramine 4 GM/DOSE MIX 1/2 TO 1 SC OOP IN 8 OUNCES OF WATER OR ORANGE JUICE EVERY DAY OR TWICE A DAY FOR DIARRHEA.; Duration: 30 Not-Taki ng Lisinopril 20 MG TAKE ONE TABLET BY MOUTH TWICE A DAY Oral; Duration: 90 Not-Taking Aspirin 81 81 MG 1 tablet Orally Once a day Not-Taking Turmeric Not-Taking Ocuvite Not-Taking Probiotic - as directed Orally Active Aleve PM 220-25 MG 1 tablet Orally once at hs Not-Taking Amitriptyline HCl 75 MG 1 tablet at bedt nori Orally at bedtime Active Atenolol 25 MG TAKE ONE TABLET BY MOUTH EVERY DAY Oral twice a day; Duration: 90 days Active Ciprofloxacin HCl 500 MG 1 tablet Orally every 12 hrs; Duration: 7 days PRN 08/02/2019 Not-Taking clonazePAM 0.5 MG (Schedule IV Drug) T NENA ONE TABLET BY MOUTH AT BEDTIME Oral; Duration: 90 Active Flagyl 500 MG 1 tablet Orally Thre e times a day; Duration: 7 days 07/27/2021 Not-Taking Immunizations Vaccine Route Administration Date Status Comme nts Influenza Unknown 10/24/2016 Administered Influenza Unknown 06/24/2018 Administered Influenza Unknown 09/06/2020 Administered Influenza Unknown 09/12/2021 Administered Social History AUDIT-C (Standard) Question Answer Notes Did you have a drink contain ing alcohol in the past year? Yes How often did you have a dri nk containing alcohol in the past year? Monthly or less (1 point) How many drinks did you have on a typical day when you were drinking in the past year? 1 or 2 drinks (0 point) How often did you have six o r more drinks on one occasion in the past year? Never (0 point) Points 1 Interpretation Negative Section Notes: Nonsmoker; no sig. alcohol Nonsmoker; no sig. alcohol Nonsmoker; no sig. alcohol Nonsmoker; no sig. alcohol Nonsmoker; no sig. alcohol Nonsmoker; no sig. alcohol Nonsmoker; no sig. alcohol Nonsmoker; no sig. alcohol Nonsmoker; no sig. alcohol Problems Problem Type SNOMED Code ICD Code Onset Dates Problem Status W/U Status Risk Notes Problem Diverticulitis of colon (250593710) Diverticulitis of large intestine without perforation or abscess without bleeding (K57.32) Active confirmed Problem Screening for malignant neoplasm of colon (616356894) Encounter for screening for malignant neoplasm of colon (Z12.11) Active confirmed Problem Weight loss (921526343) Weight loss (R63.4) Active confirmed Problem Screening for malignant neoplasm of rectum (432546342) Encounter for screening for malignant neoplasm of rectum (Z12.12) Active confirmed Problem Elevated liver enzymes level (858589033) Elevated liver function tests (R79.89) Active confirmed Problem Diverticular disease of colon (991509468) Diverticulosis of large intestine without hemorrhage (K57.30) Active confirmed Problem Fatty liver (317523559) Fatty liver (K76.0) Active confirmed Problem Serum ferritin high (284811784) Elevated ferritin (R79.89) Active confirmed Problem Diarrhea (28972631) Diarrhea, unspecified type (R19.7) Active confirmed Problem Irritable bowel syndrome characterized by constipation (839657977) Irritable bowel syndrome with constipation (K58.1) Active confirmed Problem Essential hypertension (49080329) Hypertension, unspecified type (I10) Active confirmed Problem Generalized abdominal pain (259825621) Abdominal pain, diffuse (R10.84) Active confirmed Problem Blood chemistry abnormal (492502982) Elevated ferritin level (R79.89) Active confirmed Vital Signs Temperature 96.9 degrees Fahrenheit 08/02/2025 Blood pressure diastolic 01 mm Hg 08/02/2025 Height 64.50 in 08/02/2025 Blood pressure systolic 001 mm Hg 08/02/2025 Weight 148. lbs 08/02/2025 BMI 25.01 kg/m2 08/02/2025 Encounters Encounter Location Date Provider Diagnosis [facility] [address] [place] [phone] 08/02/2025 Gracie Houston Irritable bowel syndrome with constipation K58.1 [facility] [address] [place] [phone] 06/27/2025 Gracie Houston [facility] [address] [place] [phone] 08/02/2025 Gracie Houston Assessments Encounter Date Diagnosis (ICD Code) Assessment Notes Treatment Notes Treatment Clinical Notes Section Notes 08/02/2025 Irritable bowel syndrome with constipation (ICD-10 - K58.1) Start taking 1 or 2 Metamucil fiber pills with a glass of water daily and some Miralax every day to help with the constipation Overall, Devi appears quite well at the present time. She is not having any active or worrisome GI complaints. We did review her history from back in June when her bowel movements were irregular and she was having some abdominal discomfort. This was preceded by constipation and then diarrhea after taking a stool softener with laxative. Her symptoms resolved without antibiotics at that time. I advised her that this seems most consistent with irritable bowel syndrome as opposed to diverticulitis given the bowel movement irregularity. I advised her that I think would be best to try to avoid periods in which she becomes constipated. As such, I did recommend adding Metamucil fiber pills with plenty of fluids to her daily regimen on a regular basis, as well as some daily MiraLAX to help facilitate bowel movements. I advised her that she should try to avoid any extremes of either loose stools or constipation. At this point I advised her that I do not think she had any recent diverticulitis and that hopefully the increased fiber and keeping the bowel movements more regular will help diminish the chances of that occurring. I do not think she needs any particular studies on my part such as colonoscopy or CT scan. Given her 3 previous negative colonoscopies, no family history of colon cancer, and her age, I do not think she requires any further screening colonoscopies either. If things remain well I have advised Devi to see me again on an as needed basis. We did review that she should certainly call if she has any problems or questions I can be of assistance with. I did advise her that if she develops any specific left lower quadrant pain, tenderness, fevers, etc., she should then go to the ER for evaluation at which time they can have her undergo a CT scan to make a more definitive diagnosis of diverticulitis if that is occurring at that time. Devi and Juan for comfortable with this plan. Thank you again for allowing me to participate in Devi's care. I shall continue to keep you advised of her progress as needed. Please do not hesitate to contact me if I can be of any further assistance in the future. Plan Of Treatment Pending Test Test Name [...] TOXIN A&B (C DIFF) 03/24 STOOL WBC 08/25/2017 STOOL WBC 04/10/2018 STOOL [...] Date MEDICARE OF [place] [address] [place] [address] [id number] DEVI BOWMAN Self - patient is the insured [facility] [address] [place], [place] [id number] DEVI BOWMAN Self - patient is the insured Medical (General) History Medical History History ICD Code Sigmoid Diverticulitis 08/2017- -negativ e CT scan in 11/2017 and 03/2018 HTN Neg. colonoscopy in 1997, 12 06, and 2016- except for diverticulosis and hemorrhoids Denies IL,DM,CVA,Lung disease,renal dise ase Headaches Sigmoid diverticulitis on CT scan 10/2020- went to ER- treated with outpatient antibiotics Restless leg syndrome Fatty liver and elevated ottoniel ritin level- - imaging studies reveal some hepatomegaly, mildly dilated common bile duct status post cholecystectomy; no evidence of any splenomegaly or ascites; elevated ferritin leve > 1000 but with normal iron saturation. Genetic testing for hemochromatosis was negative except for one gene of the H63D mutation. The C282Y mutation was completely negative. Her liver workup was otherwise completely negative. Diverticulitis in 02/2021-inp atient antibiotics- small intramural abscess noted in the sigmoid colon- seen by Dr. Alonso- did not require surgery nor drainage Macular degeneration Negative celiac disease labs in May of 2021 IBS and diarrhea improved on cholestyram ine powder Surgical History Surgery Date(Month/Year) Bunion surgery Spinal stenosis Cholecystectomy
--- OUTSIDE RECORDS SUMMARY | 2025-09-19 15:25 | XMS_ITS | Clinical Summary ---
Author Organization [facility] Address [address] [place] [phone] Phone Care Team Providers Care Viscose Department Worker Name Role Phone Osvaldo Gifford MD Primary Care Provider [phone] Allergies Active Allergy Reactions Criticality Noted Date [...] file Insurance MEDICARE PART A & B [facility] Care Teams Viscose Department Worker Relationship Specialty Start Date End Date Osvaldo Gifford MD [address] [place] [phone] PCP - General Internal Medicine 01/26/25 Additional Source Comments The information contained in this document represents components of the legal health record. It is not the complete legal health record.[facility]
--- NOTE | 2025-09-19 18:56 | MHC.CM.ED ---
CM met with patient to discuss discharge planning. Pt suffered a fall with L humeral neck fx on 09/16. Pt chose to d/c to home with [facility] instead of STR at that time. Pt had inadequate pain management and returned to ED. Pt lives alone, but has a S.O. who has been staying with her since her injury. She is currently active with [facility]. She uses a cane and is right handed. HCP is on file. PCP, address and insurance verified. No Q.S. Abi is reviewing. Other acute rehabs declined admission. Pt does not have funds for private pay STR. Will reassess [facility] in the am. Pt agreeable.
[2025-09-19 20:36] VITALS: BP 125/48; PULSE 86; RESP 16; TEMP 36.6; O2SAT 99
[2025-09-20 03:04] VITALS: BP 116/40; PULSE 82; RESP 16; O2SAT 96
[2025-09-20 06:24] VITALS: BP 104/47; PULSE 82; RESP 16; TEMP 36.6; O2SAT 95
[2025-09-20] MEDS: oxyCODONE HCl Immed Release 5 MG TABLET PO ×3 (09:09→22:39)
--- NOTE | 2025-09-20 09:29 | MHC.CM.ED ---
Addendum entered by Rosa Saravia 09/20/25 13:55: Per Tito DODSON, no surgery indicated. Outpatient follow up in 4-6 weeks. Original Note: Patient remains in ER overflow. Abi is still reviewing. Requesting note from brian to determine if surgery will be needed or when outpatient follow up will be needed. Lobo DODSON made aware and reached out to Tito DODSON. Tito is going into the OR right now but will review patient once she is out. Abi made aware. Continue to monitor for d/c needs.
--- NOTE | 2025-09-20 11:02 | PHA.MEDREC ---
Addendum entered by Alysa Nolasco [facility] 09/20/25 11:14: REVIEWED BY PHARMACIST Original Note: Pharmacy Consult ? Medication Reconciliation Pharmacy reviewed med rec done by nursing. Spoke with pt and she confirmed her medications. Pt states she takes her Atenolol 25mg as needed due to her Blood Pressure fluctuating and pt having a hard time stabilizing it and states she last took it Friday and pt uses Meloxicam 7.5mg tabs as needed for Gout.
[2025-09-20 11:28] VITALS: BP 122/56; PULSE 79
--- NOTE | 2025-09-20 11:30 | PC.NURSE ---
RN to RN report received via phone from Katharine Henry RN. Moved from ED 13 to Overflow 2. Family member (Juan) at bedside visiting. Care ongoing/assumed by this RN.
[2025-09-20 11:59] VITALS: BP 115/57; PULSE 82; RESP 12; TEMP 36.6; O2SAT 96
--- NOTE | 2025-09-20 12:25 | PM.EVENT ---
Event Note Date of Service: 09/20/25 Event Note: LT PROX HUM FX F/U OUTPATIENT SLING FOR COMFORT NO LIFTING, NWB LUE Time Spent With Patient Time: Total time managing care of this patient today ____ minutes.
[2025-09-20 14:00] VITALS: BP 99/48; PULSE 83; RESP 15; TEMP 37.1
[2025-09-20 21:28] VITALS: BP 114/52; PULSE 80; RESP 20; TEMP 37.1; O2SAT 99
--- NOTE | 2025-09-21 03:03 | PC.NURSE ---
Assumed care of pt at 1900. Pt A&Ox4. Able to make needs?known. Fractured left arm in sling. Pt medicated for pain per JAN. Pt ambulating to bathroom?with 1 staff assist. Awaiting PT consult. Fall precautions in place. Bed alarm on, wheels of bed locked, bed in lowest position. Call cat in reach. Plan of care continues.
--- NOTE | 2025-09-21 06:00 | PC.NURSE ---
Assumed care of pt, reported received from Ronda BAUGH, pt presented with a mechanical fall, no headstrike, no blood thinners, pt has left humeral neck fracture, sling was applied, aaox4, pt resting comfortably in bed, pending approval for [facility] for STR
[2025-09-21 06:28] VITALS: BP 121/33; PULSE 71; TEMP 36.7; O2SAT 93
[2025-09-21 08:39] VITALS: BP 121/45; PULSE 73; RESP 18; TEMP 36.8; O2SAT 95
--- NOTE | 2025-09-21 09:36 | PC.NURSE ---
Patient ambulated to bathroom with assistance. Tolerated ambulation well with one person assist. Patient urinated, assisted with washing up in bathroom, changed into clean clothes, and rinsed mouth wish mouthwash. Patient assisted into a recliner resting quietly, states she is comfortable. Eating breakfast with call cat within reach. Alarm connected to recliner and patient for patient safety.
[2025-09-21 09:55] VITALS: BP 103/47; PULSE 77
--- NOTE | 2025-09-21 15:18 | MHC.CM.ED ---
Patient remains in ER. [facility] won't have a bed available before . Still reviewing to see if they can offer a bed. Patient, sig other Juan and step daughter Noemy aware. Continue to monitor for d/c needs.
[2025-09-21] MEDS: oxyCODONE HCl Immed Release 5 MG TABLET PO ×2 (16:20→22:42)
[2025-09-21 16:54] VITALS: BP 127/50; PULSE 81; RESP 18; TEMP 36.4; O2SAT 99
--- NOTE | 2025-09-21 19:42 | PC.NURSE ---
Assumed care of patient at 1900, pt resting comfortably in bed, A&Ox3. Pt has sling on left arm. Breathing unlabored, skin p/w/d. Pt reports some pain in left arm, states is tolerable since receiving pain medication earlier. Call cat within reach.
[2025-09-21 21:57] VITALS: BP 116/44; PULSE 68; RESP 16; O2SAT 99
--- NOTE | 2025-09-21 22:55 | PC.NURSE ---
Pt's DBPs have been low, provider IVORY Tamayo notified. Plan to hold atenolol. Pt also reporting 5/10 pain and requesting oxycodone. Medicated as charted. Pt ambulated to bathroom with assistance. Assisted back into bed, with call cat within reach and bed alarm on.
--- NOTE | 2025-09-22 04:55 | PC.NURSE ---
Pt unsteady gait, 1 assist to bathroom.
[2025-09-22 06:30] VITALS: BP 124/43; PULSE 75; RESP 18; TEMP 36.2; O2SAT 95
[2025-09-22 07:11] VITALS: BP 96/40; PULSE 75; RESP 16; O2SAT 97
[2025-09-22 08:40] VITALS: BP 112/49; PULSE 74; RESP 18; O2SAT 95
[2025-09-22 08:42] VITALS: BP 112/49; PULSE 74
--- NOTE | 2025-09-22 10:09 | MHC.CM.ED ---
Patient remains in ER. [facility] is able to offer a bed. Moe TORRES booked for 2pm. Med nec with chart. Patient, sig other Juan, step daughter Michelle Salguero RN and Vandana DODSON aware. NA also made aware. Continue to monitor for d/c needs.
--- NOTE | 2025-09-22 13:40 | HO.NURTONUR ---
Report called to Mikaela BAUGH @ [facility]. Questions answered, pt transferred via EMS.
== END 2025-09-22 14:08 ==
PROVIDERS: Emergency Provider Emergency Medicine; PCP Internal Medicine
DX: S42.302A Unspecified fracture of shaft of humerus, left arm, initial encounter for closed fracture (principal); M25.512 Pain in left shoulder; R26.2 Difficulty in walking, not elsewhere classified; X58.XXXA Exposure to other specified factors, initial encounter; Y93.9 Activity, unspecified; Y92.9 Unspecified place or not applicable; Y99.1 Military activity; Z79.899 Other long term (current) drug therapy; Z11.52 Encounter for screening for COVID-19; Z87.891 Personal history of nicotine dependence
CPT/HCPCS: 80053; 83735; 85025; 87502; 87635; 97162; 99284; 99285

== ENCOUNTER 2025-10-05 13:14 | Outpatient (AMB) | payer MEDICARE, BC, SELFPAY ==
--- NOTE | 2025-10-05 13:21 | A.OFFVIS_ITS ---
Intake Visit Reasons: FC/ER-lt shoulder pain, LT humerus FC-DOI Intake Note: Devi is a 85 year old right hand dominant female who presents today for an ER visit to evaluate left humerus fracture, DOI: 09/15/25. Patient reports that her pain has significantly improved since her last visit. No numbness or tingling. She has complaints of right shoulder pain, stating upon her fall she was being held up by her arm to help try to stop the fall. Her shoulder has been sore and is requesting an injection due to having to use her right arm more frequently. States history of right shoulder injection, with the last one possibly 6 months prior. Patient has been using arm sling since her injury. Complaints of left low nd, middle finger locking and catching. Currently resides at [facility]. Allergies Sulfa (Sulfonamide Antibiotics) (SULFA(SULFONAMIDE ANTIBIOTICS)) Allergy (Severe, Verified 10/05/25 13:36) HIVES sulfur Allergy (Unknown, Verified 10/05/25 13:36) Unknown codeine Adverse Reaction (Mild, Verified 10/05/25 13:36) Abdominal Pain Medication List - Last Reviewed 10/05/25 by OLEG Lopez acetaminophen 650 mg PO Q6H PRN amitriptyline 75 mg PO BEDTIME ascorbic acid (vitamin C) mg PO atenolol 25 mg PO BID PRN cane As directed [cane As directed] clonazepam 0.5 mg PO BEDTIME 90 days cyclosporine 0.05% 1 drp ophthalmic (eye) Q12H enoxaparin (Lovenox) 40 mg subcut DAILY magnesium oxide 400 mg PO DAILY metoprolol tartrate 25 mg PO DAILY multivitamin 1 tab PO DAILY mo-wks-KG-vit G-szzkwy-yowuzdx 200 mcg-15 mcg- 5 mg-1 mg (PreserVision AREDS 2 Plus Multivit) 1 cap PO BID oxycodone 5 mg PO TID PRN pantoprazole 20 mg PO BID prednisone mg PO HPI HPI FC/ER-lt shoulder pain, LT humerus FC-DOI: Details: 85 yo female right hand dominate presents to the office today for a left shoulder injury she sustained after a fall. She feels it was a syncopal episode due to her BP which is being managed. She was transferrred to a rehab and then DC home. She was referred to our office for ortho eval. She also has right shoulder OA and sees me for steroid injections. She states the right shoulder is bothering her more from having to compensate. [facility] Medical History Diverticular disease Fatigue Pain in both feet Gout Rectal bleeding LFT elevation Inflammatory arthritis Acute diverticulitis Arthralgia Abscess Orthostatic hypotension Seizure Obesity (BMI 30-39.9) Diverticulitis Anemia Restless leg HTN (hypertension) Surgical History History of appendectomy Spinal stenosis of lumbar region Hx of cholecystectomy History of bunionectomy Social History Household Members: Significant Other Housing: House Do you presently have visiting nurse or other home services: No Alcohol intake: current Alcohol intake frequency: holidays/special occasions only Alcohol type: wine Comment: wine douglas and new year - and oncew a month 1 drink Patient Tobacco Use Status: Former Tobacco user Tobacco use type: Cigarette Years Smoked: 5 e-Cigarette/Vaping Use: Never Used Second Hand Smoke Exposure: Yes Advance Directives Date on File: 03/14/21 service: No Current occupational status: retired Cognitive needs: No Hearing needs: No Vision needs: Yes (Glasses) Review of Systems Const All systems reviewed & are unremarkable except as noted in HPI and below Physical Exam Extrem Other: left shoulder normal to inspection. Swelling and tenderness over the proximal humerus. Anterior deltoid sensation intact. Elbow and wrist ROM intact. NVI. Office Procedures AMB Fracture Care Fracture Billing Code: Fracture Billing Code AMB Joint Injection/Aspiration Joint Injection/Aspiration Primary Site: right shoulder Prep: site was prepped using aseptic technique, ethochloride spray was applied and injection warnings given Injected: 40 mg of, with 3 mL of, 1% plain lidocaine, 0.25% bupivacaine and decadron Approach Used: posterolateral Procedure: The patient tolerated the procedure well and there was some relief with the local anesthesia Coding 08069 - Glenohumeral/Tronchanteric Bursa/Intraarticular Procedure code (CPT) selection complete Results Reviewed Results Reviewed: X-rays of the left shoulder obtained in the office today and reviewed by me show proximal humerus fracture with displacement Assessment & Plan Assessment & Plan (1) Closed fracture of left proximal humerus: Code(s): S42.A - Unspecified fracture of upper end of left humerus, initial encounter for closed fracture Category: Medical Qualifiers: Encounter type: initial encounter Fracture alignment: displaced Plan: I explained to the patient the extent of her injury along with options which include conservative management. I explained to the patient surgical intervention is typically not warranted because the functional status is often not improved. At this time she will continue with the sling for comfort. She can remove the sling to rest and work on elbow range of motion. I gave her a physical therapy order to bring to her [facility] so they can work on passive range of motion of the left upper extremity, elbow range of motion and scapular stabilization techniques. No lifting or rotator cuff strengthening exercises. We also discussed steroid injection of the right shoulder which was performed today and the patient tolerated well. The patient will see me back in 6 weeks for her left shoulder with x-rays. Orders: Orders PT Evaluation and Treatment Today S4A - Unspecified fracture of upper end of left humerus, initial encounter for closed fracture XR shoulder LT min 2V Today M25.512 - Pain in left shoulder Medications: New celecoxib (Celebrex) 200 mg PO BID 60 caps 3RF 30 days Coding Level of Care Code Est Pt Level 3 (37408) Complex EM visit Add On G2211 Diagnoses Closed fracture of left proximal humerus S4 Encounter type: initial encounter Fracture alignment: displaced CPT Codes Fracture Care - Fracture Billing Code: Fracture Billing Code (9817000383) Coding - Joint 7: 30080 - Glenohumeral/Tronchanteric Bursa/Intraarticular ([id number])
--- OUTSIDE RECORDS SUMMARY | 2025-10-05 16:01 | XMS_ITS | Clinical Summary ---
Author Organization [facility] Address [address] [place] [address] Phone Care Team Providers Care Delivery Truck Driver Heavy Name Role Phone Osvaldo Gifford MD Primary Care Provider [phone] Allergies Active Allergy Reactions Criticality Noted Date [...] on patient's age to complete this topic IPV VACCINES Aged Out No longer eligi ble based on patient's age to complete this topic MENINGOCOCCAL VACCINES (ACWY) Aged Out No longer eligible based on patient's age to complete this topic MENINGOCOCCAL VACCINES (B) Aged Out N o longer eligible based on patient's age to complete this topic Medical Devices Not on file Insurance MEDICARE PART A & B [facility] Care Teams Delivery Truck Driver Heavy Relationship Specialty Start Date End Date Osvaldo Gifford MD [address] [place] [phone] PCP - General Internal Medicine 01/26/25 Additional Source Comments The information contained in this document represents components of the legal health record. It is not the complete legal health record.[facility]
--- OUTSIDE RECORDS SUMMARY | 2025-10-05 16:01 | XMS_ITS | Patient Health Record ---
Author Organization [facility] Address [address] [place] [address] Care Team Providers Care Telephone Sales Representative Name Role Phone Osvaldo Gifford MD Primary Care Provider Gracie Mcguire Unavailable [phone] Allergies Allergen (clinical drug ingredient) Drug/Non Drug [...] Status Risk Notes Problem Diverticulitis of colon (257526119) Diverticulitis of large intestine without perforation or abscess without bleeding (K57.32) Active confirmed Problem Screening for malignant neoplasm of colon (431685330) Encounter for screening for malignant neoplasm of colon (Z12.11) Active confirmed Problem Weight loss (524575056) Weight loss (R63.4) Active confirmed Problem Screening for malignant neoplasm of rectum (676090936) Encounter for screening for malignant neoplasm of rectum (Z12.12) Active confirmed Problem Elevated liver enzymes level (283628450) Elevated liver function tests (R79.89) Active confirmed Problem Diverticular disease of colon (785379930) Diverticulosis of large intestine without hemorrhage (K57.30) Active confirmed Problem Fatty liver (008366863) Fatty liver (K76.0) Active confirmed Problem Serum ferritin high (892126356) Elevated ferritin (R79.89) Active confirmed Problem Diarrhea (35373479) Diarrhea, unspecified type (R19.7) Active confirmed Problem Irritable bowel syndrome characterized by constipation (890642832) Irritable bowel syndrome with constipation (K58.1) Active confirmed Problem Essential hypertension (96693253) Hypertension, unspecified type (I10) Active confirmed Problem Generalized abdominal pain (233189011) Abdominal pain, diffuse (R10.84) Active confirmed Problem Blood chemistry abnormal (612699352) Elevated ferritin level (R79.89) Active confirmed Vital Signs Temperature 96.9 degrees Fahrenheit 08/02/2025 Blood pressure diastolic 01 mm Hg 08/02/2025 Height 64.50 in 08/02/2025 Blood pressure systolic 001 mm Hg 08/02/2025 Weight 148. lbs 08/02/2025 BMI 25.01 kg/m2 08/02/2025 Encounters Encounter Location Date Provider Diagnosis [facility] [address] [place] [phone] 08/02/2025 Gracie Houston Irritable bowel syndrome with constipation K58.1 [facility] [address] [place] [phone] 06/27/2025 Gracie Houston [facility] [address] [place] [phone] 08/02/2025 Gracie Houston Assessments Encounter Date Diagnosis [...] Date MEDICARE OF [place] [address] [place] [address] [id number] DEVI BOWMAN Self - patient is the insured [facility] [address] [place], [place] [phone] [phone] [id number] DEVI BOWMAN Self - patient is the insured Medical (General) History Medical History History ICD Code Sigmoid Diverticulitis 08/2017- -negativ e CT scan in 11/2017 and 03/2018 HTN Neg. colonoscopy in 1997, 12 06, and 2016- except for diverticulosis and hemorrhoids Denies ID,DM,CVA,Lung disease,renal dise ase Headaches Sigmoid diverticulitis on [...]
== END 2025-10-05 13:56 | disposition home or self-care (01) ==
LOC: HO.HOS 13:14
PROVIDERS: PCP Internal Medicine; Visit Provider Physician Assistant
DX: S42.202A Unspecified fracture of upper end of left humerus, initial encounter for closed fracture (principal); M19.011 Primary osteoarthritis, right shoulder
CPT/HCPCS: 20610; 99213

== ENCOUNTER → 2025-10-05 13:17 | Outpatient (BNV) | payer MEDICARE, BC, SELFPAY | PROVIDERS: Visit Provider Radiology Diagnostic Radiology | DX: M25.512 Pain in left shoulder (principal); S42.212D Unspecified displaced fracture of surgical neck of left humerus, subsequent encounter for fracture with routine healing | CPT/HCPCS: 73030 ==

== ENCOUNTER 2025-10-05 14:56 | Outpatient (REF) | payer MEDICARE, BC, SELFPAY ==
--- NOTE | ~2025-10-05 | XR_ITS ---
EXAMINATION: XR SHOULDER, LEFT CLINICAL INFORMATION: M25.512 - Pain in left shoulder , follow-up fracture COMPARISON: 09/16/2025 TECHNIQUE: Two views of the left shoulder. FINDINGS: Again seen is a transverse fracture through the surgical neck of the left humerus. The humeral shaft is displaced anteriorly and medially. Displacement have increased since the prior. Also, the humeral head appears subluxed more inferiorly than on the prior. XR/XR shoulder LT min 2V IMPRESSION: Surgical neck fracture of the left humerus is again identified. There is interval inferior subluxation of the humeral head and possible mild medial migration of the humeral diaphysis. Electronically signed by: Ej Rider MD 10/05/2025 01:34 PM EST
--- OUTSIDE RECORDS SUMMARY | 2025-10-06 18:14 | XMS_ITS | Patient Health Record ---
Author Organization [facility] Address [address] [place] [address] Care Team Providers Care Housekeeper Caregiver Name Role Phone Osvaldo Gifford MD Primary Care Provider Gracie Mcguire Unavailable [phone] Allergies Allergen (clinical drug ingredient) Drug/Non Drug [...] Status Risk Notes Problem Diverticulitis of colon (924591011) Diverticulitis of large intestine without perforation or abscess without bleeding (K57.32) Active confirmed Problem Screening for malignant neoplasm of colon (586414468) Encounter for screening for malignant neoplasm of colon (Z12.11) Active confirmed Problem Weight loss (981554234) Weight loss (R63.4) Active confirmed Problem Screening for malignant neoplasm of rectum (248234597) Encounter for screening for malignant neoplasm of rectum (Z12.12) Active confirmed Problem Elevated liver enzymes level (485584546) Elevated liver function tests (R79.89) Active confirmed Problem Diverticular disease of colon (690688614) Diverticulosis of large intestine without hemorrhage (K57.30) Active confirmed Problem Fatty liver (683229050) Fatty liver (K76.0) Active confirmed Problem Serum ferritin high (534821534) Elevated ferritin (R79.89) Active confirmed Problem Diarrhea (61687101) Diarrhea, unspecified type (R19.7) Active confirmed Problem Irritable bowel syndrome characterized by constipation (054607281) Irritable bowel syndrome with constipation (K58.1) Active confirmed Problem Essential hypertension (03583779) Hypertension, unspecified type (I10) Active confirmed Problem Generalized abdominal pain (583047650) Abdominal pain, diffuse (R10.84) Active confirmed Problem Blood chemistry abnormal (759131483) Elevated ferritin level (R79.89) Active confirmed Vital Signs Temperature 96.9 degrees Fahrenheit 08/02/2025 Blood pressure diastolic 01 mm Hg 08/02/2025 Height 64.50 in 08/02/2025 Blood pressure systolic 001 mm Hg 08/02/2025 Weight 148. lbs 08/02/2025 BMI 25.01 kg/m2 08/02/2025 Encounters Encounter Location Date Provider Diagnosis [facility] [address] [place] [phone] 08/02/2025 Gracie Houston Irritable bowel syndrome with constipation K58.1 [facility] [address] [place] [phone] 06/27/2025 Gracie Houston [facility] [address] [place] [phone] 08/02/2025 Gracie Houston Assessments Encounter Date Diagnosis [...] MEDICARE OF [place] [address] [facility] [address] [phone] [id number] DEVI BOWMAN Self - patient is the insured [facility] [address] [place], [place] [phone] [id number] DEVI BOWMAN Self - patient is the insured Medical (General) History Medical History History ICD Code Sigmoid Diverticulitis 08/2017- -negativ e CT scan in 11/2017 and 03/2018 HTN Neg. colonoscopy in 1997, 12 06, and 2016- except for diverticulosis and hemorrhoids Denies CA,DM,CVA,Lung disease,renal dise ase Headaches Sigmoid diverticulitis on [...]
--- OUTSIDE RECORDS SUMMARY | 2025-10-06 18:14 | XMS_ITS | Clinical Summary ---
Author Organization [facility] Address [address] [place] [address] Phone Care Team Providers Care Picture Painter Name Role Phone Osvaldo Gifford MD Primary Care Provider [phone] Allergies Active Allergy Reactions Criticality Noted Date [...] file Insurance MEDICARE PART A & B [employer] Care Teams Picture Painter Relationship Specialty Start Date End Date Osvaldo Gifford MD [address] [place] [phone] PCP - General Internal Medicine 01/26/25 Additional Source Comments The information contained in this document represents components of the legal health record. It is not the complete legal health record.[facility]
== END 2025-10-05 14:57 | disposition home or self-care (01) ==
LOC: HO.HOSX 14:56
PROVIDERS: Visit Provider Physician Assistant
DX: S42.202D Unspecified fracture of upper end of left humerus, subsequent encounter for fracture with routine healing (principal); X58.XXXD Exposure to other specified factors, subsequent encounter
CPT/HCPCS: 20610; 73030; 99212; J0665; J1100; J2003

== ENCOUNTER 2025-10-10 10:20 | Outpatient (AMB) | payer MEDICARE, BC, SELFPAY ==
[2025-10-10 10:30] VITALS: BP 160/80; PULSE 112; TEMP 36.8; O2SAT 98
--- NOTE | 2025-10-10 10:30 | MHC.PC.OV ---
Vital Signs 10/10/25 10:30 10/10/25 11:03 Height 5 ft 4 in BP 160/80 H 150/78 H Blood Pressure Location Lt brachial Rt brachial Position Sitting Sitting Pulse 112 H 90 Pulse Source Pulse Oximeter Auscultation Temp 98.3 F Temp Source Temporal Artery Scan Pulse Oximetry (%) 98 Oxygen Delivery Method Room Air Intake Visit Reasons: DIUSCHARGE FOLLOW UP Department Store Manager Required: No Accompanied by: Self / Same As Patient Allergies Sulfa (Sulfonamide Antibiotics) (SULFA(SULFONAMIDE ANTIBIOTICS)) Allergy (Severe, Verified 10/10/25 10:45) HIVES sulfur Allergy (Unknown, Verified 10/10/25 10:45) Unknown codeine Adverse Reaction (Mild, Verified 10/10/25 10:45) Abdominal Pain Medication List - Last Reconciled 10/10/25 by Hawa Rain PA-C acetaminophen 650 mg PO Q6H PRN amitriptyline 75 mg PO BEDTIME ascorbic acid (vitamin C) mg PO cane As directed [cane As directed] celecoxib (Celebrex) 200 mg PO BID 30 days clonazepam 0.5 mg PO BEDTIME 90 days cyclosporine 0.05% 1 drp ophthalmic (eye) Q12H enoxaparin (Lovenox) 40 mg subcut DAILY magnesium oxide 400 mg PO DAILY metoprolol tartrate 25 mg PO DAILY multivitamin 1 tab PO DAILY tq-ama-SX-vit D-lmdcsz-pyrgkuq 200 mcg-15 mcg- 5 mg-1 mg (PreserVision AREDS 2 Plus Multivit) 1 cap PO BID oxycodone 5 mg PO TID PRN pantoprazole 20 mg PO BID prednisone mg PO Tobacco use date assessed: 05/18/25 Fall risk assessment: 2 + Falls in past year Last assessed Fall Risk: 05/18/25 Dental Screening Dental Screen Date: 05/18/25 Did you have a dental visit in the last 12 months?: Yes Did you have a dental problem in the last 6 months where you did not have access to dental care?: No Was dental information given to patient?: Patient has dentist HPI DIUSCHARGE FOLLOW UP HPI Details 85 year old female with past medical history of IBS, HTN, fatty liver, RLS and renal insufficiency last seen by Dr. Gifford 04/2025 coming in for HDF. In review of the notes, patient was seen in [facility] ED 09/16/25 after mechanical fall resulting in proximal humerus fx discharged home with PT. Seen again in ED 09/19/2025 requesting short term rehab and d/c to [facility]. While at [facility] it was recommended patient d/c her Amitriptyline, Atenolol was d/c and metoprolol was started 12.5 BID. She was seen by ortho 10/05/2025 given steroid injection and recommended sling and home PT. Presenting for a follow-up visit after a recent fall and hospitalization. The patient has a history of poorly controlled hypertension and tachycardia, which previous physicians have struggled to manage. At home, her blood pressure has been as high as 160 systolic, with a pulse rate of 130-140 bpm. Her atenolol was discontinued, and she is currently taking metoprolol, though her cold strip roller has been administering extra doses due to elevated readings. Amitriptyline is being tapered as recommended by her rehab facility. She was prescribed prednisone for a swollen foot and is now in the process of tapering off the medication. [facility] Medical History Diverticular disease Fatigue Pain in both feet Gout Rectal bleeding LFT elevation Inflammatory arthritis Acute diverticulitis Arthralgia Abscess Orthostatic hypotension Seizure Obesity (BMI 30-39.9) Diverticulitis Anemia Restless leg HTN (hypertension) Surgical History History of appendectomy Spinal stenosis of lumbar region Hx of cholecystectomy History of bunionectomy Social History Household Members: Significant Other Housing: House Do you presently have visiting nurse or other home services: No Alcohol intake: current Alcohol intake frequency: holidays/special occasions only Alcohol type: wine Comment: wine douglas and new year - and oncew a month 1 drink Patient Tobacco Use Status: Former Tobacco user Tobacco use type: Cigarette Years Smoked: 5 e-Cigarette/Vaping Use: Never Used Second Hand Smoke Exposure: Yes Advance Directives Date on File: 03/14/21 service: No Current occupational status: retired Cognitive needs: No Hearing needs: No Vision needs: Yes (Glasses) Questionnaire PHQ-9 Over the last 2 weeks, how often have you been bothered by any of the following problems? 1. Little interest or pleasure in doing things: not at all 2. Feeling down, depressed, or hopeless: not at all 3. Trouble falling or staying asleep, or sleeping too much: not at all 4. Feeling tired or having little energy: not at all 5. Poor appetite or overeating: not at all 6. Feeling bad about yourself - or that you are a failure or have let yourself or your family down: not at all 7. Trouble concentrating on things, such as reading the newspaper or watching television: not at all 8. Moving or speaking so slowly that other people could have noticed. Or the opposite - being so fidgety or restless that you have been moving around a lot more than usual: not at all 9. Thoughts that you would be better off or of hurting yourself in some way: not at all Total score: 0 Source: Developed by Drs. Dyllan Ansari, Maral Abdi, Osmani Rviera and colleagues, with an educational florentino from [employer]. Thrive Questionnaire Date Thrive assessed: 05/18/25 I am a: Patient What is your living situation today?: I have a steady place to live Within the past 12 months, did the food you bought not last and you didn't have the money to get more?: Never true Within the past 12 months, did you worry whether your food would run out before you got money to buy more?: Never true Do you have trouble paying for medicines?: No Do you have trouble getting transportation to medical appointments?: No Do you have trouble paying your heating and electricity bill?: No Do you have trouble taking care of your child, family member or friend?: No Do you have trouble with day-to-day activities such as bathing, preparing meals, shopping, managing finances, etc.?: No Are you currently unemployed and looking for a job?: No Are you interested in more education?: No Please select the resources that you would like help with: None Currently or been in a relationship where the following occur: No concerns reported THRIVE Score: 0 AUDIT C Alcohol Use Questionnaire (AUDIT-C) 1. How often do you have a drink containing alcohol?: Never 3. How often do you have six or more drinks on one occasion?: Never Total Score: 0 JAKE-7 AMB Questionnaire JAKE-7 Date JAKE - 7 assessed: 05/18/25 Feeling nervous, anxious, or on edge: 0 = Not at all Not being able to stop or control worryin = Not at all Worrying too much about different things: 0 = Not at all Trouble relaxin = Not at all Being so restless that it is hard to sit still: 0 = Not at all Becoming easily annoyed or irritable: 0 = Not at all Feeling afraid as if something awful might happen: 0 = Not at all Total JAKE-7 score (0-4 normal; 5-9 mild; 10-14 moderate; 15-21 severe): 0 Source: Developed by Drs. Dyllan Ansari, Maral Abdi, Osmani Rivera and colleagues, with an educational florentino from [employer]. Review of Systems Const Denies body aches, Denies chills, Denies fever(s), Denies headache(s) and Denies poor appetite Eyes Reports no additional complaints ENT Denies dizziness and Denies headache(s) Card Denies chest pain, Denies lightheadedness and Denies dyspnea Resp Denies dyspnea GI Denies nausea and Denies vomiting Reports no additional complaints Musc Reports as per HPI and Denies abnormal gait Skin/Breast Reports system reviewed and no additional complaints, except as documented Neuro Denies abnormal gait, Denies dizziness and Denies headache(s) Psych Reports no additional complaints Physical exam (Primary Care) Vital Signs: Last Vital Signs Temp 98.3 F 10/10/25 10:30 Pulse 90 10/10/25 11:03 BP 150/78 H 10/10/25 11:03 Pulse Ox 98 10/10/25 10:30 Oxygen Delivery Method Room Air 10/10/25 10:30 Tobacco/Smoking Status: Tobacco use Status Tobacco use date assessed 05/18/25 10/10/25 10:35 Patient Tobacco Use Status Former Tobacco user 10/10/25 10:35 Tobacco use type Cigarette 10/10/25 10:35 e-Cigarette/Vaping Use Never Used 10/10/25 10:35 PHQ-9: PHQ-9 Score PHQ-9: Total score 0 10/10/25 10:49 Thrive Assessment: Date of Thrive Assessment Date Thrive assessed 05/18/25 10/10/25 10:35 Currently or been in a relationship where the following occur: No concerns reported Const General: cooperative, healthy appearing, comfortable and no acute distress Orientation/consciousness: patient oriented x3 HENMT Head: Yes normocephalic Ears: hearing grossly normal bilaterally General nose exam: Normal external nose present Eyes General: appearance normal, both eyes and all related structures Conjunctivae: conjunctivae normal Neck Neck: Yes full ROM and Yes no lymphadenopathy Resp Effort & Inspection: normal respiratory effort Auscultation: clear to auscultation bilaterally, no crackles, no rales, no rhonchi and no wheezes Cardio Rate: regular rate Rhythm: regular rhythm Skin General skin exam: no rashes or lesions noted Neuro General: patient oriented x3 Gait exam (Neuro): Normal gait present Extrem Other: Intact pulses and sensation bilateral upper extremities General: Yes normal to inspection, Yes full ROM and No edema Psych Affect: normal affect Attitude: cooperative Insight: Good insight present (Psych) Judgement: Good judgement present (Psych) Coding Level of Care Code Est Pt Level 3 (66094) Diagnoses Essential hypertension I10 Hypertension type: essential hypertension Overweight (BMI 25.0-29.9) E66.3 Closed fracture of left proximal humerus S42.202A Encounter type: initial encounter Fracture alignment: displaced Restless leg G25.81 Assessment & Plan Assessment & Plan (1) HTN (hypertension): Code(s): I10 - Essential (primary) hypertension Category: Medical Qualifiers: Hypertension type: essential hypertension Qualified Code(s): I10 - Essential (primary) hypertension Plan: The patient's blood pressure and heart rate remain elevated, with home readings up to 160s systolic and 140 bpm, and an in-office reading of 150/78 mmHg. The previous atenolol was discontinued. To improve control, the metoprolol dose will be increased from a half tablet twice daily to one full 25 mg tablet twice daily. The patient and her cold strip roller will monitor and log blood pressure and heart rate at home. A phone follow-up is scheduled for one week to assess response and check for adverse effects like lightheadedness. (2) Overweight (BMI 25.0-29.9): Code(s): E66.3 - Overweight Category: Medical Plan: Healthy diet and regular exercise is encouraged. (3) Closed fracture of left proximal humerus: Code(s): S42.202A - Unspecified fracture of upper end of left humerus, initial encounter for closed fracture Category: Medical Qualifiers: Encounter type: initial encounter Fracture alignment: displaced Plan: The patient's shoulder pain has improved following an orthopedic injection. She will continue with home physical and occupational therapy and follow up with her orthopedist as needed. Home health aide services are also in place to assist with her recovery. (4) Restless leg: Comment: amitriptylline Code(s): G25.81 - Restless legs syndrome Category: Medical Plan: Currently we are working to taper the Amitriptyline. She will continue to monitor her symptoms and consider ropinirole or Trazodone as substitution. Plan This note was constructed using voice recognition software. While every effort has been made to ensure accuracy and assembly line upholsterer, still areas may have been included sometimes these areas may affect the content or meeting of the given symptoms. Total time spent caring for the patient today was 20 minutes. This includes time spent before the visit reviewing the chart, time spent during the visit, and time spent after the visit and documentation. Patient was informed and verbally consented to the use of an ambient scribe for clinic note documentation during this visit. Medications: New amitriptyline 25 mg orally; take 2 tabs x7 days then 1 tab x7 days then dc 21 tabs 0RF Changed From metoprolol tartrate 25 mg PO DAILY To metoprolol tartrate 25 mg PO BID
[2025-10-10 11:03] VITALS: BP 150/78; PULSE 90
--- OUTSIDE RECORDS SUMMARY | 2025-10-10 21:20 | XMS_ITS | Patient Health Record ---
Author Organization [facility] Address [address] [place] [address] Care Team Providers Care In Home Sales Consultant Name Role Phone Osvaldo Gifford MD Primary Care Provider Gracie Mcguire Unavailable [phone] Allergies Allergen (clinical drug ingredient) Drug/Non Drug Allergy documented on EMR Reaction Allergy Type Onset Date Status Codeine Phosphate Unknown Drug Allergy Active acetaminophen / oxycodone Percocet Unknown Drug Allergy Active Sulfacet-R Unknown Drug Allergy Active Reason For Referral No Information Medications Medication SIG (Take, Route, Frequency, Duration) Notes Start Date End Date Status Cholestyramine 4 GM/DOSE Powder MIX 1/2 TO 1 SCOOP IN 8 OUNCES OF WATER OR ORANGE JUICE EVERY DAY OR TWICE A DAY FOR DIARRHEA. Orally Once or twice a day for diarrhea; Duration: 30 days Not-Taking/PRN Melatonin 1 tablet in the evening Orally as directed Not-Taking/PRN Cholestyramine 4 GM/DOSE Powder MIX 1/2 TO 1 SCOOP IN 8 OUNCES OF WATER OR ORANGE JUICE EVERY DAY OR TWICE A DAY FOR DIARRHEA.; Duration: 30 Not-Taking/PRN Lisinopril 20 MG Tablet TAKE ONE TABLET BY MOUTH TWICE A DAY Oral; Duration: 90 Not-Taking/WY N Aspirin 81 81 MG Tablet Delayed Release 1 tablet Orally Once a day Not-Taking/PRN Turmeric Not-Taking /PRN Ocuvite Not-Taking /PRN Probiotic - Capsule as directed Orally Active Aleve PM 220-25 MG Tablet 1 tablet Orally once at hs Not-Taking/PRN Amitriptyline HCl 75 MG Tablet 1 tablet at bedtime Orally at bedtime Active Atenolol 25 MG Tablet TAKE ONE TABLET BY MOUTH EVERY DAY Oral twice a day; Duration: 90 days Active Ciprofloxacin HCl 500 MG Tablet 1 tablet Orally every 12 hrs; Duration: 7 days PRN 08/02/2019 Not-Taking/PRN clonazePAM 0.5 MG Tablet (Schedule IV Dr slaughter) TAKE ONE TABLET BY MOUTH AT BEDTIME Oral; Duration: 90 Active Flagyl 500 MG Tablet 1 tablet Orally Three times a day; Duration: 7 days 07/27/2021 Not-Taking/PRN Immunizations Vaccine Route Administration Date Status Comme nts Influenza Unknown 10/24/2016 Administered Influenza Unknown 06/24/2018 Administered Influenza Unknown 09/06/2020 Administered Influenza Unknown 09/12/2021 Administered Social History Social History Drug/Alcohol: Social Info Question Answer Notes AUDIT-C (Standard) Did you have a drink containing alcohol in the past year? Yes How often did you have a drink containing alcohol in the past year? Monthly or less (1 point) How many drinks did you have on a typical day when you were drinking in the past year? 1 or 2 drinks (0 point) How often did you have six or more drinks on one occasion in the past year? Never (0 point) Points 1 Interpretation Negative Additional Details Category Social Info Options Details Miscellaneous: Marital status: Occupation: retired Section Notes: Nonsmoker; no sig. alcohol Nonsmoker; no sig. alcohol Nonsmoker; no sig. alcohol Nonsmoker; no sig. alcohol Nonsmoker; no sig. alcohol Nonsmoker; no sig. alcohol Nonsmoker; no sig. alcohol Nonsmoker; no sig. alcohol Nonsmoker; no sig. alcohol Problems Problem Type SNOMED Code ICD Code Onset Dates Problem Status W/U Status Risk Notes Problem Diverticulitis of colon (597239520) Diverticulitis of large intestine without perforation or abscess without bleeding (K57.32) Active confirmed Problem Screening for malignant neoplasm of colon (853402976) Encounter for screening for malignant neoplasm of colon (Z12.11) Active confirmed Problem Weight loss (976835415) Weight loss (R63.4) Active confirmed Problem Screening for malignant neoplasm of rectum (527314344) Encounter for screening for malignant neoplasm of rectum (Z12.12) Active confirmed Problem Elevated liver enzymes level (202850351) Elevated liver function tests (R79.89) Active confirmed Problem Diverticular disease of colon (051769692) Diverticulosis of large intestine without hemorrhage (K57.30) Active confirmed Problem Fatty liver (046826372) Fatty liver (K76.0) Active confirmed Problem Serum ferritin high (671646992) Elevated ferritin (R79.89) Active confirmed Problem Diarrhea (16891196) Diarrhea, unspecified type (R19.7) Active confirmed Problem Irritable bowel syndrome characterized by constipation (790126832) Irritable bowel syndrome with constipation (K58.1) Active confirmed Problem Essential hypertension (37141324) Hypertension, unspecified type (I10) Active confirmed Problem Generalized abdominal pain (619148823) Abdominal pain, diffuse (R10.84) Active confirmed Problem Blood chemistry abnormal (433362727) Elevated ferritin level (R79.89) Active confirmed Vital Signs Temperature 96.9 degrees Fahrenheit 08/02/2025 Blood pressure diastolic 01 mm Hg 08/02/2025 Height 64.50 in 08/02/2025 Blood pressure systolic 001 mm Hg 08/02/2025 Weight 148. lbs 08/02/2025 BMI 25.01 kg/m2 08/02/2025 Encounters Encounter Location Date Provider Diagnosis [facility] [address] [place] [phone] 08/02/2025 Gracie Houston Irritable bowel syndrome with constipation K58.1 [facility] [address] [place] [phone] 06/27/2025 Gracie Houston [facility] [address] [place] [phone] 08/02/2025 Gracie Houston Assessments Encounter Date Diagnosis [...] PROFILE 05/24/2021 LIVER PROFILE 05/10/2021 LIVER PROFILE 05/04/2021 LIVER PROFILE 06/15/2021 LIVER PROFILE 09/04/2021 LIVER PROFILE 08/25/2017 AMYLASE 08/25/2017 LIPASE 08/25/2017 IRON + IBC (FE) 05/10/2021 IRON + IBC (FE) 06/15/2021 FERRITIN 05/10/2021 CRP 05/24/2021 CRP 08/25/2017 CBC w DIFF 05/10/2021 CBC w DIFF 05/24/2021 CBC with MANUAL DIFFERENTIAL 08/25/2017 SED RATE (ESR) 08/25/2017 SED RATE (ESR) 05/24/2021 HEPATITIS B PROFILE 05/04/2021 CLOSTRIDIUM DIFF TOXIN A&B (C DIFF) 01/2017 CLOSTRIDIUM DIFF TOXIN A&B (C DIFF) 12/2016 CLOSTRIDIUM DIFF TOXIN A&B (C DIFF) 03/24 STOOL WBC 04/10/2018 STOOL WBC 08/25/2017 STOOL WBC 06/26/2017 CELIAC PANEL #10 06/08/2021 ENDOMYSIAL IGA 02/06/2013 MITOCHONDRIAL AB 05/04/2021 HEMOCHROMATOSIS (C282Y) 05/04/2021 TRANSGLUTAMINASE AB IGA 02/06/2013 TRANSGLUTAMINASE AB IGG 02/06/2013 GIARDIA AG, STOOL EIA 06/26/2017 GIARDIA AG, STOOL EIA 08/25/2017 GIARDIA AG, STOOL EIA 04/10/2018 OVA & PARASITES (O&P) 08/25/2017 OVA & PARASITES (O&P) 04/10/2018 OVA & PARASITES (O&P) 06/26/2017 CULTURE, STOOL 06/26/2017 CULTURE, STOOL 04/10/2018 CULTURE, STOOL 08/25/2017 CULTURE, STOOL 09/25/2021 CULTURE, STOOL 05/24/2021 FLUOR. ANTINUCLEAR AB SCREEN (SASHA) 04/24 TSH REFLEX FREE T4 06/08/2021 STOOL WBC 05/24/2021 STOOL WBC 09/25/2021 C DIFFICILE RFLX PCR 09/25/2021 C DIFFICILE RFLX PCR 05/24/2021 IRON PROFILE 09/04/2021 Ferritin 06/15/2021 Ferritin 09/04/2021 Hepatitis C Antibody 05/04/2021 Future Test Test Name Order Date COLONOSCOPY 02/13/2017 Insurance Providers Payer Name Payer Address Payer Phone Subscriber Number Group Number Insured Name Patient Relationship to Insured Coverage Start Date Coverage End Date MEDICARE OF [place] [address] [place] [address] [phone] [id number] DEVI BOWMAN Self - patient is the insured [facility] [address] [place], [place] [id number] DEVI BOWMAN Self - patient is the insured Medical (General) History Medical History History ICD Code Sigmoid Diverticulitis 08/2017- -negativ e CT scan in 11/2017 and 03/2018 HTN Neg. colonoscopy in 1997, 12 06, and 2016- except for diverticulosis and hemorrhoids Denies NE,DM,CVA,Lung disease,renal dise ase Headaches Sigmoid diverticulitis on [...]
--- OUTSIDE RECORDS SUMMARY | 2025-10-10 21:21 | XMS_ITS | Clinical Summary ---
Author Organization [facility] Address [address] [place] [phone] Phone Care Team Providers Care Building Supervisor Name Role Phone Osvaldo Gifford MD Primary Care Provider [phone] Allergies Active Allergy Reactions Criticality Noted Date [...] & B [facility] Care Teams Building Supervisor Relationship Specialty Start Date End Date Osvaldo Gifford MD [address] [place] [phone] PCP - General Internal Medicine 01/26/25 Additional Source Comments The information contained in this document represents components of the legal health record. It is not the complete legal health record.[facility]
== END 2025-10-10 11:09 | disposition home or self-care (01) ==
LOC: HO.HMCH 10:21
DX: I10 Essential (primary) hypertension (principal); E66.3 Overweight; S42.202A Unspecified fracture of upper end of left humerus, initial encounter for closed fracture; G25.81 Restless legs syndrome

== ENCOUNTER → 2025-10-10 10:20 | Outpatient (BNVA) | payer MEDICARE, BC, SELFPAY | DX: I10 Essential (primary) hypertension (principal); S42.202D Unspecified fracture of upper end of left humerus, subsequent encounter for fracture with routine healing; E66.3 Overweight; G25.81 Restless legs syndrome; Z87.891 Personal history of nicotine dependence | CPT/HCPCS: 99212 ==

== ENCOUNTER 2025-10-18 16:27 | Inpatient (IN) | payer MEDICARE, BC, SELFPAY ==
--- NOTE | ~2025-10-18 | CT_ITS ---
CLINICAL HISTORY: r o PE, tachycardia, sob CT angiography chest with contrast. 3D Postprocessing. Comparison: None provided Findings: The heart is normal size. RV/LV ratio is normal. Unremarkable thoracic aorta and great vessels. No aneurysm. No main or segmental pulmonary emboli identified. The visualized thyroid and mediastinum are unremarkable. No consolidation or effusion. The upper abdomen is unremarkable. Re-identified spiral fracture of the left humeral neck. IMPRESSION: No main or segmental pulmonary emboli identified. Re-identified spiral fracture of the left humeral neck. This document has been electronically signed by: Giancarlo Hanna MD on 10/18/2025 19:13:33
--- NOTE | 2025-10-18 16:31 | ECG_ITS ---
Test Reason : PALPITATIONS Blood Pressure : */* mmHG Vent. Rate : 103 BPM Atrial Rate : 103 BPM P-R Int : 134 ms QRS Dur : 68 ms QT Int : 338 ms P-R-T Axes : 54 27 44 degrees QTcB Int : 442 ms Sinus tachycardia Otherwise normal ECG When compared with ECG of 09-Dec-2024 05:28, Vent. rate has increased by 44 bpm Referred By: Generic ED Physician Electronically Signed By: Sean Victoria
[2025-10-18 16:44] VITALS: BP 128/68; PULSE 95; RESP 18; TEMP 36.7; O2SAT 100; BMI 24.3
--- NOTE | 2025-10-18 16:44 | ED.GENADULT ---
HPI - General Adult General Chief complaint: Arrhythmia/Palpitations Stated complaint: Palpitations Time Seen by Provider: 10/18/25 17:03 History of Present Illness ED Provider: Jacqueline Millan HPI narrative: 85-year-old female with a PMH significant for PVCs, HTN, anemia, renal insufficiency, recurrent falls, gout presents to the ED with chief complaint of high heart rate at home and palpitations. Patient reports that she has had more frequent episodes of uncontrolled fast heart rates over the past several days, it was instructed by her PCP to come to the ED for an EKG. Patient reports that she is being worked up for atrial fibrillation. Denies any chest pain or pressure. Mild exertional shortness of breath, without palpitations or pressure. Denies any exertional palpitations. No fever, chills, recent illnesses. No abdominal pain, nausea or vomiting, urinary complaints. Patient is currently in a left arm sling due to a recent fall, her son has been staying with her at home. Her son reports that her heart rate has been as high as 140-150 at home. Related Data Home Medications ?Medication ?Instructions ?Recorded ?Confirmed cyclosporine 0.05 % eye drops in a 1 drp ophthalmic (eye) Q12H 10/15/22 10/10/25 dropperette multivitamin 1 tab PO DAILY 11/18/24 10/10/25 mv-mn-folic 200 mcg-vit K 15 1 cap PO BID 05/18/25 10/10/25 mcg-lutein 5 mg-zeaxanthin 1 mg capsule (PreserVision AREDS 2 Plus Multivit) acetaminophen 325 mg capsule 650 mg PO Q6H PRN 10/05/25 10/10/25 ascorbic acid (vitamin C) 500 mg mg PO 10/05/25 10/10/25 capsule enoxaparin 40 mg/0.4 mL 40 mg subcut DAILY 10/05/25 10/10/25 subcutaneous syringe (Lovenox) magnesium oxide 400 mg PO DAILY 10/05/25 10/10/25 pantoprazole 20 mg tablet,delayed 20 mg PO BID 10/05/25 10/10/25 release metoprolol tartrate 25 mg tablet 25 mg PO BID 10/10/25 10/10/25 Previous Rx's ?Medication ?Instructions ?Recorded cane #1 ea 11/18/24 cane #1 ea 02/04/25 clonazepam 0.5 mg tablet 0.5 mg PO BEDTIME 90 days #90 tabs 09/09/25 oxycodone 5 mg tablet 5 mg PO TID PRN pain #15 tabs 09/17/25 celecoxib 200 mg capsule (Celebrex) 200 mg PO BID 30 days #60 caps 10/05/25 amitriptyline 25 mg tablet 25 mg PO .COMPLEX #21 tabs 10/10/25 Allergies Allergy/AdvReac Type Severity Reaction Status Date / Time Sulfa (Sulfonamide Allergy Severe HIVES Verified 10/18/25 16:45 Antibiotics) (SULFA(SULFONAMIDE ANTIBIOTICS)) sulfur Allergy Unknown Unknown Verified 10/18/25 16:45 codeine AdvReac Mild Abdominal Verified 10/18/25 16:45 Pain Review of Systems Review of Systems: ROS is otherwise negative unless mentioned in HPI. [facility] Past Medical History Medical History Diverticular disease Fatigue Pain in both feet Gout Rectal bleeding LFT elevation Inflammatory arthritis Acute diverticulitis Arthralgia Abscess Orthostatic hypotension Seizure Obesity (BMI 30-39.9) Diverticulitis Anemia Restless leg HTN (hypertension) Surgical History History of appendectomy Spinal stenosis of lumbar region Hx of cholecystectomy History of bunionectomy Social History Social History Household Members: Significant Other Housing: House Do you presently have visiting nurse or other home services: No Alcohol intake: current Alcohol intake frequency: holidays/special occasions only Alcohol type: wine Comment: wine douglas and new year - and oncew a month 1 drink Patient Tobacco Use Status: Former Tobacco user Tobacco use type: Cigarette Years Smoked: 5 e-Cigarette/Vaping Use: Never Used Second Hand Smoke Exposure: Yes Advance Directives: Yes Advance Directives on File: Yes Advance Directives Date on File: 03/14/21 service: No Current occupational status: retired Cognitive needs: No Hearing needs: No Vision needs: Yes (Glasses) Physical Exam ED Exam Exam: Nursing notes and vital signs reviewed. Constitutional: Well-appearing, NAD. Alert. Oriented X3. Eyes: EOMI. ENT: Pharynx normal. Neck: Normal inspection. Neck supple. CVS: Normal heart rate and rhythm. Pulses normal. Respiratory: No respiratory distress. Breath sounds normal. Abdomen: Soft and nontender. Nondistended. +BSx4. Skin: Skin warm and dry. Normal skin color. Extremities: No lower extremity edema. Neuro: Oriented X 3. No motor deficit. Vital Signs: Vital Signs - 24 hr 10/18/25 16:44 10/18/25 19:10 Temperature 98.1 F 98.2 F Pulse Rate 95 78 Respiratory Rate 18 16 Blood Pressure 128/68 133/56 L Pulse Oximetry 100 97 Oxygen Delivery Method Room Air Room Air BMI result Body Mass Index 24.3 Course Course Course Narrative: This is a rapid medical exam performed by Alban Mccall NP: Additional HPI, ROS, PE not included below will be deferred to primary provider. Patient is an 85y/o F referred by PCP for evaluation of palpitations, dizziness upon standing for years. Tachy to 130-140at home. Plan: EKG, labs Medications Administered Discontinued Medications Generic Name Dose Route Start Last Admin Trade Name Freq PRN Reason Stop Dose Admin Iohexol 100 ml 10/18/25 18:12 10/18/25 18:12 Iohexol 350 Mg/Ml 100 Ml Infus..Btl IV 10/18/25 18:13 65 ml ONCE ONE Administration Medical Decision Making Medical Decision Making MDM Narrative: Overall she appears well, answering questions appropriately. Upon arrival to the ED, her heart rate was 95. She is in a regular rhythm, no noted irregular beats. Appears to be sinus tachycardia. We will plan to place the patient on the monitor, obtain lab work including thyroid studies, troponin. We will also obtain CTA of the chest to rule underlying PE and reassess. She has no chest pain.Reports several falls previously due to dizziness. It goes recent fall that caused a humeral fracture was due to a mechanical fall however. Her son is concerned as she has been getting heart rates as high as 150 at home. 1804-- initial troponin 47.1, it appears that she has been high in the past but not this high. Plan to repeat. 2007-- troponin repeated at 52.3. Third repeat is 51.5, now downtrending. My concern is that these are likely in the setting of demand from possibly irregular beats, as well as rapid rates. Otherwise her lab work has been reassuring. CTA of the chest with no evidence of pulmonary embolism. She has been noted to have some irregular beats while in the ED. Does experience palpitations both at rest and exertionally. She has an elevated heart score, and then the setting of palpitations that are causing discomfort, warrants admission for continued monitoring. She would benefit from Cardiology consultation as well as an echocardiogram. She may require Holter monitor, or medication adjustments. She is agreeable to admission plan. Signed out to hospitalist. Differential Diagnosis Differential Diagnoses: The differential diagnosis associated with the presentation includes PE, arrhythmia, electrolyte abnormality, thyroid storm Admission/Observation Consideration of admission/observation: Escalation of care including admission/observation considered (Indicated.) Consult Healthcare Provider Management of the patient was discussed with: Hospitalist Lab Data MDM Lab Attestation statement: I reviewed the patient's lab results. (elevated trops, overall reassuring) 10/18/25 17:16 10/18/25 17:16 Labs: Lab Results 10/18/25 10/18/25 10/18/25 Range/Units 17:16 18:28 19:28 WBC 6.8 (4.8-10.8) X10*3/uL RBC 3.37 L (4.20-5.50) X10*6/uL Hgb 10.6 L (12.0-16.0) g/dl Hct 31.8 L (37.0-47.0) % MCV 94.4 (80.0-98.0) fL MCH 31.5 (27.0-33.0) pg MCHC 33.3 (31.0-35.0) g/dl RDW 14.0 (11.0-16.0) % Plt Count 285 D (160-400) X10*3/uL MPV 8.8 L (9.4-12.3) fL Immature Gran % (Auto) 0.6 H (0.0-0.4) % Neut % (Auto) 45.8 (45-73) % Lymph % (Auto) 40.2 H (20-40) % [place] % (Auto) 8.1 (2-11) % Eos % (Auto) 3.1 (0-4) % Baso % (Auto) 2.2 H (0-2) % Lymph # (Auto) 2.7 (1.2-4.9) X10*3/uL [place] # (Auto) 0.6 (0.1-1.2) X10*3/uL Eos # (Auto) 0.2 (0.0-0.4) X10*3/uL Baso # (Auto) 0.2 (0.0-0.2) X10*3/uL Abs Immat Gran (auto) 0.04 H (0.00-0.03) X10*3/uL Absolute Neuts (auto) 3.1 (2.0-8.3) x10*3/uL Absolute Nucleated RBC 0.000 (0.0-0.012) X10*3/uL Nucleated RBC % (auto) 0.0 (0.0-0.2) /100WBC PT 12.5 (11.2-13.5) SEC INR 1.0 (0.9-1.1) Sodium 140 (135-145) mmol/L Potassium 4.1 (3.3-5.1) mmol/L Chloride 105 (96-108) mmol/L Carbon Dioxide 27 (22-29) mmol/L Anion Gap 12 (12-20) BUN 12 (9-16) mg/dL Creatinine 1.04 (0.5-1.4) mg/dL Estim Creat Clear Calc 34.8 Estimated GFR 50 Random Glucose 98 (60-115) mg/dL Calcium 9.7 D (8.4-10.2) mg/dL Magnesium 1.6 (1.6-2.6) mg/dL Total Bilirubin 0.5 (0.0-1.0) mg/dL AST 27 (5-31) U/L ALT 13 (0-31) U/L Alkaline Phosphatase 88 (39-117) U/L Troponin I High Sens 47.1 H D 52.3 H* 51.5 H* (<3.5-17.0) ng/L Total Protein 6.5 (6.5-8.0) g/dL Albumin 3.7 (3.5-5.0) g/dL TSH 1.19 (0.32-4.0) uIU/mL Influenza Type A (PCR) NEGATIVE (Negative) Influenza Type B (PCR) NEGATIVE (Negative) RSV RNA Qual (PCR) NEGATIVE (Negative) SARS-CoV-2 RNA (RT-PCR) NEGATIVE (Negative) Independent Interpretation I performed an independent interpretation of an: EKG Interpretation: Rate: 103 Rhythm: ST [place]: 54/27/44 Normal P waves. Normal MARLENE. Normal QRS complex. ST T wave : no dep, elev qTC: 442 prior studies: similar. The study has been interpreted contemporaneously by me. Radiology Impression Discussion of test interpretation with radiology: I have reviewed the radiologist's reading. Radiologist Impression: IMPRESSION: No main or segmental pulmonary emboli identified. Re-identified spiral fracture of the left humeral neck. Independent Historian Clinical information obtained from an independent historian. History obtained from or confirmed by: Other (Son) External Record Review External record reviewed: Office record (Cardiology, visit 02/2025), Outpatient record and Other (several ER visits) Chronic Conditions Patient?s care impacted by: Hypertension and Other (Chronic dizziness) Social Determinants Patient?s care significantly limited by Social Determinants of Health including: Problems related to primary support group Discharge Plan Discharge Clinical Impression: Heart palpitations Patient Disposition: Admitted as Observation Print Language: Togolese
[2025-10-18 17:20] LABS: MANUAL DIFF FLAG NO
[2025-10-18 17:22] LABS: Hematocrit 31.8 % (37.0-47.0); Hemoglobin 10.6 g/dl (12.0-16.0); Imm Gran Abs Auto 0.04 X10*3/uL (0.00-0.03); Imm Gran Pct Auto 0.6 % (0.0-0.4); Lymphocytes Absolute Auto 2.7 X10*3/uL (1.2-4.9); Mean Corpuscular HGB Conc 33.3 g/dl (31.0-35.0); Mean Corpuscular Hemoglobin 31.5 pg (27.0-33.0); Mean Corpuscular Volume 94.4 fL (80.0-98.0); NRBC Abs Auto 0.000 X10*3/uL (0.0-0.012); NRBC Pct Auto 0.0 /100WBC (0.0-0.2); Platelet Count 285 X10*3/uL (160-400); Red Blood Count 3.37 X10*6/uL (4.20-5.50); White Blood Count 6.8 X10*3/uL (4.8-10.8)
[2025-10-18 17:28] LABS: INTERNATIONAL NORM RATIO 1.0 (0.9-1.1); Prothrombin Time 12.5 SEC (11.2-13.5)
[2025-10-18 17:46] LABS: Alanine Aminotransferase 13 U/L (0-31); Albumin Level 3.7 g/dL (3.5-5.0); Alkaline Phosphatase 88 U/L (39-117); Anion Gap 12 (12-20); Aspartate Amino Transferase 27 U/L (5-31); Blood Urea Nitrogen 12 mg/dL (9-16); Calcium 9.7 mg/dL (8.4-10.2); Carbon Dioxide 27 mmol/L (22-29); Chloride 105 mmol/L (96-108); Creatinine Clr Calc Pharmacy 34.8; Estimated Glomerular Filt Rate 50; Magnesium 1.6 mg/dL (1.6-2.6); Potassium 4.1 mmol/L (3.3-5.1); Sodium 140 mmol/L (135-145); Total Protein 6.5 g/dL (6.5-8.0)
[2025-10-18 17:47] LABS: Troponin-I High Sensitivity 47.1 ng/L (<3.5-17.0)
[2025-10-18 17:58] LABS: Resp Syncy Virus RNA Qual PCR NEGATIVE (Negative); SARS COV2 PCR INHOUSE NEGATIVE (Negative)
[2025-10-18] MEDS: iohexoL 350 MG/ML 100 ML INFUS..BTL IV (18:12)
[2025-10-18 18:56] LABS: Troponin-I High Sensitivity 52.3 ng/L (<3.5-17.0)
[2025-10-18 19:10] VITALS: BP 133/56; PULSE 78; RESP 16; TEMP 36.8; O2SAT 97
--- OUTSIDE RECORDS SUMMARY | 2025-10-18 19:39 | XMS_ITS | Patient Health Record ---
Author Organization [facility] Address [address] [place] [address] Care Team Providers Care Admission Nurse Coordinator Name Role Phone Osvaldo Gifford MD Primary Care Provider Gracie Mcguire Unavailable [phone] Allergies Allergen (clinical drug ingredient) Drug/Non Drug [...] MOUTH TWICE A DAY Oral; Duration: 90 Not-Taking/MO N Aspirin 81 81 MG Tablet Delayed [...] Status Risk Notes Problem Diverticulitis of colon (695459810) Diverticulitis of large intestine without perforation or abscess without bleeding (K57.32) Active confirmed Problem Screening for malignant neoplasm of colon (016800204) Encounter for screening for malignant neoplasm of colon (Z12.11) Active confirmed Problem Weight loss (144705518) Weight loss (R63.4) Active confirmed Problem Screening for malignant neoplasm of rectum (507119026) Encounter for screening for malignant neoplasm of rectum (Z12.12) Active confirmed Problem Elevated liver enzymes level (122951000) Elevated liver function tests (R79.89) Active confirmed Problem Diverticular disease of colon (413777890) Diverticulosis of large intestine without hemorrhage (K57.30) Active confirmed Problem Fatty liver (292345536) Fatty liver (K76.0) Active confirmed Problem Serum ferritin high (937667555) Elevated ferritin (R79.89) Active confirmed Problem Diarrhea (10547670) Diarrhea, unspecified type (R19.7) Active confirmed Problem Irritable bowel syndrome characterized by constipation (069362057) Irritable bowel syndrome with constipation (K58.1) Active confirmed Problem Essential hypertension (94021426) Hypertension, unspecified type (I10) Active confirmed Problem Generalized abdominal pain (870127636) Abdominal pain, diffuse (R10.84) Active confirmed Problem Blood chemistry abnormal (473340144) Elevated ferritin level (R79.89) Active confirmed Vital Signs Temperature 96.9 degrees Fahrenheit 08/02/2025 Blood pressure diastolic 01 mm Hg 08/02/2025 Height 64.50 in 08/02/2025 Blood pressure systolic 001 mm Hg 08/02/2025 Weight 148. lbs 08/02/2025 BMI 25.01 kg/m2 08/02/2025 Encounters Encounter Location Date Provider Diagnosis [facility] [address] [place] [phone] 08/02/2025 Gracie Houston Irritable bowel syndrome with constipation K58.1 [facility] [address] [place] [phone] 06/27/2025 Gracie Houston [facility] [address] [place] [phone] 08/02/2025 Gracie Houston Assessments Encounter Date Diagnosis [...] [place] [address] [place] [address] [phone] [id number] DEVI BOWMAN Self - patient is the insured [facility] [address] [place], [place] [id number] DEVI BOWMAN Self - patient is the [...]
--- OUTSIDE RECORDS SUMMARY | 2025-10-18 19:39 | XMS_ITS | Clinical Summary ---
Author Organization [facility] Address [address] [place] [id number] Phone Care Team Providers Care Needle Setter Name Role Phone Osvaldo Gifford MD Primary Care Provider [phone] Allergies Active Allergy Reactions Criticality Noted Date [...] file Insurance MEDICARE PART A & B [facility] Care Teams Needle Setter Relationship Specialty Start Date End Date Osvaldo Gifford MD [address] [place] [phone] PCP - General Internal Medicine 01/26/25 Additional Source Comments The information contained in this document represents components of the legal health record. It is not the complete legal health record.[facility]
[2025-10-18 19:54] LABS: Troponin-I High Sensitivity 51.5 ng/L (<3.5-17.0)
[2025-10-18] MEDS: Magnesium Sulfate/H2O 2 GM/50 ML PIGGYBACK IV (20:16)
--- NOTE | 2025-10-18 20:18 | PM.IMHP ---
History of Present Illness Date of Service: 10/18/25 Chief Complaint: dizzy, tachy 85F H legally blind, PVCs, orthostatic hypotension with supine hypertension, mood disorder sent in by PCP for tachycardia. Patient states she has been feeling dizzy while standing and having frequent falls. Has been ongoing for about 2 years but has worsened in the last month. On 09/19/2025 patient had fall. At that time notes reflect mechanical fall the patient now saying she may have passed out. This was complicated by a left humerus fracture, went to acute rehab and then home 2 weeks prior to presentation. Continues to report symptoms of orthostasis and noted to have tachycardia at home. Has no history of AFib. Was sent to ED for EKG which showed sinus tachycardia. Lab significant for elevated troponin flat around 50. CTA chest negative. Patient was previously on atenolol 25 b.i.d. this was changed to metoprolol tartrate 12.5 b.i.d.. TSH normal, denies caffeine or energy drinks. Patient denies chest pain or shortness of breath. Review of Systems Review of Systems: Yes all other systems are reviewed and are negative [facility] Medical History Diverticular disease Fatigue Pain in both feet Gout Rectal bleeding LFT elevation Inflammatory arthritis Acute diverticulitis Arthralgia Abscess Orthostatic hypotension Seizure Obesity (BMI 30-39.9) Diverticulitis Anemia Restless leg HTN (hypertension) Surgical History History of appendectomy Spinal stenosis of lumbar region Hx of cholecystectomy History of bunionectomy Social History Household Members: Significant Other Housing: House Do you presently have visiting nurse or other home services: No Alcohol intake: current Alcohol intake frequency: holidays/special occasions only Alcohol type: wine Comment: wine douglas and new year - and oncew a month 1 drink Patient Tobacco Use Status: Former Tobacco user Tobacco use type: Cigarette Years Smoked: 5 e-Cigarette/Vaping Use: Never Used Second Hand Smoke Exposure: Yes Advance Directives: Yes Advance Directives on File: Yes Advance Directives Date on File: 03/14/21 service: No Current occupational status: retired Cognitive needs: No Hearing needs: No Vision needs: Yes (Glasses) Meds Allergies Allergy/AdvReac Type Severity Reaction Status Date / Time Sulfa (Sulfonamide Allergy Severe HIVES Verified 10/18/25 16:45 Antibiotics) (SULFA(SULFONAMIDE ANTIBIOTICS)) sulfur Allergy Unknown Unknown Verified 10/18/25 16:45 codeine AdvReac Mild Abdominal Verified 10/18/25 16:45 Pain Active Medications: Current Medications Acetaminophen (Acetaminophen 325 Mg Tablet) 650 mg PO Q6H PRN PRN Reason: Pain, Mild 1-3,fever,headache Calcium Carbonate (Calcium Carbonate 750 Mg Tab.Chew) 750 mg PO Q4H PRN PRN Reason: Heartburn Enoxaparin Sodium (Enoxaparin Sodium 40 Mg/0.4 Ml Syringe) 40 mg SUBCUT Q24H BHUPINDER Magnesium Sulfate (Magnesium Sulfate/H2o) 2 gm in 50 mls @ 25 mls/hr IV ONCE ONE Stop: 10/18/25 22:03 Magnesium Hydroxide (Milk Of Magnesia 30 Ml Oral.Susp) 30 ml PO DAILY PRN PRN Reason: Constipation Melatonin (Melatonin 3 Mg Tablet) 6 mg PO BEDTIME PRN PRN Reason: Insomnia Sodium Chloride (0.9 % Sodium Chloride Flush 3 Ml Syringe) 3 [facility] Medications ?Medication ?Instructions ?Recorded ?Confirmed ?Last Taken ?Type cyclosporine 0.05 % eye drops in a 1 drp ophthalmic (eye) Q12H 10/15/22 10/10/25 09/18/25 History dropperette multivitamin 1 tab PO DAILY 11/18/24 10/10/25 09/18/25 History mv-mn-folic 200 mcg-vit K 15 1 cap PO BID 05/18/25 10/10/25 09/18/25 History mcg-lutein 5 mg-zeaxanthin 1 mg capsule (PreserVision AREDS 2 Plus Multivit) acetaminophen 325 mg capsule 650 mg PO Q6H PRN 10/05/25 10/10/25 Unknown History ascorbic acid (vitamin C) 500 mg mg PO 10/05/25 10/10/25 Unknown History capsule enoxaparin 40 mg/0.4 mL 40 mg subcut DAILY 10/05/25 10/10/25 Unknown History subcutaneous syringe (Lovenox) magnesium oxide 400 mg PO DAILY 10/05/25 10/10/25 Unknown History pantoprazole 20 mg tablet,delayed 20 mg PO BID 10/05/25 10/10/25 Unknown History release metoprolol tartrate 25 mg tablet 25 mg PO BID 10/10/25 10/10/25 Unknown History Physical Exam Vital Signs and Narrative: Vital Signs: Last Vital Signs Temp 98.2 F 10/18/25 19:10 Pulse 78 10/18/25 19:10 Resp 16 10/18/25 19:10 BP 133/56 L 10/18/25 19:10 Pulse Ox 97 10/18/25 19:10 O2 Del Method Room Air 10/18/25 19:10 BMI result Body Mass Index 24.3 General: AO X 3, anxious, legally blind Resp: CTA bilateral, no accessory muscles used CVS: S1,S2, rapid, regular GI: soft, non tender, non distended Neuro: motor grossly intact, alert Psych: appropriate affect, appropriate insight Results Labs 10/18/25 17:16 10/18/25 17:16 Labs: Laboratory Results - last 24 hr 10/18/25 10/18/25 10/18/25 17:16 18:28 19:28 MCV 94.4 MCH 31.5 MCHC 33.3 RDW 14.0 Plt Count 285 D MPV 8.8 L Immature Gran % (Auto) 0.6 H Neut % (Auto) 45.8 Lymph % (Auto) 40.2 H [place] % (Auto) 8.1 Eos % (Auto) 3.1 Baso % (Auto) 2.2 H Lymph # (Auto) 2.7 [place] # (Auto) 0.6 Eos # (Auto) 0.2 Baso # (Auto) 0.2 Abs Immat Gran (auto) 0.04 H Absolute Neuts (auto) 3.1 Absolute Nucleated RBC 0.000 Nucleated RBC % (auto) 0.0 PT 12.5 INR 1.0 Anion Gap 12 Estim Creat Clear Calc 34.8 Estimated GFR 50 Random Glucose 98 Calcium 9.7 D Magnesium 1.6 Total Bilirubin 0.5 AST 27 ALT 13 Alkaline Phosphatase 88 Troponin I High Sens 47.1 H D 52.3 H* 51.5 H* Total Protein 6.5 Albumin 3.7 TSH 1.19 Influenza Type A (PCR) NEGATIVE Influenza Type B (PCR) NEGATIVE RSV RNA Qual (PCR) NEGATIVE SARS-CoV-2 RNA (RT-PCR) NEGATIVE Assessment and Plan (1) Heart palpitations: Status: Acute Plan 85F PMH legally blind, PVCs, orthostatic hypotension with supine hypertension, mood disorder sent in by PCP for tachycardia Tachycardia Appears to be sinus tachycardia, monitor on tele for AFib Elevated troponin Denies chest pain, flat Check echo, cardio eval Acute hypomagnesemia Replace and monitor Orthostatic hypotension with supine hypertension Check orthostatics DVT prophylaxis with Lovenox Full code Quality Stroke Does the patient have a stroke diagnosis?: No VTE Prior VTE?: No VTE Risk Level:: Medical - moderate - high VTE Device Contraindication: Treatment Not Indicated VTE Drug Contraindication: N/A - Med Ordered
[2025-10-18 20:22] LABS: NT Pro B Type Natriuretic Pept 260.3 pg/mL (<300)
[2025-10-18 20:41] VITALS: BP 122/57; BP 125/67; PULSE 104; PULSE 120
[2025-10-18 20:44] VITALS: BP 75/45; PULSE 127
--- NOTE | 2025-10-18 20:52 | PC.NURSE ---
patient orthos positive. provider made aware. states he will order fluids and to hold tonights metoprolol dose.
--- NOTE | 2025-10-18 21:05 | PHA.MEDREC ---
Pharmacy Consult ? Medication Reconciliation Pharmacy has completed the medication reconciliation.
[2025-10-18 21:29] VITALS: BP 143/60; PULSE 104; RESP 14; TEMP 36.7; O2SAT 96
[2025-10-18 23:40] VITALS: BP 129/66; PULSE 108; RESP 15; TEMP 36.5; O2SAT 98
[2025-10-19] VITALS (16 sets, daily range): BP systolic 98–155; BP diastolic 52–75; PULSE 75–113; RESP 13–19; TEMP 36.2–36.9; O2SAT 92–98; BMI 26.7
[2025-10-19 05:23] LABS: Hematocrit 31.4 % (37.0-47.0); Hemoglobin 10.3 g/dl (12.0-16.0); Mean Corpuscular HGB Conc 32.8 g/dl (31.0-35.0); Mean Corpuscular Hemoglobin 30.7 pg (27.0-33.0); Mean Corpuscular Volume 93.7 fL (80.0-98.0); NRBC Abs Auto 0.000 X10*3/uL (0.0-0.012); NRBC Pct Auto 0.0 /100WBC (0.0-0.2); Platelet Count 260 X10*3/uL (160-400); Red Blood Count 3.35 X10*6/uL (4.20-5.50); White Blood Count 5.8 X10*3/uL (4.8-10.8)
[2025-10-19 05:29] LABS: Anion Gap 16 (12-20); Blood Urea Nitrogen 10 mg/dL (9-16); Calcium 9.0 mg/dL (8.4-10.2); Carbon Dioxide 20 mmol/L (22-29); Chloride 110 mmol/L (96-108); Creatinine Clr Calc Pharmacy 42.5; Estimated Glomerular Filt Rate > 60; Magnesium 2.0 mg/dL (1.6-2.6); Potassium 3.6 mmol/L (3.3-5.1); Sodium 142 mmol/L (135-145)
--- NOTE | 2025-10-19 07:00 | CA_ITS ---
Transthoracic Echocardiogram Patient (Last, First, Middle): Devi Mijares E Gender: Female Date of : 1940 Age: 85 Procedure Date: 10/19/2025 Procedure Type: Transthoracic Echocardiogram Location: ER Height: 162.56 cm Weight: 63.96 kg BSA: 1.69 m2 Heart Rate: 111 bpm BP: 150 / 65 mmHg Snack Bar Cook: TO Referring MD: Kobi Loya MD Symptoms: elevated troponin Study Quality: Adequate w contrast ECG Rhythm: Tachycardia Conclusions: - Normal left ventricular size, thickness, systolic function, and wall motion. The visually estimated ejection fraction is between 60-65%. Diastolic function is normal for age. - Normal right ventricular cavity size and systolic function. - No significant valvular pathology. Findings Procedure Information Contrast agent, definity, is being given per protocol without apparent complications. Left Ventricle Normal left ventricular size, thickness, systolic function, and wall motion. The visually estimated ejection fraction is between 60-65%. Diastolic function is normal for age. Right Ventricle Normal right ventricular cavity size and systolic function. Atria The left atrium is normal in size. The right atrium is normal in size. Aortic Valve Normal aortic valve structure and function. There is no aortic valve stenosis. There is no aortic valve regurgitation. Mitral Valve The mitral valve appears normal. There is no mitral valve regurgitation. There is no mitral valve stenosis. Pulmonic Valve The pulmonic valve is likely normal. Tricuspid Valve Normal tricuspid valve structure. There is no tricuspid valve regurgitation. Normal right atrial pressure. There is no evidence of pulmonary hypertension. Great Vessels All visible segments of the aorta are normal in size. Venous The inferior vena cava is normal in size and collapses greater than 50% with inspiration. Pericardium/Pleural Prominent epicardial adipose tissue noted. There is no evidence of pericardial effusion. Prior Study Comparison No prior study available for comparison. Measurements 2D Linear Measurements IVSd: 0.97 0.6-0.9/0.6-1.0 cm LVIDd: 4.09 3.9-5.3/4.2-5.9 cm LVIDd Index: 2.42 2.4-3.2/2.2-3.1 cm/m2 LVIDs: 2.60 2.0-3.6 cm LVPWd: 0.88 0.7-1.1 cm LA Diam: 2.80 2.7-3.8/3.0-4.0 cm LAIDs Index: 1.66 1.5-2.3 cm/m2 LV Mass: 146.26 67-162/88-224 g LV Mass Index: 86.55 43-95/49-115 g/m2 LVOT Diam: 2.20 3.0+(-)1.3 cm 2D Systolic Function EF 4C: 62.30 >55% EF 2C: 62.80 >55% EF BiP: 61.20 >55% Mitral Valve MV Pk E: 0.60 MV PK A: 0.92 MV Decel Time: 89.00 E/A: 0.70 E'Lateral: 7.40 E'Medial: 6.31 E/E' Med: 9.50 E/E' Lat: 8.10 PHT: 26.00 MVA PHT: 8.46 Decel [place]: 6.73 Aortic Valve AoV Pk Joseph: 1.54 AoV Mn Joseph: 0.99 AoV VTI: 0.24 AoV Pk Grad: 9.00 Aov Mn Grad: 4.00 YULIANA Cont.VTI: 2.43 LVOT LVOT Pk Joseph: 0.99 LVOT Mn Joseph: 0.64 LVOT VTI: 0.16 LVOT Pk Grad: 4.00 LVOT Mn Grad: 2.00 LVOT Diam: 2.20 LVOT Area: 3.80 Diastolic Function MV Pk E: 0.60 MV Pk A: 0.92 E/A: 0.70 E'Medial: 6.31 E/E' Med: 9.50 E' Laterial: 7.40 E/E' Lat: 8.10 Right Ventricle TAPSE (mm): 24.80 TVS' Joseph: 25.40 Tricuspid Valve TR Pk Joseph: 2.57 TR Pk Grad: 26.00 RA Press: 3.00 RVSP: 29.00 Great Vessels Aorta Sinus of Valsalva: 2.95 2.0-3.5 cm Ao Asc: 3.00 2.1-3.4 cm Updated in Other Vendor System with Status of Final Sean Victoria MD electronically signed on 10/19/2025 2:28:06 PM with status of Final
--- NOTE | 2025-10-19 07:58 | HO.PM.IMPN ---
Subjective Subjective Date of Service: 10/19/25 Interval History: Continues to be tachycardic and orthostatic Cardiology consult appreciated Review of Systems Review of Systems: Yes all other systems are reviewed and are negative Physical Exam Vital Signs: Vital Signs: Last Vital Signs Temp 97.8 F 10/19/25 05:51 Pulse 113 H 10/19/25 05:51 Resp 13 10/19/25 05:51 BP 150/65 H 10/19/25 05:51 Pulse Ox 98 10/19/25 05:51 O2 Del Method Room Air 10/19/25 05:51 BMI result Body Mass Index 24.3 GENERAL APPEARANCE: in no acute distress, pleasant. NECK: no carotid bruit, no jugular venous distention. SKIN: no suspicious lesions, warm and dry. HEART: no murmurs, regular rate and rhythm. Tachycardic. LUNGS: clear to auscultation bilaterally. ABDOMEN: soft, nontender. EXTREMITIES: no edema. PERIPHERAL PULSES: equal. NEUROLOGIC: No gross deficits, AAO X 3 Objective Data Active Medications Acetaminophen (Acetaminophen 325 Mg Tablet) 650 mg PO Q6H PRN PRN Reason: Pain, Mild 1-3,fever,headache Amitriptyline HCl (Amitriptyline Hcl 25 Mg Tablet) 25 mg PO DAILY [facility] Calcium Carbonate (Calcium Carbonate 750 Mg Tab.Chew) 750 mg PO Q4H PRN PRN Reason: Heartburn Clonazepam (Clonazepam 0.5 Mg Tablet) 0.5 mg PO BEDTIME [facility] Enoxaparin Sodium (Enoxaparin Sodium 40 Mg/0.4 Ml Syringe) 40 mg SUBCUT Q24H [facility] Sodium Chloride (Ns) 1,000 mls @ 100 mls/hr IVCONT .Q10H [facility] Last Admin: 10/19/25 05:37 Dose: 100 mls/hr Documented By: PERRYOPENoel Magnesium Hydroxide (Milk Of Magnesia 30 Ml Oral.Susp) 30 ml PO DAILY PRN PRN Reason: Constipation Magnesium Oxide (Magnesium Oxide 400 Mg Tablet) 400 mg PO DAILY [facility] Melatonin (Melatonin 3 Mg Tablet) 6 mg PO BEDTIME PRN PRN Reason: Insomnia Metoprolol Tartrate (Metoprolol Tartrate 25 Mg Tablet) 25 mg PO BEDTIME [facility]; Protocol Multivitamins/Vitamin C (Multivitamin Tablet) 1 tab PO DAILY [facility] Non-Formulary Medication (Cyclosporine) 1 drop EYE-BOTH Q12H [facility] Omeprazole (Omeprazole 20 Mg Capsule.) 20 mg PO DAILY@0630 [facility] Last Admin: 10/19/25 05:37 Dose: 20 mg Documented By: SUSANNA Sodium Chloride (0.9 % Sodium Chloride Flush 3 Ml Syringe) 3 ml IVFLUSH QSHIFT [facility] Last Admin: 10/19/25 07:05 Dose: Not Given Documented By: RAFAEL Non-Admin Reason: IV Running Labs 10/19/25 05:19 10/19/25 04:47 Labs: Laboratory Results - last 24 hr 10/18/25 10/18/25 10/18/25 17:16 18:28 19:28 MCV 94.4 MCH 31.5 MCHC 33.3 RDW 14.0 Plt Count 285 D MPV 8.8 L Immature Gran % (Auto) 0.6 H Neut % (Auto) 45.8 Lymph % (Auto) 40.2 H [place] % (Auto) 8.1 Eos % (Auto) 3.1 Baso % (Auto) 2.2 H Lymph # (Auto) 2.7 [place] # (Auto) 0.6 Eos # (Auto) 0.2 Baso # (Auto) 0.2 Abs Immat Gran (auto) 0.04 H Absolute Neuts (auto) 3.1 Absolute Nucleated RBC 0.000 Nucleated RBC % (auto) 0.0 PT 12.5 INR 1.0 Anion Gap 12 Estim Creat Clear Calc 34.8 Estimated GFR 50 Random Glucose 98 Calcium 9.7 D Magnesium 1.6 Total Bilirubin 0.5 AST 27 ALT 13 Alkaline Phosphatase 88 Troponin I High Sens 47.1 H D 52.3 H* 51.5 H* NT-Pro-B Natriuret Pep 260.3 Total Protein 6.5 Albumin 3.7 TSH 1.19 Influenza Type A (PCR) NEGATIVE Influenza Type B (PCR) NEGATIVE RSV RNA Qual (PCR) NEGATIVE SARS-CoV-2 RNA (RT-PCR) NEGATIVE 10/19/25 10/19/25 04:47 05:19 MCV 93.7 MCH 30.7 MCHC 32.8 RDW 14.3 Plt Count 260 MPV 8.9 L Immature Gran % (Auto) Neut % (Auto) Lymph % (Auto) [place] % (Auto) Eos % (Auto) Baso % (Auto) Lymph # (Auto) [place] # (Auto) Eos # (Auto) Baso # (Auto) Abs Immat Gran (auto) Absolute Neuts (auto) Absolute Nucleated RBC 0.000 Nucleated RBC % (auto) 0.0 PT INR Anion Gap 16 Estim Creat Clear Calc 42.5 Estimated GFR > 60 Random Glucose 103 Calcium 9.0 D Magnesium 2.0 Total Bilirubin AST ALT Alkaline Phosphatase Troponin I High Sens NT-Pro-B Natriuret Pep Total Protein Albumin TSH Influenza Type A (PCR) Influenza Type B (PCR) RSV RNA Qual (PCR) SARS-CoV-2 RNA (RT-PCR) Assessment and Plan (1) Heart palpitations: Status: Acute Plan Pleasant 85-year-old lady with background history of hypertension, irritable bowel syndrome, hepatic steatosis, renal insufficiency, osteoarthritis and gout who recently came back from rehab presented after a another fall at home likely secondary to significant orthostasis. Sinus tachycardia Significant orthostasis Labile blood pressure Vertigo PVCs from age of 41 HTN CAD HLD We will hydrate gently likely she is hypovolemic as well as needing titration of echo blocking agents Appreciate cardiology input We will stop amitriptyline as this could be anticholinergic causing her to have above symptoms We will check morning cortisol Tele Check electrolytes and replete to goal Orthostatic Continue to check orthostatic vitals q.4 hours Fall precautions Ramón stockings and abdominal binder Midodrine p.r.n. she tends to be hypertensive on midodrine OA- pain management IBS-stable Prior closed fracture of left proximal humerus-pain control left arm in sling, PT PT Full code DVT prophylaxis with Lovenox while inpatient This note is constructed using voice recognition software. While every effort has been made to ensure accuracy, gm[employer] global publisher business errors may have been included. Quality Stroke Does the patient have a stroke diagnosis?: No VTE Prior VTE?: No VTE Risk Level:: Medical - moderate - high VTE Device Contraindication: Treatment Not Indicated VTE Drug Contraindication: N/A - Med Ordered
--- NOTE | 2025-10-19 09:10 | MHC.CM.PN ---
CM met with Patient and her Son at bedside, in the ED, and addressed LEIGH with them, providing Patient with the original and a copy will be placed on the chart. Patient is Legally Blind and asked that Son sign the LEIGH. Patient lives alone in a house, uses a cane to assist with mobility, and is active with [facility]. Home/resume said services is the goal and CM has initiated and will follow for dc planning. PCP is Dr. Osvaldo Gifford and Nacho/Dyllan is the HCP. Robert[facility]Juan will transport at [facility].
--- NOTE | 2025-10-19 13:23 | HO.NURTONUR ---
PER MD: 85F PMH legally blind, PVCs, orthostatic hypotension with supine hypertension, mood disorder sent in by PCP for tachycardia. Patient states she has been feeling dizzy while standing and having frequent falls. Has been ongoing for about 2 years but has worsened in the last month. On 09/19/2025 patient had fall. At that time notes reflect mechanical fall the patient now saying she may have passed out. This was complicated by a left humerus fracture, went to acute rehab and then home 2 weeks prior to presentation. Continues to report symptoms of orthostasis and noted to have tachycardia at home. Has no history of AFib. Was sent to ED for EKG which showed sinus tachycardia. Lab significant for elevated troponin flat around 50. CTA chest negative. Patient was previously on atenolol 25 b.i.d. this was changed to metoprolol tartrate 12.5 b.i.d.. TSH normal, denies caffeine or energy drinks. Patient denies chest pain or shortness of breath. PER RN: Alert and oriented In hospital bed Meds whole with water Sling on left arm IV: 20G in right forearm Meds: NS 100 mL/hr Plan: echo, cardio consult, med tele Monitor: afib
--- NOTE | 2025-10-19 13:24 | PM.CNCAR ---
History of Present Illness History of Present Illness Date of Service: 10/19/25 Requesting physician: Falguni Shah Chief complaint: tachy, trop Narrative: Pleasant 85-year-old lady with background history of hypertension, irritable bowel syndrome, hepatic steatosis, renal insufficiency, osteoarthritis and gout. She is presenting with palpitations and fast heart rates at home. Last night she started having palpitations and noticed her heart rate to be in 140s and eventually came to the emergency department. She was noticed to be mostly in sinus tachycardia. She also had significant orthostasis and has been admitted for further assessment. She is saying that she gets dizzy when she is walking and is describing vertigo like symptoms. She also had a fall and injured her left arm. She is saying that her blood pressure has been fluctuant and at times his to high but she also gets dizzy when she stands up. She has had multiple instances where she is bending forward and then while standing up lost her balance and her has been has held her melena times from falling. She fell recently while she was bending forward and had a closed fracture of left proximal humerus. [facility] Past Medical History Medical History Diverticular disease Fatigue Pain in both feet Gout Rectal bleeding LFT elevation Inflammatory arthritis Acute diverticulitis Arthralgia Abscess Orthostatic hypotension Seizure Obesity (BMI 30-39.9) Diverticulitis Anemia Restless leg HTN (hypertension) Surgical History Surgical History History of appendectomy Spinal stenosis of lumbar region Hx of cholecystectomy History of bunionectomy Social History Social History Household Members: Significant Other Housing: House Do you presently have visiting nurse or other home services: No Alcohol intake: current Alcohol intake frequency: holidays/special occasions only Alcohol type: wine Comment: wine douglas and new year - and oncew a month 1 drink Patient Tobacco Use Status: Former Tobacco user Tobacco use type: Cigarette Years Smoked: 5 e-Cigarette/Vaping Use: Never Used Second Hand Smoke Exposure: Yes Advance Directives: Yes Advance Directives on File: Yes Advance Directives Date on File: 03/14/21 service: No Current occupational status: retired Cognitive needs: No Hearing needs: No Vision needs: Yes (Glasses) Meds Allergies Allergy/AdvReac Type Severity Reaction Status Date / Time Sulfa (Sulfonamide Allergy Severe HIVES Verified 10/18/25 16:45 Antibiotics) (SULFA(SULFONAMIDE ANTIBIOTICS)) sulfur Allergy Unknown Unknown Verified 10/18/25 16:45 codeine AdvReac Mild Abdominal Verified 10/18/25 16:45 Pain Active Medications: Current Medications Acetaminophen (Acetaminophen 325 Mg Tablet) 650 mg PO Q6H PRN PRN Reason: Pain, Mild 1-3,fever,headache Amitriptyline HCl (Amitriptyline Hcl 25 Mg Tablet) 25 mg PO DAILY [facility] Last Admin: 10/19/25 09:18 Dose: 25 mg Calcium Carbonate (Calcium Carbonate 750 Mg Tab.Chew) 750 mg PO Q4H PRN PRN Reason: Heartburn Clonazepam (Clonazepam 0.5 Mg Tablet) 0.5 mg PO BEDTIME [facility] Enoxaparin Sodium (Enoxaparin Sodium 40 Mg/0.4 Ml Syringe) 40 mg SUBCUT Q24H [facility] Last Admin: 10/19/25 09:18 Dose: 40 mg Sodium Chloride (Ns) 1,000 mls @ 100 mls/hr IVCONT .Q10H [facility] Last Admin: 10/19/25 05:37 Dose: 100 mls/hr Magnesium Hydroxide (Milk Of Magnesia 30 Ml Oral.Susp) 30 ml PO DAILY PRN PRN Reason: Constipation Magnesium Oxide (Magnesium Oxide 400 Mg Tablet) 400 mg PO DAILY [facility] Last Admin: 10/19/25 09:17 Dose: 400 mg Melatonin (Melatonin 3 Mg Tablet) 6 mg PO BEDTIME PRN PRN Reason: Insomnia Metoprolol Tartrate (Metoprolol Tartrate 25 Mg Tablet) 25 mg PO BEDTIME [facility]; Protocol Multivitamins/Vitamin C (Multivitamin Tablet) 1 tab PO DAILY [facility] Last Admin: 10/19/25 09:17 Dose: 1 tab Non-Formulary Medication (Cyclosporine) 1 drop EYE-BOTH Q12H [facility] Omeprazole (Omeprazole 20 Mg Capsule.Dr) 20 mg PO DAILY@0630 [facility] Last Admin: 10/19/25 05:37 Dose: 20 mg Sodium Chloride (0.9 % Sodium Chloride Flush 3 Ml Syringe) 3 ml IVFLUSH QSHIFT [facility] Last Admin: 10/19/25 07:05 Dose: Not Given Home Medications ?Medication ?Instructions ?Recorded ?Confirmed ?Last Taken ?Type cyclosporine 0.05 % eye drops in a 1 drp ophthalmic (eye) Q12H 10/15/22 10/18/25 10/17/25 History dropperette multivitamin 1 tab PO DAILY 11/18/24 10/18/25 10/17/25 History acetaminophen 325 mg capsule 650 mg PO Q6H PRN Fever Or Pain 10/05/25 10/18/25 Unknown History magnesium oxide 400 mg PO DAILY 10/05/25 10/18/25 Unknown History pantoprazole 20 mg tablet,delayed 20 mg PO BID 10/05/25 10/18/25 10/17/25 History release metoprolol tartrate 25 mg tablet 25 mg PO BID 10/10/25 10/18/25 10/17/25 History amitriptyline 25 mg tablet 25 mg PO DAILY 10/18/25 10/18/25 10/17/25 History Physical Exam Vital Signs: Vital Signs: Last Vital Signs Temp 98.2 F 10/19/25 11:16 Pulse 106 H 10/19/25 12:02 Resp 14 10/19/25 11:16 BP 147/67 H 10/19/25 12:02 Pulse Ox 97 10/19/25 11:16 O2 Del Method Room Air 10/19/25 11:16 BMI result Body Mass Index 24.3 GENERAL APPEARANCE: in no acute distress, pleasant. NECK: no carotid bruit, no jugular venous distention. SKIN: no suspicious lesions, warm and dry. HEART: no murmurs, regular rate and rhythm. Tachycardic. LUNGS: clear to auscultation bilaterally. ABDOMEN: soft, nontender. EXTREMITIES: no edema. PERIPHERAL PULSES: equal. NEUROLOGIC: No gross deficits, AAO X 3 Objective Labs and Meds 10/19/25 05:19 10/19/25 04:47 Lab results: Laboratory Results - last 24 hr 10/18/25 10/18/25 10/18/25 17:16 18:28 19:28 WBC 6.8 RBC 3.37 L Hgb 10.6 L Hct 31.8 L MCV 94.4 MCH 31.5 MCHC 33.3 RDW 14.0 Plt Count 285 D MPV 8.8 L Immature Gran % (Auto) 0.6 H Neut % (Auto) 45.8 Lymph % (Auto) 40.2 H [place] % (Auto) 8.1 Eos % (Auto) 3.1 Baso % (Auto) 2.2 H Lymph # (Auto) 2.7 [place] # (Auto) 0.6 Eos # (Auto) 0.2 Baso # (Auto) 0.2 Abs Immat Gran (auto) 0.04 H Absolute Neuts (auto) 3.1 Absolute Nucleated RBC 0.000 Nucleated RBC % (auto) 0.0 PT 12.5 INR 1.0 Sodium 140 Potassium 4.1 Chloride 105 Carbon Dioxide 27 Anion Gap 12 BUN 12 Creatinine 1.04 Estim Creat Clear Calc 34.8 Estimated GFR 50 Random Glucose 98 Calcium 9.7 D Magnesium 1.6 Total Bilirubin 0.5 AST 27 ALT 13 Alkaline Phosphatase 88 Troponin I High Sens 47.1 H D 52.3 H* 51.5 H* NT-Pro-B Natriuret Pep 260.3 Total Protein 6.5 Albumin 3.7 TSH 1.19 Influenza Type A (PCR) NEGATIVE Influenza Type B (PCR) NEGATIVE RSV RNA Qual (PCR) NEGATIVE SARS-CoV-2 RNA (RT-PCR) NEGATIVE 10/19/25 10/19/25 04:47 05:19 WBC 5.8 RBC 3.35 L Hgb 10.3 L Hct 31.4 L MCV 93.7 MCH 30.7 MCHC 32.8 RDW 14.3 Plt Count 260 MPV 8.9 L Immature Gran % (Auto) Neut % (Auto) Lymph % (Auto) [place] % (Auto) Eos % (Auto) Baso % (Auto) Lymph # (Auto) [place] # (Auto) Eos # (Auto) Baso # (Auto) Abs Immat Gran (auto) Absolute Neuts (auto) Absolute Nucleated RBC 0.000 Nucleated RBC % (auto) 0.0 PT INR Sodium 142 Potassium 3.6 Chloride 110 H Carbon Dioxide 20 L Anion Gap 16 BUN 10 Creatinine 0.85 Estim Creat Clear Calc 42.5 Estimated GFR > 60 Random Glucose 103 Calcium 9.0 D Magnesium 2.0 Total Bilirubin AST ALT Alkaline Phosphatase Troponin I High Sens NT-Pro-B Natriuret Pep Total Protein Albumin TSH Influenza Type A (PCR) Influenza Type B (PCR) RSV RNA Qual (PCR) SARS-CoV-2 RNA (RT-PCR) Assessment and Plan (1) Heart palpitations: Status: Acute Plan [age] year lady presenting with palpitations and sinus tachycardia. 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 Stop amitriptyline because it can cause anticholinergic effects and tachycardia. Gentle hydration and monitoring of orthostatic vital signs periodically. Check early childhood specialist cortisol to make sure she does not have any adrenal issues. TSH is normal and she does not have hypothyroidism to explain the palpitations and tachycardia. She is anemic but hemoglobin appears to be close to her baseline. MCV is normal. I think we hydrate and reassess the orthostatic vital signs. If no obvious cause found and she continues to have low blood pressures with standing up then we may have to try midodrine. We will follow along with you. Thank you for allowing me to participate in the care of your patient. Please feel free to contact me if you have any questions. Procedures Date of Service Date of Service: 10/19/25
[2025-10-20] VITALS (15 sets, daily range): BP systolic 99–157; BP diastolic 52–69; PULSE 72–122; RESP 16–20; TEMP 36.2–36.8; O2SAT 95–97
[2025-10-20] MEDS: oxyCODONE HCl Immed Release 5 MG TABLET PO ×2 (00:09→21:19)
[2025-10-20] MEDS: 0.9 % Sodium Chloride Flush 3 ML SYRINGE IVFLUSH ×4 (00:10→21:20)
--- NOTE | 2025-10-20 07:25 | HO.PM.IMPN ---
Subjective Subjective Date of Service: 10/20/25 Interval History: Continues to be orthostatic We will give her 1 more L LR Has significant orthostasis Initiate midodrine p.r.n. Cortisol be checked Review of Systems Review of Systems: Yes all other systems are reviewed and are negative Physical Exam Vital Signs: Vital Signs: Last Vital Signs Temp 98.3 F 10/20/25 03:08 Pulse 100 10/20/25 04:03 Resp 16 10/20/25 03:08 BP 103/56 L 10/20/25 04:03 Pulse Ox 95 10/20/25 03:08 O2 Del Method Room Air 10/20/25 03:08 BMI result Body Mass Index 26.7 GENERAL APPEARANCE: in no acute distress, pleasant. NECK: no carotid bruit, no jugular venous distention. SKIN: no suspicious lesions, warm and dry. HEART: no murmurs, regular rate and rhythm. LUNGS: clear to auscultation bilaterally. ABDOMEN: soft, nontender. EXTREMITIES: no edema. PERIPHERAL PULSES: equal. NEUROLOGIC: No gross deficits, AAO X 3 Objective Data Active Medications Acetaminophen (Acetaminophen 325 Mg Tablet) 650 mg PO Q6H PRN PRN Reason: Pain, Mild 1-3,fever,headache Calcium Carbonate (Calcium Carbonate 750 Mg Tab.Chew) 750 mg PO Q4H PRN PRN Reason: Heartburn Clonazepam (Clonazepam 0.5 Mg Tablet) 0.5 mg PO BEDTIME REPLACED BY [facility] Last Admin: 10/19/25 20:30 Dose: 0.5 mg Documented By: ABRAHAN Enoxaparin Sodium (Enoxaparin Sodium 40 Mg/0.4 Ml Syringe) 40 mg SUBCUT Q24H REPLACED BY [facility] Last Admin: 10/19/25 09:18 Dose: 40 mg Documented By: RAFAEL Sodium Chloride (Ns) 1,000 mls @ 100 mls/hr IVCONT .Q10H REPLACED BY [facility] Last Admin: 10/20/25 01:56 Dose: 100 mls/hr Documented By: HUNG Magnesium Hydroxide (Milk Of Magnesia 30 Ml Oral.Susp) 30 ml PO DAILY PRN PRN Reason: Constipation Magnesium Oxide (Magnesium Oxide 400 Mg Tablet) 400 mg PO DAILY REPLACED BY [facility] Last Admin: 10/19/25 09:17 Dose: 400 mg Documented By: RAFAEL Melatonin (Melatonin 3 Mg Tablet) 6 mg PO BEDTIME PRN PRN Reason: Insomnia Metoprolol Tartrate (Metoprolol Tartrate 25 Mg Tablet) 25 mg PO BEDTIME REPLACED BY [facility]; Protocol Last Admin: 10/19/25 20:30 Dose: 25 mg Documented By: ABRAHAN Multivitamins/Vitamin C (Multivitamin Tablet) 1 tab PO DAILY [facility] Last Admin: 10/19/25 09:17 Dose: 1 tab Documented By: RAFAEL Non-Formulary Medication (Cyclosporine) 1 drop EYE-BOTH Q12H REPLACED BY [facility] Omeprazole (Omeprazole 20 Mg Capsule.) 20 mg PO DAILY@0630 REPLACED BY [facility] Last Admin: 10/20/25 06:05 Dose: 20 mg Documented By: HUNG Oxycodone HCl (Oxycodone Hcl Immed Release 5 Mg Tablet) 5 mg PO Q6H PRN PRN Reason: Pain, Severe (Pain Scale 7-10) Last Admin: 10/20/25 00:09 Dose: 5 mg Documented By: HUNG Sodium Chloride (0.9 % Sodium Chloride Flush 3 Ml Syringe) 3 ml IVFLUSH QSHIFT REPLACED BY [facility] Last Admin: 10/20/25 00:10 Dose: 3 ml Documented By: HUNG Labs 10/19/25 05:19 10/19/25 04:47 Assessment and Plan (1) Heart palpitations: Status: Acute Plan Pleasant 85-year-old lady with background history of hypertension, irritable bowel syndrome, hepatic steatosis, renal insufficiency, osteoarthritis and gout who recently came back from rehab presented after a another fall at home likely secondary to significant orthostasis. Sinus tachycardia resolved with re-initiation of home meds Significant orthostasis continues to be orthostatic Labile blood pressure titrating Vertigo likely from orthostatic hypotension PVCs from age of 41 HTN CAD HLD We will hydrate gently likely she is hypovolemic as well as needing titration of echo blocking agents -needing more hydration Appreciate cardiology input We will stop amitriptyline as this could be anticholinergic causing her to have above symptoms We will check morning cortisol Tele Check electrolytes and replete to goal Orthostatic Continue to check orthostatic vitals q.4 hours Fall precautions Ramón stockings and abdominal binder Midodrine p.r.n. she tends to be hypertensive on midodrine OA- pain management IBS-stable Prior closed fracture of left proximal humerus-pain control left arm in sling, PT PT Full code DVT prophylaxis with Lovenox while inpatient This note is constructed using voice recognition software. While every effort has been made to ensure accuracy, hydrometer tester errors may have been included. Quality Stroke Does the patient have a stroke diagnosis?: No VTE Prior VTE?: No VTE Risk Level:: Medical - moderate - high VTE Device Contraindication: Treatment Not Indicated VTE Drug Contraindication: N/A - Med Ordered
--- NOTE | 2025-10-20 10:38 | PM.PNCARD ---
Subjective Subjective Date of Service: 10/20/25 Interval history: Seen examined at bedside. Amitriptyline has been discontinued. She was hydrated and overall heart rate is improving. Physical Exam Vital Signs: Last Vital Signs Temp 98.0 F 10/20/25 08:00 Pulse 88 10/20/25 08:10 Resp 18 10/20/25 08:00 BP 131/59 L 10/20/25 08:10 Pulse Ox 96 10/20/25 08:00 O2 Del Method Room Air 10/20/25 08:00 BMI result Body Mass Index 26.7 GENERAL APPEARANCE: in no acute distress, pleasant. NECK: no carotid bruit, no jugular venous distention. SKIN: no suspicious lesions, warm and dry. HEART: no murmurs, regular rate and rhythm. LUNGS: clear to auscultation bilaterally. ABDOMEN: soft, nontender. EXTREMITIES: no edema. PERIPHERAL PULSES: equal. NEUROLOGIC: No gross deficits, AAO X 3 Objective Labs and Meds 10/19/25 05:19 10/19/25 04:47 Progress Note: A&P Assessment and plan (1) Heart palpitations: Status: Acute (2) Orthostatic hypotension: Status: Acute Plan 85-year-old lady presenting with palpitations and sinus tachycardia. She was noticed to be orthostatic. She was given IV fluids with improvement in heart rate. She was also on amitriptyline which has been discontinued because it can cause anticholinergic effects and tachycardia. Overall heart rate is improving with IV fluids. In terms of orthostatic vital signs, she had orthostatics checked today and apparently there are 2 different blood pressure readings when she is laying down. Any case I think she can get 1 more L of fluid and we can reassess the vitals. If she improves significantly with this then would discharge home and encouraged her to drink more water. Blood pressure readings overall are okay currently. We will follow along with you. Thank you for allowing me to participate in the care of your patient. Please feel free to contact me if you have any questions. Time Spent With Patient Time: Total time managing care of this patient today ____ minutes. Progress Note: Quality Stroke Does the patient have a stroke diagnosis?: No Procedures Date of Service Date of Service: 10/20/25
--- NOTE | 2025-10-20 14:54 | MHC.CM.PN ---
IMM given 10/20/25
[2025-10-20] MEDS: Lactated Ringers 1,000 ML 100 ML IV (16:43)
[2025-10-21] VITALS (9 sets, daily range): BP systolic 113–162; BP diastolic 55–72; PULSE 76–102; RESP 18; TEMP 36.2–36.3; O2SAT 96–98
[2025-10-21] MEDS: oxyCODONE HCl Immed Release 5 MG TABLET PO (04:15)
[2025-10-21 06:15] LABS: MANUAL DIFF FLAG NO
[2025-10-21 06:22] LABS: Hematocrit 29.8 % (37.0-47.0); Hemoglobin 9.9 g/dl (12.0-16.0); Imm Gran Abs Auto 0.02 X10*3/uL (0.00-0.03); Imm Gran Pct Auto 0.3 % (0.0-0.4); Lymphocytes Absolute Auto 2.8 X10*3/uL (1.2-4.9); Mean Corpuscular HGB Conc 33.2 g/dl (31.0-35.0); Mean Corpuscular Hemoglobin 31.0 pg (27.0-33.0); Mean Corpuscular Volume 93.4 fL (80.0-98.0); NRBC Abs Auto 0.000 X10*3/uL (0.0-0.012); NRBC Pct Auto 0.0 /100WBC (0.0-0.2); Platelet Count 241 X10*3/uL (160-400); Red Blood Count 3.19 X10*6/uL (4.20-5.50); White Blood Count 5.9 X10*3/uL (4.8-10.8)
[2025-10-21 06:44] LABS: Alanine Aminotransferase 9 U/L (0-31); Albumin Level 3.0 g/dL (3.5-5.0); Alkaline Phosphatase 78 U/L (39-117); Anion Gap 10 (12-20); Aspartate Amino Transferase 31 U/L (5-31); Blood Urea Nitrogen 7 mg/dL (9-16); Calcium 8.6 mg/dL (8.4-10.2); Carbon Dioxide 28 mmol/L (22-29); Chloride 110 mmol/L (96-108); Creatinine Clr Calc Pharmacy 56.8; Estimated Glomerular Filt Rate > 60; Magnesium 1.4 mg/dL (1.6-2.6); Potassium 3.7 mmol/L (3.3-5.1); Sodium 144 mmol/L (135-145); Total Protein 5.4 g/dL (6.5-8.0)
[2025-10-21] MEDS: Magnesium Sulfate/H2O 2 GM/50 ML PIGGYBACK IV (06:50)
[2025-10-21] MEDS: 0.9 % Sodium Chloride Flush 3 ML SYRINGE IVFLUSH (09:07)
--- NOTE | 2025-10-21 13:57 | MHC.CM.PN ---
PER ROUNDS PT MAY DC TODAY PLAN IS HOME WITH [facility]
--- NOTE | 2025-10-21 16:02 | PM.DS ---
DS: Providers Provider Date of Service: 10/21/25 Date of admission: 10/20/25 14:41 Date of discharge: 10/21/25 Primary care physician: Osvaldo Gifford MD Consults: 10/18/25 20:05 Consult to Cardiology Routine Consulting Provider: [facility] Reason for consultation: palpiations, tachy, elevated trop Has provider been notified: Yes DS: Diagnosis Discharge Diagnosis (1) Heart palpitations: Status: Acute DS: Summary Hospital Course Hospital Course: Per H&P:Chief Complaint: dizzy, tachy 85F PMH legally blind, PVCs, orthostatic hypotension with supine hypertension, mood disorder sent in by PCP for tachycardia. Patient states she has been feeling dizzy while standing and having frequent falls. Has been ongoing for about 2 years but has worsened in the last month. On 09/19/2025 patient had fall. At that time notes reflect mechanical fall the patient now saying she may have passed out. This was complicated by a left humerus fracture, went to acute rehab and then home 2 weeks prior to presentation. Continues to report symptoms of orthostasis and noted to have tachycardia at home. Has no history of AFib. Was sent to ED for EKG which showed sinus tachycardia. Lab significant for elevated troponin flat around 50. CTA chest negative. Patient was previously on atenolol 25 b.i.d. this was changed to metoprolol tartrate 12.5 b.i.d.. TSH normal, denies caffeine or energy drinks. Patient denies chest pain or shortness of breath. significant orthostasis noted will order iv NS, change lopressor to bedtime only if persists after hydration consider am and noon midodrine Hospital course: Significant orthostasis continues to be orthostatic Patient is significantly orthostatic intermittently. Ten stockings, abdominal binder, midodrine 2.5 t.i.d. p.r.n. Sinus tachycardia During this hospitalization she was noted to be significantly dehydrated for which we gave her hydration with symptomatic improvement. Her tachycardia improved post resumption of oral home meds resolved with re-initiation of home meds metoprolol 25 b.i.d. Labile blood pressure-resume home meds PVCs from age of 41 chronic HTN CAD HLD Continue home meds Anticholinergic effects due to amitriptyline. This admission and improved Added to allergy list OA- pain management IBS-stable Prior closed fracture of left proximal humerus-pain control left arm in sling, PT PT recommended home with family support, patient already has [facility] Full code DVT prophylaxis with Lovenox while inpatient This note is constructed using voice recognition software. While every effort has been made to ensure accuracy, travel accommodations rater errors may have been included. Time spent discussing smoking cessation with patient: more than 10 minutes Status at Discharge Functional status at discharge: bed bound Overall status at discharge: patient is progressing back to baseline Time Attestation Discharge Coordination Time (in mins): 65 Quality: Safe Use of Opioids Does Pt have an Active Cancer Diagnosis on the Problem List?: No Quality: Stroke Does the patient have a stroke diagnosis?: No Physical Exam Vital Signs: Vital Signs: Last Vital Signs Temp 97.3 F 10/21/25 12:00 Pulse 98 10/21/25 12:00 Resp 18 10/21/25 12:00 BP 145/68 H 10/21/25 12:00 Pulse Ox 96 10/21/25 12:00 O2 Del Method Room Air 10/21/25 12:00 BMI result Body Mass Index 26.7 DS: Data Data Completed and Pending Labs on day of discharge: Laboratory Results - last 24 hr 10/21/25 05:33 WBC 5.9 RBC 3.19 L Hgb 9.9 L Hct 29.8 L MCV 93.4 MCH 31.0 MCHC 33.2 RDW 14.3 Plt Count 241 MPV 8.8 L Immature Gran % (Auto) 0.3 Neut % (Auto) 34.4 L Lymph % (Auto) 47.8 H [place] % (Auto) 8.5 Eos % (Auto) 6.1 H Baso % (Auto) 2.9 H Lymph # (Auto) 2.8 [place] # (Auto) 0.5 Eos # (Auto) 0.4 Baso # (Auto) 0.2 Abs Immat Gran (auto) 0.02 Absolute Neuts (auto) 2.0 Absolute Nucleated RBC 0.000 Nucleated RBC % (auto) 0.0 Sodium 144 Potassium 3.7 Chloride 110 H Carbon Dioxide 28 Anion Gap 10 L BUN 7 L Creatinine 0.71 Estim Creat Clear Calc 56.8 Estimated GFR > 60 Random Glucose 93 Calcium 8.6 Magnesium 1.4 L* Total Bilirubin 0.4 AST 31 ALT 9 Alkaline Phosphatase 78 Total Protein 5.4 L Albumin 3.0 L Random Cortisol 7.8 Discharge Plan Discharge Anticipated Discharge Date/Time: 10/21/25 16:10 Patient Disposition: Home, Self-Care Discharge Diagnosis: Orthostatic hypotension Referrals: Osvaldo Gifford MD [Primary Care Provider, Internal Medicine] - 1 Week Discharge Medications: New midodrine 2.5 mg Tablet 2.5 mg PO TID@0900,1300,1700 PRN (Reason: Orthostasis, hypotension SBP<90) 30 Days Qty: 30 0RF Continued clonazepam 0.5 mg tablet 0.5 mg PO BEDTIME 90 Days Qty: 90 0RF Rx Instructions: administer 30 minutes before bedtime cyclosporine 0.05 % dropperette 1 drp ophthalmic (eye) Q12H (DME) cane See Rx Instructions .Route .MEDSUPPLY Qty: 1 0RF Rx Instructions: As directed metoprolol tartrate 25 mg tablet 25 mg PO BID (DME) cane Device See Rx Instructions .Route Qty: 1 0RF Rx Instructions: As directed multivitamin Tablet 1 tab PO DAILY acetaminophen 325 mg capsule 650 mg PO Q6H PRN (Reason: Fever Or Pain) magnesium oxide 400 mg magnesium tablet 400 mg PO DAILY celecoxib [Celebrex] 200 mg capsule 200 mg PO BID 30 Days Qty: 60 3RF pantoprazole 20 mg tablet,delayed release (DR/EC) 20 mg PO BID Discontinued amitriptyline 25 mg tablet 25 mg PO DAILY Rx Instructions: 25 mg orally; take 2 tabs x7 days then 1 tab x7 days then dc Discharge Orders: Discharge Order (Routine); Ordered 10/21/25 Ordered By: Falguni Shah Diet: Advance to usual diet Activity on Discharge: As tolerated Stand Alone Forms: Patient Portal Discharge page Print Language: Faroese Activity Restrictions/Additional Instructions: Discharge Instructions: - Education and Symptom Recognition: - Learn to recognize symptoms such as dizziness, lightheadedness, blurred vision, weakness, or fainting when standing.[2][1] - Avoid triggers: standing for long periods, sudden posture changes, hot environments (showers, saunas), large carbohydrate-rich meals, alcohol, and straining.[2][3][4] - Lifestyle and Environmental Modifications: - Rise slowly from bed or chairs; sit on the edge of the bed for a few minutes before standing.[2][3] - Consider placing a chair in the bathroom to shower while seated.[2] - Avoid lying flat during the day; sleep with the head of the bed elevated 30?45 degrees to reduce morning symptoms.[3] - Fluid and Salt Intake: - Maintain adequate hydration, aiming for 2?2.5 L of fluids daily unless contraindicated.[3] - Increase dietary salt intake to 2?3 g per day (or as directed), unless you have heart failure, kidney disease, or hypertension.[5][3][6] - Acute water ingestion (240?500 mL) may provide temporary symptom relief, with peak effect at 30 minutes.[4][6][5] - Physical Counter-Maneuvers: - Use maneuvers such as leg crossing, squatting, lower body muscle tensing, or handgrip to increase blood pressure when symptoms occur.[4][2][5] - These are most effective if performed at the onset of symptoms and in patients able to safely execute them.[2][5] - Compression Garments: - Wear thigh-high or waist-high compression stockings or abdominal binders to reduce venous pooling and improve symptoms.[4][6][5] - Compliance may be limited; garments should include the abdomen for best effect.[5] - Medication Review: - Review all medications with your healthcare provider; avoid or adjust drugs that may worsen OH (e.g., diuretics, vasodilators).[3][7][1] - Physical Activity: - Engage in regular, gentle exercise to prevent deconditioning, which can worsen OH.[3][7] - Avoid frequent position changes during exercise; modify activities as needed.[3] - Pharmacologic Therapy (if prescribed): - Medications such as midodrine, droxidopa, or fludrocortisone may be considered for persistent symptoms.[4][7][5][1] - Monitor for side effects, including supine hypertension, urinary retention, headache, and scalp tingling.[4][5][1] - When to Seek Medical Attention: - Report new or worsening symptoms, falls, injuries, chest pain, or confusion immediately. - Follow up with your provider for ongoing management and medication adjustments. Additional Notes: - Treatment goals are to reduce symptoms and improve daily functioning, not to normalize blood pressure.[2][7][1] - Care Plan Goals: See above Stop amitriptyline placed through away all the bottles meds Please be careful when getting in and out of the bed-please see the instructions about Please follow up with PCP and Cardiology outpatient within a week Health Concerns: See above Plan of Treatment: See above Assessment: See above
--- NOTE | 2025-10-28 13:15 | MHC.CM.PN ---
CM received a call from Sarath PENA(Alondra), who Patient was active with prior to her last hospitalization. When dc'd, Patient was dc'd HOME SELF CARE. Apparently Patient is asking Sarath to resume services and sincere is going through the PCP to get services back in the home. Per Alondra's request, dc summary has been faxed to her at [phone].
== END 2025-10-21 17:00 | disposition home or self-care (01) | DRG 312 ==
LOC: HO.ED 20:10 → HO.EDOVER 20:23 → HO.IMC 10-19 16:38
PROVIDERS: Nurse Practitioner; Registered Nurse Emergency; Admitting Provider Internal Medicine; Emergency Provider Student in an Organized Health Care Education/Training Program; PCP Internal Medicine; Visit Provider Student in an Organized Health Care Education/Training Program
DX: I95.1 Orthostatic hypotension (principal); E86.1 Hypovolemia; H54.8 Legal blindness, as defined in USA; R00.0 Tachycardia, unspecified; I49.3 Ventricular premature depolarization; I10 Essential (primary) hypertension; E83.42 Hypomagnesemia; M19.90 Unspecified osteoarthritis, unspecified site; K58.9 Irritable bowel syndrome, unspecified; Z87.891 Personal history of nicotine dependence; Z20.822 Contact with and (suspected) exposure to COVID-19; Z79.899 Other long term (current) drug therapy
CPT/HCPCS: 36415; 71275; 80048; 80053; 82533; 83735; 83880; 84443; 84484; 85025; 85027; 85610; 87637; 93005; 93306; 97161; 99222; 99285; J1650; J3475; J7120; Q9957; Q9967

== ENCOUNTER → 2025-10-18 16:31 | Outpatient (BNV) | payer MEDICARE, BC, SELFPAY | PROVIDERS: Admitting Provider Internal Medicine; Emergency Provider Student in an Organized Health Care Education/Training Program; PCP Internal Medicine; Visit Provider Internal Medicine Cardiovascular Disease | DX: R00.0 Tachycardia, unspecified (principal) | CPT/HCPCS: 93010 ==

== ENCOUNTER → 2025-10-18 17:18 | Outpatient (BNV) | payer MEDICARE, BC, SELFPAY | PROVIDERS: Emergency Provider Student in an Organized Health Care Education/Training Program; PCP Internal Medicine; Visit Provider Radiology Diagnostic Radiology | DX: R00.0 Tachycardia, unspecified (principal); R06.02 Shortness of breath; S42.212D Unspecified displaced fracture of surgical neck of left humerus, subsequent encounter for fracture with routine healing | CPT/HCPCS: 71275 ==

== ENCOUNTER 2025-10-18 20:06 | Outpatient (BNV) | payer MEDICARE, BC, SELFPAY | END 2025-10-19 07:00 | PROVIDERS: Admitting Provider Internal Medicine; Emergency Provider Student in an Organized Health Care Education/Training Program; PCP Internal Medicine; Visit Provider Internal Medicine Cardiovascular Disease | DX: R94.31 Abnormal electrocardiogram [ECG] [EKG] (principal) | CPT/HCPCS: 93306 ==

== ENCOUNTER → 2025-10-18 20:06 | Outpatient (BNV) | payer MEDICARE, BC, SELFPAY | PROVIDERS: Admitting Provider Internal Medicine; Emergency Provider Student in an Organized Health Care Education/Training Program; PCP Internal Medicine; Visit Provider Internal Medicine Cardiovascular Disease | DX: R00.2 Palpitations (principal); I95.1 Orthostatic hypotension | CPT/HCPCS: 99232 ==

== ENCOUNTER → 2025-10-18 20:06 | Outpatient (BNV) | payer MEDICARE, BC, SELFPAY | PROVIDERS: Admitting Provider Internal Medicine; Emergency Provider Student in an Organized Health Care Education/Training Program; PCP Internal Medicine; Visit Provider Internal Medicine | DX: R00.2 Palpitations (principal) | CPT/HCPCS: 99233 ==

== ENCOUNTER 2025-11-04 12:51 | Outpatient (AMB) | payer MEDICARE, BC, SELFPAY ==
[2025-11-04 12:55] VITALS: BP 148/88; PULSE 91; O2SAT 97
--- NOTE | 2025-11-04 12:55 | A.OFFPC_ITS ---
Vital Signs 11/04/25 12:55 Height 5 ft 4 in BMI Reason not done Patient refused/unable BP 148/88 H Blood Pressure Location Rt brachial Position Sitting Pulse 91 Pulse Source Pulse Oximeter Pulse Oximetry (%) 97 Oxygen Delivery Method Room Air Intake Visit Reasons: [facility] 10/21 Tachycardia Allergies Sulfa (Sulfonamide Antibiotics) (SULFA(SULFONAMIDE ANTIBIOTICS)) Allergy (Severe, Verified 11/04/25 12:56) HIVES sulfur Allergy (Unknown, Verified 11/04/25 12:56) Unknown amitriptyline Adverse Reaction (Severe, Verified 11/04/25 12:56) Anticholinergic effect codeine Adverse Reaction (Mild, Verified 11/04/25 12:56) Abdominal Pain Tobacco use date assessed: 05/18/25 Fall risk assessment: No Falls in past year Last assessed Fall Risk: 11/04/25 Dental Screening Dental Screen Date: 05/18/25 [facility] Information Date of Discharge 10/21/25 Discharged From [facility] Interactive Contact Date (Reference documentation from this date) 11/04/25 HPI Comments History of Present Illness Details 85-year-old female presents today for ansitional Care Management following hospitalization at [facility] from 10/20?10/21 for evaluation of a mechanical fall attributed to orthostatic hypotension. PMH includes legal blindness, PVCs, orthostatic hypotension with supine hypertension, and mood disorder. Patient reports 2 years of intermittent dizziness upon standing with increased frequency of falls over the past month. She had a fall on 09/19/2025, originally documented as mechanical, but today she reports the possibility that she may have lost consciousness. That fall resulted in a left humerus fracture, for which she completed acute rehab and returned home approximately 2 weeks ago. She continues to wear a shoulder sling and is following with Orthopedics. Since discharge, she reports ongoing symptoms of orthostasis at home and episodes of tachycardia, though she denies any known history of atrial fibrillation. She was previously on atenolol 25 mg BID, which was transitioned to metoprolol tartrate 12.5 mg BID. She states she was instructed to stop amitriptyline and clonazepam due to worsening orthostatic hypotension. Today she reports that her orthostatic symptoms have resolved. No dizziness, presyncope, or falls since medication adjustments. [facility] Medical History (Updated 10/29/25 @ 00:01 by Background Daemon) Orthostatic hypotension Diverticular disease Fatigue Pain in both feet Gout Rectal bleeding LFT elevation Inflammatory arthritis Acute diverticulitis Arthralgia Abscess Seizure Obesity (BMI 30-39.9) Diverticulitis Anemia Restless leg HTN (hypertension) Surgical History History of appendectomy Spinal stenosis of lumbar region Hx of cholecystectomy History of bunionectomy Social History Household Members: Spouse Housing: House Housing Other:: multifamily house Do you presently have visiting nurse or other home services: Yes Alcohol intake: current Alcohol intake frequency: holidays/special occasions only Alcohol type: wine Comment: wine douglas and new year - and oncew a month 1 drink Patient Tobacco Use Status: Former Tobacco user Tobacco use type: Cigarette Years Smoked: 5 e-Cigarette/Vaping Use: Never Used Second Hand Smoke Exposure: Yes Advance Directives Date on File: 03/14/21 service: No Current occupational status: retired Cognitive needs: No Hearing needs: No Vision needs: Yes (Glasses) Questionnaire Thrive Questionnaire Date Thrive assessed: 05/18/25 I am a: Patient What is your living situation today?: I have a steady place to live Within the past 12 months, did the food you bought not last and you didn't have the money to get more?: Never true Within the past 12 months, did you worry whether your food would run out before you got money to buy more?: Never true Do you have trouble paying for medicines?: No Do you have trouble getting transportation to medical appointments?: No Do you have trouble paying your heating and electricity bill?: No Do you have trouble taking care of your child, family member or friend?: No Do you have trouble with day-to-day activities such as bathing, preparing meals, shopping, managing finances, etc.?: No Are you currently unemployed and looking for a job?: No Are you interested in more education?: No Please select the resources that you would like help with: None Currently or been in a relationship where the following occur: No concerns reported THRIVE Score: 0 JAKE-7 AMB Questionnaire JAKE-7 Date JAKE - 7 assessed: 05/18/25 Source: Developed by Drs. Dyllan Ansari, Maral Abdi, Osmani Rivera and colleagues, with an educational florentino from [employer]. Review of Systems Const All systems reviewed & are unremarkable except as noted in HPI and below Physical exam (Primary Care) Vital Signs: Last Vital Signs Pulse 91 11/04/25 12:55 BP 148/88 H 11/04/25 12:55 Pulse Ox 97 11/04/25 12:55 Oxygen Delivery Method Room Air 11/04/25 12:55 Tobacco/Smoking Status: Tobacco use Status Tobacco use date assessed 05/18/25 11/04/25 13:01 Patient Tobacco Use Status Former Tobacco user 11/04/25 13:01 Tobacco use type Cigarette 11/04/25 13:01 e-Cigarette/Vaping Use Never Used 11/04/25 13:01 Thrive Assessment: Date of Thrive Assessment Date Thrive assessed 05/18/25 11/04/25 13:01 Currently or been in a relationship where the following occur: No concerns reported Const General: no acute distress Nutritional Appearance: well nourished Orientation/consciousness: patient oriented x3 Resp Effort & Inspection: normal respiratory effort Auscultation: clear to auscultation bilaterally Cardio Heart sounds: S1 normal heart sound present and S2 normal heart sound present Neuro General: patient oriented x3, gait normal and moves all extremities Motor exam (neuro): 5/5 motor strength present throughout Extrem Other: Left arm in sling; limited ROM due to healing humerus fracture. Coding Level of Care Code TCM Mod MDM <= 14 Days Diagnoses Orthostatic hypotension I95.1 Time Spent (min) 25 Assessment & Plan Assessment & Plan (1) Orthostatic hypotension: Code(s): I95.1 - Orthostatic hypotension Category: Medical Plan: Orthostatic hypotension ? Previously symptomatic with dizziness and recurrent falls; symptoms now resolved after discontinuation of amitriptyline and clonazepam and adjustment of beta-osman therapy. High future fall risk given PMH and age. Sinus tachycardia ? Episodes noted at home; no AFib on evaluation. Currently on low-dose metoprolol tartrate. Recent fall with left humerus fracture (09/19/25) ? Status post acute rehab; following with Orthopedics; continues sling use. Continue metoprolol tartrate 12.5 mg BID; monitor heart rate and symptoms. Reinforce avoidance of amitriptyline and clonazepam due to orthostatic hypotension risk. Encourage hydration, slow positional changes, and use of compression stockings if tolerated. Review home fall-prevention strategies (clear pathways, adequate lighting, assistive device use). Continue Orthopedic follow-up for humerus fracture; maintain sling as directed. F/U with PCP as scheduled on 11/21
--- OUTSIDE RECORDS SUMMARY | 2025-11-04 18:31 | XMS_ITS | Patient Health Record ---
Author Organization [facility] Address [address] [place] [address] Care Team Providers Care Wood Molder Name Role Phone Osvlado Gifford MD Primary Care Provider Gracie Mcguire Unavailable [phone] Allergies Allergen (clinical drug ingredient) Drug/Non Drug [...] MOUTH TWICE A DAY Oral; Duration: 90 Not-Taking/GA N Aspirin 81 81 MG Tablet Delayed [...] Status Risk Notes Problem Diverticulitis of colon (105375837) Diverticulitis of large intestine without perforation or abscess without bleeding (K57.32) Active confirmed Problem Screening for malignant neoplasm of colon (482445908) Encounter for screening for malignant neoplasm of colon (Z12.11) Active confirmed Problem Weight loss (726632473) Weight loss (R63.4) Active confirmed Problem Screening for malignant neoplasm of rectum (649073759) Encounter for screening for malignant neoplasm of rectum (Z12.12) Active confirmed Problem Elevated liver enzymes level (863679444) Elevated liver function tests (R79.89) Active confirmed Problem Diverticular disease of colon (281709447) Diverticulosis of large intestine without hemorrhage (K57.30) Active confirmed Problem Fatty liver (804393552) Fatty liver (K76.0) Active confirmed Problem Serum ferritin high (860916301) Elevated ferritin (R79.89) Active confirmed Problem Diarrhea (71041566) Diarrhea, unspecified type (R19.7) Active confirmed Problem Irritable bowel syndrome characterized by constipation (552719463) Irritable bowel syndrome with constipation (K58.1) Active confirmed Problem Essential hypertension (48452081) Hypertension, unspecified type (I10) Active confirmed Problem Generalized abdominal pain (663532023) Abdominal pain, diffuse (R10.84) Active confirmed Problem Blood chemistry abnormal (776936002) Elevated ferritin level (R79.89) Active confirmed Vital Signs Temperature 96.9 degrees Fahrenheit 08/02/2025 Blood pressure diastolic 01 mm Hg 08/02/2025 Height 64.50 in 08/02/2025 Blood pressure systolic 001 mm Hg 08/02/2025 Weight 148. lbs 08/02/2025 BMI 25.01 kg/m2 08/02/2025 Encounters Encounter Location Date Provider Diagnosis [facility] [address] [place] [phone] 08/02/2025 Gracie Houston Irritable bowel syndrome with constipation K58.1 [facility] [address] [place] [phone] 06/27/2025 Gracie Houston [facility] [address] [place] [phone] 08/02/2025 Gracie Houston Assessments Encounter Date Diagnosis [...] [place] [address] [place] [address] [phone] [id number] DEVI BOWMAN Self - patient is the insured [facility] [address] [place], [place] [id number] [phone] [id number] DEVI BOWMAN Self - patient is the insured Medical (General) History Medical History History ICD Code Sigmoid Diverticulitis 08/2017- -negativ e CT scan in 11/2017 and 03/2018 HTN Neg. colonoscopy in 1997, 12 06, and 2016- except for diverticulosis and hemorrhoids Denies NV,DM,CVA,Lung disease,renal dise ase Headaches Sigmoid diverticulitis on [...]
--- OUTSIDE RECORDS SUMMARY | 2025-11-04 18:31 | XMS_ITS | Clinical Summary ---
Author Organization [facility] Address [address] [place] [id number] Phone Care Team Providers Care Cold Rolling Supervisor Name Role Phone Osvaldo Gifford MD Primary Care Provider [phone] Allergies Active Allergy Reactions Criticality Noted Date [...] file Insurance MEDICARE PART A & B [facility] Care Teams Cold Rolling Supervisor Relationship Specialty Start Date End Date Osvaldo Gifford MD [address] [place] [phone] PCP - General Internal Medicine 01/26/25 Additional Source Comments The information contained in this document represents components of the legal health record. It is not the complete legal health record.[facility]
== END 2025-11-04 14:31 | disposition home or self-care (01) ==
LOC: HO.HMCH 12:52
PROVIDERS: PCP Internal Medicine; Visit Provider Nurse Practitioner Family
DX: I95.1 Orthostatic hypotension (principal)

== ENCOUNTER → 2025-11-04 12:51 | Outpatient (BNVA) | payer MEDICARE, BC, SELFPAY | PROVIDERS: PCP Internal Medicine; Visit Provider Nurse Practitioner Family | DX: Z09 Encounter for follow-up examination after completed treatment for conditions other than malignant neoplasm (principal); I95.1 Orthostatic hypotension | CPT/HCPCS: 99495 ==

== ENCOUNTER 2025-11-16 13:10 | Outpatient (AMB) | payer MEDICARE, BC, SELFPAY ==
--- OUTSIDE RECORDS SUMMARY | 2025-11-16 13:13 | XMS_ITS | Patient Health Record ---
Author Organization [facility] Address [address] [place] [address] Care Team Providers Care Calcine Furnace Tender Name Role Phone Osvaldo Gifford MD Primary Care Provider Gracie Mcguire Unavailable [phone] Allergies Allergen (clinical drug ingredient) Drug/Non Drug [...] MOUTH TWICE A DAY Oral; Duration: 90 Not-Taking/NC N Aspirin 81 81 MG Tablet Delayed [...] Status Risk Notes Problem Diverticulitis of colon (703490541) Diverticulitis of large intestine without perforation or abscess without bleeding (K57.32) Active confirmed Problem Screening for malignant neoplasm of colon (011413686) Encounter for screening for malignant neoplasm of colon (Z12.11) Active confirmed Problem Weight loss (381123022) Weight loss (R63.4) Active confirmed Problem Screening for malignant neoplasm of rectum (073203871) Encounter for screening for malignant neoplasm of rectum (Z12.12) Active confirmed Problem Elevated liver enzymes level (850734637) Elevated liver function tests (R79.89) Active confirmed Problem Diverticular disease of colon (902221506) Diverticulosis of large intestine without hemorrhage (K57.30) Active confirmed Problem Fatty liver (902018644) Fatty liver (K76.0) Active confirmed Problem Serum ferritin high (711511382) Elevated ferritin (R79.89) Active confirmed Problem Diarrhea (65451143) Diarrhea, unspecified type (R19.7) Active confirmed Problem Irritable bowel syndrome characterized by constipation (959018073) Irritable bowel syndrome with constipation (K58.1) Active confirmed Problem Essential hypertension (45453418) Hypertension, unspecified type (I10) Active confirmed Problem Generalized abdominal pain (579231464) Abdominal pain, diffuse (R10.84) Active confirmed Problem Blood chemistry abnormal (397354557) Elevated ferritin level (R79.89) Active confirmed Vital Signs Temperature 96.9 degrees Fahrenheit 08/02/2025 Blood pressure diastolic 01 mm Hg 08/02/2025 Height 64.50 in 08/02/2025 Blood pressure systolic 001 mm Hg 08/02/2025 Weight 148. lbs 08/02/2025 BMI 25.01 kg/m2 08/02/2025 Encounters Encounter Location Date Provider Diagnosis [facility] [address] [place] [phone] 08/02/2025 Gracie Houston Irritable bowel syndrome with constipation K58.1 [facility] [address] [place] [phone] 06/27/2025 Gracie Houston [facility] [address] [place] [phone] 08/02/2025 Gracie Houston Assessments Encounter Date Diagnosis [...] [place] [address] [place] [address] [id number] DEVI BOWMAN Self - patient is the insured [facility] [address] [place], [place] [id number] [phone] [id number] DEVI BOWMAN Self - patient is the insured Medical (General) History Medical History History ICD Code Sigmoid Diverticulitis 08/2017- -negativ e CT scan in 11/2017 and 03/2018 HTN Neg. colonoscopy in 1997, 12 06, and 2016- except for diverticulosis and hemorrhoids Denies UT,DM,CVA,Lung disease,renal dise ase Headaches Sigmoid diverticulitis on [...]
--- OUTSIDE RECORDS SUMMARY | 2025-11-16 13:13 | XMS_ITS | Clinical Summary ---
Author Organization [facility] Address [address] [place] [id number] Phone Care Team Providers Care Banbury Machine Operator Name Role Phone Osvaldo Gifford MD Primary Care Provider [phone] Allergies Active Allergy Reactions Criticality Noted Date [...] & B [facility] Care Teams Banbury Machine Operator Relationship Specialty Start Date End Date Osvaldo Gifford MD [address] [place] [phone] PCP - General Internal Medicine 01/26/25 Additional Source Comments The information contained in this document represents components of the legal health record. It is not the complete legal health record.[facility]
[2025-11-16 13:17] VITALS: BP 134/70; PULSE 66
--- NOTE | 2025-11-16 13:17 | A.OFFVIS_ITS ---
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 Required: No Accompanied by: Other Relationship Allergies Sulfa (Sulfonamide Antibiotics) (SULFA(SULFONAMIDE ANTIBIOTICS)) Allergy (Severe, Verified 11/16/25 13:22) HIVES sulfur Allergy (Unknown, Verified 11/16/25 13:22) Unknown amitriptyline Adverse Reaction (Severe, Verified 11/16/25 13:22) Anticholinergic effect codeine Adverse Reaction (Mild, Verified 11/16/25 13:22) Abdominal Pain Medication List - Last Reconciled 11/16/25 by Mejia Domingo NP cane As directed [cane As directed] celecoxib (Celebrex) 200 mg PO BID 30 days cyclosporine 0.05% 1 drp ophthalmic (eye) Q12H magnesium oxide 400 mg PO DAILY metoprolol tartrate 25 mg PO BID multivitamin 1 tab PO DAILY naproxen sodium (Aleve) 220 mg PO Q12H PRN pantoprazole 20 mg PO BID trazodone 50 mg PO BEDTIME PRN HPI Comments Details: This is an 85-year-old female patient coming in for a hospital discharge follow- up visit, accompanied by her . Patient who is legally blind has history of PVCs, hypertension with orthostatic hypotension. Patient states that she has been having dizziness for the past 3 years and having frequent falls from this. Patient was recently in the hospital after patient fell. Patient does not truly understand if this was a mechanical fall versus if she had dizziness and passed out. It was noted that patient also had a left humerus fracture for which patient was sent to acute rehab. Patient was noted to have significant orthostasis in the hospital and her amitriptyline and clonazepam was stopped. Patient also was switched from atenolol to metoprolol. Today, patient is reporting feeling well overall without any recurrence in dizziness. Patient is otherwise denying any exertional chest pain, shortness of breath, palpitations, orthopnea, PND, leg edema, presyncope or syncope. Patient is reporting comp liance with all medications. Patient states that with the medication changes she has been feeling much better. [facility] Medical History (Updated 11/16/25 @ 14:18 by Mejia Domingo NP) Dizziness Orthostatic hypotension Diverticular disease Fatigue Pain in both feet Gout Rectal bleeding LFT elevation Inflammatory arthritis Acute diverticulitis Arthralgia Abscess Seizure Obesity (BMI 30-39.9) Diverticulitis Anemia Restless leg HTN (hypertension) Surgical History History of appendectomy Spinal stenosis of lumbar region Hx of cholecystectomy History of bunionectomy Social History Household Members: Spouse Housing: House Housing Other:: multifamily house Do you presently have visiting nurse or other home services: Yes Alcohol intake: current Alcohol intake frequency: holidays/special occasions only Alcohol type: wine Comment: wine douglas and new year - and oncew a month 1 drink Patient Tobacco Use Status: Former Tobacco user Tobacco use type: Cigarette Years Smoked: 5 e-Cigarette/Vaping Use: Never Used Second Hand Smoke Exposure: Yes Advance Directives Date on File: 03/14/21 service: No Current occupational status: retired Cognitive needs: No Hearing needs: No Vision needs: Yes (Glasses) Review of Systems Const Denies daytime sleepiness, Denies difficulty sleeping, Denies snoring, Denies stops breathing during sleep and Denies weakness Card Denies chest pain, Denies rapid heart rate, Denies irregular heart rhythm, Denies claudication, Denies leg edema, Denies lightheadedness, Reports palpitations, Denies dyspnea, Denies dyspnea on exertion, Denies orthopnea, Denies paroxysmal nocturnal dyspnea and Denies slow heart rate Resp Denies cough, Denies dyspnea, Denies dyspnea on exertion and Denies snoring GI Reports no additional complaints, Denies hematochezia, Denies change in stool character and Denies dyspepsia Musc Denies abnormal gait, Denies muscle weakness and Denies numbness Neuro Denies abnormal gait, Denies numbness and Denies weakness Endo Reports palpitations Physical Exam Vital Signs: Last Vital Signs Pulse 66 11/16/25 13:17 BP 140/70 H 11/16/25 13:17 Const General: cooperative, healthy appearing, comfortable and no acute distress Orientation/consciousness: patient oriented x3 HEENT Head: Yes normal to inspection Neck Neck: Yes normal visual inspection, Yes trachea midline and Yes supple Chest Chest palpation & inspection: normal inspection of the chest Resp Effort & Inspection: normal respiratory effort Auscultation: clear to auscultation bilaterally, no crackles, no rales, no rh onchi and no wheezes Cardio Jugular venous distension: no JVD Palpation: normal PMI Rate: regular rate Rhythm: regular rhythm Heart sounds: S1 normal heart sound present, S2 normal heart sound present, no click, no gallops, no murmurs and no rubs Peripheral pulses: Peripheral pulses 2+ throughout GI Inspection: Yes normal to inspection Palpation (GI): Soft to palpation Auscultation: normal bowel sounds Skin General skin exam: no rashes or lesions noted Neuro General: patient oriented x3 Extrem Other: Left upper extremity in a sling. General: No no pedal edema and No calf tenderness Psych Appearance: grossly normal Mental Status: mental status grossly normal Speech and movement: Normal speech and movement present Assessment & Plan Assessment & Plan (1) Dizziness: Code(s): R42 - Dizziness and giddiness Category: Medical (2) PVCs (premature ventricular contractions): Code(s): I49.3 - Ventricular premature depolarization Category: Medical (3) Orthostatic hypotension: Code(s): I95.1 - Orthostatic hypotension Category: Medical (4) Hospital discharge follow-up: Code(s): Z51.89 - Encounter for other specified aftercare Plan Most recently patient was in the hospital for a syncopal episode versus mechanical for which patient does not truly recall but was complicated with a left humerus fracture. During the hospital stay patient was noted to have significant orthostasis and was treated with IV fluids and was changed from atenolol to metoprolol. Patient's amitriptyline and clonazepam was also stopped. Since medication changes, patient denies any recurrence in symptoms. Patient does have history of PVCs but no known atrial fibrillation. 10/19/2025-echo study showed a normal LV systolic function with the ejection fraction between 60-65%. We will get a cardiac event monitor to evaluate for any potential arrhythmias such as ventricular arrhythmias or atrial fibrillation. Patient is agreeable of the spine. Blood pressure today is well-controlled. Patient states blood pressures at home have also been stable. Continue current regimen. Advised on adequate hydration, regular exercise, orthostatic precautions, and med compliance. Follow up after classroom monitor. In the interim, patient will call the office with any concerns or change in symptoms. This note was generated using voice recognition software. While every effort has been made to ensure accuracy and proper box toe cutter, there may be occasional errors that could affect the content or meaning of the described symptoms. Orders: Orders ECG 30 day event monitor Today R42 - Dizziness and giddiness Coding Level of Care Code Est Pt Level 4 (23104) Add On Problem Visit Only Diagnoses Dizziness R42 PVCs (premature ventricular contractions) I49.3 Orthostatic hypotension I95.1 Hospital discharge follow-up Z51.89 Time Spent (min) 32 Comment Time spent in reviewing the chart, test results, assessment, counseling and documentation.
== END 2025-11-16 13:49 | disposition home or self-care (01) ==
LOC: HO.HCS 13:11
PROVIDERS: PCP Internal Medicine
DX: R42 Dizziness and giddiness (principal); I49.3 Ventricular premature depolarization; I95.1 Orthostatic hypotension; Z51.89 Encounter for other specified aftercare
CPT/HCPCS: 99214; G2211

== ENCOUNTER → 2025-11-16 13:10 | Outpatient (BNVA) | payer MEDICARE, BC, SELFPAY | PROVIDERS: PCP Internal Medicine | DX: R42 Dizziness and giddiness (principal); I95.1 Orthostatic hypotension; I49.3 Ventricular premature depolarization; Z51.89 Encounter for other specified aftercare | CPT/HCPCS: 99212 ==

== ENCOUNTER 2025-11-21 08:49 | Outpatient (REF) | payer MEDICARE, BC, SELFPAY ==
--- NOTE | ~2025-11-21 | XR_ITS ---
EXAMINATION: XR SHOULDER 2 OR MORE VIEWS LEFT HISTORY: M25.512 - Pain in left shoulder COMPARISON: Comparison is made with the prior examination dated 10/05/2025. FINDINGS: Two views of the left shoulder are submitted. Osseous mineralization is normal. Again seen is a displaced fracture of the surgical neck of the humerus. There is greater callus formation noted, consistent with healing. The glenohumeral joint is maintained. There is moderate degenerative change of the AC joint with joint space narrowing and osteophyte formation. The soft tissues are unremarkable. XR/XR shoulder LT min 2V IMPRESSION: Healing displaced fracture of the surgical neck of the humerus. Electronically signed by: Dyllan Soliman MD 11/21/2025 02:11 PM DEVAN
--- OUTSIDE RECORDS SUMMARY | 2025-11-22 10:47 | XMS_ITS | Patient Health Record ---
Author Organization [facility] Address [address] [place] [address] Care Team Providers Care Chief Enterprise Architect Name Role Phone Osvaldo Gifford MD Primary Care Provider Gracie Mcguire Unavailable [phone] Allergies Allergen (clinical drug ingredient) Drug/Non Drug [...] MOUTH TWICE A DAY Oral; Duration: 90 Not-Taking/WI N Aspirin 81 81 MG Tablet Delayed [...] Status Risk Notes Problem Diverticulitis of colon (289678711) Diverticulitis of large intestine without perforation or abscess without bleeding (K57.32) Active confirmed Problem Screening for malignant neoplasm of colon (021672635) Encounter for screening for malignant neoplasm of colon (Z12.11) Active confirmed Problem Weight loss (104487893) Weight loss (R63.4) Active confirmed Problem Screening for malignant neoplasm of rectum (430529676) Encounter for screening for malignant neoplasm of rectum (Z12.12) Active confirmed Problem Elevated liver enzymes level (963330138) Elevated liver function tests (R79.89) Active confirmed Problem Diverticular disease of colon (481057914) Diverticulosis of large intestine without hemorrhage (K57.30) Active confirmed Problem Fatty liver (937854851) Fatty liver (K76.0) Active confirmed Problem Serum ferritin high (988939478) Elevated ferritin (R79.89) Active confirmed Problem Diarrhea (40594317) Diarrhea, unspecified type (R19.7) Active confirmed Problem Irritable bowel syndrome characterized by constipation (878694117) Irritable bowel syndrome with constipation (K58.1) Active confirmed Problem Essential hypertension (79041473) Hypertension, unspecified type (I10) Active confirmed Problem Generalized abdominal pain (088452157) Abdominal pain, diffuse (R10.84) Active confirmed Problem Blood chemistry abnormal (000962946) Elevated ferritin level (R79.89) Active confirmed Vital Signs Temperature 96.9 degrees Fahrenheit 08/02/2025 Blood pressure diastolic 01 mm Hg 08/02/2025 Height 64.50 in 08/02/2025 Blood pressure systolic 001 mm Hg 08/02/2025 Weight 148. lbs 08/02/2025 BMI 25.01 kg/m2 08/02/2025 Encounters Encounter Location Date Provider Diagnosis [facility] [address] [place] [phone] 08/02/2025 Gracie Houston Irritable bowel syndrome with constipation K58.[address] [facility] [address] [place] [phone] 06/27/2025 Gracie Houston [facility] [address] [place] [phone] 08/02/2025 Gracie Houston Assessments Encounter Date Diagnosis [...] [place] [address] [place] [address] [phone] [id number] DEVI BOWMAN Self - patient is the insured [facility] [address] [place], [place] [id number] DEVI BOWMAN Self - patient is the insured Medical (General) History Medical History History ICD Code Sigmoid Diverticulitis 08/2017- -negativ e CT scan in 11/2017 and 03/2018 HTN Neg. colonoscopy in 1997, 12 06, and 2016- except for diverticulosis and hemorrhoids Denies MA,DM,CVA,Lung disease,renal dise ase Headaches Sigmoid diverticulitis on [...]
--- OUTSIDE RECORDS SUMMARY | 2025-11-22 10:47 | XMS_ITS | Clinical Summary ---
Author Organization [facility] Address [address] [place] [phone] Phone Care Team Providers Care Osteology Teacher Name Role Phone Osvaldo Gifford MD Primary Care Provider [phone] Allergies Active Allergy Reactions Criticality Noted Date [...] Insurance MEDICARE PART A & B [facility] Care Teams Osteology Teacher Relationship Specialty Start Date End Date Osvaldo Gifford MD [address] [place] [phone] PCP - General Internal Medicine 01/26/25 Additional Source Comments The information contained in this document represents components of the legal health record. It is not the complete legal health record.[facility]
== END 2025-11-21 08:50 | disposition home or self-care (01) ==
LOC: HO.HOSX 08:49
PROVIDERS: Visit Provider Physician Assistant
DX: Z00.00 Encounter for general adult medical examination without abnormal findings (principal); I95.1 Orthostatic hypotension; I10 Essential (primary) hypertension; K76.0 Fatty (change of) liver, not elsewhere classified; K57.90 Diverticulosis of intestine, part unspecified, without perforation or abscess without bleeding; D64.9 Anemia, unspecified; S42.202D Unspecified fracture of upper end of left humerus, subsequent encounter for fracture with routine healing; W19.XXXD Unspecified fall, subsequent encounter; G47.00 Insomnia, unspecified; R19.7 Diarrhea, unspecified; E46 Unspecified protein-calorie malnutrition; Z87.891 Personal history of nicotine dependence
CPT/HCPCS: 73030

== ENCOUNTER 2025-11-21 13:03 | Outpatient (AMB) | payer MEDICARE, BC, SELFPAY ==
--- NOTE | 2025-11-21 13:08 | MHC.OFFVIS ---
Intake Visit Reasons: 6wk fu lt prox hum fx w xrays Intake Note: Devi is a 85 year old right hand dominant female who presents today for a follow up of left humerus fracture, DOI: 09/15/25. At her last visit patient wa provided with a physical therapy order to bring to her VNA and instructed to follow up in 6 weeks with x-rays. Today patient reports she is dong well, a little sorenss once in a while. Her VNA has not showed up since . She continues to perform at home exercises. Allergies Sulfa (Sulfonamide Antibiotics) (SULFA(SULFONAMIDE ANTIBIOTICS)) Allergy (Severe, Verified 11/21/25 13:09) HIVES sulfur Allergy (Unknown, Verified 11/21/25 13:09) Unknown amitriptyline Adverse Reaction (Severe, Verified 11/21/25 13:09) Anticholinergic effect codeine Adverse Reaction (Mild, Verified 11/21/25 13:09) Abdominal Pain HPI Comments Details: History of Present Illness The patient is an 85 year old female presenting for follow-up of a left shoulder proximal humerus fracture. She was last seen in September for the fracture, at which time she also received an injection in her right shoulder. Regarding the left shoulder, home physical therapy was initiated but stopped after a hospitalization and never resumed. Since then, she has been performing exercises on her own. X-rays from today show good healing with new bone growth at the fracture site, which has progressed since her last imaging. She is currently six weeks post-injury. She denies any history of smoking. Regarding the right shoulder, she reports the previous injection was helpful and requests another one due to increased use of that arm. Social History - Tobacco Use: The patient is a non-smoker. - Functional Status: The patient performs her own exercises for her shoulder at home. - Home Environment: The patient receives care from a home nurse but does not currently have a physical therapist. [facility] Medical History (Updated 11/21/25 @ 13:34 by Tito Luis PA-C) Dizziness Orthostatic hypotension Diverticular disease Fatigue Pain in both feet Gout Rectal bleeding LFT elevation Inflammatory arthritis Acute diverticulitis Arthralgia Abscess Seizure Obesity (BMI 30-39.9) Diverticulitis Anemia Restless leg HTN (hypertension) Surgical History History of appendectomy Spinal stenosis of lumbar region Hx of cholecystectomy History of bunionectomy Social History Household Members: Spouse Housing: House Housing Other:: multifamily house Do you presently have visiting nurse or other home services: Yes Alcohol intake: current Alcohol intake frequency: holidays/special occasions only Alcohol type: wine Comment: wine douglas and new year - and oncew a month 1 drink Patient Tobacco Use Status: Former Tobacco user Tobacco use type: Cigarette Years Smoked: 5 e-Cigarette/Vaping Use: Never Used Second Hand Smoke Exposure: Yes Advance Directives Date on File: 03/14/21 service: No Current occupational status: retired Cognitive needs: No Hearing needs: No Vision needs: Yes (Glasses) Review of Systems Narrative Review of Systems - Musculoskeletal: Reports intermittent twinges in the left shoulder, which she considers part of the normal healing process. Const All systems reviewed & are unremarkable except as noted in HPI and below Physical Exam Exam Exam: Physical Exam - Musculoskeletal: Observation of the left shoulder revealed good active range of motion, including forward elevation and internal rotation to the back. Results Reviewed Results Reviewed: X-rays of the left shoulder obtained in the office today and reviewed by me show proximal humerus fracture with displacement and interval healing Assessment & Plan Assessment & Plan (1) Closed fracture of left proximal humerus: Code(s): S42.202A - Unspecified fracture of upper end of left humerus, initial encounter for closed fracture Category: Medical Qualifiers: Encounter type: subsequent encounter Fracture alignment: displaced Fracture healing: with routine healing Plan Plan 1. Left Humeral Fracture The patient's left shoulder fracture is healing well with non-operative management, as confirmed by X-rays showing good bone growth at six weeks post-injury. Her active range of motion is excellent and is comparable to what would be expected from a surgical outcome. She is advised to continue with gentle range of motion exercises and to wean off the sling, using it only for protection when outdoors. She should continue to avoid any lifting, pushing, or pulling with the left arm. A new referral will be placed with [facility] for home physical therapy. She will follow up in eight weeks for a repeat X-ray. Consent Patient was informed and verbally consented to the use of an ambient scribe for clinic note documentation during this visit. Orders: Orders XR shoulder LT min 2V Today M25.512 - Pain in left shoulder Referrals [facility] Referral S4 - Unspecified fracture of upper end of left humerus, initial encounter for closed fracture Coding Level of Care Code Global (38818) Diagnoses Closed fracture of left proximal humerus S4 Encounter type: subsequent encounter Fracture alignment: displaced Fracture healing: with routine healing
--- OUTSIDE RECORDS SUMMARY | 2025-11-21 14:59 | XMS_ITS | Patient Health Record ---
Author Organization [facility] Address [address] [place] [address] Care Team Providers Care Labeling Strategist Name Role Phone Osvaldo Gifford MD Primary Care Provider Gracie Mcguire Unavailable [phone] Allergies Allergen (clinical drug ingredient) Drug/Non Drug [...] MOUTH TWICE A DAY Oral; Duration: 90 Not-Taking/MI N Aspirin 81 81 MG Tablet Delayed [...] Status Risk Notes Problem Diverticulitis of colon (234168008) Diverticulitis of large intestine without perforation or abscess without bleeding (K57.32) Active confirmed Problem Screening for malignant neoplasm of colon (890550243) Encounter for screening for malignant neoplasm of colon (Z12.11) Active confirmed Problem Weight loss (606966941) Weight loss (R63.4) Active confirmed Problem Screening for malignant neoplasm of rectum (415437951) Encounter for screening for malignant neoplasm of rectum (Z12.12) Active confirmed Problem Elevated liver enzymes level (221218886) Elevated liver function tests (R79.89) Active confirmed Problem Diverticular disease of colon (052594271) Diverticulosis of large intestine without hemorrhage (K57.30) Active confirmed Problem Fatty liver (958686482) Fatty liver (K76.0) Active confirmed Problem Serum ferritin high (649792661) Elevated ferritin (R79.89) Active confirmed Problem Diarrhea (61168663) Diarrhea, unspecified type (R19.7) Active confirmed Problem Irritable bowel syndrome characterized by constipation (184366177) Irritable bowel syndrome with constipation (K58.1) Active confirmed Problem Essential hypertension (43248467) Hypertension, unspecified type (I10) Active confirmed Problem Generalized abdominal pain (415127591) Abdominal pain, diffuse (R10.84) Active confirmed Problem Blood chemistry abnormal (091634668) Elevated ferritin level (R79.89) Active confirmed Vital Signs Temperature 96.9 degrees Fahrenheit 08/02/2025 Blood pressure diastolic 01 mm Hg 08/02/2025 Height 64.50 in 08/02/2025 Blood pressure systolic 001 mm Hg 08/02/2025 Weight 148. lbs 08/02/2025 BMI 25.01 kg/m2 08/02/2025 Encounters Encounter Location Date Provider Diagnosis [facility] [address] [place] [phone] 08/02/2025 Gracie Houston Irritable bowel syndrome with constipation K58.1 [facility] [address] [place] [phone] 06/27/2025 Gracie Houston [facility] [address] [place] [phone] 08/02/2025 Gracie Houston Assessments Encounter Date Diagnosis [...] [place] [address] [place] [address] [id number] DEVI BOWMAN Self - patient is the insured [facility] [address] [place], [place] [id number] [phone] [id number] DEVI BOWMAN Self - patient is the insured Medical (General) History Medical History History ICD Code Sigmoid Diverticulitis 08/2017- -negativ e CT scan in 11/2017 and 03/2018 HTN Neg. colonoscopy in 1997, 12 06, and 2016- except for diverticulosis and hemorrhoids Denies [place],DM,CVA,Lung disease,renal dise ase Headaches Sigmoid diverticulitis on [...]
--- OUTSIDE RECORDS SUMMARY | 2025-11-21 14:59 | XMS_ITS | Clinical Summary ---
Author Organization Located Within [facility] Address [address] [place] [address] Phone Care Team Providers Care Guide Cruise Name Role Phone Osvaldo Gifford MD Primary Care Provider [phone] Allergies Active Allergy Reactions Criticality Noted Date [...] file Insurance MEDICARE PART A & B [facility] Care Teams Guide Cruise Relationship Specialty Start Date End Date Osvaldo Gifford MD [address] [place] [phone] PCP - General Internal Medicine 01/26/25 Additional Source Comments The information contained in this document represents components of the legal health record. It is not the complete legal health record.Loc[facility]
== END 2025-11-21 13:31 | disposition home or self-care (01) ==
LOC: HO.HOS 13:04
PROVIDERS: PCP Internal Medicine; Visit Provider Physician Assistant
DX: S42.202A Unspecified fracture of upper end of left humerus, initial encounter for closed fracture (principal)
CPT/HCPCS: 99213

== ENCOUNTER → 2025-11-21 13:06 | Outpatient (BNV) | payer MEDICARE, BC, SELFPAY | PROVIDERS: Visit Provider Radiology Diagnostic Radiology | DX: S42.212D Unspecified displaced fracture of surgical neck of left humerus, subsequent encounter for fracture with routine healing (principal) | CPT/HCPCS: 73030 ==

== ENCOUNTER 2025-11-21 13:44 | Outpatient (AMB) | payer MEDICARE, BC, SELFPAY ==
[2025-11-21 13:57] VITALS: BP 134/70; PULSE 67; O2SAT 97
--- NOTE | 2025-11-21 13:57 | A.OFFVIS_ITS ---
Intake Vital Signs 11/21/25 13:57 Height 5 ft 4 in BMI Reason not done Patient refused/unable BP 134/70 Blood Pressure Location Rt brachial Position Sitting Pulse 67 Pulse Source Pulse Oximeter Pulse Oximetry (%) 97 Oxygen Delivery Method Room Air Intake Visit Reasons: 6 mn f/u Allergies Sulfa (Sulfonamide Antibiotics) (SULFA(SULFONAMIDE ANTIBIOTICS)) Allergy (Severe, Verified 11/21/25 13:57) HIVES sulfur Allergy (Unknown, Verified 11/21/25 13:57) Unknown amitriptyline Adverse Reaction (Severe, Verified 11/21/25 13:57) Anticholinergic effect codeine Adverse Reaction (Mild, Verified 11/21/25 13:57) Abdominal Pain Medication List - Last Reconciled 11/21/25 by Osvaldo Gifford MD cane As directed [cane As directed] celecoxib (Celebrex) 200 mg PO BID 30 days cyclosporine 0.05% 1 drp ophthalmic (eye) Q12H magnesium oxide 400 mg PO DAILY metoprolol tartrate 25 mg PO BID multivitamin 1 tab PO DAILY pantoprazole 20 mg PO BID HPI 6 mn f/u HPI Details [place] [facility] [place] [facility] [place] [facility] [place]. Patel/Celso HPI Comments History of Present Illness Details History of Present Illness The patient is an 85 year old female presenting for an annual wellness visit. Her past medical history is significant for hypertension, a history of diverticular disease, arthritis, and hepatic steatosis. The patient experienced a fall on September 19, resulting in a left humeral fracture. The fracture is being managed non-operatively by orthopedics and is healing well. Recurrent falls were a concern, and medications including amitriptyline and clonazepam were stopped, after which the patient reports feeling significantly better and no longer dizzy. The patient follows up with cardiology and was hospitalized on October 20 for palpitations. An echocardiogram from September 2025 showed a normal left ventricular ejection fraction of 60-65% and her atenolol was switched to metoprolol. The hospital aide has advised an event monitor, and the patient has b een contacted to schedule this. She has a history of chronic anemia since 2022, with her last hemoglobin noted to be 9.9 on October 21. Lab work at that time also revealed low magnesium at 1.4, for which she takes a supplement. The patient has been suffering from insomnia for approximately three years, sleeping only 2-3 hours per night. She was taking trazodone but does not want to continue it, and she reports that melatonin has been ineffective. She also reports recent onset of watery diarrhea, which she attributes to trazodone. Regarding health screenings, her last mammogram was in August 2024 and her last colonoscopy was in 2014. She has declined a bone density scan. Her current medications include Celebrex, magnesium, metoprolol 25 mg twice daily, multivitamins, and pantoprazole. Health Maintenance Follow-up is pending with cardiology for an event monitor. The patient was advised to check with her pharmacy regarding her pneumonia vaccine history. She was also advised to provide a copy of her advance directive for the medical record. Preventative counseling was provided regarding diet, exercise, hydration, and avoiding infectious exposures. Social History - Alcohol Use: Reports drinking once or twice a year. - Tobacco Use: Reports she does not smok e. - Living Situation: Her [facility] her recent [facility] to provide assistance. - Nutrition: Reports poor appetite, eati ng about half of what she used to, with a weight loss of over 25 pounds since her fall. 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 - Exercise: Continues to perform exercis es taught by a physical therapist following her fracture. Results - Labs (October 21): Hemoglobin 9.9 g/d L, Hematocrit 29.8%. - Labs (October 21): Electrolytes and r enal function were normal. - Labs (October 21): Magnesium was low at 1.4 mEq/L. - Labs (October 21): Liver function woodrow ts were normal; total protein was low. - Echocardiogram (September 2025): Showed a normal left ventricular ejection fraction of 60-65%. - In-office Testing: Rectal exam was neg ative for occult blood. [facility] Medical History (Updated 11/21/25 @ 14:28 by Osvaldo Gifford MD) Dizziness Orthostatic hypotension Diverticular disease Fatigue Pain in both feet Gout Rectal bleeding LFT elevation Inflammatory arthritis Acute diverticulitis Arthralgia Abscess Seizure Obesity (BMI 30-39.9) Diverticulitis Anemia Restless leg HTN (hypertension) Surgical History History of appendectomy Spinal stenosis of lumbar region Hx of cholecystectomy History of bunionectomy Social History Household Members: Spouse Housing: House Housing Other:: multifamily house Do you presently have visiting nurse or other home services: Yes Alcohol intake: current Alcohol intake frequency: holidays/special occasions only Alcohol type: wine Comment: wine douglas and new year - and oncew a month 1 drink Patient Tobacco Use Status: Former Tobacco user Tobacco use type: Cigarette Years Smoked: 5 e-Cigarette/Vaping Use: Never Used Second Hand Smoke Exposure: Yes Advance Directives Date on File: 03/14/21 service: No Current occupational status: retired Cognitive needs: No Hearing needs: No Vision needs: Yes (Glasses) Questionnaire Medicare Wellness Checkup What is your age?: 80 or older What gender do you identify with?: female During the past 4 weeks, how much have you been bothered by emotional problems such as feeling anxious, depressed, irritable, sad or downhearted, and blue?: slightly During the past 4 weeks, has your physical & emotional health limited your social activities with family, friends, neighbors, or groups?: quite a bit During the past 4 weeks, how much bodily pain have you generally had?: moderate pain During the past 4 weeks, was someone available to help you if you needed & wanted help?: yes, as much as I wanted During the past 4 weeks, what was the hardest physical activity you could do for at least 2 minutes?: very light Can you get to places out of walking distance without help? (For eg., can you travel alone on buses, taxis or drive your car?): No Can you go shopping for groceries or clothes without someone's help?: No Can you prepare your own meals?: No Can you do your housework without help?: Yes Because of any health problems, do you need the help of another person with your personal care needs such as eating, bathing, dressing or getting around the house?: Yes Can you handle your own money without help?: Yes During the past 4 weeks, how would you rate your health in general?: fair During the past 4 weeks how have things been going for you?: pretty bad Are you having difficulties driving your car?: not applicable, I don't use a car Do you always fasten your seat belt when you are in a car?: yes, usually During past 4 weeks, have you been bothered by the following: never: Sexual problems? and Problems using the telephone?, sometimes: Falling or dizzy when standing up and Tiredness or fatigue? and often: Trouble eating well? and Teeth or denture problems? Have you fallen 2 or more times in the past year?: Yes Are you afraid of falling?: Yes Are you a smoker?: no During the past 4 weeks, how many drinks of wine, beer, or other alcoholic beverages did you have?: no alcohol at all Do you exercise for about 20 minutes 3 or more times a week?: yes, some of the time Have you been given information to help with the following?: yes: Keeping track of your medications? and no: Hazards in your house that might hurt you? How often do you have trouble taking medicines the way you have been told to take them?: I always take medicine as prescribed How confident are you that you can control & manage most of your health problems?: somewhat confident What is your race?: White PHQ-9 Over the last 2 weeks, how often have you been bothered by any of the following problems? 1. Little interest or pleasure in doing things: not at all 2. Feeling down, depressed, or hopeless: not at all 3. Trouble falling or staying asleep, or sleeping too much: not at all 4. Feeling tired or having little energy: not at all 5. Poor appetite or overeating: not at all 6. Feeling bad about yourself - or that you are a failure or have let yourself or your family down: not at all 7. Trouble concentrating on things, such as reading the newspaper or watching television: not at all 8. Moving or speaking so slowly that other people could have noticed. Or the opposite - being so fidgety or restless that you have been moving around a lot more than usual: not at all 9. Thoughts that you would be better off or of hurting yourself in some way: not at all Total score: 0 Source: Developed by Drs. Dyllan Ansari, Maral Abdi, Osmani Rivera and colleagues, with an educational florentino from [employer]. Review of Systems Narrative Review of Systems - General: Reports insomnia, sleeping only 2-3 hours per night for the last three years. - Constitutional: Reports poor appetite and a weight loss of over 25 pounds since her recent fall. - HEENT: Reports being legally blind. - HEENT: Denies hearing problems. - Oropharynx: Reports occasional dysphagia. - Cardiovascular: Denies chest pain, heaviness, or discomfort. - Respiratory: Denies dyspnea or coughing while eating. - Gastrointestinal: Reports watery diarrhea. - Gastrointestinal: Denies nausea, vomiting, or heartburn. - Genitourinary: Reports nocturia once per night, rarely twice. - Musculoskeletal: Denies lower extremity swelling. - Neurological: Reports having tremors. - Neurological: Reports she has not been dizzy since her medications were changed. - Allergic: Reports allergies to sulfa, amitriptyline, and codeine. Const Denies poor appetite and Denies weakness Eyes Denies no additional complaints ENT Reports Normal hearing present, Denies dizziness, Denies nasal congestion, Denies tinnitus and Denies sore throat Card Denies chest pain, Denies syncope, Denies rapid heart rate and Denies dyspnea Resp Denies cough and Denies dyspnea GI Denies change in stool character, Reports constipation, Denies diarrhea, Denies nausea and Denies vomiting Denies urinary frequency, Denies difficulty voiding and Denies dysuria Neuro Reports Normal hearing present, Denies confusion, Denies dizziness, Denies syncope and Denies weakness Psych Denies confusion Physical Exam Exam Exam: Physical Exam General: Cooperative, healthy appearing, comfortable, no acute distress and well developed Orientation: Patient oriented x3 Limitations: No limitations Head: Normal to inspection Ears: Hearing grossly normal bilaterally Nose: Normal external nose present Face and sinus: Normal facial exam Eyes: Appearance normal, both eyes and all related structures Neck: Normal visual inspection and Yes full ROM Respiratory: Normal respiratory effort and able to speak in complete sentences. Clear to auscultation bilaterally Cardiovascular: Regular rate and rhythm. Normal S1 and S2 GI: Normal to inspection. Soft to palpation and nontender Skin: No rashes or lesions noted Neuro: Patient oriented x3 Extremities: Normal to inspection Vital Signs: Last Vital Signs Pulse 67 11/21/25 13:57 BP 134/70 11/21/25 13:57 Pulse Ox 97 11/21/25 13:57 Oxygen Delivery Method Room Air 11/21/25 13:57 Const General: No confusion Orientation/consciousness: No confusion HEENT Head: Yes normocephalic Ears: external ears normal and TM's normal bilaterally Face and sinus: Yes normal facial exam Mouth: moist mucous membranes Throat: Yes tonsils normal Eyes Conjunctivae: conjunctivae normal Pupils: Equal, round and reactive pupils present and Pupil accommodation reflex normal Direct Ophthalmoscopy: normal light reflex Neck Neck: No lymphadenopathy Thyroid: Thyroid normal Chest Chest palpation & inspection: normal inspection of the chest Resp Effort & Inspection: normal respiratory effort and no audible wheezes Auscultation: clear to auscultation bilaterally, no crackles, no wheezes and lung sounds not diminished Cardio Rate: regular rate Rhythm: regular rhythm Peripheral pulses: radial pulses present and dorsalis pedis present GI Other: guaiac negative Palpation (GI): no masses Auscultation: normal bowel sounds and normoactive bowel sounds Rectal Exam - Female: deferred Skin General skin exam: no rashes or lesions noted Rashes: no rashes Neuro General: No confusion Cranial nerves: Yes Equal, round and reactive pupils present and Yes Normal hearing present Cognition (Neuro): normal cognition Gait exam (Neuro): Normal gait present Motor exam (neuro): 5/5 motor strength present throughout Deep tendon reflexes (DTR's): Right brachioradialis reflex intensity grade: 2+, Left brachioradialis reflex intensity grade: 2+, Right patellar reflex intensity grade: 2+ and Left patellar reflex intensity grade: 2+ Extrem General: No edema Assessment & Plan Assessment & Plan (1) Medicare annual wellness visit, subsequent: Code(s): Z00.00 - Encounter for general adult medical examination without abnormal findings Plan: Patient is advised to eat healthy, keep well hydrated, keep active and have adequate sleep. (2) Orthostatic hypotension: Code(s): I95.1 - Orthostatic hypotension Plan: Blood pressure medication changed as well as taken off anxiety medication that c an affect the blood pressure (3) HTN (hypertension): Code(s): I10 - Essential (primary) hypertension Qualifiers: Hypertension type: essential hypertension Qualified Code(s): I10 - Essential (primary) hypertension Plan: Continue with blood pressure medication. Decrease salt intake and exercise on metoprolol 25 mg twice a day (4) Fatty liver: Code(s): K76.0 - Fatty (change of) liver, not elsewhere classified Plan: Low-fat diet and exercise (5) Diverticular disease: Code(s): K57.90 - Diverticulosis of intestine, part unspecified, without perforation or abscess without bleeding Plan: Patient is advised to eat more fiber avoid getting constipation (6) Anemia: Code(s): D64.9 - Anemia, unspecified Qualifiers: Anemia type: unspecified type Qualified Code(s): D64.9 - Anemia, unspecified Plan: Advised to follow-up this blood work (7) Closed fracture of left proximal humerus: Code(s): S42.202A - Unspecified fracture of upper end of left humerus, initial encounter for closed fracture Qualifiers: Encounter type: subsequent encounter Fracture alignment: displaced Fracture healing: with routine healing Plan: Patient follows up with orthopedics and healing well non operative (8) Recurrent falls: Code(s): R29.6 - Repeated falls Plan: Medications changed that can cause orthostatic hypotension (9) Insomnia: Code(s): G47.00 - Insomnia, unspecified Plan Plan Patient was informed and verbally consented to the use of an ambient scribe for clinic note documentation during this visit. 1. Chronic Insomnia The patient reports sleeping only 2-3 hours per night for the past three years and is desperate for a solution. She does not wish to take trazodone and has tried melatonin without success. After a lengthy discussion about the high risk of falls associated with hypnotic medications like Ambien, especially given her age, recent fracture, and nocturia, a decision was made to prescribe doxylamine as a first-line agent given its milder sedative properties. The importance of having assistance from her son for any nighttime awakenings was heavily emphasized to mitigate fall risk. 2. Chronic Anemia The patient has a history of chronic anemia, with a recent hemoglobin of 9.9 g/dL. To further evaluate the etiology, a follow-up blood work request will be placed to check iron studies, vitamin B12, and folic acid levels to guide further management. 3. Hypertension The patient's blood pressure is well-controlled at 134/70 mmHg on her current regimen of metoprolol 25 mg twice daily. She reports feeling much better with no dizziness since her medication regimen was adjusted. She will continue her current blood pressure medication. 4. Diarrhea The patient reports new onset watery diarrhea, which may be a side effect of the recently discontinued trazodone. She was advised to increase her fluid intake to avoid dehydration and associated dizziness and was counseled that she can restart probiotics to help regulate her bowels. 5. Malnutrition The patient reports a poor appetite and significant weight loss of over 25 pounds, and her lab work shows low protein levels. She was counseled on the importance of eating and increasing her intake of protein-rich foods like fish and chicken. An appetite stimulant, Periactin, was discussed but will be held at this time, pending the trial of doxylamine for sleep. 6. Left Humeral Fracture The patient is recovering well from a left humeral fracture with non-operative management, per orthopedic follow-up. She was advised to continue the home exercises she was taught by her physical therapist. Discussion Notes I had a detailed discussion with the patient and her son regarding her complaint of severe insomnia. I explained my significant concern about prescribing a hypnotic medication like Ambien due to the high risk of falls, especially given her recent fracture, age, and need to urinate at night. We discussed that while her son is available to help, the risk of a fall and another fracture remains high while under the influence of such a medication. We agreed to first try Doxylamine, an [id number] antihistamine, as a milder alternative. I also reviewed her lab results, noting the chronic anemia. I explained that further blood work is needed to investigate the cause, and a lab request was placed to check her iron, B12, and folate levels. We also discussed her low protein levels and the importance of improving her nutritional intake and hydration. Finally, I reinforced the importance of continuing her home exercises, staying up to date on vaccinations, and following up for the cardiac event monitor. Patient Instructions - For sleep, a prescription for Doxylamine has been sent to your pharmacy. - Be aware that sleep medications increase your risk of falling. - You must call for your son's assistance if you need to get out of bed at night. - Do not take Naproxen and Celebrex at the same time. - You can try taking a probiotic supplement to help with your diarrhea. - Please go to the lab to have your blood drawn to check for the cause of your anemia. - Follow up with the hospital aide's office to get your heart event monitor. - Increase your daily water intake; try to drink three bottles of water per day. - Focus on eating a healthy diet and be sure to eat enough protein (fish, c hicken, etc.). - Continue to do the exercises that your physical therapist taught you. - Please check with your pharmacy about the date of your last pneumonia shot and let our office know. - Bring a copy of your advance directive paperwork to your next visit. - Stay away from anyone who is coughing or sneezing to avoid getting sick. Orders: Orders Complete Blood Count Auto Diff Today D64.9 - Anemia, unspecified IRON PROFILE Today D64.9 - Anemia, unspecified Thyroid Stimulating Hormone Today D64.9 - Anemia, unspecified Uric Acid Today D64.9 - Anemia, unspecified Magnesium Today D64.9 - Anemia, unspecified Comprehensive Met. Panel Today D64.9 - Anemia, unspecified Ferritin Today D64.9 - Anemia, unspecified Vitamin B12 and Folate Today D64.9 - Anemia, unspecified Vitamin D 25-OH Total Today D64.9 - Anemia, unspecified Free T4 (Free Thyroxine) Today D64.9 - Anemia, unspecified Lipid Panel Today D64.9 - Anemia, unspecified, E78.00 - Pure hypercholesterolemia, unspecified Reticulocyte Count Today D64.9 - Anemia, unspecified UA CC w/rflx Micro + Cult Today D64.9 - Anemia, unspecified, R30.0 - Dysuria Medications: New doxylamine succinate 25 mg PO BEDTIME PRN 20 tabs 0RF sleep G47.00 - Insomnia, unspecified Quality Reporting (2019) Depression/Bipolar (159/160/161/177) PHQ-9: Total score: 0 Coding Level of Care Code Medicare Subsequent (G0439) Diagnoses Medicare annual wellness visit, subsequent Z00.00 Orthostatic hypotension I95.1 Essential hypertension I10 Hypertension type: essential hypertension Fatty liver K76.0 Diverticular disease K57.90 Anemia, unspecified type D64.9 Anemia type: unspecified type Closed fracture of left proximal humerus S42. Encounter type: subsequent encounter Fracture alignment: displaced Fracture healing: with routine healing Recurrent falls R29.6 Insomnia G47.00
== END 2025-11-21 14:54 | disposition home or self-care (01) ==
LOC: HO.HMCH 13:45
PROVIDERS: PCP Internal Medicine; Visit Provider Internal Medicine
DX: Z00.00 Encounter for general adult medical examination without abnormal findings (principal); I95.1 Orthostatic hypotension; I10 Essential (primary) hypertension; K76.0 Fatty (change of) liver, not elsewhere classified; K57.90 Diverticulosis of intestine, part unspecified, without perforation or abscess without bleeding; D64.9 Anemia, unspecified; S42.202A Unspecified fracture of upper end of left humerus, initial encounter for closed fracture; R29.6 Repeated falls; G47.00 Insomnia, unspecified